=== PATIENT | male | born 1960 | race Caucasian/White ===

== ENCOUNTER 2016-10-28 16:24 | Emergency (ER) | payer MEDICARE ==
[2016-10-28] MEDS ORDERED: SODIUM CHLORIDE 0.9% 1,000 ML IV ONE (19:05)
== END 2016-10-28 21:37 | disposition home or self-care (01) ==
DX: R53.1 Weakness (principal); R26.9 Unspecified abnormalities of gait and mobility; I10 Essential (primary) hypertension; E10.42 Type 1 diabetes mellitus with diabetic polyneuropathy; Z79.4 Long term (current) use of insulin; E78.00 Pure hypercholesterolemia, unspecified; I25.2 Old myocardial infarction; I25.10 Atherosclerotic heart disease of native coronary artery without angina pectoris; Z98.61 Coronary angioplasty status; Z95.810 Presence of automatic (implantable) cardiac defibrillator; N40.0 Benign prostatic hyperplasia without lower urinary tract symptoms; K21.9 Gastro-esophageal reflux disease without esophagitis; M19.90 Unspecified osteoarthritis, unspecified site; Z79.82 Long term (current) use of aspirin; Z87.891 Personal history of nicotine dependence

== ENCOUNTER 2016-11-20 16:11 | Outpatient (CLI) | payer MEDICARE | END 2016-11-20 16:12 | disposition home or self-care (01) | DX: E10.65 Type 1 diabetes mellitus with hyperglycemia (principal) ==

== ENCOUNTER 2017-01-27 14:31 | Outpatient (CLI) | payer MEDICARE | END 2017-01-27 14:32 | disposition home or self-care (01) | DX: D69.2 Other nonthrombocytopenic purpura (principal) ==

== ENCOUNTER 2017-02-08 17:17 | Outpatient (CLI) | payer MEDICARE | END 2017-02-08 17:18 | disposition critical access hospital (66) | DX: R53.1 Weakness (principal); R26.2 Difficulty in walking, not elsewhere classified | CPT/HCPCS: A0425; A0427 ==

== ENCOUNTER 2017-02-08 17:34 | Emergency (ER) | payer MEDICARE ==
[2017-02-08] MEDS ORDERED: SODIUM CHLORIDE 0.9% 1,000 ML IV ONE (17:40)
[2017-02-08] MEDS ORDERED: ACETAMINOPHEN 650 MG SUPP PR STA (19:02)
[2017-02-08] MEDS ORDERED: oxyCODONE 5 MG TABLET PO STA (19:02)
[2017-02-08] MEDS ORDERED: ACETAMINOPHEN 325 MG TABLET PO STA (19:09)
[2017-02-08] MEDS ORDERED: ACETAMINOPHEN 325 MG TABLET PO ONE (19:11)
[2017-02-08] MEDS ORDERED: oxyCODONE 5 MG TABLET ONE (19:11)
== END 2017-02-08 19:42 | disposition home or self-care (01) ==
DX: E86.0 Dehydration (principal); E10.649 Type 1 diabetes mellitus with hypoglycemia without coma; E10.42 Type 1 diabetes mellitus with diabetic polyneuropathy; Z79.4 Long term (current) use of insulin; R51 Headache; I10 Essential (primary) hypertension; E78.00 Pure hypercholesterolemia, unspecified; I25.10 Atherosclerotic heart disease of native coronary artery without angina pectoris; I25.2 Old myocardial infarction; K21.9 Gastro-esophageal reflux disease without esophagitis; N40.0 Benign prostatic hyperplasia without lower urinary tract symptoms; M19.90 Unspecified osteoarthritis, unspecified site; Z79.82 Long term (current) use of aspirin; Z87.891 Personal history of nicotine dependence
CPT/HCPCS: 36415; 80053; 81003; 83690; 85025; 96360; 99284; A9270

== ENCOUNTER 2017-03-01 12:36 | Observation (INO) | payer MEDICARE ==
--- NOTE | 2017-03-01 14:52 | ED Physician Documentation ---
PD HPI FOCAL NEURO - Stated complaint Stated Complaint: LEFT SIDE NUMBNESS - Chief complaint Chief Complaint: Neuro - History obtained from History obtained from: Patient - History of Present Illness Timing - onset: Other (awoke with symptoms at 0800) Timing - details: Constant, Other (awoke with sx) Severity of deficit: Mild Weakness: No: Face, Arm, Hand, Leg, Foot, Right, Left Numbness: Face, Arm, Hand, Leg, Foot (chronic neuropathy in B feet), Left Associated symptoms: No: Headache, Nausea / vomiting, Seizure, Syncope, Fall, Head injury, Chest pain, Neck pain, Back pain Baseline status: positive: A&OX3, ambulatory, indep Similar symptoms before: Has not had sx before Recently seen: Not recently seen Review of Systems Ten Systems: 10 systems reviewed and negative Constitutional: denies: Fever, Chills Nose: denies: Rhinorrhea / runny nose, Congestion Respiratory: denies: Cough GI: denies: Abdominal Pain, Nausea, Vomiting Skin: denies: Rash Musculoskeletal: denies: Neck pain, Back pain Neurologic: denies: Focal weakness, Confused, Altered mental status PD PAST MEDICAL HISTORY - Past Medical History Cardiovascular: Hypertension, High cholesterol, Coronary artery disease, [place] Respiratory: Shortness of breath Neuro: Peripheral neuropathy Endocrine/Autoimmune: Type 1 diabetes, Other GI: GERD, Chronic diarrhea : Benign prostate hypertrophy, Other HEENT: None Psych: Depression, Anxiety, Panic attacks Musculoskeletal: Osteoarthritis - Past Surgical History Past Surgical History: Yes General: Colonoscopy, EGD Ortho: Carpal Tunnel surgery, Other Cardiovascular: Coronary stent, AICD, Cardiac catheterization HEENT: Other - Present Medications Home Medications: Ambulatory Orders Medication Instructions Recorded Confirmed Carvedilol 12.5 mg PO BID 09/04/14 02/08/17 Lisinopril 20 mg PO DAILY 09/04/14 03/01/17 Pantoprazole [Protonix] 40 mg PO BIDAC 09/04/14 03/01/17 Ranitidine HCl 300 mg PO QPM 09/04/14 03/01/17 Spironolactone 12.5 mg PO DAILY 09/04/14 03/01/17 Zolpidem Tartrate 10 mg PO QPM PRN 09/04/14 03/01/17 Multivitamin [Multi-Vitamin Daily] 1 each PO DAILY 09/12/14 03/01/17 oxyCODONE [Roxicodone] 5 mg PO Q4HR 02/25/15 03/01/17 Aspirin [Aspirin EC] 81 mg PO DAILY 10/07/16 03/01/17 Duloxetine HCl [Cymbalta] 60 mg PO BID 10/07/16 03/01/17 Insulin Lispro [Humalog] 1 - 11 units SQ .SLIDING SCALE 10/07/16 03/01/17 Lidocaine Patch 5% [Lidoderm Patch] 1 - 3 patch TOP DAILY PRN 10/07/16 03/01/17 Pregabalin [Lyrica] 300 mg PO BID 10/07/16 03/01/17 Alprazolam [Alprazolam] 0.25 mg PO BID PRN 03/01/17 03/01/17 Budesonide [Budesonide EC] 9 mg PO DAILY 03/01/17 03/01/17 Bupropion HCl [Bupropion Xl] 450 mg PO DAILY 03/01/17 03/01/17 Diclofenac Sodium [Voltaren] 4 gm TOP QID PRN 03/01/17 03/01/17 Hydrocortisone 10 mg PO QDBREAKFAST 03/01/17 03/01/17 Hydrocortisone [Cortef] 5 mg PO QDDINNER 03/01/17 03/01/17 Hydrocortisone [Cortef] 5 mg PO QDLUNCH 03/01/17 03/01/17 Nortriptyline HCl 20 mg PO 0800,1400 03/01/17 Simvastatin [Simvastatin] 80 mg PO QPM 03/01/17 03/01/17 Tamsulosin [Flomax] 0.4 mg PO DAILY 03/01/17 03/01/17 metFORMIN [Glucophage] 500 mg PO BIDWM 03/01/17 03/01/17 - Allergies Allergies/Adverse Reactions: Allergies Allergy/AdvReac Type Severity Reaction Status Date / Time No Known Drug Allergies Allergy Verified 03/01/17 12:40 - Social History Does the pt smoke?: No Smoking Status: Former smoker Does the pt drink ETOH?: No Does the pt have substance abuse?: No - Immunizations Immunizations are current?: Yes - POLST Patient has POLST: No PD ED PE NORMAL - Vitals Vital signs reviewed: Yes - General General: Alert and oriented X 3, No acute distress - HEENT HEENT: PERRL, Moist mucous membranes - Neck Neck: Supple, no meningeal sign - Cardiac Cardiac: RRR - Respiratory Respiratory: No respiratory distress, Clear bilaterally - Abdomen Abdomen: Soft, Non tender - Back Back: No CVA TTP, No spinal TTP - Derm Derm: Warm and dry, No rash - Extremities Extremities: No tenderness to palpate, No calf tenderness / cord - Neuro Neuro: Alert and oriented X 3, e d tech 2-12 intact, No motor deficit, Normal speech NIHSS - Time Time: 14:40 - Level of Consciousness Level of consciousness: (0) Alert, Keenly responsive LOC Questions: (0) Answers both Q's correct LOC Commands: (0) Performs both correctly - Gaze Best Gaze: (0) Normal - Visual Visual: (0) No loss - Facial Palsy Facial Palsy: (0) Normal, symmetrical movement - Motor Arms (both separate) Motor Arm (right): (0) No drift Motor Arm (left): (0) No drift - Motor Legs (both separate) Motor Leg (right): (0) No drift Motor Leg (left): (0) No drift - Limb Ataxia Limb Ataxia: (0) Absent - Sensory Sensory: (1) Conj-iv-dgquxocr loss - Best Language Best Language: (0) No aphasia - Dysarthria Dysarthria: (0) Normal - Extinction and Inattention (formally neg Extinction and inattention: (0) No abnormality - Total Score/Results Total Score/Result: 1 Results - Vitals Vitals: Vital Signs - 24 hr 03/01/17 03/01/17 03/01/17 12:37 14:40 17:06 Temperature 36.0 C L Heart Rate 90 82 80 Respiratory 18 16 16 Rate Blood Pressure 109/65 107/61 116/59 L O2 Saturation 99 97 100 Oxygen O2 Source [With Activity] Room air O2 Source Room air - EKG (time done) 1457 Rate: Rate (enter#) (78) Rhythm: NSR [place]: Normal Intervals: Normal [place] QRS: Normal Ischemia: Normal ST segments, Q waves (V2-5) Computer interpretation: Agree with computer - Labs Labs: Laboratory Tests 03/01/17 03/01/17 14:55 14:55 WBC 10.2 RBC 4.10 L Hgb 12.8 L Hct 37.7 L MCV 92.1 MCH 31.3 H MCHC 34.0 RDW 13.6 Plt Count 212 MPV 9.6 Neut # 7.5 H Lymph # 1.5 [place] # 1.0 Eos # 0.1 Baso # 0.1 Absolute Nucleated RBC 0.00 Nucleated RBCs 0.0 Sodium 134 L Potassium 5.0 Chloride 96 L Carbon Dioxide 31 Anion Gap 7.0 BUN 20 Creatinine 1.2 Estimated GFR (MDRD) 63 L Glucose 362 H Calcium 9.2 Total Bilirubin 0.4 AST 15 ALT 24 Alkaline Phosphatase 88 Total Protein 6.7 Albumin 3.9 Globulin 2.8 Albumin/Globulin Ratio 1.4 Lipase 22 - Rads (name of study) head CT Radiology: Prelim report reviewed, EMP read contemporaneously, See rad report ( Negative nonenhanced head CT. ) brain angio CT Radiology: Prelim report reviewed, EMP read contemporaneously, See rad report ( Unremarkable CT angiogram of the intracranial cerebral circulation. No aneurysm. No significant stenosis. 2. Note is made of near isolated right cerebral circulation. The right ICA terminates as the MCA, with right A1 segment aplastic. There is near origin of the right BOILER OPERATOR is continuation of the right P-comm. . The left vertebral artery is dominant forming the basilar artery. ) neck angio CT Radiology: Prelim report reviewed, EMP read contemporaneously, See rad report ( Unremarkable CT angiogram of the extracranial cerebral circulation. No significant atherosclerotic change or stenosis. No dissection. The left vertebral artery is dominant. The right vertebral artery is diffusely small in caliber. ) PD MEDICAL DECISION MAKING - ED course Complexity details: reviewed results, re-evaluated patient, considered differential, d/w patient, d/w loss prevention consultant ED course: Patient is a 56-year-old male who presents to the emergency department with left -sided numbness. This is over the face, upper extremity, chest, abdomen, left lower extremity. Concern for acute stroke. Symptoms have been ongoing for over 6 hours prior to arrival. Not a TPA candidate. NIH stroke scale of 1. Discussed the case with the hospitalist will place him observation for further evaluation. This document was made in part using voice recognition software. While efforts are made to proofread this document, sound alike and grammatical errors may occur. Departure - Departure Disposition: ED Place in Observation Clinical Impression: Paresthesia, Hyperglycemia Stroke Qualifiers: CVA mechanism: unspecified Qualified Code(s): I63.9 - Cerebral infarction, unspecified Condition: Stable Discharge Date/Time: 03/01/17 18:11
[2017-03-01 15:25] LABS: BASOPHILS # (AUTO) 0.1 10^3/uL (0.0-0.1); BASOPHILS % (AUTO) 0.6 %; EOSINOPHILS # (AUTO) 0.1 10^3/uL (0.0-0.7); EOSINOPHILS % (AUTO) 0.9 %; HCT - HEMATOCRIT 37.7 % (42.0-52.0); HGB - HEMOGLOBIN 12.8 g/dL (14.0-18.0); LYMPHOCYTES # (AUTO) 1.5 10^3/uL (1.5-3.5); LYMPHOCYTES % (AUTO) 14.6 %; MEAN CORPUSCULAR HEMOGLOBIN 31.3 pg (27.0-31.0); MEAN CORPUSCULAR VOLUME 92.1 fL (80.0-94.0); MEAN PLATELET VOLUME 9.6 fL (7.4-11.4); MONOCYTES % (AUTO) 9.8 %; NEUTROPHILS # (AUTO) 7.5 10^3/uL (1.5-6.6); NEUTROPHILS % (AUTO) 74.1 %; RED CELL DISTRIBUTION WIDTH 13.6 % (12.0-15.0); UNCORRECTED WHITE BLOOD COUNT 10.2 x10^3/uL; WHITE BLOOD COUNT 10.2 x10^3/uL (4.8-10.8)
[2017-03-01 15:36] LABS: ALBUMIN/GLOBULIN RATIO 1.4 (1.0-2.2); BILIRUBIN,TOTAL 0.4 mg/dL (0.2-1.0); CALCIUM 9.2 mg/dL (8.5-10.3); CREATININE 1.2 mg/dL (0.6-1.2); TOTAL PROTEIN 6.7 g/dL (6.7-8.2)
--- NOTE | 2017-03-01 15:42 | CT Preliminary Report ---
Exam: CT Head W/O IMPRESSION: Negative nonenhanced head CT. [facility] SITE ID: [id number]
--- NOTE | 2017-03-01 15:45 | CT Report ---
EXAM: CT HEAD EXAM DATE: 03/01/2017 03:34 PM. CLINICAL HISTORY: L sided numbness. COMPARISON: None. TECHNIQUE: Multiaxial CT images were obtained from the foramen magnum to the vertex. IV contrast: Non e. Reformats: Coronal. In accordance with CT protocol optimization, one or more of the following dose reduction techniques w ere utilized for this exam: automated exposure control, adjustment of mA and/or KV based on patient s ize, or use of iterative reconstructive technique. FINDINGS: Parenchyma: No intraparenchymal hemorrhage. No evidence of mass, midline shift, or CT findings of inf arction. Salgado-white differentiation is distinct. Extraaxial Spaces: Normal for age. No subdural or epidural collections identified. Ventricles: Normal in size and position. Sinuses: Imaged paranasal sinuses, orbits, and mastoids show no significant abnormality. Bones: No evidence of fracture or calvarial defect. Other: None. IMPRESSION: Negative nonenhanced head CT. [facility] Referring Provider Line: [phone] SITE ID: [id number]
[2017-03-01] MEDS ORDERED: ASPIRIN CHEW 81 MG TABLET PO STA (17:18)
[2017-03-01] MEDS ORDERED: ASPIRIN CHEW 81 MG TABLET ONE (17:19)
[2017-03-01] MEDS ORDERED: SODIUM CHLORIDE FLUSH 0.9% 10 ML SYRINGE IVP PRN (17:23)
[2017-03-01] MEDS ORDERED: IOPAMIDOL-300 100 ML VIAL IVP ONE (17:58)
--- NOTE | 2017-03-01 19:08 | CT Report ---
EXAM: CT ANGIOGRAM HEAD AND NECK . CT SCAN OF THE HEAD WITHOUT AND WITH CONTRAST. EXAM DATE: 03/01/2017 05:46 PM. CLINICAL HISTORY: L sided numbness. COMPARISON: CT scan of the head 03/01/2017, 10/28/2016. TECHNIQUE: Routine axial helical CTA imaging was performed from the aortic arch through the [place]. Routine axial helical CT imaging of the head was performed prior to and following intravenou s contrast administration. Iodinated IV contrast: 100 cc Isovue-300. Reconstructions: Routine multipl juan 3D MIP reconstructions. NASCET Criteria are used for stenosis measurements. In accordance with CT protocol optimization, one or more of the following dose reduction techniques w ere utilized for this exam: automated exposure control, adjustment of mA and/or KV based on patient s ize, or use of iterative reconstructive technique. FINDINGS: CT scan of the head without and with contrast: No acute intracranial abnormality. No infarct, mass, hemorrhage, or abnormal enhancement. The ventricles, sulci, and cisterns are unremarkable. The skull is intact. Opacification is seen at the left frontoethmoidal recess. The mastoid air cells are clear. CT angiogram of the extracranial cerebral circulation: Mild tortuosity of the aortic arch is seen. Note is made of conjoined origin of the right brachioceph alic and left common carotid arteries. Great vessels off the arch are patent. Right Carotid: The common carotid, internal carotid, and external carotid arteries are widely patent. No dissection, significant atherosclerotic plaque, or calcification identified. Left Carotid: The common carotid, internal carotid, and external carotid arteries are widely patent. No dissection, significant atherosclerotic plaque, or calcification identified. Vertebrals: The vertebrobasilar system shows no stenosis, dissection, aneurysm, or significant athero sclerotic disease. The left vertebral artery is dominant. The left vertebral artery forms the basilar artery. The right vertebral artery is small in caliber and terminates as the right PICA. CT angiogram Intracranial Circulation: Normal. No stenoses or aneurysms of the visualized vessels. The right A1 segment of the TRAVON is aplastic. Bilateral A2 segments are supplied from the left ICA thr ough a patent A-comm. There is near azygos appearance to the TRAVON arising from the left A2 segment. Sm all right A2 segment is seen. There is near origin of the right PICKLE SOLUTION MAKER is continuation of the right P-comm. P1 segment off the b asilar tip on the right is hypoplastic. The left P-comm is small in caliber but patent. The dural sinuses are patent and enhance normally. Other: The visualized lung apices are clear. The muscle and fascial planes of the neck are unremarkable. No lytic or blastic bony lesions are seen. No significant cervical spondylosis. Note is made of anter ior subluxation at the TMJ bilaterally. IMPRESSION: CT scan of the head without and with contrast: 1. Negative CT scan of the head without and with contrast. No acute abnormality. CT angiogram of the neck: 1. Unremarkable CT angiogram of the extracranial cerebral circulation. No significant atherosclerotic change or stenosis. No dissection. 2. The left vertebral artery is dominant. The right vertebral artery is diffusely small in caliber. CT angiogram of the head: 1. Unremarkable CT angiogram of the intracranial cerebral circulation. No aneurysm. No significant st enosis. 2. Note is made of near isolated right cerebral circulation. The right ICA terminates as the MCA, wit h right A1 segment aplastic. There is near origin of the right PICKLE SOLUTION MAKER is continuation of the right P-comm. 3. The left vertebral artery is dominant forming the basilar artery. [facility] Referring Provider Line: [phone] SITE ID: [id number]
[2017-03-01] MEDS ORDERED: SODIUM CHLORIDE 0.9% 1,000 ML IV SCH (19:30)
[2017-03-01] MEDS ORDERED: LIDOCAINE PATCH 5% TOP PRN (20:30)
[2017-03-01] MEDS ORDERED: ZOLPIDEM TARTRATE 10 MG PO PRN (20:30)
[2017-03-01] MEDS ORDERED: INSULIN LISPRO 1 UNIT SQ SCH (20:30)
[2017-03-01] MEDS ORDERED: ALPRAZOLAM 0.25 MG PO PRN (20:30)
[2017-03-01] MEDS ORDERED: ZOLPIDEM 5 MG TABLET PO PRN (20:52)
[2017-03-01] MEDS ORDERED: ALPRAZolam 0.25 MG TABLET PO PRN (20:52)
[2017-03-01] MEDS ORDERED: PREGABALIN 300 MG PO SCH (21:00)
[2017-03-01] MEDS ORDERED: NON FORMULARY MED (Duloxetine Hcl [Cymbalta] 60 MG) PO SCH (21:00)
[2017-03-01] MEDS ORDERED: HYDROCORTISONE 10 MG TABLET PO SCH (21:00)
[2017-03-01] MEDS ORDERED: NON FORMULARY MED (Simvastatin [Simvastatin] 80 MG) PO SCH (21:00)
[2017-03-01] MEDS: PANTOPRAZOLE 40 MG TABLET PO SCH (21:11)
[2017-03-01] MEDS: GABAPENTIN 300 MG CAPSULE PO SCH (21:11)
[2017-03-01] MEDS: oxyCODONE 5 MG TABLET PO SCH (21:11)
[2017-03-01] MEDS: CARVEDILOL 12.5 MG TABLET PO SCH (21:12)
[2017-03-01] MEDS: DULoxetine 30 MG CAPSULE PO SCH (21:24)
[2017-03-01] MEDS: PREGABALIN 100 MG CAPSULE PO SCH (21:25)
[2017-03-01] MEDS: SODIUM CHLORIDE FLUSH 0.9% 10 ML SYRINGE IVP SCH (21:27)
[2017-03-01] MEDS ORDERED: ATORVASTATIN 40 MG TABLET PO SCH (21:30)
[2017-03-01] MEDS ORDERED: FAMOTIDINE 20 MG TABLET PO SCH (22:30)
[2017-03-02] MEDS: oxyCODONE 5 MG TABLET PO SCH ×4 (00:37→14:07)
--- NOTE | 2017-03-02 04:00 | HISTORY & PHYSICAL EXAMINATION ---
DATE OF OBSERVATION: 03/01/2017. PRIMARY CARE PROVIDER: Dr. Jackson. CLOTH LAMINATING SUPERVISOR: Dr. Henry in [place], he last saw him about 6 weeks ago. CHIEF COMPLAINT: Woke up with numbness in his knee and wrist. HISTORY OF PRESENT ILLNESS: The patient is a 56-year-old male with a very lengthy medical history as noted below under past medical history with a corresponding lengthy list of medications also noted below. Most notable for type 1 diabetes since he was age 13 with a poorly controlled A1c of 9.8 currently, which he says is much better than usual and coronary artery disease status post AZ and ichemic cardiomyopathy status post AICD and an EF, of about 35% which he reports has been stable. Today upon awakening, he noted that he had a numbness sensation around his left knee and he also noted this in his left wrist and he felt it over a period of 4 hours. This sort of worked its way up his leg to his hip and up his arm. There was no associated discoordination, although he says he felt "unstable." There were no falls. There was no associated dysarthria, no trouble chewing or swallowing, and no prior history of the same. Of note, he is on daily aspirin at home, which he does not miss. He is also on a statin. In the emergency room, a CT showed no bleed. Of note, it is not clear what his sugars were at home today, but in the emergency room it was 362 and he denies having history of such paresthesias with his elevated glucoses. Of note, he is on medication for peripheral neuropathy. The ER spoke with [facility] who indicated no indication a thrombolytic. They recommended an MRI; however, the patient does have an AICD, so therefore, he was sent for a CTA of the neck and head. In the time frame that we have been doing the HPI on the patient, the CT angiogram results have actually come back. CT angiogram of the neck unremarkable. CT angiogram, no significant atherosclerotic change or stenosis, no dissection. Left vertebral artery is dominant and right vertebral artery diffusely small in caliber. CT angiogram of the head unremarkable. CT angiogram of the intracranial cerebral circulation, no aneurysm, no significant stenosis. Note is made of near isolated right cerebral circulation. The right ICA terminates at the MCA with a right A1 segment aplastic. There is near origin of the right CLIENT SERVICE MANAGER continuation of the right P communicating artery. The left vertebral artery is dominant forming the basilar artery. He is admitted for observation to evaluate for resolution of these paresthesias. PAST MEDICAL HISTORY 1. Diabetes mellitus type 1 since age 13 with an insulin pump. He has been seeing a Dr. Henry at [facility]. A1c as today is 9.8. 2. Coronary artery disease status post stent. His high school social studies teacher is a Dr. Reza at [facility]. 3. Ischemic cardiomyopathy with an EF of 35% and an AICD. 4. Hypertension. 5. Hyperlipidemia. 6. Obesity with a BMI of 34. 7. Osteoarthritis with chronic pain in the neck, shoulder, and hand. 8. History of depression and anxiety. 9. Panic attacks, which he denies recently. They were mostly associated with his AZ. 10. GERD. 11. BPH. 12. History of hypospadias. 13. Peripheral neuropathy. 14. A diagnosis of "new daily persistent headaches." He has established with a neurologist at [facility] in [place]. 15. Diabetic retinopathy. 16. History of microscopic colitis. The patient calls is collagenous colitis. 17. Irritable bowel syndrome. 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 SURGICAL HISTORY Includes 1. AICD implantation. 2. Trigger finger release x5. 3. Hypospadias repair. 4. Carpal tunnel release. 5. Colonoscopy and EGD. 6. Right foot tumor removal. 7. Sinus surgery x2. 8. Vasectomy. 9. Cardiac catheterization and stent placement. 10. Insulin pump. ALLERGIES: NO KNOWN DRUG ALLERGIES. MEDICATION LIST This was confirmed with the patient and by the pharmacist. 1. Flomax 0.4 mg once daily. 2. Simvastatin 80 mg once daily. 3. Metformin 500 mg p.o. b.i.d. 4. Hydrocortisone 5 mg daily at lunch and hydrocortisone 5 mg daily at dinner. 5. Diclofenac 4 grams topical 4 times daily as needed for pain. 6. The patient reports that the budesonide was stopped since he was now on hydrocortisone. That does not entirely make sense to me, but that is what the patient says. 7. Alprazolam 0.25 mg twice daily if needed for anxiety. 8. Hydrocortisone 10 mg p.o. at breakfast. 9. Multivitamin 1 each day. 10. Duloxetine 60 mg twice daily. 11. Ranitidine 300 mg once q.p.m. for GERD. 12. Lisinopril 20 mg once daily. 13. Lidocaine patch 1-3 patches topical as needed for neuropathy. 14. Zolpidem 10 mg daily at bedtime. 15. Spironolactone 12.5 mg once daily. 16. Pantoprazole 40 mg twice daily. 17. Pregabalin 300 mg twice daily. 18. Aspirin 81 mg once daily. 19. Bupropion 450 mg once daily. 20. Oxycodone 5 mg every 4 hours if needed for pain. 21. Coreg 12.5 mg twice daily. 22. The patient is no longer taking nortriptyline because he is now taking Lyrica for neuropathy. 23. He is taking Gabapentin 300 mg twice daily as well. 24. Salicylate 262 mg 3 times daily for his microscopic colitis. 25. Finally, insulin pump, which the patient manages himself. He does carb count and manages both the basal and the meal based bolus and correction. REVIEW OF SYSTEMS GENERAL: He denies any unintentional weight loss or weight gain. No fevers, night sweats, or lymphadenopathy. HEAD, EARS, EYES, NOSE AND THROAT: He does have retinopathy, wears glasses. No recent changes. No sore throat. No trouble chewing or swallowing, no dental problems. CARDIOVASCULAR: He denies any recent chest pain or pressure. No palpitations. No edema despite his EF of 35%. No orthopnea, no PND. He does sleep with the head of the bed elevated, primarily for his GERD. RESPIRATORY: No shortness of breath, cough or wheezing. GASTROINTESTINAL: He does have loose bowels daily, which are relatively well controlled with Evista for microscopic colitis. He previously was on budesonide , but he says that that was stopped in favor of hydrocortisone for Corby disease. He denies any hematochezia or black tarry stool. He does have dark stools because of the bismuth, but they are not sticky. GENITOURINARY: He has BPH and is on Flomax. He does note that he does have considerable hesitancy and that is not new. MUSCULOSKELETAL: Chronic pain with arthritis in his shoulders, neck, back, and ankles, for which he takes p.r.n. oxycodone. He denies any falls. He does not have any assistive device. SKIN: No skin changes. His insulin pump site has been without issues. He does note that he gets some "petechial-like" lesions on his forearms that his PCP worked up by checking platelet count, which is fine and he continues to get bruising. NEUROLOGIC: Peripheral neuropathy in his lower extremities. Otherwise, as per the HPI. He says that he has a very recent diagnosis of "new persistent daily headaches," which evidently is an ICD code; however, this was also already noted back in September, 6 months ago. PSYCHIATRIC: He reports his mood is controlled on his home medications. SOCIAL HISTORY: He was born and raised in the [facility], then he lived in [place], and 4 years ago moved to [place] near where his daughter lives. 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 He has 1 daughter nearby and another son lives in [place]. He is on disability since his heart attack in 2011. HABITS: He used to smoke, stopped in 2000, half pack a day for about 15 years. He has a very rare drink. No illicits. FAMILY HISTORY: Father had coronary artery disease, COPD, and prostate cancer. Evidently, also hypospadias. Father at age 86 due to COPD. His mother at age 52 due to metastatic lung cancer. He has 1 sister with diabetes and asthma and 1 sister with history of bladder cancer. PHYSICAL EXAMINATION VITAL SIGNS: In the emergency room, he was afebrile at 36.0, heart rate initially 90, when I rechecked it was 80, blood pressure 107/61-115/59, respiratory rate 16, and oxygenation 97-100% on room air. GENERAL: The patient was seen after admission to the floor following his CTA of the head and neck. He is a very pleasant, alert, oriented gentleman who has a slightly generous habitus. He is in no acute distress. Given his presenting symptoms of paresthesias in the left hand, it is noted during the exam that he uses his left upper extremity freely, especially in using his iPhone to look up information regarding his medications. HEAD, EYES, EARS, NOSE AND THROAT: He has very short, cropped hair. Head is normocephalic, atraumatic. He is wearing glasses. His extraocular movements are intact with no nystagmus. Pupils are equal. His extraocular movements are intact. Oral mucosa is moist. He has somewhat yellowed dentition. NECK: Has no appreciable lymphadenopathy. Carotids are +2. I do not appreciate any bruits. HEART: Somewhat distant S1, S2 with no appreciable extra sounds. No murmur. He does have an AICD under his skin. His periphery is warm. There is no mottling. He has no appreciable edema on his pretibial area. He does have what appears to be an old healed scar versus hemosiderin staining on his right garner. His radial pulses are +2. RESPIRATORY: Unlabored respirations lying flat. When he sits up, his breath sounds are clear to auscultation. GASTROINTESTINAL: His abdomen is generous. There is an insulin pump at the right lower abdomen. His abdomen is soft, nondistended, nontender with no appreciable organomegaly. No suprapubic tenderness. EXTREMITIES: No appreciable joint redness, pain, or pallor. Specifically, the left knee and the left wrist, with which he complained of paresthesias, were unremarkable in his hand. NEUROLOGIC: He is alert, oriented, appropriate. Cranial nerves 2-12 are intact with extraocular movements intact. Pupils are reactive. His face is symmetric. His smile is without droop. Tongue is midline. Shoulder shrug and head turning are normal. He can do rapid alternating movements with no trouble. He is articulate in speech and has a negative drift as noted initially. He is using his left hand freely with no discoordination. DIAGNOSTIC STUDIES AND IMAGING: As above, CT of the brain showed no acute findings. Findings of the CT angio of the head and neck are as detailed in the H and P. LABORATORY STUDIES: White count 10.2, hemoglobin 12.8, hematocrit 37.2, platelets 212,000. Sodium 134, potassium 5.0, chloride 96, bicarbonate 31, BUN 20, creatinine 1.2, glucose 362. An A1c measured here was 9.8. EKG showed normal sinus rhythm with normal axis with a rate of approximately 78 with evidence of an old anterior infarct. ASSESSMENT AND PLAN 1. Possible transient ischemic attack. The presentation of the paresthesia is somewhat unusual for TIA ,and with negative imaging persists. He has no functional limitation on that side. There were no other corresponding deficits. As noted, the CT imaging is unremarkable. We will consider speaking with the neurologist tomorrow. If there is any reason whatsoever that the second finding on the CT angiogram of the head with "near isolated right cerebral circulation findings" would for any reason warrant dual antiplatelet therapy since he was already on aspirin coming in,we will consider discussing this with Neurology in the morning. Again, his neurologic exam is still unremarkable. I suspect they would not have any further intervention. He will continue on his aspirin and statin and he also needs better glucose control. He will have neuro checks overnight. Possibly this could be a neuropathy from his uncontrolled blood sugars. 2. Diabetes mellitus type 1 with poor control. This appears to be chronic. With his A1c of 9.8, he says it is actually far better that it had been. He is already followed by an garment mender. He will be managing his insulin pump on his own tonight. He manages his own prandial insulin, as well as correctional insulin and does do carb counting. The patient to have close followup with his garment mender for better control. 3. Coronary artery disease. He continues on his aspirin, statin, beta-haylee, and ROBYN inhibitor. 4. Compensated systolic heart failure. He says his EF of 35% has been quite stable. He also has no symptoms of decompensation, he does not weigh himself daily, does not know what his dry weight is. He continues on his beta-haylee, spironolactone, and ROBYN inhibitor, and ideally should follow a low salt diet at home. He also will continue on his daily Lasix. 5. Microscopic colitis. He continues on his hydrocortisone, which he says has replaced Enterocort. He also uses bismuth. (I think he may have been missstating that the hydrocortisonei is for his microscopic colitis, but he clearly stated this replaced the enterocort. 6. 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 His blood pressure is fine. His sodium is fine. He will continue on his t.i.d. dosing of hydrocortisone. 7. Depression and anxiety. He will continue on his rather high dose bupropion, p.r.n. Xanax, off his rather high dose of Cymbalta. 8. Peripheral neuropathy. He is on gabapentin, which was reduced since the addition of Lyrica to 300 mg twice daily and continue Lyrica 300 mg twice daily. 9. Benign prostatic hypertrophy. He continues on his home Flomax. It sounds like he is having considerable hesitancy, so he can follow up with his urologist and have that reevaluated, possibly need an increased dose. 10. COR STATUS: HE IS A FULL COR. 11. Venous thromboembolism prophylaxis. I anticipate he will be discharged early tomorrow, so there is no indication for venous thromboembolism prophylaxis. 20:9:00 JOB #: [id number] EXT JOB #:[id number] MTDEber
[2017-03-02] MEDS: SODIUM CHLORIDE FLUSH 0.9% 10 ML SYRINGE IVP SCH (05:12)
[2017-03-02 05:40] LABS: CALCIUM 9.2 mg/dL (8.5-10.3); CREATININE 0.8 mg/dL (0.6-1.2); POTASSIUM 4.4 mmol/L (3.5-5.0)
[2017-03-02] MEDS: PANTOPRAZOLE 40 MG TABLET PO SCH (06:15)
[2017-03-02] MEDS ORDERED: MULTIVITAMIN TABLET PO SCH (08:00)
[2017-03-02] MEDS ORDERED: metFORMIN 500 MG TABLET PO SCH (08:00)
[2017-03-02] MEDS ORDERED: HYDROCORTISONE 10 MG TABLET PO SCH ×2 (08:00→12:00)
[2017-03-02] MEDS: DULoxetine 30 MG CAPSULE PO SCH (08:31)
[2017-03-02] MEDS: GABAPENTIN 300 MG CAPSULE PO SCH (08:31)
[2017-03-02] MEDS: CARVEDILOL 12.5 MG TABLET PO SCH (08:32)
[2017-03-02] MEDS: PREGABALIN 100 MG CAPSULE PO SCH (08:32)
[2017-03-02] MEDS ORDERED: TAMSULOSIN 0.4 MG CAPSULE PO SCH (09:00)
[2017-03-02] MEDS ORDERED: LISINOPRIL 20 MG TABLET PO SCH (09:00)
[2017-03-02] MEDS ORDERED: NON FORMULARY MED (Multivitamin [Multi-Vitamin Daily] 1 EACH) PO SCH (09:00)
[2017-03-02] MEDS ORDERED: ASPIRIN EC 81 MG TABLET PO SCH (09:00)
[2017-03-02] MEDS ORDERED: ENOXAPARIN 40 MG/0.4 ML SYRINGE SUBQ SCH (09:00)
[2017-03-02] MEDS ORDERED: POLYETHYLENE GLYCOL 3350 17 GM PACKET PO SCH (09:00)
[2017-03-02] MEDS ORDERED: buPROPion XL 150 MG TABLET PO SCH (09:00)
[2017-03-02] MEDS ORDERED: SPIRONOLACTONE 25 MG TABLET PO SCH (09:00)
--- NOTE | 2017-03-02 12:17 | PROVIDER PROGRESS NOTE ---
Assessment/Plan - Problem List (1) Paresthesia Assessment/Plan: Unclear etiology Atypical presentation for TIA/CVA as the area of effect is limited to the left anterior thigh and knee and the left forarm and elbow Differential include inflammatory response in leading to nerve conduction deficits. Unable to perform MRI due to AICD Plan ECHO with bubble study. 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 I do not suspect this as the source for his presenting Sx. (2) Type 1 diabetes mellitus Qualifiers: Diabetes mellitus complication status: without complication Qualified Code( s): E10.9 - Type 1 diabetes mellitus without complications Assessment/Plan: Poorly controlled PT with neuropathy secondary to DM Plan Improved control through life style changes Wt loss (3) CAD (coronary artery disease) Qualifiers: Coronary Disease-Associated Artery/Lesion type: squaxin artery [place] vs. transplanted heart: squaxin heart Associated angina: without angina Qualified Code(s): I25.10 - Atherosclerotic heart disease of squaxin coronary artery without angina pectoris Assessment/Plan: PT will maintain ASA, BB, ACEi and Statin. Encourage lifestyle modification and risk factor reduction. Wt loss with a goal of BMI <25. Better control of DM (5) Cardiomyopathy Qualifiers: Cardiomyopathy type: ischemic Qualified Code(s): I25.5 - Ischemic cardiomyopathy Assessment/Plan: Initial LVEF 35% LVEF on last echo 09/2016 of 45-50% Pt is on ACEi and BB at baseline AICD was placed in 2011 No evidence of CHF exacerbation Plan Continue home medications Rechecking ECHO today due to his parasthesia on presentation for admission (6) Corby disease Assessment/Plan: Controlled on TID hydrocortisone - Current Meds Current Meds: Current Medications Generic Name Dose Route Start Last Admin Trade Name Freq PRN Reason Stop Dose Admin Aspirin 81 mg 03/02/17 09:00 03/02/17 08:31 Ecotrin PO 81 mg DAILY ASHANTI Administration Atorvastatin Calcium 40 mg 03/01/17 21:30 03/01/17 21:25 Lipitor PO 40 mg QPM ASHANTI Administration Bupropion HCl 450 mg 03/02/17 09:00 03/02/17 08:32 Wellbutrin Xl PO 450 mg DAILY ASHANTI Administration Carvedilol 12.5 mg 03/01/17 21:00 03/02/17 08:32 Coreg PO 12.5 mg BID ASHANTI Administration Duloxetine HCl 60 mg 03/01/17 21:00 03/02/17 08:31 Cymbalta PO 60 mg BID ASHANTI Administration Enoxaparin Sodium 40 mg 03/02/17 09:00 03/02/17 08:32 Lovenox SUBQ Not Given DAILY ASHANTI Famotidine 40 mg 03/01/17 22:30 03/01/17 22:58 Pepcid PO 40 mg QPM ASHANTI Administration Gabapentin 300 mg 03/01/17 21:00 03/02/17 08:31 Neurontin PO 300 mg BID ASHANTI Administration Hydrocortisone 5 mg 03/01/17 21:00 03/01/17 21:11 Cortef PO 5 mg QDDINNER ASHANTI Administration Hydrocortisone 10 mg 03/02/17 08:00 03/02/17 07:53 Cortef PO 10 mg QDBREAKFAST ASHANTI Administration Lisinopril 20 mg 03/02/17 09:00 03/02/17 08:32 Zestril PO 20 mg DAILY ASHANTI Administration Metformin HCl 500 mg 03/02/17 08:00 03/02/17 07:54 Glucophage PO Not Given BIDWM [facility] Multivitamins 1 tab 03/02/17 08:00 03/02/17 07:53 Theragran PO 1 tab DAILYWM ASHANTI Administration Oxycodone HCl 5 mg 03/01/17 21:00 03/02/17 08:32 Roxicodone PO 5 mg Q4HR ASHANTI Administration Pantoprazole Sodium 40 mg 03/01/17 21:00 03/02/17 06:15 Protonix PO 40 mg BIDAC ASHANTI Administration Polyethylene Glycol 17 gm 03/02/17 09:00 03/02/17 08:32 Miralax PO Not Given DAILY ASHANTI Pregabalin 300 mg 03/01/17 21:00 03/02/17 08:32 Lyrica PO 300 mg BID ASHANTI Administration Sodium Chloride 10 ml 03/01/17 22:00 03/02/17 05:12 Normal Saline Flush 0.9% IVP Not Given Q8HR ASHANTI Spironolactone 12.5 mg 03/02/17 09:00 03/02/17 08:31 Aldactone PO 12.5 mg DAILY ASHANTI Administration - Lab Result Fish Bone Diagrams: 03/01/17 14:55 03/02/17 05:04 - EKG Results EKG Comparison: Unchanged from prior EKG - Diagnostic Imaging Results Diagnostic Imaging Results: positive: Prelim report reviewed (No acute intracranial findings on CT or CTA) - Additional Planning My Orders: My Active Orders 03/02/17 Echo Complete w/Bubble Study [ECHO] Routine Plan Discussed with:: Patient Time Spent: 15-30 minutes Subjective - Subjective Patient Reports: Other (PT noted the numbness and tingling return in his hand and leg today. He can not recall an exacerbating or relieving source. He has no change in functionality. HE has no other complaints) Objective Vital Signs: Vital Signs - 24 hr 03/01/17 03/01/17 03/02/17 20:55 23:31 05:12 Temperature 36.7 C 36.6 C 36.6 C Heart Rate [ 78 75 68 Brachial] Respiratory 16 17 17 Rate Blood Pressure 127/66 126/76 112/71 [Left Brachial artery] O2 Saturation 95 95 94 03/02/17 07:24 Temperature 36.6 C Heart Rate [ 84 Brachial] Respiratory Rate Blood Pressure 136/75 H [Left Brachial artery] O2 Saturation 95 Oxygen O2 Source Room air I&O (Last 24 Hrs): Intake and Output Totals x24h 02/28/17 03/01/17 03/02/17 23:59 23:59 23:59 Intake Total 620 1530 Balance 620 1530 General: Alert, Oriented x3, No acute distress HEENT: PERRLA, EOMI Neck: No JVD Neuro: Alert, Non Focal, CN 2-12 Grossly Intact, Oriented Times 3 Cardiovascular: Regular rate, No murmurs Respiratory: No respiratory distress, Breath sounds nml - Results Results: Laboratory Results WBC 10.2 x10^3/uL (4.8-10.8) 03/01/17 14:55 RBC 4.10 10^6/uL (4.70-6.10) L 03/01/17 14:55 Hgb 12.8 g/dL (14.0-18.0) L 03/01/17 14:55 Hct 37.7 % (42.0-52.0) L 03/01/17 14:55 MCV 92.1 fL (80.0-94.0) 03/01/17 14:55 MCH 31.3 pg (27.0-31.0) H 03/01/17 14:55 MCHC 34.0 g/dL (32.0-36.0) 03/01/17 14:55 RDW 13.6 % (12.0-15.0) 03/01/17 14:55 Plt Count 212 10^3/uL (130-450) 03/01/17 14:55 MPV 9.6 fL (7.4-11.4) 03/01/17 14:55 Neut # 7.5 10^3/uL (1.5-6.6) H 03/01/17 14:55 Lymph # 1.5 10^3/uL (1.5-3.5) 03/01/17 14:55 Perry # 1.0 10^3/uL (0.0-1.0) 03/01/17 14:55 Eos # 0.1 10^3/uL (0.0-0.7) 03/01/17 14:55 Baso # 0.1 10^3/uL (0.0-0.1) 03/01/17 14:55 Absolute Nucleated RBC 0.00 x10^3/uL 03/01/17 14:55 Nucleated RBCs 0.0 /100WBC 03/01/17 14:55 Sodium 136 mmol/L (135-145) 03/02/17 05:04 Potassium 4.4 mmol/L (3.5-5.0) 03/02/17 05:04 Chloride 99 mmol/L (101-111) L 03/02/17 05:04 Carbon Dioxide 31 mmol/L (21-32) 03/02/17 05:04 Anion Gap 6.0 (6-13) 03/02/17 05:04 BUN 17 mg/dL (6-20) 03/02/17 05:04 Creatinine 0.8 mg/dL (0.6-1.2) 03/02/17 05:04 Estimated GFR (MDRD) 100 (>89) 03/02/17 05:04 Glucose 268 mg/dL (70-100) H 03/02/17 05:04 Calcium 9.2 mg/dL (8.5-10.3) 03/02/17 05:04 Total Bilirubin 0.4 mg/dL (0.2-1.0) 03/01/17 14:55 AST 15 IU/L (10-42) 03/01/17 14:55 ALT 24 IU/L (10-60) 03/01/17 14:55 Alkaline Phosphatase 88 IU/L (42-121) 03/01/17 14:55 Total Protein 6.7 g/dL (6.7-8.2) 03/01/17 14:55 Albumin 3.9 g/dL (3.2-5.5) 03/01/17 14:55 Globulin 2.8 g/dL (2.1-4.2) 03/01/17 14:55 Albumin/Globulin Ratio 1.4 (1.0-2.2) 03/01/17 14:55 Lipase 22 U/L (22-51) 03/01/17 14:55 - Procedures Procedures: Procedures EXPLOR TEND SHEATH-HAND (09/13/14)
--- NOTE | 2017-03-02 15:30 | Discharge Plan ---
Discharge Plan Disposition: 01 Home, Self Care Condition: Stable Prescriptions: Atorvastatin [Lipitor] 80 mg PO QPM #90 tablet Diet: Low Sodium Activity Restrictions: No Restrictions Shower Restrictions: No Driving Restrictions: No Weight Bearing: Full Weight Additional Instructions or Follow Up instructions: Please talk to your PCP about a consult to neurology. No Smoking: If you smoke, Please STOP! Call for help. Follow-up with: Amadou Jackson MD [Primary Care Provider] -
[2017-03-02 16:36] VITALS: BP 101/60
--- NOTE | 2017-03-02 18:00 | DISCHARGE SUMMARY ---
DATE OF ADMISSION: 03/01/2017 DATE OF DISCHARGE: 03/02/2017 DISCHARGING PHYSICIAN: Austen Lora PA-C. PRIMARY CARE PROVIDER: Dr. Jackson. ADMITTING DIAGNOSES: 1. Possible transient ischemic attack. 2. Diabetes mellitus type 1 with poor control. 3. Coronary artery disease. 4. Compensated systolic heart failure. DISCHARGE DIAGNOSES: 1. Paraesthesia, a unclear etiology, be atypical presentation for transient ischemic attack or cerebr ovascular accident. See no acute findings on head CT or CTA of head and neck. The echo with bubble st udy unchanged compared to previous with a left ventricular ejection fraction 45% to 50%. 2. Diabetes mellitus type 1 - poorly controlled with associated diabetic neuropathy. 3. Coronary artery disease - stable. 4. Cardiomyopathy with left ventricular ejection fraction of 45-50%. 5. Automatic implantable cardiac defibrillator in situ. 6. Corby disease. DISCHARGE MEDICATIONS: 1. Gabapentin 300 mg p.o. b.i.d. 2. Hydrocortisone 10 mg at breakfast, 5 mg at lunch and dinner. 3. Lisinopril 20 mg daily. 4. Metformin 500 mg b.i.d.. 5. Oxycodone 5 mg every 4 hours as needed for pain. 6. Lyrica 300 mg b.i.d.. 7. Spironolactone 12.5 mg daily. 8. Carvedilol 12.5 mg p.o. b.i.d.. 9. Wellbutrin 450 mg p.o. daily. 10. Atorvastatin 80 mg daily. 11. Aspirin 81 mg daily. 12. Cymbalta 60 mg daily. BRIEF HISTORY OF PRESENT ILLNESS: For specifics please see H and P on admission. This is a gentleman who presented for evaluation of numbness in his knee and wrist. He woke up with numbness and felt shalini t it had slowly increased. He was unaware of any exacerbating or relieving factors. In the emergency room a CT showed no evidence of bleeding. ER physician spoke with Neurology at [facility] who did not indicate a need for thrombolytic therapy. MRI was recommended, but the patient had an AI CD, therefore, this was not performed. He did have a CT of his head and neck. COURSE IN CENTER: The patient was admitted to the hospital for continued observation. Official interp retation from CT angiogram was obtained which again showed no indication for thrombolytic therapy. Th e patient was placed on his home medications with the exception of the statin which was changed to Li pitor. He did well throughout the stay. He did have another episode of numbness in his anterior proxi mal to mid left thigh and dorsal left forearm. He had no other acute neural focal findings during his hospitalization. Had no significant findings on exam, even with the numbness present. The patient francis d known history of cardiomyopathy with prior echocardiogram showed a left ventricular ejection fracti on of 35%. A repeat study was performed including a bubble study. The results showed an ejection frac tion of 45-50% with no PFO present. We were unable to perform an MRI due to AICD in situ. Newer [facility] es are able to undergo MRI; however, we are uncertain of the patient's ability as his was 5 years old . The patient was discharged home in a stable condition. At time of discharge, he was not experiencing any numbness in his leg or his arm. IMAGIN. CT angiogram of the head unremarkable. CT angiogram of the intracranial cerebral circulation, no a neurysm, no significant stenosis. 2. Note is made of near isolated right cerebral circulation, the right ICA terminates at the MCA, wit h right A1 segment aplastic. There is near origin of the right SEGMENT ASSEMBLER and continuation of the righ t posterior common artery. 3. CT angiogram of the neck unremarkable CTA of the extracranial cerebral circulation. No significant atherosclerotic changes or stenosis, no dissection. CT scan of head without and with contrast negati ve CT scan of the head, no acute abnormalities. 4. Echocardiogram, left ventricular ejection fraction 45% to 50%. Wall motion abnormalities consisten t with prior infarction were present. Bubble study was negative. LABORATORY DATA: Lab from a.m. showed sodium 136, potassium 4.4, chloride 99, carbon dioxide 31, anio n gap 6.0, BUN 17, creatinine 0.8. Glucose elevated at 268. CBC on admission, white blood cell 10.2, hemoglobin 12.8, hematocrit 37.7, platelet 212. PHYSICAL EXAMINATION ON DISCHARGE: GENERAL: A well-developed, well-nourished, no acute distress. HEENT: Normocephalic, atraumatic. Pupils equal, round, reactive to light. EOMs intact. NECK: Supple. No JVD. CHEST: Clear to auscultation. CARDIOVASCULAR: Regular rate and rhythm. ABDOMEN: Benign. EXTREMITIES: Full range of motion. No gross abnormalities. Strength equal bilaterally. Radial pulses 2+ bilaterally. Pedal pulses 2+ bilaterally. NEUROLOGIC: Cranial nerves 2-12 grossly intact. No acute neural focal deficits appreciated on exam. DIETARY RECOMMENDATIONS: Consistent carbohydrate diet with fat and cholesterol modification. ACTIVITY: Encourage activity daily. TIME SPENT ON DISCHARGE: Greater than 30 minutes. Thank you for the opportunity to participate in the care of the patient. JOB #: [id number] EXT JOB #:[id number]
[2017-03-03] MEDS ORDERED: TAMSULOSIN 0.4 MG CAPSULE PO SCH (14:00)
== END 2017-03-02 16:20 | disposition home or self-care (01) ==
LOC: ED 12:36 → MS 17:23
PROVIDERS: ADMIT Nurse Practitioner; ATTEND Physician Assistant
DX: R20.2 Paresthesia of skin (principal); E10.65 Type 1 diabetes mellitus with hyperglycemia; E10.42 Type 1 diabetes mellitus with diabetic polyneuropathy; I25.10 Atherosclerotic heart disease of native coronary artery without angina pectoris; I25.5 Ischemic cardiomyopathy; Z95.810 Presence of automatic (implantable) cardiac defibrillator; E27.1 Primary adrenocortical insufficiency; I11.0 Hypertensive heart disease with heart failure; I50.20 Unspecified systolic (congestive) heart failure; E78.5 Hyperlipidemia, unspecified; E66.9 Obesity, unspecified; Z68.34 Body mass index [BMI] 34.0-34.9, adult; G89.29 Other chronic pain; M19.90 Unspecified osteoarthritis, unspecified site; F32.9 Major depressive disorder, single episode, unspecified; F41.9 Anxiety disorder, unspecified; K21.9 Gastro-esophageal reflux disease without esophagitis; N40.1 Benign prostatic hyperplasia with lower urinary tract symptoms; R39.11 Hesitancy of micturition; K58.9 Irritable bowel syndrome, unspecified; Z95.5 Presence of coronary angioplasty implant and graft; Z79.4 Long term (current) use of insulin; Z79.84 Long term (current) use of oral hypoglycemic drugs; Z79.51 Long term (current) use of inhaled steroids; Z79.82 Long term (current) use of aspirin; Z79.891 Long term (current) use of opiate analgesic; Z79.899 Other long term (current) drug therapy; Z96.41 Presence of insulin pump (external) (internal)
CPT/HCPCS: 36415; 70450; 70496; 70498; 80048; 80053; 83690; 85025; 93005; 93010; 93306; 96360; 96361; 99217; 99218; 99284; 99285; A9270; Q9967

== ENCOUNTER 2017-03-07 14:14 | Outpatient (CLI) | payer MEDICARE | END 2017-03-07 14:15 | disposition critical access hospital (66) | LOC: EMS 14:14 | PROVIDERS: ATTEND Surgery | DX: R06.02 Shortness of breath (principal) | CPT/HCPCS: A0425; A0429 ==

== ENCOUNTER 2017-03-07 14:27 | Emergency (ER) | payer MEDICARE ==
[2017-03-07] MEDS ORDERED: IPRATROPIUM/ALBUTEROL 3 ML NEB INH STA (14:37)
[2017-03-07] MEDS ORDERED: BUDESONIDE 0.5 MG/2 ML NEB INH STA (14:37)
--- NOTE | 2017-03-07 14:41 | ED Physician Documentation ---
PD HPI DYSPNEA - Stated complaint Stated Complaint: DYSPNEA - Chief complaint Chief Complaint: Resp - History obtained from History obtained from: Patient - History of Present Illness Timing - onset: Other (This is a 56-year-old gentleman with history of diabetes since age 13, and coronary disease with ischemic cardiomyopathy and AICD in place, he also has a relatively recent diagnosis of Corby's disease and COPD. He develops some chest congestion about 5 days ago which over the last 2-3 days he developed more of a cough productive of clear sputum and some shortness of breath without any chest pain or pedal edema. He saw his physician yesterday and was noted to have a pulse oximetry of 94% which improved a little bit after nebulizer and office and was prescribed Pro-air and doxycycline. Today he feels a little worse with some or shortness of breath and some dizziness when he is exerting himself. He doesn't feel too bad overall though and says he only came by ambulance because his physician advised not to drive and he did not have alternate transportation.) Review of Systems Ten Systems: 10 systems reviewed and negative Constitutional: denies: Fever, Chills Nose: denies: Rhinorrhea / runny nose, Congestion Cardiac: denies: Chest pain / pressure, Palpitations, Pedal edema, Calf pain Respiratory: reports: Dyspnea, Cough, Wheezing. denies: Hemoptysis GI: denies: Abdominal Pain PD PAST MEDICAL HISTORY - Past Medical History Cardiovascular: Hypertension, High cholesterol, Coronary artery disease, [place] Respiratory: Shortness of breath Neuro: Peripheral neuropathy Endocrine/Autoimmune: Type 1 diabetes, Other GI: GERD, Chronic diarrhea : Benign prostate hypertrophy, Other HEENT: None Psych: Depression, Anxiety, Panic attacks Musculoskeletal: Osteoarthritis Derm: None - Past Surgical History Past Surgical History: Yes General: Colonoscopy, EGD Ortho: Carpal Tunnel surgery, Other Cardiovascular: Coronary stent, AICD, Cardiac catheterization HEENT: Other - Present Medications Home Medications: Ambulatory Orders Medication Instructions Recorded Confirmed Carvedilol 12.5 mg PO BID 09/04/14 03/02/17 Lisinopril 20 mg PO DAILY 09/04/14 03/01/17 Pantoprazole [Protonix] 40 mg PO BIDAC 09/04/14 03/01/17 Ranitidine HCl 300 mg PO QPM 09/04/14 03/01/17 Spironolactone 12.5 mg PO DAILY 09/04/14 03/01/17 Zolpidem Tartrate 10 mg PO QPM PRN 09/04/14 03/01/17 Multivitamin [Multi-Vitamin Daily] 1 each PO DAILY 09/12/14 03/01/17 oxyCODONE [Roxicodone] 5 mg PO Q4HR PRN 02/25/15 03/01/17 Aspirin [Aspirin EC] 81 mg PO DAILY 10/07/16 03/01/17 Duloxetine HCl [Cymbalta] 60 mg PO BID 10/07/16 03/01/17 Insulin Lispro [Humalog] 1 - 11 units SQ .SLIDING SCALE 10/07/16 03/01/17 Lidocaine Patch 5% [Lidoderm Patch] 1 - 3 patch TOP DAILY PRN 10/07/16 03/01/17 Pregabalin [Lyrica] 300 mg PO BID 10/07/16 03/01/17 Alprazolam 0.25 mg PO BID PRN 03/01/17 03/01/17 Bupropion HCl [Bupropion Xl] 450 mg PO DAILY 03/01/17 03/01/17 Diclofenac Sodium [Voltaren] 4 gm TOP QID PRN 03/01/17 03/01/17 Hydrocortisone 5 mg PO QDBREAKFAST 03/01/17 03/02/17 Hydrocortisone [Cortef] 5 mg PO QDDINNER 03/01/17 03/01/17 Nortriptyline HCl 20 mg PO 0800,1700 03/01/17 03/02/17 Tamsulosin [Flomax] 0.4 mg PO DAILY@1500 03/01/17 03/02/17 metFORMIN [Glucophage] 500 mg PO BIDWM 03/01/17 03/01/17 Atorvastatin [Lipitor] 80 mg PO QPM #90 tablet 03/02/17 Gabapentin [Neurontin] 300 mg PO BID capsule 03/02/17 Hydrocortisone [Cortef] 5 mg PO QDLUNCH tablet 03/02/17 Beclomethasone 80 Mcg [Qvar 80] 2 puffs INH BID #1 inhaler 03/07/17 - Allergies Allergies/Adverse Reactions: Allergies Allergy/AdvReac Type Severity Reaction Status Date / Time No Known Drug Allergies Allergy Verified 03/01/17 12:40 - Social History Does the pt smoke?: No Smoking Status: Former smoker Does the pt drink ETOH?: No Does the pt have substance abuse?: No - Immunizations Immunizations are current?: Yes - POLST Patient has POLST: No PD ED PE NORMAL - Vitals Vital signs reviewed: Yes - General General: Alert and oriented X 3, No acute distress - HEENT HEENT: PERRL, EOMI - Neck Neck: Supple, no meningeal sign, No bony TTP - Cardiac Cardiac: RRR, No murmur - Respiratory Respiratory: No respiratory distress, Other (Tight and wheezy throughout) - Abdomen Abdomen: Soft, Non tender - Extremities Extremities: No edema, No calf tenderness / cord - Neuro Neuro: Alert and oriented X 3, Normal speech - Psych Psych: Normal mood, Normal affect Results - Vitals Vitals: Vital Signs - 24 hr 03/07/17 03/07/17 03/07/17 14:32 15:05 15:36 Temperature 36.4 C L 36.6 C Heart Rate 88 89 88 Respiratory 16 17 12 Rate Blood Pressure 109/56 L 107/65 O2 Saturation 93 93 Oxygen O2 Source [] Room air O2 Source Room air - EKG (time done) 1458 Rate: Rate (enter#) (86) Rhythm: NSR [place]: Normal Intervals: Normal [place] QRS: Normal Ischemia: Q waves (anterior) Compare to prior EKG: Unchanged from prior EKG (no change from 03/07/17) Computer interpretation: Agree with computer - Labs Labs: Laboratory Tests 03/07/17 03/07/17 03/07/17 14:35 14:35 14:35 WBC 8.8 RBC 4.14 L Hgb 13.2 L Hct 37.6 L MCV 90.8 MCH 31.8 H MCHC 35.0 RDW 13.5 Plt Count 222 MPV 9.4 Neut # 6.1 Lymph # 1.6 [place] # 0.8 Eos # 0.2 Baso # 0.1 Absolute Nucleated RBC 0.00 Nucleated RBCs 0.0 Sodium 139 Potassium 4.3 Chloride 100 L Carbon Dioxide 29 Anion Gap 10.0 BUN 22 H Creatinine 1.1 Estimated GFR (MDRD) 69 L Glucose 165 H Calcium 9.9 Total Bilirubin 0.4 AST 19 ALT 24 Alkaline Phosphatase 73 Troponin I < 0.04 B-Natriuretic Peptide Total Protein 7.1 Albumin 4.1 Globulin 3.0 Albumin/Globulin Ratio 1.4 Lipase 11 L 03/07/17 14:35 WBC RBC Hgb Hct MCV MCH MCHC RDW Plt Count MPV Neut # Lymph # [place] # Eos # Baso # Absolute Nucleated RBC Nucleated RBCs Sodium Potassium Chloride Carbon Dioxide Anion Gap BUN Creatinine Estimated GFR (MDRD) Glucose Calcium Total Bilirubin AST ALT Alkaline Phosphatase Troponin I B-Natriuretic Peptide 16 Total Protein Albumin Globulin Albumin/Globulin Ratio Lipase - Rads (name of study) 2v chest Radiology: EMP read contemporaneously (LLL atalectasis) PD MEDICAL DECISION MAKING - ED course ED course: He presents with apparent COPD exacerbation/bronchitis and is already on inhaled beta-agonist and oral antibiotics with appropriate coverage. He still wheezing though. We discussed potentially systemic steroid, but he has pretty brittle diabetes. He is administered duo neb here as well as inhaled Pulmicort. His labs are reassuring and CXR without infiltrate or fluid overload. Feeling better after nebs here. Departure - Departure Disposition: Home, Self Care Clinical Impression: Bronchitis Type 1 diabetes mellitus Qualifiers: Diabetes mellitus complication status: without complication Qualified Code(s): E10.9 - Type 1 diabetes mellitus without complications Dyspnea Qualifiers: Dyspnea type: unspecified Qualified Code(s): R06.00 - Dyspnea, unspecified Condition: Good Record reviewed to determine appropriate education?: Yes Instructions: ED Bronchitis Asthmatic Prescriptions: Beclomethasone 80 Mcg [Qvar 80] 2 puffs INH BID #1 inhaler Comments: Continue the pro-air and doxycycline that Dr Peng gave you. Add the inhaled steroid twice a day (NOT NEEDED- USE THE PRO AIR NEEDED). It may still increase your blood sugars a bit, keep an eye on them. Return if worse. Report to you doctor in 1-2 days. Discharge Date/Time: 03/07/17 15:38
[2017-03-07 14:50] LABS: BASOPHILS # (AUTO) 0.1 10^3/uL (0.0-0.1); BASOPHILS % (AUTO) 0.9 %; EOSINOPHILS # (AUTO) 0.2 10^3/uL (0.0-0.7); EOSINOPHILS % (AUTO) 2.8 %; HCT - HEMATOCRIT 37.6 % (42.0-52.0); HGB - HEMOGLOBIN 13.2 g/dL (14.0-18.0); LYMPHOCYTES # (AUTO) 1.6 10^3/uL (1.5-3.5); LYMPHOCYTES % (AUTO) 18.7 %; MEAN CORPUSCULAR HEMOGLOBIN 31.8 pg (27.0-31.0); MEAN CORPUSCULAR VOLUME 90.8 fL (80.0-94.0); MEAN PLATELET VOLUME 9.4 fL (7.4-11.4); MONOCYTES # (AUTO) 0.8 10^3/uL (0.0-1.0); MONOCYTES % (AUTO) 8.7 %; NEUTROPHILS # (AUTO) 6.1 10^3/uL (1.5-6.6); NEUTROPHILS % (AUTO) 68.9 %; RED BLOOD COUNT 4.14 10^6/uL (4.70-6.10); RED CELL DISTRIBUTION WIDTH 13.5 % (12.0-15.0); UNCORRECTED WHITE BLOOD COUNT 8.8 x10^3/uL; WHITE BLOOD COUNT 8.8 x10^3/uL (4.8-10.8)
[2017-03-07 15:01] LABS: ALBUMIN/GLOBULIN RATIO 1.4 (1.0-2.2); BILIRUBIN,TOTAL 0.4 mg/dL (0.2-1.0); CALCIUM 9.9 mg/dL (8.5-10.3); CREATININE 1.1 mg/dL (0.6-1.2); POTASSIUM 4.3 mmol/L (3.5-5.0); TOTAL PROTEIN 7.1 g/dL (6.7-8.2)
--- NOTE | 2017-03-07 15:07 | XRAY Preliminary Report ---
Exam: XR Chest 2 View PA/LAT IMPRESSION: Left lower lobe atelectasis. [facility] S[facility] [id number]
--- NOTE | 2017-03-07 15:10 | XRAY Report ---
EXAM: CHEST RADIOGRAPHY EXAM DATE: 03/07/2017 02:58 PM. CLINICAL HISTORY: Dyspnea and cough. COMPARISON: 10/07/2016. TECHNIQUE: 2 views. FINDINGS: Lungs/Pleura: There are linear opacities in the left lower lobe which appear similar. Developing cons olidative process. Negative for pleural effusion and pneumothorax. Mediastinum: Heart size is normal. Pacemaker defibrillator lead overlies right ventricle. Other: None. IMPRESSION: Left lower lobe atelectasis. [facility] Referring Provider Line: [phone] SITE ID: [id number]
[2017-03-07 15:38] VITALS: BP 107/65
== END 2017-03-07 15:38 | disposition home or self-care (01) ==
LOC: EDUNIT# → ED 14:27
DX: J44.0 Chronic obstructive pulmonary disease with (acute) lower respiratory infection (principal); J20.9 Acute bronchitis, unspecified; J44.1 Chronic obstructive pulmonary disease with (acute) exacerbation; E10.42 Type 1 diabetes mellitus with diabetic polyneuropathy; Z79.4 Long term (current) use of insulin; E27.1 Primary adrenocortical insufficiency; I10 Essential (primary) hypertension; I25.5 Ischemic cardiomyopathy; I25.10 Atherosclerotic heart disease of native coronary artery without angina pectoris; Z95.5 Presence of coronary angioplasty implant and graft; I25.2 Old myocardial infarction; Z95.810 Presence of automatic (implantable) cardiac defibrillator; Z87.891 Personal history of nicotine dependence
CPT/HCPCS: 36415; 71020; 80053; 83690; 83880; 84484; 85025; 93005; 93010; 94640; 99283; 99284; J7620; J7626

== ENCOUNTER 2017-03-10 22:55 | Emergency (ER) | payer MEDICARE ==
[2017-03-10 23:36] LABS: BASOPHILS # (AUTO) 0.1 10^3/uL (0.0-0.1); BASOPHILS % (AUTO) 0.6 %; EOSINOPHILS # (AUTO) 0.2 10^3/uL (0.0-0.7); EOSINOPHILS % (AUTO) 1.8 %; HGB - HEMOGLOBIN 12.5 g/dL (14.0-18.0); LYMPHOCYTES # (AUTO) 1.8 10^3/uL (1.5-3.5); LYMPHOCYTES % (AUTO) 15.5 %; MEAN CORPUSCULAR HEMOGLOBIN 30.5 pg (27.0-31.0); MEAN CORPUSCULAR HGB CONC 32.9 g/dL (32.0-36.0); MEAN CORPUSCULAR VOLUME 92.8 fL (80.0-94.0); MEAN PLATELET VOLUME 9.6 fL (7.4-11.4); MONOCYTES # (AUTO) 1.2 10^3/uL (0.0-1.0); MONOCYTES % (AUTO) 10.1 %; NEUTROPHILS # (AUTO) 8.5 10^3/uL (1.5-6.6); RED BLOOD COUNT 4.09 10^6/uL (4.70-6.10); RED CELL DISTRIBUTION WIDTH 13.7 % (12.0-15.0); UNCORRECTED WHITE BLOOD COUNT 11.8 x10^3/uL; WHITE BLOOD COUNT 11.8 x10^3/uL (4.8-10.8)
[2017-03-10 23:46] LABS: ALBUMIN/GLOBULIN RATIO 1.3 (1.0-2.2); BILIRUBIN,TOTAL 0.6 mg/dL (0.2-1.0); CALCIUM 8.9 mg/dL (8.5-10.3); CREATININE 2.1 mg/dL (0.6-1.2); POTASSIUM 4.5 mmol/L (3.5-5.0); TOTAL PROTEIN 6.8 g/dL (6.7-8.2)
--- NOTE | 2017-03-11 00:15 | ED Physician Documentation ---
History of Present Illness - Stated complaint Stated Complaint: LOW BLOOD SUGAR - Chief complaint Chief Complaint: General - History obtained from History obtained from: Patient, Family - History of Present Illness Timing: Today Pain level max: 0 Pain level now: 0 Improved by: no ameliorating factors Worsened by: no exacerbating factors - Additonal information Additional information: patients son came home this evening to find that the patient was groggy, and had difficulty focusing his thoughts. Both patient and his son recognized these symptoms as consistent with previous episodes of hypo glycemia. patient is a diabetic, and uses a pump for sugar control. Review of Systems Constitutional: reports: Sweats. denies: Fever, Chills Eyes: denies: Loss of vision, Decreased vision Cardiac: reports: Reviewed and negative Respiratory: reports: Reviewed and negative GI: reports: Diarrhea. denies: Abdominal Pain, Nausea, Vomiting : denies: Dysuria, Frequency PD PAST MEDICAL HISTORY - Past Medical History Cardiovascular: Hypertension, High cholesterol, Coronary artery disease, [place] Respiratory: Shortness of breath Neuro: Peripheral neuropathy Endocrine/Autoimmune: Type 1 diabetes, Other GI: GERD, Chronic diarrhea : Benign prostate hypertrophy, Other HEENT: None Psych: Depression, Anxiety, Panic attacks Musculoskeletal: Osteoarthritis Derm: None - Past Surgical History Past Surgical History: Yes General: Colonoscopy, EGD Ortho: Carpal Tunnel surgery, Other Cardiovascular: Coronary stent, AICD, Cardiac catheterization HEENT: Other - Present Medications Home Medications: Ambulatory Orders Medication Instructions Recorded Confirmed Carvedilol 12.5 mg PO BID 09/04/14 03/10/17 Lisinopril 20 mg PO DAILY 09/04/14 03/10/17 Pantoprazole [Protonix] 40 mg PO BIDAC 09/04/14 03/10/17 Ranitidine HCl 300 mg PO QPM 09/04/14 03/10/17 Spironolactone 12.5 mg PO DAILY 09/04/14 03/10/17 Zolpidem Tartrate 10 mg PO QPM PRN 09/04/14 03/10/17 Multivitamin [Multi-Vitamin Daily] 1 each PO DAILY 09/12/14 03/10/17 oxyCODONE [Roxicodone] 5 mg PO Q4HR PRN 02/25/15 03/10/17 Aspirin [Aspirin EC] 81 mg PO DAILY 10/07/16 03/10/17 Duloxetine HCl [Cymbalta] 60 mg PO BID 10/07/16 03/10/17 Insulin Lispro [Humalog] 1 - 11 units SQ .SLIDING SCALE 10/07/16 03/10/17 Lidocaine Patch 5% [Lidoderm Patch] 1 - 3 patch TOP DAILY PRN 10/07/16 03/10/17 Pregabalin [Lyrica] 300 mg PO BID 10/07/16 03/10/17 Alprazolam 0.25 mg PO BID PRN 03/01/17 03/10/17 Bupropion HCl [Bupropion Xl] 450 mg PO DAILY 03/01/17 03/10/17 Diclofenac Sodium [Voltaren] 4 gm TOP QID PRN 03/01/17 03/10/17 Hydrocortisone 5 mg PO QDBREAKFAST 03/01/17 03/10/17 Hydrocortisone [Cortef] 5 mg PO QDDINNER 03/01/17 03/10/17 Nortriptyline HCl 20 mg PO 0800,1700 03/01/17 03/10/17 Tamsulosin [Flomax] 0.4 mg PO DAILY@1500 03/01/17 03/10/17 metFORMIN [Glucophage] 500 mg PO BIDWM 03/01/17 03/10/17 Atorvastatin [Lipitor] 80 mg PO QPM #90 tablet 03/02/17 03/10/17 Gabapentin [Neurontin] 300 mg PO BID capsule 03/02/17 03/10/17 Hydrocortisone [Cortef] 5 mg PO QDLUNCH tablet 03/02/17 03/10/17 Beclomethasone 80 Mcg [Qvar 80] 2 puffs INH BID #1 inhaler 03/07/17 03/10/17 - Allergies Allergies/Adverse Reactions: Allergies Allergy/AdvReac Type Severity Reaction Status Date / Time No Known Drug Allergies Allergy Verified 03/01/17 12:40 - Social History Does the pt smoke?: No Smoking Status: Former smoker Does the pt drink ETOH?: No Does the pt have substance abuse?: No - Immunizations Immunizations are current?: Yes - POLST Patient has POLST: No PD ED PE NORMAL - Vitals Vital signs reviewed: Yes - General General: Alert and oriented X 3, No acute distress, Well developed/nourished - HEENT HEENT: PERRL, EOMI, Moist mucous membranes - Neck Neck: Supple, no meningeal sign - Cardiac Cardiac: RRR, No murmur, No gallop, No rub - Respiratory Respiratory: No respiratory distress, Clear bilaterally - Derm Derm: Normal color, Warm and dry - Extremities Extremities: No edema - Neuro Neuro: Alert and oriented X 3, punchboard inserter 2-12 intact, No motor deficit, No sensory deficit, Normal speech - Psych Psych: Normal mood, Normal affect Results - Vitals Vitals: Oxygen O2 Source [With Activity] Room air O2 Source Room air - Labs Labs: Laboratory Tests 03/10/17 03/10/17 23:10 23:10 WBC 11.8 H RBC 4.09 L Hgb 12.5 L Hct 38.0 L MCV 92.8 MCH 30.5 MCHC 32.9 RDW 13.7 Plt Count 226 MPV 9.6 Neut # 8.5 H Lymph # 1.8 [place] # 1.2 H Eos # 0.2 Baso # 0.1 Absolute Nucleated RBC 0.00 Nucleated RBCs 0.0 Sodium 139 Potassium 4.5 Chloride 102 Carbon Dioxide 27 Anion Gap 10.0 BUN 42 H Creatinine 2.1 H Estimated GFR (MDRD) 33 L Glucose 68 L Calcium 8.9 Total Bilirubin 0.6 AST 20 ALT 25 Alkaline Phosphatase 81 Total Protein 6.8 Albumin 3.9 Globulin 2.9 Albumin/Globulin Ratio 1.3 Lipase 15 L PD MEDICAL DECISION MAKING - ED course Complexity details: reviewed old records, reviewed results, re-evaluated patient , considered differential, d/w patient, d/w family ED course: patient presents with low blood sugar, and shortly after arrival, developed hypotension. He had a similar presentation in September of last year, at which time he also had elevated BUN and creatinine, As he does on tonight's presentation. Patient responded very well to IV fluids, became normotensive, and remain so during remainder of his ED stay. His blood sugar also improved from double digits on initial presentation, into the 100 range, and no 200 range at time of discharge. He was given a dose of steroids, a stress dose of hydrocortisone 100 mg, during his stay, as he has Hall's disease and his presentation is consistent with addisonian crisis. I suspect the crisis was precipitated by diarrhea he has had for two days. Of note, on abdominal exam in emergency department, his findings are benign. he says that diarrheal episodes or not uncommon for him due to collagenous colitis. He was asymptomatic at time of discharge. Departure - Departure Disposition: 01 Home, Self Care Clinical Impression: Adrenal insufficiency Condition: Good Instructions: ED Hypotension All Causes, ED Diabetes Hypoglycemia Insulin React Discharge Date/Time: 03/11/17 03:36
[2017-03-11] MEDS ORDERED: SODIUM CHLORIDE 0.9% 1,000 ML IV STA (00:36)
[2017-03-11] MEDS ORDERED: HYDROCORTISONE SUCCINATE 100 MG/2 ML VIAL IVP STA (00:36)
[2017-03-11] MEDS ORDERED: HYDROCORTISONE SUCCINATE 100 MG/2 ML VIAL IVP ONE (00:43)
[2017-03-11] MEDS ORDERED: WATER FOR INJECTION,STERILE 10 ML ONE (00:46)
[2017-03-11 03:38] VITALS: BP 115/63
== END 2017-03-11 03:36 | disposition home or self-care (01) ==
LOC: ED 22:55
DX: E27.40 Unspecified adrenocortical insufficiency (principal); I10 Essential (primary) hypertension; E78.00 Pure hypercholesterolemia, unspecified; I25.10 Atherosclerotic heart disease of native coronary artery without angina pectoris; I25.2 Old myocardial infarction; E10.42 Type 1 diabetes mellitus with diabetic polyneuropathy; Z79.4 Long term (current) use of insulin; Z79.84 Long term (current) use of oral hypoglycemic drugs; K21.9 Gastro-esophageal reflux disease without esophagitis; N40.0 Benign prostatic hyperplasia without lower urinary tract symptoms; M19.90 Unspecified osteoarthritis, unspecified site; Z79.82 Long term (current) use of aspirin; Z95.810 Presence of automatic (implantable) cardiac defibrillator; Z87.891 Personal history of nicotine dependence
CPT/HCPCS: 36415; 80053; 83690; 85025; 96361; 96374; 99284

== ENCOUNTER 2017-03-17 01:34 | Outpatient (CLI) | payer MEDICARE | END 2017-03-17 01:35 | disposition critical access hospital (66) | LOC: EMS 01:34 | PROVIDERS: ATTEND Surgery | DX: M79.651 Pain in right thigh (principal); W18.30XA Fall on same level, unspecified, initial encounter | CPT/HCPCS: A0425; A0427 ==

== ENCOUNTER 2017-03-17 01:45 | Emergency (ER) | payer MEDICARE ==
[2017-03-17] MEDS ORDERED: ACETAMINOPHEN 500 MG TABLET PO STA (01:58)
[2017-03-17] MEDS ORDERED: ACETAMINOPHEN 500 MG TABLET PO ONE (02:04)
--- NOTE | 2017-03-17 02:27 | ED Physician Documentation ---
PD HPI LOWER EXT INJURY - Stated complaint Stated Complaint: FALL/LEG PAIN - Chief complaint Chief Complaint: General - History obtained from History obtained from: Patient - History of Present Illness PD HPI LOW EXT INJURY LOCATION: Right, Upper leg Type of injury: Fall Where injury occurred: Home Timing - onset: How many hours ago (2) Timing - details: Abrupt onset, Still present Pain level max: 6 Improved by: Rest, Immobilization Worsened by: Moving, Palpating Associated symptoms: No: Weakness, Numbness, Tingling, Swelling, Discolored Contributing factors: No: Anticoagulated Similar symptoms before: Has not had sx before Recently seen: Not recently seen - Additional information Additional information: Patient is a 56 year old male with a history of diabetes with an indwelling pump who is presenting to the emergency department for leg pain. According to patient, family and ems, patient sat down for dinner but never ate, his son came over about 2 hours later and found the patient on the floor. His sugar was 66. He turned off his pump and fed him glucose pills and peanut butter sandwich. The called ems. When ems arrived they treated the patient was D50. Recheck on the accucheck was 220. patient stated that he had pain with ambulation so he wanted to come get checked out. Review of Systems Constitutional: reports: Sweats. denies: Fever Eyes: denies: Loss of vision, Photophobia Ears: denies: Ear pain, Drainage/discharge Nose: denies: Congestion, Sinus pressure / pain Throat: denies: Sore throat Cardiac: denies: Chest pain / pressure, Palpitations Respiratory: denies: Cough, Wheezing GI: denies: Nausea, Vomiting Skin: denies: Rash, Lesions, Abrasion (s), Laceration (s) Musculoskeletal: reports: Extremity pain. denies: Joint pain, Extremity swelling Neurologic: denies: Generalized weakness, Focal weakness, Numbness Immunocompromised: denies: Immunocompromised PD PAST MEDICAL HISTORY - Past Medical History Cardiovascular: Hypertension, High cholesterol, Coronary artery disease, [place] Respiratory: Shortness of breath Neuro: Peripheral neuropathy Endocrine/Autoimmune: Type 1 diabetes, Other GI: GERD, Chronic diarrhea : Benign prostate hypertrophy, Other HEENT: None Psych: Depression, Anxiety, Panic attacks Musculoskeletal: Osteoarthritis Derm: None - Past Surgical History Past Surgical History: Yes General: Colonoscopy, EGD Ortho: Carpal Tunnel surgery, Other Cardiovascular: Coronary stent, AICD, Cardiac catheterization HEENT: Other - Present Medications Home Medications: Ambulatory Orders Medication Instructions Recorded Confirmed Carvedilol 12.5 mg PO BID 09/04/14 03/17/17 Lisinopril 20 mg PO DAILY 09/04/14 03/17/17 Pantoprazole [Protonix] 40 mg PO BIDAC 09/04/14 03/17/17 Ranitidine HCl 300 mg PO QPM 09/04/14 03/17/17 Spironolactone 12.5 mg PO DAILY 09/04/14 03/17/17 Zolpidem Tartrate 10 mg PO QPM PRN 09/04/14 03/17/17 Multivitamin [Multi-Vitamin Daily] 1 each PO DAILY 09/12/14 03/17/17 oxyCODONE [Roxicodone] 5 mg PO Q4HR PRN 02/25/15 03/17/17 Aspirin [Aspirin EC] 81 mg PO DAILY 10/07/16 03/17/17 Duloxetine HCl [Cymbalta] 60 mg PO BID 10/07/16 03/17/17 Insulin Lispro [Humalog] 1 - 11 units SQ .SLIDING SCALE 10/07/16 03/17/17 Lidocaine Patch 5% [Lidoderm Patch] 1 - 3 patch TOP DAILY PRN 10/07/16 03/17/17 Pregabalin [Lyrica] 300 mg PO BID 10/07/16 03/17/17 Alprazolam 0.25 mg PO BID PRN 03/01/17 03/17/17 Bupropion HCl [Bupropion Xl] 450 mg PO DAILY 03/01/17 03/17/17 Diclofenac Sodium [Voltaren] 4 gm TOP QID PRN 03/01/17 03/17/17 Hydrocortisone 5 mg PO QDBREAKFAST 03/01/17 03/17/17 Hydrocortisone [Cortef] 5 mg PO QDDINNER 03/01/17 03/17/17 Nortriptyline HCl 20 mg PO 0800,1700 03/01/17 03/17/17 Tamsulosin [Flomax] 0.4 mg PO DAILY@1500 03/01/17 03/17/17 metFORMIN [Glucophage] 500 mg PO BIDWM 03/01/17 03/17/17 Atorvastatin [Lipitor] 80 mg PO QPM #90 tablet 03/02/17 03/17/17 Gabapentin [Neurontin] 300 mg PO BID capsule 03/02/17 03/17/17 Hydrocortisone [Cortef] 5 mg PO QDLUNCH tablet 03/02/17 03/17/17 Beclomethasone 80 Mcg [Qvar 80] 2 puffs INH BID #1 inhaler 03/07/17 03/17/17 - Allergies Allergies/Adverse Reactions: Allergies Allergy/AdvReac Type Severity Reaction Status Date / Time No Known Drug Allergies Allergy Verified 03/01/17 12:40 - Social History Does the pt smoke?: No Smoking Status: Former smoker Does the pt drink ETOH?: No Does the pt have substance abuse?: No - Immunizations Immunizations are current?: Yes - POLST Patient has POLST: No PD ED PE NORMAL - Vitals Vital signs reviewed: Yes - General General: Alert and oriented X 3, No acute distress, Well developed/nourished - HEENT HEENT: Atraumatic, PERRL, Pharynx benign - Neck Neck: No bony TTP - Cardiac Cardiac: RRR, No murmur - Respiratory Respiratory: No respiratory distress, Clear bilaterally - Abdomen Abdomen: Soft, Non tender, Non distended - Derm Derm: Normal color, Warm and dry - Neuro Neuro: Alert and oriented X 3, 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, No motor deficit, No sensory deficit, Normal speech - Psych Psych: Normal mood, Normal affect PD ED PE EXPANDED - Extremities Extremities: Right thigh (tenderness to palpation of right thigh, no ecchymosis , no deformity, no abrasion) Results - Vitals Vitals: Vital Signs - 24 hr 03/17/17 01:47 Temperature 35.9 C L Heart Rate 98 Respiratory 16 Rate Blood Pressure 102/63 O2 Saturation 97 Oxygen O2 Source [] Room air O2 Source Room air - Labs Labs: Laboratory Tests 03/17/17 03/17/17 02:45 02:45 WBC 9.9 RBC 3.85 L Hgb 11.9 L Hct 35.9 L MCV 93.4 MCH 30.9 MCHC 33.1 RDW 13.7 Plt Count 208 MPV 9.6 Neut # 7.3 H Lymph # 1.3 L Winston # 1.1 H Eos # 0.1 Baso # 0.1 Absolute Nucleated RBC 0.01 Nucleated RBCs 0.1 Sodium 135 Potassium 4.9 Chloride 101 Carbon Dioxide 26 Anion Gap 8.0 BUN 27 H Creatinine 1.9 H Estimated GFR (MDRD) 37 L Glucose 279 H Calcium 8.5 Total Bilirubin 0.5 AST 27 ALT 28 Alkaline Phosphatase 65 Total Creatine Kinase 175 Total Protein 6.5 L Albumin 3.8 Globulin 2.7 Albumin/Globulin Ratio 1.4 Lipase 14 L - Rads (name of study) right femur Radiology: EMP read contemporaneously (no acute fracture or dislocation) PD MEDICAL DECISION MAKING - ED course Complexity details: reviewed old records, reviewed results, re-evaluated patient , considered differential, d/w patient, d/w family ED course: Patient was seen and examined at bedside. Patient was well appearing and in no acute distress. IV access was gained and patient was sent for imaging. Due to unknown down time, and no signs of trauma, labs were drawn. imaging was within normal limits. Patient's blood work was within normal limits. Patient's son was at bedside. patient required no further work up and was stable for discharge with outpatient follow up. Departure - Departure Disposition: 01 Home, Self Care Clinical Impression: Hypoglycemia Condition: Good Instructions: ED Diabetes Hypoglycemia Insulin React Follow-Up: Amadou Jackson MD [Primary Care Provider] - Comments: Your diagnostics today were within normal limits. You have had multiple visits now for hypoglycemia. It is important that you follow up with your pmd this week. A discussion needs to be had concerning your glycemic control. You may return to the emergency department at any time for new, worsening or uncontrollable symptoms.
--- NOTE | 2017-03-17 02:59 | XRAY Preliminary Report ---
Exam: XR Femur 2V RT IMPRESSION: No acute osseous abnormality demonstrated. [facility] SITE ID: [id number]
--- NOTE | 2017-03-17 03:01 | XRAY Report ---
EXAM: RIGHT FEMUR RADIOGRAPHY EXAM DATE: 03/17/2017 02:39 AM. CLINICAL HISTORY: Fall, right sided femur pain. COMPARISON: None. TECHNIQUE: 2 views. FINDINGS: Bones: Benign periosteal reaction along the shaft of the right femur. No fracture or bone lesion. Joints: The visualized hip and knee joints are normal. No effusions. Soft Tissues: no soft tissue swelling. IMPRESSION: No acute osseous abnormality demonstrated. [facility] Referring Provider Line: [phone] SITE ID: [id number]
[2017-03-17 03:04] LABS: BASOPHILS # (AUTO) 0.1 10^3/uL (0.0-0.1); BASOPHILS % (AUTO) 0.8 %; EOSINOPHILS # (AUTO) 0.1 10^3/uL (0.0-0.7); EOSINOPHILS % (AUTO) 1.3 %; HCT - HEMATOCRIT 35.9 % (42.0-52.0); HGB - HEMOGLOBIN 11.9 g/dL (14.0-18.0); LYMPHOCYTES # (AUTO) 1.3 10^3/uL (1.5-3.5); MEAN CORPUSCULAR HEMOGLOBIN 30.9 pg (27.0-31.0); MEAN CORPUSCULAR HGB CONC 33.1 g/dL (32.0-36.0); MEAN CORPUSCULAR VOLUME 93.4 fL (80.0-94.0); MEAN PLATELET VOLUME 9.6 fL (7.4-11.4); MONOCYTES # (AUTO) 1.1 10^3/uL (0.0-1.0); MONOCYTES % (AUTO) 11.5 %; NEUTROPHILS # (AUTO) 7.3 10^3/uL (1.5-6.6); NEUTROPHILS % (AUTO) 73.4 %; NUCLEATED RED BLOOD CELLS AUTO 0.1 /100WBC; RED BLOOD COUNT 3.85 10^6/uL (4.70-6.10); RED CELL DISTRIBUTION WIDTH 13.7 % (12.0-15.0); UNCORRECTED WHITE BLOOD COUNT 9.9 x10^3/uL; WHITE BLOOD COUNT 9.9 x10^3/uL (4.8-10.8)
[2017-03-17 03:16] LABS: ALBUMIN/GLOBULIN RATIO 1.4 (1.0-2.2); BILIRUBIN,TOTAL 0.5 mg/dL (0.2-1.0); CALCIUM 8.5 mg/dL (8.5-10.3); CREATININE 1.9 mg/dL (0.6-1.2); POTASSIUM 4.9 mmol/L (3.5-5.0); TOTAL PROTEIN 6.5 g/dL (6.7-8.2)
[2017-03-17 03:50] VITALS: BP 118/74
== END 2017-03-17 03:49 | disposition home or self-care (01) ==
LOC: EDBD → EDUNIT# → SUPCPDRO 01:45 → ED 01:45
DX: E10.649 Type 1 diabetes mellitus with hypoglycemia without coma (principal); E10.42 Type 1 diabetes mellitus with diabetic polyneuropathy; Z79.4 Long term (current) use of insulin; Z79.84 Long term (current) use of oral hypoglycemic drugs; Z96.41 Presence of insulin pump (external) (internal); I10 Essential (primary) hypertension; E78.00 Pure hypercholesterolemia, unspecified; I25.10 Atherosclerotic heart disease of native coronary artery without angina pectoris; I25.2 Old myocardial infarction; K21.9 Gastro-esophageal reflux disease without esophagitis; N40.0 Benign prostatic hyperplasia without lower urinary tract symptoms; M19.90 Unspecified osteoarthritis, unspecified site; Z79.82 Long term (current) use of aspirin; Z87.891 Personal history of nicotine dependence
CPT/HCPCS: 36415; 73552; 80053; 82550; 83690; 85025; 99283; A9270

== ENCOUNTER 2017-04-07 12:53 | Outpatient (CLI) | payer MEDICARE | END 2017-04-07 12:54 | disposition critical access hospital (66) | LOC: EMS 12:53 | PROVIDERS: ATTEND Surgery | DX: E11.641 Type 2 diabetes mellitus with hypoglycemia with coma (principal) | CPT/HCPCS: A0425; A0427 ==

== ENCOUNTER 2017-04-07 13:04 | Inpatient (IN) | payer MEDICARE ==
[2017-04-07] MEDS ORDERED: SODIUM CHLORIDE 0.9% 1,000 ML IV ONE ×2 (13:27→14:23)
--- NOTE | 2017-04-07 13:30 | ED Physician Documentation ---
History of Present Illness - Stated complaint Stated Complaint: HYPOGLYCEMIA - Chief complaint Chief Complaint: General - History obtained from History obtained from: Patient - History of Present Illness Timing: Today (57-year-old gentleman with long-standing diabetes, uses an insulin pump. Lives with his son. History is from the patient, paramedics, and the son. He went to bed in his usual state of health last night. His son found him this morning basically cockeyed in the bed laying on his left arm with his head first on the headboard and unresponsive. His blood sugar was 30. He was administered D50 and his blood sugar went up and his mental status improved but did not quite normalize. Patient is talking well and complains only of pain in the left arm around the shoulder.) Review of Systems Unable to obtain: Confused PD PAST MEDICAL HISTORY - Past Medical History Cardiovascular: Hypertension, High cholesterol, Coronary artery disease, [place] Respiratory: Shortness of breath Neuro: Peripheral neuropathy Endocrine/Autoimmune: Type 1 diabetes, Other GI: GERD, Chronic diarrhea : Benign prostate hypertrophy, Other HEENT: None Psych: Depression, Anxiety, Panic attacks Musculoskeletal: Osteoarthritis Derm: None - Past Surgical History Past Surgical History: Yes General: Colonoscopy, EGD Ortho: Carpal Tunnel surgery, Other Cardiovascular: Coronary stent, AICD, Cardiac catheterization HEENT: Other - Present Medications Home Medications: Ambulatory Orders Medication Instructions Recorded Confirmed Carvedilol 12.5 mg PO BID 09/04/14 03/17/17 Lisinopril 20 mg PO DAILY 09/04/14 03/17/17 Pantoprazole [Protonix] 40 mg PO BIDAC 09/04/14 03/17/17 Ranitidine HCl 300 mg PO QPM 09/04/14 03/17/17 Spironolactone 12.5 mg PO DAILY 09/04/14 03/17/17 Zolpidem Tartrate 10 mg PO QPM PRN 09/04/14 03/17/17 Multivitamin [Multi-Vitamin Daily] 1 each PO DAILY 09/12/14 03/17/17 oxyCODONE [Roxicodone] 5 mg PO Q4HR PRN 02/25/15 03/17/17 Aspirin [Aspirin EC] 81 mg PO DAILY 10/07/16 03/17/17 Duloxetine HCl [Cymbalta] 60 mg PO BID 10/07/16 03/17/17 Insulin Lispro [Humalog] 1 - 11 units SQ .SLIDING SCALE 10/07/16 03/17/17 Lidocaine Patch 5% [Lidoderm Patch] 1 - 3 patch TOP DAILY PRN 10/07/16 03/17/17 Pregabalin [Lyrica] 300 mg PO BID 10/07/16 03/17/17 Alprazolam 0.25 mg PO BID PRN 03/01/17 03/17/17 Bupropion HCl [Bupropion Xl] 450 mg PO DAILY 03/01/17 03/17/17 Diclofenac Sodium [Voltaren] 4 gm TOP QID PRN 03/01/17 03/17/17 Hydrocortisone 5 mg PO QDBREAKFAST 03/01/17 03/17/17 Hydrocortisone [Cortef] 5 mg PO QDDINNER 03/01/17 03/17/17 Nortriptyline HCl 20 mg PO 0800,1700 03/01/17 03/17/17 Tamsulosin [Flomax] 0.4 mg PO DAILY@1500 03/01/17 03/17/17 metFORMIN [Glucophage] 500 mg PO BIDWM 03/01/17 03/17/17 Atorvastatin [Lipitor] 80 mg PO QPM #90 tablet 03/02/17 03/17/17 Gabapentin [Neurontin] 300 mg PO BID capsule 03/02/17 03/17/17 Hydrocortisone [Cortef] 5 mg PO QDLUNCH tablet 03/02/17 03/17/17 Beclomethasone 80 Mcg [Qvar 80] 2 puffs INH BID #1 inhaler 03/07/17 03/17/17 - Allergies Allergies/Adverse Reactions: Allergies Allergy/AdvReac Type Severity Reaction Status Date / Time No Known Drug Allergies Allergy Verified 04/07/17 13:16 - Social History Does the pt smoke?: No Smoking Status: Former smoker Does the pt drink ETOH?: No Does the pt have substance abuse?: No - Family History Family history: reports: Non contributory - Immunizations Immunizations are current?: Yes - POLST Patient has POLST: No PD ED PE NORMAL - Vitals Vital signs reviewed: Yes - General General: Other (Laying in bed with eyes closed, answering simple questions, knows the year but not the month or day.) - HEENT HEENT: PERRL, EOMI, Other (small divet in the skin of the left forehead where his head was on the headboard.) - Neck Neck: Supple, no meningeal sign, No bony TTP - Cardiac Cardiac: RRR, No murmur - Respiratory Respiratory: No respiratory distress, Clear bilaterally - Abdomen Abdomen: Normal bowel sounds, Soft, Non tender - Back Back: No CVA TTP, No spinal TTP - Extremities Extremities: No deformity, Other (The left arm is diffusely tender around the elbow and swollen there are but not tense like a compartment syndrome he doesn' t seem to have any pain with passive range of motion. Pulses are good. 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 No: ST elevation c/w ischemia Computer interpretation: Agree with computer - Labs Labs: Laboratory Tests 04/07/17 04/07/17 04/07/17 13:10 13:10 13:10 WBC 9.2 RBC 3.96 L Hgb 12.3 L Hct 36.4 L MCV 92.0 MCH 31.2 H MCHC 33.9 RDW 13.7 Plt Count 216 MPV 9.7 Neut # 7.3 H Lymph # 0.8 L Beck[place] # 0.9 Eos # 0.1 Baso # 0.0 Absolute Nucleated RBC 0.00 Nucleated RBCs 0.0 Sodium 134 L Potassium 4.5 Chloride 100 L Carbon Dioxide 23 Anion Gap 11.0 BUN 49 H Creatinine 5.1 H Estimated GFR (MDRD) 12 L Glucose 119 H Calcium 8.8 Total Bilirubin 0.7 AST 28 ALT 25 Alkaline Phosphatase 83 Total Creatine Kinase 632 H CK-MB (CK-2) 19.8 H Troponin I < 0.04 Total Protein 7.2 Albumin 3.9 Globulin 3.3 Albumin/Globulin Ratio 1.2 Lipase 11 L - Rads (name of study) CT Head Radiology: EMP read contemporaneously (NAD) XR L humerus/elbow/forearm Radiology: EMP read contemporaneously (all neg) PD MEDICAL DECISION MAKING - ED course ED course: 57-year-old gentleman with type I diabetes presents with hypoglycemia, and for the history and physical was probably in hypoglycemic coma for a good portion of the night, it looks like he laid on his arm and also has a divot in his forehead from were contacted part of his bed frame. The examination is not consistent with compartment syndrome in the arm, but it is tender. X-rays are unremarkable, head CT normal. He does have very mild rhabdomyolysis and acute renal failure with a creatinine of 5, no white abnormalities of significance. Spoke with Dr. Marquez for admission at 225 p.m., requests a chest x-ray and urinalysis as well which were ordered. Departure - Departure Disposition: 66 [facility] DC/Xfer Clinical Impression: Hypoglycemia, Left arm pain Acute renal failure Qualifiers: Acute renal failure type: unspecified Qualified Code(s): N17.9 - Acute kidney failure, unspecified Altered mental status Qualifiers: Altered mental status type: delirium Qualified Code(s): R41.0 - Disorientation , unspecified Condition: Serious
[2017-04-07 13:45] LABS: BASOPHILS % (AUTO) 0.4 %; EOSINOPHILS # (AUTO) 0.1 10^3/uL (0.0-0.7); EOSINOPHILS % (AUTO) 0.8 %; HCT - HEMATOCRIT 36.4 % (42.0-52.0); HGB - HEMOGLOBIN 12.3 g/dL (14.0-18.0); LYMPHOCYTES # (AUTO) 0.8 10^3/uL (1.5-3.5); LYMPHOCYTES % (AUTO) 8.9 %; MEAN CORPUSCULAR HEMOGLOBIN 31.2 pg (27.0-31.0); MEAN CORPUSCULAR HGB CONC 33.9 g/dL (32.0-36.0); MEAN PLATELET VOLUME 9.7 fL (7.4-11.4); MONOCYTES # (AUTO) 0.9 10^3/uL (0.0-1.0); MONOCYTES % (AUTO) 9.8 %; NEUTROPHILS # (AUTO) 7.3 10^3/uL (1.5-6.6); NEUTROPHILS % (AUTO) 80.1 %; RED BLOOD COUNT 3.96 10^6/uL (4.70-6.10); RED CELL DISTRIBUTION WIDTH 13.7 % (12.0-15.0); UNCORRECTED WHITE BLOOD COUNT 9.2 x10^3/uL; WHITE BLOOD COUNT 9.2 x10^3/uL (4.8-10.8)
[2017-04-07 13:57] LABS: ALBUMIN/GLOBULIN RATIO 1.2 (1.0-2.2); BILIRUBIN,TOTAL 0.7 mg/dL (0.2-1.0); CALCIUM 8.8 mg/dL (8.5-10.3); CREATINE KINASE MB 19.8 ng/mL (0.6-6.3); CREATININE 5.1 mg/dL (0.6-1.2); POTASSIUM 4.5 mmol/L (3.5-5.0); TOTAL PROTEIN 7.2 g/dL (6.7-8.2); TROPONIN I < 0.04 ng/mL (<0.49)
--- NOTE | 2017-04-07 14:21 | CT Report ---
EXAM: CT HEAD EXAM DATE: 04/07/2017 01:57 PM. CLINICAL HISTORY: Head inj. COMPARISON: 03/01/2017. TECHNIQUE: Multiaxial CT images were obtained from the foramen magnum to the vertex. IV contrast: Non e. Reformats: Coronal. In accordance with CT protocol optimization, one or more of the following dose reduction techniques w ere utilized for this exam: automated exposure control, adjustment of mA and/or KV based on patient s ize, or use of iterative reconstructive technique. FINDINGS: Parenchyma: No intraparenchymal hemorrhage. No evidence of mass, midline shift, or CT findings of inf arction. Salgado-white differentiation is distinct. Extraaxial Spaces: Normal for age. No subdural or epidural collections. Ventricles: Normal in size and position. Sinuses: Imaged paranasal sinuses, orbits, and mastoids show no significant abnormality. Bones: Unremarkable. Other: None. IMPRESSION: Normal head CT. [facility] Referring Provider Line: [phone] SITE ID: [id number]
[2017-04-07] MEDS ORDERED: HYDROmorphone 1 MG/ML SYRINGE ONE (14:25)
[2017-04-07] MEDS ORDERED: HYDROmorphone 1 MG/ML SYRINGE IVP STA (14:25)
--- NOTE | 2017-04-07 14:43 | XRAY Preliminary Report ---
Exam: XR Humerus LT IMPRESSION: Unremarkable left humerus series. [facility] SITE ID: [id number]
--- NOTE | 2017-04-07 14:45 | XRAY Report ---
EXAM: LEFT HUMERUS RADIOGRAPHY EXAM DATE: 04/07/2017 02:27 PM. CLINICAL HISTORY: Arm injury COMPARISON: None. TECHNIQUE: 2 views, 3 films. FINDINGS: Bones: No fracture. Minimal spurring at the greater tuberosity and lateral epicondyle. Joints: Normal. No effusions or subluxations in the visualized shoulder or elbow joints. Soft Tissues: Normal. No soft tissue swelling. IMPRESSION: Unremarkable left humerus series. [facility] Referring Provider Line: [phone] SITE ID: [id number]
--- NOTE | 2017-04-07 14:54 | XRAY Report ---
EXAM: LEFT FOREARM RADIOGRAPHY EXAM DATE: 04/07/2017 02:27 PM. CLINICAL HISTORY: Arm inj. pain. Fell out of bed. COMPARISON: None. TECHNIQUE: 2 views. FINDINGS: Bones: Normal. No fractures or bone lesions. Joints: Normal. No effusions or subluxations in the visualized wrist or elbow joints. Soft Tissues: Normal. No soft tissue swelling. IMPRESSION: -2 view left forearm radiography. [facility] Referring Provider Line: [phone] SITE ID: [id number]
--- NOTE | 2017-04-07 14:54 | XRAY Preliminary Report ---
Exam: XR Elbow 3 View LT IMPRESSION: Negative 3 view left elbow radiography. [facility] SITE ID: [id number]
[2017-04-07] MEDS ORDERED: SODIUM CHLORIDE FLUSH 0.9% 10 ML SYRINGE IVP PRN (14:57)
[2017-04-07 15:37] LABS: HEMOGLOBIN A1C 0.97 g/dL
--- NOTE | 2017-04-07 15:45 | XRAY Preliminary Report ---
Exam: XR Chest 1 View IMPRESSION: Cardiovascular fullness. [facility] SITE ID: [id number]
--- NOTE | 2017-04-07 15:48 | XRAY Report ---
EXAM: CHEST RADIOGRAPHY EXAM DATE: 04/07/2017 03:21 PM. CLINICAL HISTORY: Altered mental status. COMPARISON: 04/01/2012. TECHNIQUE: 1 view. FINDINGS: Lungs/Pleura: No localized infiltrate, consolidation, effusion, or pneumothorax. Mediastinum: Mild cardiomegaly, new since previous study, with diffuse vascular fullness. Other: Permanent pacemaker on the left with intact lead extending to expected location of right ventr icle. IMPRESSION: Cardiovascular fullness. [facility] Referring Provider Line: [phone] SITE ID: [id number]
[2017-04-07] MEDS: SODIUM CHLORIDE 0.9% 1,000 ML IV SCH (17:00)
--- NOTE | 2017-04-07 17:58 | Ultrasound Report ---
EXAM: RENAL ULTRASOUND EXAM DATE: 04/07/2017 05:09 p.m. CLINICAL HISTORY: Acute kidney injury. Cr 5.1. COMPARISON: None. TECHNIQUE: Real-time scanning was performed with static images obtained. FINDINGS: Right Kidney: 11.0 x 5.7 x 5.0 cm. Normal echotexture with no stones, contour-deforming masses, or hy dronephrosis. Left Kidney: 11.2 x 5.6 x 5.3 cm. Normal echotexture with no stones, contour-deforming masses, or hyd ronephrosis. Small posterior cyst noted 1.4 x 1.0 x 0.9 cm. IMPRESSION: Small posterior left renal cyst, otherwise unremarkable renal ultrasound. [facility] Referring Provider Line: [phone] SITE ID: [id number]
--- NOTE | 2017-04-07 19:16 | HISTORY & PHYSICAL EXAMINATION ---
DATE OF ADMISSION: 04/07/2017 PRIMARY CARE PROVIDER: Dr. Jackson. residential real estate agent is, Dr. Henry, his neurologist is Dr. Turcios. CHIEF COMPLAINT: Son found him on the floor by the bed this morning lying on his left side quite awkwardly with his head against the dresser. HISTORY OF PRESENT ILLNESS: The patient is a 57-year-old male who is a long- term type 1 diabetic who manages his insulin pump independently. He has multiple medical problems which are detailed below under past medical history, the most significant one that seemed to be contributing to his problem today include microscopic colitis with chronic diarrha and CHF for which he is on an ROBYN inhibitor and spironolactone. Last night the patient went to bed and was reportedly at his normal state of mentation. The son this morning found him lying on the floor next to the bed in a very awkward position on his left side and his head was leaning against the dresser. His sugar was found to be 30, pharmaceutical worker came, they gave him amp of D50. His glucose improved to 180. He awakened, although he was still a little lethargic and slow to respond, not entirely at his baseline. His insulin pump was removed by the pharmaceutical worker before they brought him in because they did not know how to turn it off. In the emergency room a repeat sugar approximately an hour before I am examining him at 4 p.m. was 90 and since he is still a bit slow a sugar repeated just now at 4:00 is approximately 118. He denies any recent changes in his basal which at the moment he is not able to recall off the top of his head and his son is going to get his pump. His A1c when he was just here in September was 10.1. An A1c requested today was 8.9. Also striking on his laboratory results today was acute kidney injury with a BUN and creatinine of 49/5.1 This is more than doubled from his BUN and creatinine in 03/17/2017 approximately 3 weeks ago when it was 27 and 1.9. It was 1.1 on 03/07. In October, his creatinine was 1.0 and his BUN was in the 20s. Today's corresponding GFR is approximately 12. Regarding possible reasons for acute kidney injury, there is nothing suggestive of a new infection or significant hypotension related to an infection. He is on antihypertensives for his congestive heart failure including Coreg and lisinopril. He has microscopic colitis and does report that his diarrhea has been worse over the last few days. His son says that for the last 2 days he has been in the bathroom for approximately half an hour on 2 occasions with loose bowel movements. He does report some difficulty initiating his stream and recently had his Flomax increased from 0.4 mg once daily to 0.4 mg twice daily. He denies any new medications or changes in doses of medications which would effect renal function. The only form of NSAID that he is on is a topical diclofenac and he says he uses that less than once weekly. The patient was here actually 3 times in the emergency room since the 2016 discharge, on 03/07/2017 he was in the emergency room for what was diagnosed as a COPD exacerbation/bronchitis, although he does not have a prior diagnosis of COPD. That ER documentation indicates that he was sent out with ProAir and Pulmicort, although he does not mention these currently. On 2016 he was again in the emergency room for grogginess and was found to be hypoglycemic. At that time he was not admitted. He responded to IV fluids and was sent home with glucoses in the 200 range at discharge. He was also given a stress dose of hydrocortisone in that ER presentation. Then on 03/17/[address] he was seen by Dr. Goode in the ER. He came to the emergency room for leg pain at that visit. At that time, the son found him on the floor with a sugar of 66, and he also required D50 at that time. He was not admitted. When asked if he has followed up with his residential real estate agent on either of those occasions or with his PCP, he is not able to specify. PAST MEDICAL HISTORY: 1. Diabetes mellitus type 1 since age 13, on an insulin pump, followed by Dr. Henry at [facility]. A1c done today is 8.9. 2. Coronary artery disease status post stenting. 3. Ischemic cardiomyopathy with an EF of 45-50%, that was done on an echo in early February admission here. Prior to that his EF was 35% per his report. He does have an AICD. 4. Hypertension. 5. Hyperlipidemia. 6. Obesity with a BMI of 34.2. 7. Osteoarthritis with chronic pain in the neck, shoulder, and hands. 8. History of depression and anxiety. 9. Panic attacks, none recently. These were associated with his myocardial infarction. 10. Gastroesophageal reflux disease. 11. Benign prostatic hypertrophy. 12. History of hypospadias. 13. Peripheral neuropathy. 14. New "persistent daily headaches." This was diagnosed with his neurologist at [facility] in [place] where he sees a Dr. Turcios. 15. Diabetic retinopathy. 16. Microscopic colitis. 17. Irritable bowel syndrome. 18. 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 SURGICAL HISTORY: 1. AICD implantation. 2. Trigger finger release x5. 3. Hypospadias repair. 4. Carpal tunnel release. 5. Colonoscopy and EGD. 6. Right foot tumor removal. 7. Sinus surgery x2. 8. Vasectomy. 9. Cardiac catheterization and stent placement. ALLERGIES: NO KNOWN DRUG ALLERGIES. MEDICATION LIST: This was discussed with the patient today. 1. Flomax 0.4 mg twice daily. This is an increase from 0.4 mg once daily, very recently. 2. Simvastatin 80 mg. once daily. 3. Metformin 500 mg twice daily. 4. Hydrocortisone 5 mg daily in the a.m. and in the p.m. He denies that he is any longer taking 10 mg in the morning. 5. Diclofenac 4 grams topical if needed up to 4 times daily. He reports only taking that once a week. 6. Alprazolam 0.25 mg twice daily. 7. Multivitamin once daily. 8. Duloxetine 60 mg twice daily. 9. Ranitidine 300 mg. once each evening for GERD. 10. Lisinopril 20 mg. once daily. 11. Lidocaine patch 1-3 topically if needed for neuropathy, which he uses rarely. 12. Zolpidem 10 mg daily at bedtime with no reported confusion. 13. Spironolactone 12.5 mg. once daily. 14. Pantoprazole 40 mg twice daily. 15. Pregabalin 300 mg twice daily. 16. Aspirin 81 mg. once daily. 17. Bupropion 450 mg. once daily. 18. Oxycodone 5 mg every 4 hours if needed for pain. He does take this quite regularly for the neck, shoulder pain. 19. Coreg 12.5 mg twice daily. 20. Nortriptyline of uncertain dose. 21. Gabapentin 300 mg twice daily. Uncertain if he is taking salicylate 262 mg 2 times daily for microscopic colitis. His son is bring back his I-phone with his medication list on it. 22. Insulin pump management with carb counting. REVIEW OF SYSTEMS: He reports that he has had approximately 20-pound weight gain over 6 months that is unintentional. No fevers or night sweats. HEAD, EYES, EARS, NOSE AND THROAT: He has retinopathy, wears classes. Denies any recent changes, trouble chewing or swallowing. CARDIOVASCULAR: He denies any chest pain or pressure. No new activity intolerance. No edema. No palpitations. No orthopnea, although he likes to sleep with the head of his bed elevated for his GERD. RESPIRATORY: No shortness of breath, cough or wheezing. GASTROINTESTINAL: As noted in the HPI frequent bowel movements due to his microscopic colitis. GENITOURINARY: He does note that he has had some trouble starting his stream and for this reason, his Flomax dose was recently increased. MUSCULOSKELETAL: Chronic pain in the neck, shoulders, which he notices especially if he is working with laundry, doing dishes, for which he takes his oxycodone. He did have a fall recently and is drifting off to sleep as he tries to discuss it. There was an ER presentations for a fall with hypoglycemia. PSYCHIATRIC: He reports his mood is controlled on his home bupropion and duloxetine. ENDOCRINE: The son reports that more recently he has noticed more frequently relatively low sugars in the evening, meaning a sugar close to 100 and he reports that his father does start to get a little bit less alert any time his sugar is below 100. SOCIAL HISTORY: He was born and raised in [facility], has lived in [place] and moved to [place] 4 years ago near where his daughter lives. He is actually living with his son. 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 He has a daughter nearby and he has been on disability since his heart attack in 2012. HABITS: He stopped smoking in 2000 having smoked 1/2 pack a day for about 15 years. He has rare alcohol intake and no history of illicit. FAMILY HISTORY: His father of coronary disease and COPD, prostate cancer. Father at age 86 due to COPD. Mother at age 52 due to metastatic lung cancer. He has 1 sister with diabetes, asthma, and a sister with bladder cancer. PHYSICAL EXAMINATION: GENERAL: The patient was seen in the emergency room on the stretcher. His son is at his bedside. He is a relatively short, obese male with slightly cody complexion. He is not entirely alert, often closing his eyes, he appears to be drifting off, but then he does respond mostly appropriately and is able to recall details of his history. HEAD, EARS, EYES, NOSE AND THROAT: He has an approximately egg sized contusion and early ecchymosis on his left temporal area. Otherwise, there is no head injury. He is balding. Eyes: His pupils are approximately 3 mm and reactive to light. Extraocular movements are intact. There are anicteric sclerae. Oral mucosa is with a slightly dry appearing tongue, but otherwise mucosa is moist. He has adequate dentition with a bridge on the upper teeth. NECK: Very full. His carotids are +2 with no appreciable bruit. RESPIRATORY: His respirations are unlabored. Breath sounds are somewhat distant and otherwise clear to auscultation. There is specifically no wheezing or crackles. CARDIAC: His heart has a somewhat distant S1, S2. There is no appreciable murmur , rub or gallop. He has a left chest AICD. ABDOMEN: Very protuberant and somewhat firm. He does have active bowel sounds. It is nontender. Given his habitus, I am unable to appreciate any organs. GENITALIA: Were not examined. EXTREMITIES: Notable for no edema, no muscle atrophy. NEUROLOGIC: As noted he is oriented to place, time and situation, although he is a little bit slow to respond. Gait was not assessed. He moves easily on the stretcher. Patellar and brachial reflexes are 1+. SKIN: He has a contusion on his forehead as noted and some abrasions on his left upper arm and hand. There is no evident diabetic foot wound. DIAGNOSTIC LABORATORY STUDIES: Sodium 134, potassium 4.5, chloride 100, bicarbonate 23, BUN 49, creatinine 5.1. This is compared with a BUN and creatinine on 03/17/2017 at 27 and 1.9. Estimated GFR is 12, glucose is 119. A1c done today is 8.9, that is compared with a 10.1 A1c in September 2016, the last one in our records. Troponin was less than 0.04. White count 9.2, hemoglobin 12.3, hematocrit 36.4, platelets 216,000. His hematocrit is fairly consistent with what it has been since early February. A urinalysis is unremarkable, no microscopic was done. On 10/2016 a urine microalbumin was 0.3. DIAGNOSTIC IMAGIN. Head CT done today was a normal head CT. X-ray of the forearm showed no fractures or bone lesions and normal forearm view. 2. Humerus x-ray 04/07/2017 unremarkable left humerus series. 3. Chest x-ray 04/07/2017 mild cardiomegaly, new since the prior study with diffuse vascular fullness, no localized infiltrate, consolidation, effusion or pneumothorax. ASSESSMENT AND PLAN: 1. Hypoglycemia. This has been a more persistent problem recently and is most likely related to his possibly decreasing insulin requirements in the setting of a progressively increasing creatinine with less insulin excretion by the kidneys. He had improved with an amp of D50 and most recently was 118. When his son brings back his pump we will revaluate starting at a lower basal rate. For the time we will check fingerstick blood glucoses every 2 hours and consider when to resume his insulin pump at a lesser rate with frequent fingerstick blood glucoses. We will hold his metformin now. He is followed by an residential real estate agent. It is unusual that he is on metformin given that he is a type 1 , but with this creatinine, that is going to be on hold indefinitely until followup. 2. Acute kidney injury. His creatinine has been increasing since October, and is markedly increased today. He has minimal reasons to have an obstruction, but since it is such an acute increase and he does have BPH we will do bilateral renal ultrasound to make sure he does not possibly have retention and hydronephrosis. There is no history of malignancy that would suggest any reason to have ureteral impingement. Most likely an obstructive acute kidney injury would be ruled out. He may have a combination of prerenal and intrarenal injury due to gastrointestinal volume loss from his chronic diarrhea, which is worsening with continued use of ACEI and spironolactone in the setting of low volume. We will hold his ROBYN inhibitor and spironolactone . The diclofenac topical is not likely a contributor, but certainly that will be held while he is here and I will explore whether that can be absorbed systemically. I think it unlikely that his acute kidney injury represents a poor forward flow problem from his congestive heart failure as his most recent ejection fractions are improved, but I will check a BNP. I will send off urine to assess a FENa if that is helpful. There has been no known hypotension, although his systolic here is currently in the low 100s, even 90. He has had systolics this low in the past, but in October he was running more 120s to 130s systolic. Most recent blood pressure was also with a systolic around 90. I will give him more fluid and reevaluate, but will need caution with his fluids given his systolic dysfunction. 5. Microscopic colitis and worsening diarrhea. Conceivably, he has a superimposed infection. We will send off stool for stool pathogens and C difficile, and once C difficile is ruled out, we will add Imodium and once his son brings in his medication list we will add whatever medications he has been prescribed for the microscopic colitis to help slow down bowel movements and as above, he will have continued volume repletion tonight given the acute kidney injury. I will contact his supervisor asbestos textile to get recommendation. Not clear why his oral budenoside was stopped and when 6. Ischemic cardiomyopathy. He is compensated currently. As above, I do not believe his renal function represents impaired forward flow. His Coreg is on hold currently for his blood pressure as is his lisinopril and spironolactone. He will be monitored closely for any volume overload and will have daily weights. 7. Coronary artery disease. He will continue on his aspirin and statin. His Coreg is currently on hold due to his blood pressure. 8. 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 The patient reports that his hydrocortisone dose was decreased from 10 mg in the morning to 5 mg in the morning and evening. I will give him his 5 mg dose for now. 9. Anxiety and depression. He will continue on his home duloxetine. 10. Gastrointestinal reflux disease. He will continue on his home ranitidine and proton pump inhibitor. 11. Peripheral neuropathy. He will continue on his Lyrica and nortriptyline once we find out what his nortriptyline dose is and I will check if he needs renal dosing for that. 12. COR STATUS: HE IS A FULL COR. 13. Venous thromboembolism prophylaxis. He will be on no heparin due to his impaired renal clearance and will have SCDs. 14. New, persistent daily headaches. This is followed by a neurologist. He will continue with his gabapentin and low dose Lyrica which he says the neurologist is also using for that problem. JOB #: [id number] EXT JOB #:[id number]
[2017-04-07] MEDS: oxyCODONE 5 MG TABLET PO SCH ×2 (19:30→23:49)
[2017-04-07 20:39] LABS: BILIRUBIN,URINE NEGATIVE (NEGATIVE); PH,URINE 5.5 PH (5.0-7.5)
[2017-04-07 20:51] LABS: UR CULTURE IF IND NOT INDICATED; WBC,URINE 0-3 /HPF (0-3)
[2017-04-07] MEDS ORDERED: ZOLPIDEM 5 MG TABLET PO SCH (21:00)
[2017-04-07] MEDS ORDERED: INSULIN GLARGINE 300 UNIT/3 ML PEN SUBQ SCH (21:00)
[2017-04-07] MEDS: INSULIN ASPART 300 UNIT/3 ML PEN SUBQ SCH (21:03)
[2017-04-07] MEDS: TAMSULOSIN 0.4 MG CAPSULE PO SCH (21:06)
[2017-04-07] MEDS: PANTOPRAZOLE 40 MG TABLET PO SCH (21:07)
[2017-04-07] MEDS: ATORVASTATIN 40 MG TABLET PO SCH (21:07)
[2017-04-07] MEDS: PREGABALIN 100 MG CAPSULE PO SCH (21:09)
[2017-04-07] MEDS: SODIUM CHLORIDE FLUSH 0.9% 10 ML SYRINGE IVP SCH (21:10)
[2017-04-07] MEDS: ALPRAZolam 0.25 MG TABLET PO PRN (21:17)
[2017-04-08] MEDS: oxyCODONE 5 MG TABLET PO SCH ×6 (03:08→22:22)
[2017-04-08 06:15] LABS: HCT - HEMATOCRIT 35.9 % (42.0-52.0); HGB - HEMOGLOBIN 11.9 g/dL (14.0-18.0); MEAN CORPUSCULAR VOLUME 93.7 fL (80.0-94.0); MEAN PLATELET VOLUME 9.4 fL (7.4-11.4); RED BLOOD COUNT 3.84 10^6/uL (4.70-6.10); RED CELL DISTRIBUTION WIDTH 13.9 % (12.0-15.0); WHITE BLOOD COUNT 7.1 x10^3/uL (4.8-10.8)
[2017-04-08 06:38] LABS: CALCIUM 8.1 mg/dL (8.5-10.3); CREATININE 3.7 mg/dL (0.6-1.2); POTASSIUM 6.1 mmol/L (3.5-5.0)
[2017-04-08] MEDS ORDERED: SODIUM POLYSTYRENE SULFONATE 15 GM/60 ML BOTTLE PO ONE (06:39)
[2017-04-08] MEDS: SODIUM CHLORIDE 0.9% 1,000 ML IV SCH ×4 (06:59→22:53)
[2017-04-08] MEDS: SODIUM CHLORIDE FLUSH 0.9% 10 ML SYRINGE IVP SCH ×3 (07:00→21:50)
[2017-04-08] MEDS: PANTOPRAZOLE 40 MG TABLET PO SCH ×2 (07:00→16:30)
[2017-04-08] MEDS: INSULIN GLARGINE 300 UNIT/3 ML PEN SUBQ ONE ×2 (07:43→09:04)
[2017-04-08] MEDS ORDERED: INSULIN ASPART 300 UNIT/3 ML PEN SUBQ ONE ×2 (07:49→08:00)
--- NOTE | 2017-04-08 07:52 | PROVIDER PROGRESS NOTE ---
Subjective - Prog Note Date Prog Note Date: 04/08/17 Prog Note Time: 07:50 - Subjective Pt reports feeling: Improved (feeling over all better doesnt really remember events of coming no pain, no shortness of breath, he remembered my asking to calling son to bring in his insulin pump and his son has brought it in Month June" Season "fall" but when asked Birthdate and if recently had birthday , he realizes that is incorrect > "early summer, March" Patientstates" neurologist has wanted to do MRI of my brain but my AICD is not compatible w/ MRI) Subjective: no complaints this morning "for a sugar of 404 (this am serum gluc) , I normally would not eat 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 Paulino Mercado [facility], I spoke w/ PA. He will call back later to d/w me Current Medications - Current Medications Current Medications: Active Medications Generic Name Dose Route Start Last Admin Trade Name Freq PRN Reason Stop Dose Admin Alprazolam 0.5 mg 04/07/17 21:00 04/07/17 21:17 Xanax PO 0.5 mg BID PRN Administration ANXIETY Aspirin 81 mg 04/08/17 09:00 Ecotrin PO DAILY ASHANTI Atorvastatin Calcium 40 mg 04/07/17 21:00 04/07/17 21:07 Lipitor PO 40 mg QPM ASHANTI Administration Bupropion HCl 150 mg 04/08/17 09:00 Wellbutrin Xl PO DAILY ASHANTI Cetirizine HCl 10 mg 04/08/17 09:00 Zyrtec PO DAILY ASHANTI Hydrocortisone 10 mg 04/08/17 08:00 Cortef PO QDBREAKFAST ASHANTI Hydrocortisone 5 mg 04/08/17 17:00 Cortef PO DAILY@1700 ASHANTI Sodium Chloride 1,000 mls @ 75 mls/hr 04/07/17 15:00 04/08/17 06:59 Normal Saline 0.9% IV 75 mls/hr .[id number] ASHANTI Administration Insulin Aspart 1 - 9 unit 04/07/17 21:00 04/07/17 21:03 Novolog SUBQ 9 unit 0800,1200,1700,2100 ASHANTI Administration Protocol Insulin Aspart 10 unit 04/08/17 07:49 Novolog SUBQ 04/08/17 07:50 ONCE ONE Insulin Glargine 30 unit 04/07/17 21:00 04/07/17 21:04 Lantus Solostar SUBQ 30 unit QPM ASHANTI Administration Insulin Glargine 35 unit 04/08/17 08:00 04/08/17 07:43 Lantus Solostar SUBQ 04/08/17 08:01 35 unit ONCE ONE Administration Multivitamins 1 tab 04/08/17 08:00 Theragran PO DAILYWM ASHANTI Nortriptyline HCl 20 mg 04/08/17 08:00 Pamelor PO 0800,1700 ASHANTI Oxycodone HCl 5 mg 04/07/17 19:00 04/08/17 07:00 Roxicodone PO 5 mg Q4H ASHANTI Administration Pantoprazole Sodium 40 mg 04/07/17 21:00 04/08/17 07:00 Protonix PO 40 mg BIDAC ASHANTI Administration Polyethylene Glycol 17 gm 04/08/17 09:00 Miralax PO DAILY ASHANTI Pregabalin 300 mg 04/07/17 21:00 04/07/17 21:09 Lyrica PO 300 mg QPM ASHANTI Administration Ranitidine HCl 300 mg 04/07/17 21:00 04/07/17 21:08 Zantac PO 300 mg QPM ASHANTI Administration Sodium Chloride 10 ml 04/07/17 14:57 Normal Saline Flush 0.9% IVP PRN PRN NEEDED PER PROVIDER ORDERS Sodium Chloride 10 ml 04/07/17 22:00 04/08/17 07:00 Normal Saline Flush 0.9% IVP Not Given Q8HR ASHANTI Tamsulosin HCl 0.4 mg 04/07/17 21:00 04/07/17 21:06 Flomax PO 0.4 mg BID ASHANTI Administration Zolpidem Tartrate 10 mg 04/07/17 21:00 04/07/17 22:18 Ambien PO 10 mg QPM ASHANTI Administration Carvedilol 12.5 mg PO BID 09/04/14 Lisinopril 20 mg PO DAILY 09/04/14 Pantoprazole [Protonix] 40 mg PO BIDAC 09/04/14 Ranitidine HCl 300 mg PO QPM 09/04/14 Spironolactone 12.5 mg PO DAILY 09/04/14 Zolpidem Tartrate 10 mg PO QPM PRN 09/04/14 Multivitamin [Multi-Vitamin Daily] 1 each PO DAILY 09/12/14 oxyCODONE [Roxicodone] 5 mg PO Q4H 02/25/15 Aspirin [Aspirin EC] 81 mg PO DAILY 10/07/16 Duloxetine HCl [Cymbalta] 60 mg PO BID 10/07/16 Insulin Lispro [Humalog] 1 - 11 units SQ .SLIDING SCALE 10/07/16 Pregabalin [Lyrica] 300 mg PO BID 10/07/16 Hydrocortisone 10 mg PO QDBREAKFAST 03/01/17 Nortriptyline HCl 20 mg PO 0800,1700 03/01/17 Tamsulosin [Flomax] 0.4 mg PO BID 03/01/17 metFORMIN [Glucophage] 500 mg PO BIDWM 03/01/17 Alprazolam [Alprazolam] 0.5 mg PO BID PRN 04/07/17 Budesonide [Entocort EC] 9 mg PO DAILY 04/07/17 Bupropion HCl [Bupropion Xl] 150 mg PO DAILY 04/07/17 Cetirizine [ZyrTEC] 10 mg PO DAILY 04/07/17 Diclofenac Sodium [Voltaren] 4 gm TP QID PRN 04/07/17 Furosemide [Furosemide] 10 mg PO DAILY 04/07/17 Gabapentin 300 mg PO BID 04/07/17 Hydrocortisone [Cortef] 10 mg PO DAILYWM 04/07/17 Lidocaine Patch 5% [Lidoderm Patch] 1 each TOP DAILY PRN 04/07/17 Simvastatin [Simvastatin] 80 mg PO QPM 04/07/17 Objective - Vital Signs/Intake & Output Reviewed Vital Signs: Yes Vital Signs: Vital Signs x48h Temp Pulse Resp BP Pulse Ox 04/08/17 03:19 36.4 C L 101 H 16 108/65 96 Intake & Output: Intake & Output 04/05/17 04/06/17 04/07/17 04/08/17 23:59 23:59 23:59 23:59 Intake Total 1481 620 Output Total 300 Balance 1181 620 - Objective General Appearance: positive: No acute distress, Other (arouses easily, still seems slow to respond, mostly appropriate, but difficulty with memory of some detail. Mostly articulate) Eyes Bilateral: positive: PERRL, EOMI, Other (wearing glasses) Cardiovascular: positive: Gallop/S4 (diffuse high pitched wheezing this morning. unlabored resps cleared later after neb) Abdomen: positive: Nml bowel sounds, No distention, Other (obese, rounded after a BM large amount of watery brown stool seen in toilet) Skin: positive: Warm, Dry. negative: Diaphoresis Extremities: positive: No pedal edema Neurologic/Psychiatric: positive: Other (still having memory issues nonfocal exam, equal strength, EOMI, rapid alt mvmnts intact lables objects correctly, seems to drift off when trying to remember detail, otherwise appropriate. DM educator noted he is slow in putting together insulin pump) - Lab Results Fish Bones: 04/08/17 05:42 04/08/17 10:56 Other Labs: Lab Results x24hrs 04/08/17 04/08/17 04/07/17 Range/Units 05:42 05:42 20:20 WBC 7.1 (4.8-10.8) x10^3/uL RBC 3.84 L (4.70-6.10) 10^6/uL Hgb 11.9 L (14.0-18.0) g/dL Hct 35.9 L (42.0-52.0) % MCV 93.7 (80.0-94.0) fL MCH 31.0 (27.0-31.0) pg MCHC 33.0 (32.0-36.0) g/dL RDW 13.9 (12.0-15.0) % Plt Count 205 (130-450) 10^3/uL MPV 9.4 (7.4-11.4) fL Sodium 132 L (135-145) mmol/L Potassium 6.1 H* (3.5-5.0) mmol/L Chloride 101 (101-111) mmol/L Carbon Dioxide 19 L (21-32) mmol/L Anion Gap 12.0 (6-13) BUN 57 H (6-20) mg/dL Creatinine 3.7 H (0.6-1.2) mg/dL Estimated GFR (MDRD) 17 L (>89) Glucose 404 H (70-100) mg/dL Calcium 8.1 L (8.5-10.3) mg/dL Urine Color Urine Clarity (CLEAR) Urine pH (5.0-7.5) PH Ur Specific [place] (1.002-1.030) Urine Protein (NEGATIVE) mg/dL Urine Glucose (UA) (NEGATIVE) mg/dL Urine Ketones (NEGATIVE) mg/dL Urine Occult Blood (NEGATIVE) Urine Nitrite (NEGATIVE) Urine Bilirubin (NEGATIVE) Urine Urobilinogen (NORMAL) E.U./dL Ur Leukocyte Esterase (NEGATIVE) Urine RBC (0-5) /HPF Urine WBC (0-3) /HPF Ur Squamous Epith Cells (<= Few) Urine Bacteria (None Seen) /HPF Urine Casts /LPF Urine Culture Comments Urine Creatinine mg/dL Urine Sodium 65.0 mmol/L 04/07/17 04/07/17 Range/Units 20:20 20:20 WBC (4.8-10.8) x10^3/uL RBC (4.70-6.10) 10^6/uL Hgb (14.0-18.0) g/dL Hct (42.0-52.0) % MCV (80.0-94.0) fL MCH (27.0-31.0) pg MCHC (32.0-36.0) g/dL RDW (12.0-15.0) % Plt Count (130-450) 10^3/uL MPV (7.4-11.4) fL Sodium (135-145) mmol/L Potassium (3.5-5.0) mmol/L Chloride (101-111) mmol/L Carbon Dioxide (21-32) mmol/L Anion Gap (6-13) BUN (6-20) mg/dL Creatinine (0.6-1.2) mg/dL Estimated GFR (MDRD) (>89) Glucose (70-100) mg/dL Calcium (8.5-10.3) mg/dL Urine Color YELLOW Urine Clarity CLEAR (CLEAR) Urine pH 5.5 (5.0-7.5) PH Ur Specific [place] 1.025 (1.002-1.030) Urine Protein TRACE (NEGATIVE) mg/dL Urine Glucose (UA) NEGATIVE (NEGATIVE) mg/dL Urine Ketones TRACE (NEGATIVE) mg/dL Urine Occult Blood LARGE H (NEGATIVE) Urine Nitrite NEGATIVE (NEGATIVE) Urine Bilirubin NEGATIVE (NEGATIVE) Urine Urobilinogen 0.2 (NORMAL) (NORMAL) E.U./dL Ur Leukocyte Esterase NEGATIVE (NEGATIVE) Urine RBC 0-5 (0-5) /HPF Urine WBC 0-3 (0-3) /HPF Ur Squamous Epith Cells RARE Squamous (<= Few) Urine Bacteria Few (None Seen) /HPF Urine Casts 3-5 Course Granular /LPF Urine Culture Comments NOT INDICATED Urine Creatinine 149.3 mg/dL Urine Sodium mmol/L Assessment/Plan - Problem List (1) Acute renal failure Impression: Improving with volume depletion (suspect significant GI losses w/ chronic diarrhea (see below) and superimposed impaired renal autoregulation on ACEI, DM1 , diuretic/spironolactone renal u/s normal FeNa > 1 (1.7) suggesting intra renal, but response to IVF suggesting also prerenal component BUN /CR were 27/1.9 late February Cr 5.1 yesterday>> 3.7 this morning, 3.0 by 11am continue IVF holding ACEI today holding sprionolactone holding metformin holding coreg for BP recheck in am Qualifiers: Acute renal failure type: unspecified Qualified Code(s): N17.9 - Acute kidney failure, unspecified (2) Hypoglycemia Impression: likely due to impaired renal clearance of insulin as above w/ much reduced GFR resolved, adding back insulin as above (3) Diabetes mellitus type 1 with complications Impression: A1C better than in Oct, but still poor control Suspect recent hypoglycemia (including several ED presentations in February) due to impaired renal clearance Gluc elevated this am ~ 400 despite lantus 30 last pm, w/ incipient dka possibly;no anion gap, but bicarb reduced today, small serum ketones K 6.1 Improved w/ short acting insuling 10 u. and 35 units insulin lantus and IVF. much appreciate DM educator assist Basal back on at 3.2 u/hr Will not have patient do prandial or correctional insulin yet as he is still a little slow stopped lantus Prandial 10 units (for 4 gram carb diet per DM educator) and correction 1 unit for each 20 over 140 (4) Collagenous colitis Impression: uncontrolled diarrhea for multiple weeks, pt reports budesonide was stopped some time ago (> 1 mos ago) GI volume loss likely large contributor to JODEE started immodium, metamucil, stool cx and cdif neg I spoke w/ GI Dr. Santizo ([facility]) from [facility] who dx'd his collagenous colitis Plan: restart his Budesonide 9 mg daily PO cc Dr. santizo on d/c (5) Ischemic cardiomyopathy Impression: compensated no evident faliure w/ IVF for JODEE holding coreg, acei, spironolactone currently for JODEE, will reeval resuming coreg in am (6) Hyperkalemia Impression: was not hyperkalemic w/ presentation/ Cr 5.1 likely related to early ketosis improved with insulin recheck in am (7) Confusion Impression: primarily memory issues, and slowless w/ using iphone Son reported confusion w/ glucose < 100 glucose now up, suspect ambien d/c ambien if still slow in am (was sharp when I last met him), consider CT(cant get MR w/ AICD), but exam not focal
[2017-04-08] MEDS ORDERED: SODIUM CHLORIDE 0.9% 1,000 ML IV SCH ×2 (08:00→11:00)
--- NOTE | 2017-04-08 08:27 | XRAY Report ---
EXAM: LEFT ELBOW RADIOGRAPHY EXAM DATE: 04/07/2017 02:27 p.m. CLINICAL HISTORY: Arm inj. Pain. COMPARISON: None. TECHNIQUE: 3 views. FINDINGS: Bones: No fractures or bone lesions. Joints: No effusion. No subluxation. Soft Tissues: No soft tissue swelling. IMPRESSION: Negative 3-view left elbow radiography. [facility] Referring Provider Line: [phone] SITE ID: [id number]
[2017-04-08] MEDS: INSULIN ASPART 300 UNIT/3 ML PEN SUBQ SCH ×4 (08:56→21:47)
[2017-04-08] MEDS ORDERED: INSULIN REGULAR HUMAN 100 UNIT/1 ML 10 ML MDV SUBQ SCH (09:00)
[2017-04-08] MEDS ORDERED: INSULIN REGULAR HUMAN 100 UNIT/1 ML 10 ML MDV ONE (09:01)
[2017-04-08] MEDS: BUDESONIDE 0.5 MG/2 ML NEB INH SCH ×2 (09:20→19:05)
[2017-04-08] MEDS: IPRATROPIUM/ALBUTEROL 3 ML NEB INH PRN ×2 (09:20→19:05)
[2017-04-08] MEDS: MULTIVITAMIN TABLET PO SCH (09:40)
[2017-04-08] MEDS: NORTRIPTYLINE 10 MG CAPSULE PO SCH ×2 (09:40→16:30)
[2017-04-08] MEDS: HYDROCORTISONE 10 MG TABLET PO SCH ×2 (09:40→16:30)
[2017-04-08] MEDS: buPROPion XL 150 MG TABLET PO SCH (09:40)
[2017-04-08] MEDS: ASPIRIN EC 81 MG TABLET PO SCH (09:40)
[2017-04-08] MEDS: TAMSULOSIN 0.4 MG CAPSULE PO SCH ×2 (09:41→21:49)
[2017-04-08] MEDS: CETIRIZINE 10 MG TABLET PO SCH (09:41)
[2017-04-08] MEDS: LOPERAMIDE 2 MG CAPSULE PO PRN ×2 (09:44→13:47)
[2017-04-08] MEDS: POLYETHYLENE GLYCOL 3350 17 GM PACKET PO SCH (09:44)
[2017-04-08 11:22] LABS: CALCIUM 8.3 mg/dL (8.5-10.3); POTASSIUM 5.1 mmol/L (3.5-5.0)
[2017-04-08] MEDS: PSYLLIUM PACKET PO SCH ×2 (13:46→21:48)
[2017-04-08] MEDS ORDERED: INSULIN ASPART 300 UNIT/3 ML PEN SUBQ SCH ×3 (14:15→21:00)
[2017-04-08] MEDS: BUDESONIDE 3 MG CAPSULE PO SCH (14:59)
[2017-04-08] MEDS: INSU100I18 SUBQ SCH ×2 (21:47→21:48)
[2017-04-08] MEDS: PREGABALIN 100 MG CAPSULE PO SCH (21:48)
[2017-04-08] MEDS: ATORVASTATIN 40 MG TABLET PO SCH (21:48)
[2017-04-08] MEDS: ALPRAZolam 0.25 MG TABLET PO PRN (21:49)
[2017-04-09] MEDS: oxyCODONE 5 MG TABLET PO SCH ×2 (02:59→06:50)
[2017-04-09 05:57] LABS: CALCIUM 8.5 mg/dL (8.5-10.3); CREATININE 1.6 mg/dL (0.6-1.2); POTASSIUM 4.7 mmol/L (3.5-5.0)
[2017-04-09] MEDS: PANTOPRAZOLE 40 MG TABLET PO SCH ×2 (06:49→17:01)
[2017-04-09] MEDS: SODIUM CHLORIDE FLUSH 0.9% 10 ML SYRINGE IVP SCH ×2 (06:51→12:44)
[2017-04-09] MEDS: SODIUM CHLORIDE 0.9% 1,000 ML IV SCH (06:51)
[2017-04-09] MEDS: IPRATROPIUM/ALBUTEROL 3 ML NEB INH PRN ×2 (07:45→19:30)
[2017-04-09] MEDS: BUDESONIDE 0.5 MG/2 ML NEB INH SCH ×2 (07:45→19:30)
[2017-04-09] MEDS: INSU100I18 SUBQ SCH ×3 (08:14→17:02)
[2017-04-09] MEDS: BUDESONIDE 3 MG CAPSULE PO SCH (08:23)
[2017-04-09] MEDS: PSYLLIUM PACKET PO SCH (08:23)
[2017-04-09] MEDS: HYDROCORTISONE 10 MG TABLET PO SCH ×2 (08:23→17:01)
[2017-04-09] MEDS: INSULIN ASPART 300 UNIT/3 ML PEN SUBQ SCH ×3 (08:24→17:01)
[2017-04-09] MEDS: ASPIRIN EC 81 MG TABLET PO SCH (08:24)
[2017-04-09] MEDS: CETIRIZINE 10 MG TABLET PO SCH (08:24)
[2017-04-09] MEDS: TAMSULOSIN 0.4 MG CAPSULE PO SCH (08:24)
[2017-04-09] MEDS: MULTIVITAMIN TABLET PO SCH (08:24)
[2017-04-09] MEDS: buPROPion XL 150 MG TABLET PO SCH (08:24)
[2017-04-09] MEDS: POLYETHYLENE GLYCOL 3350 17 GM PACKET PO SCH (08:25)
--- NOTE | 2017-04-09 09:40 | PROVIDER PROGRESS NOTE ---
Subjective - Prog Note Date Prog Note Date: 04/09/17 Prog Note Time: 09:37 (seen ~ 7:10am) - Subjective Subjective: Patient denies new complaints here for "dehydration", and "?high sugar" Doesnt recall specifics 2016, cant think of month, but March when triggered w/ birthday, Mannie; but quickly corrects to Lucy metcalf (better than yesterday) Per RN was incont this am of both urine and stool in bed x1 5pm later seen in chair eating dinner (several hours after seen by OT), alert, detail oriented, appropriate "had a formed BM today" for the first time in eons" usually shoots for a predinner gluc < 180 (was 211 at dinner) Current Medications - Current Medications Current Medications: Active Medications Generic Name Dose Route Start Last Admin Trade Name Freq PRN Reason Stop Dose Admin Albuterol/Ipratropium 3 ml 04/08/17 08:10 04/09/17 07:45 Duoneb INH 3 ml Q4H PRN Administration Shortness of Air/Wheezing Alprazolam 0.5 mg 04/07/17 21:00 04/08/17 21:49 Xanax PO 0.5 mg BID PRN Administration ANXIETY Aspirin 81 mg 04/08/17 09:00 04/09/17 08:24 Ecotrin PO 81 mg DAILY ASHANTI Administration Atorvastatin Calcium 40 mg 04/07/17 21:00 04/08/17 21:48 Lipitor PO 40 mg QPM ASHANTI Administration Budesonide 0.5 mg 04/08/17 09:15 04/09/17 07:45 Pulmicort INH 0.5 mg RTBID ASHANTI Administration Budesonide 9 mg 04/08/17 15:00 04/09/17 08:23 Entocort Ec PO 9 mg DAILY ASHANTI Administration Bupropion HCl 150 mg 04/08/17 09:00 04/09/17 08:24 Wellbutrin Xl PO 150 mg DAILY ASHANTI Administration Cetirizine HCl 10 mg 04/08/17 09:00 04/09/17 08:24 Zyrtec PO 10 mg DAILY ASHANTI Administration Hydrocortisone 10 mg 04/08/17 08:00 04/09/17 08:23 Cortef PO 10 mg QDBREAKFAST ASHANTI Administration Hydrocortisone 5 mg 04/08/17 17:00 04/08/17 16:30 Cortef PO 5 mg DAILY@1700 ASHANTI Administration Sodium Chloride 1,000 mls @ 50 mls/hr 04/08/17 20:47 04/09/17 06:51 Normal Saline 0.9% IV 50 mls/hr .Q20H ASHANTI Administration Insulin Aspart 10 unit 04/08/17 18:00 04/09/17 08:24 Novolog SUBQ 10 unit TIDWM ASHANTI Administration Protocol Insulin Aspart 1 - 11 unit 04/08/17 18:00 04/09/17 08:14 Novolog SUBQ Not Given 0800,1200,1700,2100 [facility] Protocol Loperamide HCl 2 mg 04/08/17 08:16 04/08/17 13:47 Imodium PO 2 mg Q2H PRN Administration Diarrhea Multivitamins 1 tab 04/08/17 08:00 04/09/17 08:24 Theragran PO 1 tab DAILYWM ASHANTI Administration Pantoprazole Sodium 40 mg 04/07/17 21:00 04/09/17 06:49 Protonix PO 40 mg BIDAC ASHANTI Administration Polyethylene Glycol 17 gm 04/08/17 09:00 04/09/17 08:25 Miralax PO Not Given DAILY ASHANTI Pregabalin 300 mg 04/07/17 21:00 04/08/17 21:48 Lyrica PO 300 mg QPM ASHANTI Administration Psyllium Hydrophilic Mucilloid 1 packet 04/08/17 14:00 04/09/17 08:23 Metamucil PO 1 packet BID ASHANTI Administration Ranitidine HCl 300 mg 04/07/17 21:00 04/08/17 21:49 Zantac PO 300 mg QPM ASHANTI Administration Sodium Chloride 10 ml 04/07/17 14:57 Normal Saline Flush 0.9% IVP PRN PRN NEEDED PER PROVIDER ORDERS Sodium Chloride 10 ml 04/07/17 22:00 04/09/17 06:51 Normal Saline Flush 0.9% IVP Not Given Q8HR ASHANTI Tamsulosin HCl 0.4 mg 04/07/17 21:00 04/09/17 08:24 Flomax PO 0.4 mg BID ASHANTI Administration Carvedilol 12.5 mg PO BID 09/04/14 Lisinopril 20 mg PO DAILY 09/04/14 Pantoprazole [Protonix] 40 mg PO BIDAC 09/04/14 Ranitidine HCl 300 mg PO QPM 09/04/14 Spironolactone 12.5 mg PO DAILY 09/04/14 Zolpidem Tartrate 10 mg PO QPM PRN 09/04/14 Multivitamin [Multi-Vitamin Daily] 1 each PO DAILY 09/12/14 oxyCODONE [Roxicodone] 5 mg PO Q4H 02/25/15 Aspirin [Aspirin EC] 81 mg PO DAILY 10/07/16 Duloxetine HCl [Cymbalta] 60 mg PO BID 10/07/16 Insulin Lispro [Humalog] 1 - 11 units SQ .SLIDING SCALE 10/07/16 Pregabalin [Lyrica] 300 mg PO BID 10/07/16 Hydrocortisone 10 mg PO QDBREAKFAST 03/01/17 Nortriptyline HCl 20 mg PO 0800,1700 03/01/17 Tamsulosin [Flomax] 0.4 mg PO BID 03/01/17 metFORMIN [Glucophage] 500 mg PO BIDWM 03/01/17 Alprazolam [Alprazolam] 0.5 mg PO BID PRN 04/07/17 Budesonide [Entocort EC] 9 mg PO DAILY 04/07/17 Bupropion HCl [Bupropion Xl] 150 mg PO DAILY 04/07/17 Cetirizine [ZyrTEC] 10 mg PO DAILY 04/07/17 Diclofenac Sodium [Voltaren] 4 gm TP QID PRN 04/07/17 Furosemide [Furosemide] 10 mg PO DAILY 04/07/17 Gabapentin 300 mg PO BID 04/07/17 Hydrocortisone [Cortef] 10 mg PO DAILYWM 04/07/17 Lidocaine Patch 5% [Lidoderm Patch] 1 each TOP DAILY PRN 04/07/17 Simvastatin [Simvastatin] 80 mg PO QPM 04/07/17 Objective - Vital Signs/Intake & Output Reviewed Vital Signs: Yes Vital Signs: Vital Signs x48h Temp Pulse Pulse Resp BP BP Pulse Ox 04/09/17 08:13 36.4 C L 81 18 110/74 97 04/09/17 07:45 78 14 04/09/17 02:55 36.4 C L 82 16 104/61 96 Intake & Output: Intake & Output 04/06/17 04/07/17 04/08/17 04/09/17 23:59 23:59 23:59 23:59 Intake Total 1481 3824 952 Output Total 300 150 Balance 1181 3824 802 - Objective General Appearance: positive: No acute distress, Other (drowsy this am when insulin pump beeped low battery, he was unable to manage it himself (we replaced it with insturction sheet)) Eyes Bilateral: positive: EOMI Respiratory: positive: No respiratory distress, Breath sounds nml Cardiovascular: positive: Regular rate & rhythm, No murmur Abdomen: positive: Nml bowel sounds, Other (obese, rounded abdomen as above has) . negative: Tenderness Skin: positive: Warm, Dry Extremities: positive: No pedal edema Neurologic/Psychiatric: positive: Other (Early this morning he was still a little slow on memory Eval by OT for processing info for ADL's requested (see A /P) When seen later in evening, he seems much sharper) - Lab Results Fish Bones: 04/08/17 05:42 04/09/17 05:04 Other Labs: Lab Results x24hrs 04/09/17 04/09/17 04/09/17 Range/Units 07:46 05:04 02:52 Sodium 141 (135-145) mmol/L Potassium 4.7 (3.5-5.0) mmol/L Chloride 108 (101-111) mmol/L Carbon Dioxide 27 (21-32) mmol/L Anion Gap 6.0 (6-13) BUN 31 H (6-20) mg/dL Creatinine 1.6 H (0.6-1.2) mg/dL Estimated GFR (MDRD) 45 L (>89) Glucose 162 H (70-100) mg/dL POC Whole Bld Glucose 118 H 186 H (70 - 100) mg/dL Calcium 8.5 (8.5-10.3) mg/dL B-Natriuretic Peptide (5-100) pg/mL Serum Ketones (NEGATIVE) 04/08/17 04/08/17 04/08/17 Range/Units 20:21 16:46 13:26 Sodium (135-145) mmol/L Potassium (3.5-5.0) mmol/L Chloride (101-111) mmol/L Carbon Dioxide (21-32) mmol/L Anion Gap (6-13) BUN (6-20) mg/dL Creatinine (0.6-1.2) mg/dL Estimated GFR (MDRD) (>89) Glucose (70-100) mg/dL POC Whole Bld Glucose 176 H 240 H 372 H (70 - 100) mg/dL Calcium (8.5-10.3) mg/dL B-Natriuretic Peptide (5-100) pg/mL Serum Ketones (NEGATIVE) 04/08/17 04/08/17 04/08/17 Range/Units 11:33 10:56 10:56 Sodium (135-145) mmol/L Potassium (3.5-5.0) mmol/L Chloride (101-111) mmol/L Carbon Dioxide (21-32) mmol/L Anion Gap (6-13) BUN (6-20) mg/dL Creatinine (0.6-1.2) mg/dL Estimated GFR (MDRD) (>89) Glucose (70-100) mg/dL POC Whole Bld Glucose 359 H (70 - 100) mg/dL Calcium (8.5-10.3) mg/dL B-Natriuretic Peptide 84 (5-100) pg/mL Serum Ketones SMALL H (NEGATIVE) 04/08/17 Range/Units 10:56 Sodium 133 L (135-145) mmol/L Potassium 5.1 H (3.5-5.0) mmol/L Chloride 102 (101-111) mmol/L Carbon Dioxide 23 (21-32) mmol/L Anion Gap 8.0 (6-13) BUN 51 H (6-20) mg/dL Creatinine 3.0 H (0.6-1.2) mg/dL Estimated GFR (MDRD) 22 L (>89) Glucose 346 H (70-100) mg/dL POC Whole Bld Glucose (70 - 100) mg/dL Calcium 8.3 L (8.5-10.3) mg/dL B-Natriuretic Peptide (5-100) pg/mL Serum Ketones (NEGATIVE) Assessment/Plan - Problem List (1) Acute renal failure Impression: (1) Acute renal failure Impression: 04/09 : continues to improve markedly w/ volume repletion 5.1>> 3.7>> 3.0>> 1.6 EGFR now 45 (12 on admit) BP improved, will resume coreg will likely be able to resume ACEI tomorrow and spironolactone (with close f/u of Cr next week) 04/08 Improving with volume depletion (suspect significant GI losses w/ chronic diarrhea (see below) and superimposed impaired renal autoregulation on ACEI, DM1 , diuretic/spironolactone renal u/s normal FeNa > 1 (1.7) suggesting intra renal, but response to IVF suggesting also prerenal component BUN /CR were 27/1.9 late February Cr 5.1 yesterday>> 3.7 this morning, 3.0 by 11am continue IVF holding ACEI today holding sprionolactone holding metformin holding coreg for BP recheck in am (2) Hypoglycemia Impression: 04/09 no further episodes of hypoglycemia with resumption of basal on his pump at 3.2 u/hr 04/08likely due to impaired renal clearance of insulin as above w/ much reduced GFR resolved, adding back insulin as above (3) Diabetes mellitus type 1 with complications Impression: 04/09 glucoses 176>> 186>> 216 with resumption of basal at 3.2 u/ hr, 10 u. prandial insulin, and 1/u per 20 over 140 hopefully he will be back at is normal cognition tomorrow and able to manage his insulin pump 04/08A1C better than in Oct, but still poor control Suspect recent hypoglycemia (including several ED presentations in February) due to impaired renal clearance Gluc elevated this am ~ 400 despite lantus 30 last pm, w/ incipient dka possibly;no anion gap, but bicarb reduced today, small serum ketones K 6.1 Improved w/ short acting insuling 10 u. and 35 units insulin lantus and IVF. much appreciate DM educator assist Basal back on at 3.2 u/hr Will not have patient do prandial or correctional insulin yet as he is still a little slow stopped lantus Prandial 10 units (for 4 gram carb diet per DM educator) and correction 1 unit for each 20 over 140 (4) Collagenous colitis Impression: uncontrolled diarrhea for multiple weeks, pt reports budesonide was stopped some time ago (> 1 mos ago) GI volume loss likely large contributor to JODEE started immodium, metamucil, stool cx and cdif neg I spoke w/ GI Dr. Santizo ([facility]) from [facility] who dx'd his collagenous colitis Plan: restart his Budesonide 9 mg daily PO cc Dr. santizo on d/c (5) Ischemic cardiomyopathy Impression: compensated, BP improved will resume his coreg (and likely acei and brigitte tomorrow) 04/08compensated no evident faliure w/ IVF for JODEE holding coreg, acei, spironolactone currently for JODEE, will reeval resuming coreg in am (6) Hyperkalemia Impression: resolved, likley related to mild incipient ketosis yesterday early (7) Confusion Impression: OT eval today for confusion and memory issues She discussed findings below w/ me as well His xanax, ambien, tricyclic, and gabapentin and oxycodone have all been held OT eval :"Pt is seated in chair in room, agreeable to therapy. Pt is pleasant and cooperative, and answers questions appropriately. Pt's son did arrive w/ pt 's emotional support dog, and were present during evaluation. Pt demonstrates appropriate BUE AROM and strength for independence w/ grooming and ADL tasks. Pt completed [facility] Status ([facility]) Exam, see completed copy in pt's chart. Pt does demonstrate difficulty w/ short term memory, sequencing, reverse sequencing, and problem solving. During assessment, pt is often able to identify mistakes, however is not able to self correct consistently. Pt's reaction time does appear to be within normal limits, and his son also comments that this has improved. Based on today's evaluation, pt would most likely be able to complete basic ADLs independently and may be left alone for short periods during the day. However, pt does require assistance w/ all money management, medication management, and driving tasks, and would require increased assistance w/ problem solving, especially in unfamiliar situations. Per nursing and hospitalist report, pt is more cognitively clear than previous day, and therefore is expected to continue to improve, however it is difficult to determine when pt will return to baseline, and may require increased family support in home setting for IADLs such as driving, money management, and medication management, including management of his insulin pump. Patient may benefit from 1 more OT session to follow up during hospitalization." 04/08 primarily memory issues, and slowless w/ using iphone Son reported confusion w/ glucose < 100 glucose now up, suspect ambien d/c ambien if still slow in am (was sharp when I last met him), consider CT(cant get MR w/ AICD), but exam not focal Qualifiers: Acute renal failure type: unspecified Qualified Code(s): N17.9 - Acute kidney failure, unspecified
[2017-04-09] MEDS ORDERED: ACETAMINOPHEN 325 MG TABLET PO PRN (20:42)
[2017-04-10] MEDS: ATORVASTATIN 40 MG TABLET PO SCH (00:05)
[2017-04-10] MEDS: PSYLLIUM PACKET PO SCH ×2 (00:05→08:35)
[2017-04-10] MEDS: TAMSULOSIN 0.4 MG CAPSULE PO SCH ×2 (00:06→08:36)
[2017-04-10] MEDS: CARVEDILOL 12.5 MG TABLET PO SCH ×2 (00:06→08:36)
[2017-04-10] MEDS: PREGABALIN 100 MG CAPSULE PO SCH (00:06)
[2017-04-10] MEDS: INSU100I18 SUBQ SCH ×2 (00:06→08:00)
[2017-04-10] MEDS: SODIUM CHLORIDE FLUSH 0.9% 10 ML SYRINGE IVP SCH ×2 (00:08→06:43)
[2017-04-10] MEDS ORDERED: ALPRAZolam 0.25 MG TABLET PO SCH (03:00)
[2017-04-10] MEDS: SODIUM CHLORIDE 0.9% 1,000 ML IV SCH (03:01)
[2017-04-10 06:12] LABS: HCT - HEMATOCRIT 32.6 % (42.0-52.0); HGB - HEMOGLOBIN 11.1 g/dL (14.0-18.0); MEAN CORPUSCULAR HEMOGLOBIN 31.4 pg (27.0-31.0); MEAN CORPUSCULAR HGB CONC 34.1 g/dL (32.0-36.0); MEAN CORPUSCULAR VOLUME 92.2 fL (80.0-94.0); RED BLOOD COUNT 3.54 10^6/uL (4.70-6.10); RED CELL DISTRIBUTION WIDTH 13.8 % (12.0-15.0); WHITE BLOOD COUNT 7.9 x10^3/uL (4.8-10.8)
[2017-04-10 06:22] LABS: CALCIUM 8.6 mg/dL (8.5-10.3); CREATININE 1.1 mg/dL (0.6-1.2)
[2017-04-10] MEDS: PANTOPRAZOLE 40 MG TABLET PO SCH (06:50)
[2017-04-10] MEDS: IPRATROPIUM/ALBUTEROL 3 ML NEB INH PRN (07:35)
[2017-04-10] MEDS: BUDESONIDE 0.5 MG/2 ML NEB INH SCH (07:35)
[2017-04-10] MEDS: INSULIN ASPART 300 UNIT/3 ML PEN SUBQ SCH (08:01)
[2017-04-10 08:25] VITALS: BP 137/80
[2017-04-10] MEDS: POLYETHYLENE GLYCOL 3350 17 GM PACKET PO SCH (08:35)
[2017-04-10] MEDS: CETIRIZINE 10 MG TABLET PO SCH (08:36)
[2017-04-10] MEDS: BUDESONIDE 3 MG CAPSULE PO SCH (08:36)
[2017-04-10] MEDS: ASPIRIN EC 81 MG TABLET PO SCH (08:36)
[2017-04-10] MEDS: MULTIVITAMIN TABLET PO SCH (08:36)
[2017-04-10] MEDS: buPROPion XL 150 MG TABLET PO SCH (08:36)
[2017-04-10] MEDS: HYDROCORTISONE 10 MG TABLET PO SCH (08:36)
--- NOTE | 2017-04-10 09:45 | Discharge Plan ---
Discharge Plan Disposition: 01 Home, Self Care Condition: Stable Prescriptions: Budesonide [Entocort EC] 9 mg PO DAILY #60 capsule Activity Restrictions: No Restrictions Shower Restrictions: No Driving Restrictions: Yes Weight Bearing: Full Weight Additional Instructions or Follow Up instructions: You were brought to the hospital after your son found you unconscious by the bed and your glucose was 33 1) hypoglycemia/low blood sugar; this was likely because of acute kidney injury /acute kidney failure from being dehydrated from diarrhea AND your blood pressure medications (e.g coreg, lisinopril, spironolactone) aggravating the "dry" condition of your kidneys Your kidneys metabolize insulin (and couldnt) As your kidney function improved we were able to get you back on your basal insulin at 3.2 u/hr after discussion w primary special educator her, and meal based and correctional insulin without trouble -your sugar was 58 this morning (slightly lower than opital for you (but you were lucid) recheck if nighttime basal needs to be rduced 2) Acute kidney injury due to - chronic GI (gastrointestinal) volume loss from diarrhea), dehydration from the diarrhea, AND combined effect of the dehydration and your blood pressure pills and diuretic Creatinine was 5.1 on presentation with GFR 12 (VERY reduced flow thru kidneys)> >>improved to 1.1 (GFR 69) This improved MARKEDLY with IVFluid, holding your BP pills, (and slowing down your diarrhea) 3) Diarrhea/collagenous colitis; you have had chronic watery bowels recently but havent had intervention stool cultures were negative DR. Christiano Santizo advised resume your oral budesonide and you had a formed BM (!) (we also gave you immodium, and metamucil as a bulking agent. If you redevelop diarrhea take metamucil to help bulk stool, and immodium ( unless also having fever) and let PcP know if need other intervention given the complications you had above wit volume loss We will send a copy of your discharge summary to him as well If you develop constipation (!) at all on the oxycodone as needed, can add stool softener 4) confusion (primarily a little mental slowness and memory difficulties) likely due to accumulation in your system when your kidneys were slow (of the gabapentin, oxycodone, amitryptylline,cymbalta On 6/16 you were still a little slow, and MUCH improved 04/10 Since several of your medications can have a combined effect on your cognition check with PCP if any of the doses could conceivably be tapered since they might interact. If possible , try to reduce the frequency of the oxycodone to every 6 hrs if needed (but obviously if you have breakthru pain you might need it. Advised that you dont drive given you had several episodes of very low sugar and loss of consciousness recently and you arent having If your blood sugar stays stable (consistently over 100) for some time that could be revisited No Smoking: If you smoke, Please STOP! Call for help. Follow-up with: Amadou Jackson MD [Primary Care Provider] - 1-2 Days (early next week ensure renal function still stable (resolved JODEE) w/ resumption of his home meds and that cognition still at baselilne with resumption of his home meds)
--- NOTE | 2017-04-16 15:43 | DISCHARGE SUMMARY ---
DATE OF ADMISSION: 04/07/2017 DATE OF DISCHARGE: 04/10/2017 PRIMARY CARE PROVIDER: Amadou Jackson MD. DISCHARGE DIAGNOSES: 1. Acute kidney injury, resolved. 2. Hypoglycemia due to impaired insulin clearance with acute kidney injury. 3. Collagenous colitis. 4. Chronic diarrhea. PROCEDURES: None. 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 Christiano Santizo, was made by phone. DIAGNOSTIC IMAGING STUDIES: A head CT on 04/07/2017: Normal head CT. Chest x-ray 04/07/2017: Normal chest. Diagnostic laboratory studies: BUN and creatinine on 04/07/2017, date of admission, BUN 49 and creatinine 5.1. Chemistry otherwise sodium 134, potassium 4.5, chloride 100, bicarbonate 23, and glucose 119. An A1c was 8.9, BUN and creatinine on discharge 3 days later following hydration with a BUN of 17 and creatinine of 1.1 respectively. BRIEF HOSPITAL COURSE BY PROBLEMS: Please see the dictated admission history and physical from 04/07/2017 for details of the presentation. Briefly, the patient is a type 1 diabetic who over the last month has had several ER presentations for hypoglycemia. On the day of admission his son found him unresponsive near the edge of the bed. His glucoses was 33 and on additional evaluation in the emergency room, he was found to be in acute kidney injury with a BUN and creatinine of 49 and 5.1. 1. Hypoglycemia. This was most consistent with hypoglycemia due to impaired insulin clearance in the setting of poor aglomerular filtration rate. The patient's acute kidney injury as per #2 below was due to primarily volume depletion. During hospitalization, the patient's insulin pump was held (EMT's had disconnected it) and he was given Lantus until his renal function improved. He had a dramatic improvement in his renal function as below with discharge BUN and creatinine essentially at his baseline of 17 and 1.0. He was able to resume his home insulin pump and now that we have addressed the cause of his acute kidney injury, hopefully, this will not be a recurrent event. 2. Acute kidney injury, although a FENA, or fractional excretion of sodium was 1.7. Ultimately this was a very volume responsive acute kidney injury and after addressing his chronic diarrhea, please see 3 below, and volume repletion, his renal function fortunately very markedly improved back to his baseline. Unfortunately, he had not told anyone that he was having rather marked diarrhea with his untreated collagenous colitis and the chronic volume loss with some superimposed effect of impaired renal autoregulation on ACEI and spironolactone was likely the precipitant. 3. Chronic diarrhea and collagenous colitis. The patient evidently spends as much as half an hour in the bathroom because of diarrhea at home. He had not been taking his budesonide for some time. It is not clear why. I spoke with his auto suspension and steering mechanic, Dr. Christiano Santizo, from [facility], who indicated that he should resume his budesonide orally. We have also given him Imodium and Metamucil as a bulk former after ruling out infection. This had a remarkably quick effect and the patient remarked that he was having a formed bowel movement for the first time in as long as he can remember, which also had him obviously quite pleased. 4. Confusion. For the first 3 days of hospitalization the patient had a very nonfocal confusion which was primarily memory loss and difficulty with some executive functions such as using his pump. This seemed to primarily be due to reduced clearance of many of the pharmacologics his agency has, including gabapentin, Xanax, oxycodone, amitriptyline and others. By day 4, day of discharge, he was back to his baseline and was alert, oriented, completely cognizant. Most notably on the day prior to this his cognition was still of enough concern that he had an evaluation by occupational therapy for his cognitive function. He could only name 6 animals in a minute. On the subsequent day he was able to do a normal listing of animals and do normal clock drawing which he had been unable to do the prior day (and could program his insulin pump reliabley.) DISCHARGE MEDICATIONS: There are no change of his medications other than the addition of oral budesonide. DISCHARGE MEDICATIONS INCLUDE: 1. Tylenol 650 mg every 4 hours as needed for pain. 2. Entocort EC or budesonide 9 mg orally once daily, which is a new and resumed prescription. 3. Loperamide 2 mg every 2 hours as needed for diarrhea. 4. Metamucil 1 packet twice daily if needed for bulk forming. 5. Beclomethasone 80 mcg. 2 puffs inhaled daily. 6. Humulin insulin via insulin pump. 7. Cetrizine 10 mg. 1 daily. 8. Nortriptyline 20 mg. twice daily. 9. Ranitidine 300 mg. once daily. 10. Lisinopril 20 mg. once daily. 11. Simvastatin 80 mg each evening. 12. Zolpidem 10 mg each evening if needed for sleep. 13. Spironolactone 12.5 mg daily. 14. Tamsulosin 0.4 mg twice daily. 15. Alprazolam 0.5 mg twice daily. 16. Hydrocortisone 10 mg daily at breakfast. 17. Hydrocortisone 10 mg daily in the evening. (The patient was not entirely certain of his hydrocortisone dose at the time of admission. He should resume whatever the prior one was). 18. Oxycodone 5 mg every 6 hours as needed for pain. 19. Bupropion 150 mg once daily. 20. Multivitamin 1 daily. 22. Pregabalin 300 mg twice daily. 23. Aspirin 81 mg twice daily. 24. Carvedilol 12.5 mg twice daily. 25. Duloxetine at 60 mg twice daily. 26. Gabapentin 300 mg twice daily. 27. Pantoprazole 40 mg twice daily. 28. Lidocaine patch if needed for pain. 29. Diclofenac sodium 4 grams topical if needed p.r.n. FOLLOWUP: He was advised to have followup with Dr. Jackson just to ensure that his renal function as well as his mentation remained stable with the resumption of home medications and that the Entocort is adequately controlling his stool, hopefully. PHYSICAL EXAMINATION ON THE DAY OF DISCHARGE: VITAL SIGNS: Afebrile 36.8, heart rate 73, glucose 137/80, respiratory rate 19, room air oxygenation 96%. GENERAL: The patient is a very pleasant man with balding hair, he is wearing glasses. Extraocular movements intact. Oral mucosa is moist. CHEST: Clear to auscultation with unlabored respirations. HEART: Regular S1, S2. He still has a resolving bruising on his left upper shoulder and forearm from when he was lying on the ground. ABDOMEN: Benign, soft, nontender and the patient remarks "I can't even remember the last time I had a formed bowel movement," which he did have one today. EXTREMITIES: Notable for no edema. Additionally, the patient did a clock drawing test prior to discharge, he was able to adequately demonstrate 11:20, and of note, the prior day, he showed lines which made no sense for a clock. He also could name many animals in a 1 minute period, where he could only name 6 the day before. JOB #: [id number] EXT JOB #:[id number] CELINE
== END 2017-04-10 11:31 | disposition home or self-care (01) | DRG 683 ==
LOC: EDUNIT# → ED 13:04 → MS 14:57
PROVIDERS: ADMIT Nurse Practitioner; ATTEND Nurse Practitioner
DX: N17.9 Acute kidney failure, unspecified (principal); I50.20 Unspecified systolic (congestive) heart failure; M62.82 Rhabdomyolysis; M25.522 Pain in left elbow; M25.422 Effusion, left elbow; I10 Essential (primary) hypertension; E10.649 Type 1 diabetes mellitus with hypoglycemia without coma; K58.0 Irritable bowel syndrome with diarrhea; E86.0 Dehydration; E87.5 Hyperkalemia; K52.9 Noninfective gastroenteritis and colitis, unspecified; N40.0 Benign prostatic hyperplasia without lower urinary tract symptoms; T50.0X5A Adverse effect of mineralocorticoids and their antagonists, initial encounter; T46.4X5A Adverse effect of angiotensin-converting-enzyme inhibitors, initial encounter; T44.7X5A Adverse effect of beta-adrenoreceptor antagonists, initial encounter; S00.83XA Contusion of other part of head, initial encounter; S50.12XA Contusion of left forearm, initial encounter; S40.012A Contusion of left shoulder, initial encounter; W06.XXXA Fall from bed, initial encounter; Y92.003 Bedroom of unspecified non-institutional (private) residence as the place of occurrence of the external cause; I11.0 Hypertensive heart disease with heart failure; I25.10 Atherosclerotic heart disease of native coronary artery without angina pectoris; I25.5 Ischemic cardiomyopathy; E78.5 Hyperlipidemia, unspecified; E66.9 Obesity, unspecified; M15.9 Polyosteoarthritis, unspecified; G89.29 Other chronic pain; F32.9 Major depressive disorder, single episode, unspecified; F41.0 Panic disorder [episodic paroxysmal anxiety]; K21.9 Gastro-esophageal reflux disease without esophagitis; E10.42 Type 1 diabetes mellitus with diabetic polyneuropathy; E10.319 Type 1 diabetes mellitus with unspecified diabetic retinopathy without macular edema; E10.65 Type 1 diabetes mellitus with hyperglycemia; R51 Headache; N40.1 Benign prostatic hyperplasia with lower urinary tract symptoms; R39.11 Hesitancy of micturition; Z96.41 Presence of insulin pump (external) (internal); I25.2 Old myocardial infarction; Z79.52 Long term (current) use of systemic steroids; Z79.51 Long term (current) use of inhaled steroids; Z79.891 Long term (current) use of opiate analgesic; Z79.4 Long term (current) use of insulin; Z79.899 Other long term (current) drug therapy; Z79.82 Long term (current) use of aspirin; Z79.1 Long term (current) use of non-steroidal anti-inflammatories (NSAID); Z95.5 Presence of coronary angioplasty implant and graft; Z95.810 Presence of automatic (implantable) cardiac defibrillator; Z68.34 Body mass index [BMI] 34.0-34.9, adult; Z91.81 History of falling; Z87.891 Personal history of nicotine dependence
CPT/HCPCS: 36415; 70450; 71010; 76775; 80048; 80053; 81001; 81002; 81003; 82009; 82550; 82553; 82570; 83036; 83690; 83880; 84132; 84300; 84484; 85025; 87045; 87046; 87086; 87493; 93005; 93010; 94640; 96361; 96374; 99284; 99285

== ENCOUNTER 2017-04-29 09:15 | Outpatient (CLI) | payer MEDICARE ==
[2017-04-29 13:24] LABS: BASOPHILS # (AUTO) 0.1 10^3/uL (0.0-0.1); EOSINOPHILS # (AUTO) 0.2 10^3/uL (0.0-0.7); LYMPHOCYTES # (AUTO) 2.8 10^3/uL (1.5-3.5); NEUTROPHILS # (AUTO) 5.7 10^3/uL (1.5-6.6); UNCORRECTED WHITE BLOOD COUNT 9.7 x10^3/uL; WHITE BLOOD COUNT 9.7 x10^3/uL (4.8-10.8)
[2017-04-29 13:27] LABS: BASOPHILS % (AUTO) 1.1 %; HCT - HEMATOCRIT 39.6 % (42.0-52.0); HGB - HEMOGLOBIN 13.1 g/dL (14.0-18.0); LYMPHOCYTES % (AUTO) 28.2 %; MEAN CORPUSCULAR HEMOGLOBIN 30.5 pg (27.0-31.0); MEAN CORPUSCULAR VOLUME 92.4 fL (80.0-94.0); MEAN PLATELET VOLUME 9.6 fL (7.4-11.4); NEUTROPHILS % (AUTO) 58.7 %; RED BLOOD COUNT 4.29 10^6/uL (4.70-6.10); RED CELL DISTRIBUTION WIDTH 13.5 % (12.0-15.0)
[2017-04-29 13:37] LABS: ALBUMIN/GLOBULIN RATIO 1.3 (1.0-2.2); BILIRUBIN,TOTAL 0.5 mg/dL (0.2-1.0); CALCIUM 9.5 mg/dL (8.5-10.3); CREATININE 1.3 mg/dL (0.6-1.2); POTASSIUM 4.1 mmol/L (3.5-5.0); TOTAL PROTEIN 7.4 g/dL (6.7-8.2)
[2017-04-29 13:58] LABS: HEMOGLOBIN A1C 1.06 g/dL
== END 2017-04-29 09:16 | disposition home or self-care (01) ==
LOC: LAB.WCP 09:15
PROVIDERS: ATTEND Family Medicine
DX: E11.9 Type 2 diabetes mellitus without complications (principal); I25.5 Ischemic cardiomyopathy
CPT/HCPCS: 36415; 80053; 82043; 83036; 85025

== ENCOUNTER 2017-05-19 22:45 | Outpatient (CLI) | payer MEDICARE | END 2017-05-19 22:46 | disposition home or self-care (01) | LOC: EMS 22:45 | PROVIDERS: ATTEND Surgery | DX: E11.649 Type 2 diabetes mellitus with hypoglycemia without coma (principal); M54.2 Cervicalgia; W18.39XA Other fall on same level, initial encounter; Y92.010 Kitchen of single-family (private) house as the place of occurrence of the external cause; Z79.4 Long term (current) use of insulin | CPT/HCPCS: A0425; A0429 ==

== ENCOUNTER 2017-05-19 22:58 | Emergency (ER) | payer MEDICARE ==
[2017-05-19 23:25] LABS: BASOPHILS # (AUTO) 0.1 10^3/uL (0.0-0.1); BASOPHILS % (AUTO) 0.6 %; EOSINOPHILS # (AUTO) 0.1 10^3/uL (0.0-0.7); EOSINOPHILS % (AUTO) 1.1 %; HGB - HEMOGLOBIN 12.4 g/dL (14.0-18.0); LYMPHOCYTES # (AUTO) 1.8 10^3/uL (1.5-3.5); LYMPHOCYTES % (AUTO) 16.2 %; MEAN CORPUSCULAR HEMOGLOBIN 31.8 pg (27.0-31.0); MEAN CORPUSCULAR HGB CONC 34.4 g/dL (32.0-36.0); MEAN CORPUSCULAR VOLUME 92.5 fL (80.0-94.0); MONOCYTES # (AUTO) 1.2 10^3/uL (0.0-1.0); NEUTROPHILS % (AUTO) 71.1 %; RED BLOOD COUNT 3.89 10^6/uL (4.70-6.10); RED CELL DISTRIBUTION WIDTH 13.4 % (12.0-15.0); UNCORRECTED WHITE BLOOD COUNT 11.2 x10^3/uL; WHITE BLOOD COUNT 11.2 x10^3/uL (4.8-10.8)
[2017-05-19 23:38] LABS: ALBUMIN/GLOBULIN RATIO 1.4 (1.0-2.2); BILIRUBIN,TOTAL 0.2 mg/dL (0.2-1.0); CREATININE 2.3 mg/dL (0.6-1.2); POTASSIUM 4.5 mmol/L (3.5-5.0); TOTAL PROTEIN 6.7 g/dL (6.7-8.2)
--- NOTE | 2017-05-20 04:55 | ED Physician Documentation ---
History of Present Illness - Stated complaint Stated Complaint: SYNCOPAL EPISODE - Chief complaint Chief Complaint: General - History obtained from History obtained from: Patient, Family, EMS - History of Present Illness Timing: Today - Additonal information Additional information: Patient is a 57 year old male with a history of type 1 diabetes, heart failure among other comorbities who is presenting to the emergency department for hypoglycemia and near syncope. According to patient and family, the patient was feeling light headed and checked his sugar which was 40. patient took some glucose but felt like he was going to pass out. ems was called and gave more glucose to the patient before bringing him to the hospital. Upon initial evaluation in the emergency department patient's blood glucose normalized but the patient was hypotensive. Review of Systems Constitutional: denies: Fever, Chills Eyes: denies: Loss of vision, Photophobia Ears: denies: Ear pain, Drainage/discharge Nose: denies: Congestion Throat: denies: Dental pain / toothache, Oral lesions / sores, Sore throat, Swollen tonsils Cardiac: denies: Chest pain / pressure, Palpitations, Calf pain Respiratory: denies: Dyspnea, Cough, Wheezing GI: denies: Abdominal Pain, Nausea, Vomiting : denies: Dysuria, Frequency Musculoskeletal: denies: Neck pain, Back pain, Extremity pain Neurologic: reports: Generalized weakness, Near syncope. denies: Confused, Head injury, LOC Immunocompromised: denies: Immunocompromised PD PAST MEDICAL HISTORY - Past Medical History Cardiovascular: Hypertension, High cholesterol, Coronary artery disease, Other Respiratory: Shortness of breath Neuro: Peripheral neuropathy, Other Endocrine/Autoimmune: Type 1 diabetes, Other GI: GERD, Chronic diarrhea, Other : Benign prostate hypertrophy, Other HEENT: None Psych: Depression, Anxiety, Panic attacks Musculoskeletal: Osteoarthritis Derm: None Other Past Medical History: Major's Disease. Stage 4 Kidney disease. 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: Other Cardiovascular: Coronary stent, AICD, Cardiac catheterization HEENT: Other - Present Medications Home Medications: Ambulatory Orders Medication Instructions Recorded Confirmed Carvedilol 12.5 mg PO BID 09/04/14 04/07/17 Lisinopril 20 mg PO DAILY 09/04/14 04/07/17 Pantoprazole [Protonix] 40 mg PO BIDAC 09/04/14 04/07/17 Ranitidine HCl 300 mg PO QPM 09/04/14 04/07/17 Spironolactone 12.5 mg PO DAILY 09/04/14 04/07/17 Zolpidem Tartrate 10 mg PO QPM PRN 09/04/14 04/07/17 Multivitamin [Multi-Vitamin Daily] 1 each PO DAILY 09/12/14 04/07/17 Duloxetine HCl [Cymbalta] 60 mg PO BID 10/07/16 04/07/17 Insulin Lispro [Humalog] 1 - 11 units SQ .SLIDING SCALE 10/07/16 04/07/17 Pregabalin [Lyrica] 300 mg PO BID 10/07/16 04/07/17 Hydrocortisone 10 mg PO QDBREAKFAST 03/01/17 04/07/17 Nortriptyline HCl 20 mg PO 0800,1700 03/01/17 04/07/17 Tamsulosin [Flomax] 0.4 mg PO BID 03/01/17 04/07/17 Beclomethasone 80 Mcg [Qvar 80] 2 puffs INH BID #1 inhaler 03/07/17 04/07/17 Alprazolam 0.5 mg PO BID PRN 04/07/17 04/07/17 Budesonide [Entocort EC] 9 mg PO DAILY 04/07/17 04/07/17 Bupropion HCl [Bupropion Xl] 150 mg PO DAILY 04/07/17 04/07/17 Cetirizine [ZyrTEC] 10 mg PO DAILY 04/07/17 04/07/17 Diclofenac Sodium [Voltaren] 4 gm TP QID PRN 04/07/17 04/07/17 Gabapentin 300 mg PO BID 04/07/17 04/07/17 Hydrocortisone [Cortef] 10 mg PO DAILYWM 04/07/17 04/07/17 Lidocaine Patch 5% [Lidoderm Patch] 1 each TOP DAILY PRN 04/07/17 04/07/17 Simvastatin 80 mg PO QPM 04/07/17 04/07/17 Acetaminophen [Tylenol] 650 mg PO Q4HR PRN #0 tablet 04/10/17 Aspirin [Aspirin EC] 81 mg PO BID #0 04/10/17 04/07/17 Budesonide [Entocort EC] 9 mg PO DAILY #60 capsule 04/10/17 Loperamide [Imodium] 2 mg PO Q2H PRN #0 capsule 04/10/17 Psyllium [Metamucil] 1 packet PO BID packet 04/10/17 oxyCODONE [Roxicodone] 5 mg PO Q6HR #0 04/10/17 04/07/17 - Allergies Allergies/Adverse Reactions: Allergies Allergy/AdvReac Type Severity Reaction Status Date / Time No Known Drug Allergies Allergy Verified 04/07/17 13:16 - Social History Does the pt smoke?: No Smoking Status: Never smoker Does the pt drink ETOH?: No Does the pt have substance abuse?: No - Immunizations Immunizations are current?: Yes - POLST Patient has POLST: No PD ED PE NORMAL - Vitals Vital signs reviewed: Yes - General General: Alert and oriented X 3, No acute distress, Well developed/nourished - HEENT HEENT: Atraumatic, PERRL - Neck Neck: Supple, no meningeal sign, No JVD - Cardiac Cardiac: RRR, No murmur - Respiratory Respiratory: No respiratory distress - Abdomen Abdomen: Soft, Non tender, Non distended - Derm Derm: Normal color, Warm and dry, No rash - Extremities Extremities: No deformity - Neuro Neuro: Alert and oriented X 3, finishing pan operator 2-12 intact, No motor deficit, No sensory deficit, Normal speech - Psych Psych: Normal mood, Normal affect Results - Vitals Vitals: Vital Signs - 24 hr 05/19/17 05/19/17 05/20/17 22:59 23:25 00:42 Temperature 36.5 C Heart Rate 75 75 65 Respiratory 16 17 20 Rate Blood Pressure 66/44 L 81/48 L 86/42 L O2 Saturation 95 97 96 05/20/17 05/20/17 02:43 03:48 Temperature Heart Rate 70 74 Respiratory 10 L 18 Rate Blood Pressure 102/70 108/60 O2 Saturation 100 97 Oxygen O2 Source [With Activity] Room air O2 Source Room air - EKG (time done) 4347 Rate: Rate (enter#) (67) Rhythm: NSR [place]: Normal Intervals: Normal MI QRS: Normal Ischemia: Normal ST segments Compare to prior EKG: Unchanged from prior EKG - Labs Labs: Laboratory Tests 05/19/17 05/19/17 05/19/17 23:18 23:18 23:18 WBC 11.2 H RBC 3.89 L Hgb 12.4 L Hct 36.0 L MCV 92.5 MCH 31.8 H MCHC 34.4 RDW 13.4 Plt Count 225 MPV 9.0 Neut # 8.0 H Lymph # 1.8 [place] # 1.2 H Eos # 0.1 Baso # 0.1 Absolute Nucleated RBC 0.00 Nucleated RBCs 0.0 Sodium 136 Potassium 4.5 Chloride 99 L Carbon Dioxide 28 Anion Gap 9.0 BUN 33 H Creatinine 2.3 H Estimated GFR (MDRD) 29 L Glucose 74 Calcium 9.0 Total Bilirubin 0.2 AST 16 ALT 21 Alkaline Phosphatase 73 Troponin I < 0.04 B-Natriuretic Peptide Total Protein 6.7 Albumin 3.9 Globulin 2.8 Albumin/Globulin Ratio 1.4 Lipase 19 L TSH 05/19/17 05/19/17 23:18 23:18 WBC RBC Hgb Hct MCV MCH MCHC RDW Plt Count MPV Neut # Lymph # [place] # Eos # Baso # Absolute Nucleated RBC Nucleated RBCs Sodium Potassium Chloride Carbon Dioxide Anion Gap BUN Creatinine Estimated GFR (MDRD) Glucose Calcium Total Bilirubin AST ALT Alkaline Phosphatase Troponin I B-Natriuretic Peptide 18 Total Protein Albumin Globulin Albumin/Globulin Ratio Lipase TSH 1.54 PD MEDICAL DECISION MAKING - ED course Complexity details: reviewed old records, reviewed results, re-evaluated patient , considered differential, d/w patient, d/w family ED course: Patient was seen and examined at bedside. iv access was gained and ekg was performed and within normal limits. Patient was started on a fluid bolus. Patient's hypotension improved with the fluids. Patient showed some decreased renal function, but his creatinine seemed to range anywhere from 1-5. After the first liter bolus patient was treated with an additional 500ml. Patient's blood pressure improved to baseline. Patient stated he was feeling much better. Upon discharge patient was awake, alert and in no distress. patient was discharged home under the care of his family. Departure - Departure Disposition: Home, Self Care Clinical Impression: Diabetes mellitus type 1 with complications, Hypoglycemia Condition: Good Instructions: ED Diabetes Hypoglycemia Oral Agent, ED Dehydration Follow-Up: primary,care provider [Other] - Tomorrow Comments: Your symptoms today were likely due to low blood sugar and dehyration. Your blood pressure improved with IV hydration. You need to make sure you stay well hydrated and proper caloric intake. You should follow up with your pmd this week to make a plan about possible medication changes if necessary. You should return to the emergency department at any time for new, worsening or uncontrollable symptoms.
[2017-05-20 05:14] VITALS: BP 128/58
== END 2017-05-20 05:11 | disposition home or self-care (01) ==
LOC: EDUNIT# → ED 22:58
DX: E10.649 Type 1 diabetes mellitus with hypoglycemia without coma (principal); E10.22 Type 1 diabetes mellitus with diabetic chronic kidney disease; I13.0 Hypertensive heart and chronic kidney disease with heart failure and stage 1 through stage 4 chronic kidney disease, or unspecified chronic kidney disease; E10.42 Type 1 diabetes mellitus with diabetic polyneuropathy; N18.4 Chronic kidney disease, stage 4 (severe); Z79.4 Long term (current) use of insulin; I25.10 Atherosclerotic heart disease of native coronary artery without angina pectoris; K21.9 Gastro-esophageal reflux disease without esophagitis; N40.0 Benign prostatic hyperplasia without lower urinary tract symptoms; E27.1 Primary adrenocortical insufficiency; M19.90 Unspecified osteoarthritis, unspecified site
CPT/HCPCS: 36415; 80053; 83690; 83880; 84443; 84484; 85025; 93005; 99284

== ENCOUNTER 2017-05-29 20:19 | Outpatient (CLI) | payer MEDICARE | END 2017-05-29 20:20 | disposition critical access hospital (66) | LOC: EMS 20:19 | PROVIDERS: ATTEND Surgery | DX: R03.1 Nonspecific low blood-pressure reading (principal); R42 Dizziness and giddiness; R53.1 Weakness | CPT/HCPCS: A0425; A0427 ==

== ENCOUNTER 2017-05-29 20:31 | Observation (INO) | payer MEDICARE ==
[2017-05-29] MEDS ORDERED: SODIUM CHLORIDE 0.9% 1,000 ML IV ONE ×3 (20:42→22:25)
--- NOTE | 2017-05-29 20:42 | ED Physician Documentation ---
PD HPI SYNCOPE - Stated complaint Stated Complaint: LOW BP - History obtained from History obtained from: Patient, EMS - History of Present Illness Timing - onset: How many hours ago (1-2) Duration: Hours Preceding symptoms: Light headed, Generalized weakness. No: Headache, Chest pain, Diaphoresis, Nausea / vomiting Associated symptoms: Abdominal pain (he has had some element of left abd pain for few weeks due to his colitis. No recent increase in that.). 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 BP low and persisted low by EMS.) Similar symptoms before: Diagnosis (from medications, some from Addisons - he says his BP is only about 110 systolic usually.) Review of Systems Constitutional: denies: Fever, Chills, Myalgias Nose: denies: Rhinorrhea / runny nose, Congestion Throat: denies: Sore throat Cardiac: denies: Chest pain / pressure, Palpitations Respiratory: denies: Dyspnea, Cough GI: reports: Abdominal Pain (regularly left sided from colitis (collagenous)). denies: Nausea, Vomiting, Diarrhea, Bloody / black stool : denies: Dysuria, Frequency Skin: denies: Rash, Lesions Neurologic: denies: Altered mental status, Headache, Head injury Endocrine: denies: Weight loss Immunocompromised: denies: Immunocompromised PD PAST MEDICAL HISTORY - Past Medical History Cardiovascular: Hypertension, High cholesterol, Coronary artery disease, Other Respiratory: Shortness of breath Neuro: Peripheral neuropathy, Other Endocrine/Autoimmune: Type 1 diabetes, Other GI: GERD, Chronic diarrhea, Other : Benign prostate hypertrophy, Other HEENT: None Psych: Depression, Anxiety, Panic attacks Musculoskeletal: Osteoarthritis Derm: None - Past Surgical History Past Surgical History: Yes General: Colonoscopy, EGD Ortho: Carpal Tunnel surgery, 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 Cardiovascular: Coronary stent, AICD, Cardiac catheterization HEENT: Other - Present Medications Home Medications: Ambulatory Orders Medication Instructions Recorded Confirmed Carvedilol 12.5 mg PO BID 09/04/14 05/29/17 Lisinopril 20 mg PO DAILY 09/04/14 05/29/17 Pantoprazole [Protonix] 40 mg PO BIDAC 09/04/14 05/29/17 Ranitidine HCl 300 mg PO QPM 09/04/14 05/29/17 Spironolactone 12.5 mg PO DAILY 09/04/14 05/29/17 Zolpidem Tartrate 10 mg PO QPM PRN 09/04/14 05/29/17 Multivitamin [Multi-Vitamin Daily] 1 each PO DAILY 09/12/14 05/29/17 Duloxetine HCl [Cymbalta] 60 mg PO BID 10/07/16 05/29/17 Insulin Lispro [Humalog] 1 - 11 units SQ .SLIDING SCALE 10/07/16 05/29/17 Pregabalin [Lyrica] 300 mg PO BID 10/07/16 05/29/17 Nortriptyline HCl 20 mg PO 0800,1700 03/01/17 05/29/17 Tamsulosin [Flomax] 0.4 mg PO BID 03/01/17 05/29/17 Alprazolam 0.5 mg PO BID PRN 04/07/17 05/29/17 Bupropion HCl [Bupropion Xl] 150 mg PO DAILY 04/07/17 05/29/17 Cetirizine [ZyrTEC] 10 mg PO DAILY 04/07/17 05/29/17 Diclofenac Sodium [Voltaren] 4 gm TP QID PRN 04/07/17 05/29/17 Gabapentin 300 mg PO BID 04/07/17 05/29/17 Hydrocortisone [Cortef] 5 mg PO BID 04/07/17 05/29/17 Lidocaine Patch 5% [Lidoderm Patch] 1 each TOP DAILY PRN 04/07/17 05/29/17 Simvastatin 80 mg PO QPM 04/07/17 05/29/17 Budesonide [Entocort EC] 9 mg PO DAILY #60 capsule 04/10/17 05/29/17 Loperamide [Imodium] 2 mg PO Q2H PRN #0 capsule 04/10/17 05/29/17 Psyllium [Metamucil] 1 packet PO BID packet 04/10/17 05/29/17 oxyCODONE [Roxicodone] 5 mg PO Q6HR #0 04/10/17 05/29/17 Aspirin [Aspirin EC] 81 mg PO DAILY 05/29/17 05/29/17 - Allergies Allergies/Adverse Reactions: Allergies Allergy/AdvReac Type Severity Reaction Status Date / Time No Known Drug Allergies Allergy Verified 04/07/17 13:16 - Social History Does the pt smoke?: No Smoking Status: Never smoker Does the pt drink ETOH?: No Does the pt have substance abuse?: No - Immunizations Immunizations are current?: Yes - POLST Patient has POLST: No PD ED PE NORMAL - Vitals Vital signs reviewed: Yes - General General: Alert and oriented X 3, No acute distress, Well developed/nourished, Other (has good color, conversant. ) - HEENT HEENT: Atraumatic, Pharynx benign - Neck Neck: Supple, no meningeal sign, No adenopathy - Cardiac Cardiac: RRR, No murmur - Respiratory Respiratory: No: Clear bilaterally (no wheezing, unlabored breathing. Mild faint crackles at bases only. ) - Abdomen Abdomen: Normal bowel sounds, Soft, Non distended - Male Male : Deferred - Rectal Rectal: Deferred - Back Back: No CVA TTP - Derm Derm: Normal color, Warm and dry - Extremities Extremities: No deformity, No tenderness to palpate, Normal ROM s pain, No calf tenderness / cord, Other (1+ edema in both lower legs.) - Neuro Neuro: Alert and oriented X 3, No motor deficit, No sensory deficit, Normal speech - Psych Psych: Normal mood, Normal affect Results - Vitals Vitals: Vital Signs - 24 hr 05/29/17 05/29/17 05/29/17 20:33 21:00 21:31 Temperature 36.0 C L Heart Rate 88 83 79 Respiratory 18 18 18 Rate Blood Pressure 74/42 L 80/43 L 82/43 L O2 Saturation 96 96 95 05/29/17 05/29/17 05/29/17 22:05 22:38 22:55 Temperature Heart Rate 77 73 75 Respiratory 18 18 20 Rate Blood Pressure 82/46 L 96/51 L 76/49 L O2 Saturation 96 95 93 05/29/17 05/29/17 05/29/17 23:03 23:17 23:22 Temperature Heart Rate 75 73 71 Respiratory 16 Rate Blood Pressure 81/45 L 80/46 L 83/55 L O2 Saturation 92 05/29/17 23:34 Temperature Heart Rate 75 Respiratory Rate Blood Pressure 89/50 L O2 Saturation Oxygen O2 Source [With Activity] Room air O2 Source Room air - Labs Labs: Laboratory Tests 05/29/17 05/29/17 05/29/17 20:58 20:58 20:58 WBC 13.3 H RBC 3.82 L Hgb 12.0 L Hct 35.2 L MCV 92.0 MCH 31.5 H MCHC 34.2 RDW 13.3 Plt Count 240 MPV 8.6 Neut # 9.8 H Lymph # 2.0 Banks # 1.1 H Eos # 0.3 Baso # 0.1 Absolute Nucleated RBC 0.00 Nucleated RBCs 0.0 Sodium 137 Potassium 3.7 Chloride 99 L Carbon Dioxide 28 Anion Gap 10.0 BUN 19 Creatinine 1.8 H Estimated GFR (MDRD) 39 L Glucose 140 H Lactic Acid 1.7 Calcium 8.6 Magnesium 1.8 Total Bilirubin 0.6 AST 21 ALT 21 Alkaline Phosphatase 69 Troponin I Total Protein 6.5 L Albumin 3.6 Globulin 2.9 Albumin/Globulin Ratio 1.2 Lipase 24 05/29/17 20:58 WBC RBC Hgb Hct MCV MCH MCHC RDW Plt Count MPV Neut # Lymph # Banks # Eos # Baso # Absolute Nucleated RBC Nucleated RBCs Sodium Potassium Chloride Carbon Dioxide Anion Gap BUN Creatinine Estimated GFR (MDRD) Glucose Lactic Acid Calcium Magnesium Total Bilirubin AST ALT Alkaline Phosphatase Troponin I < 0.04 Total Protein Albumin Globulin Albumin/Globulin Ratio Lipase - Rads (name of study) chest Radiology: Prelim report reviewed (mild vascular congestion) PD MEDICAL DECISION MAKING - ED course Complexity details: considered differential (Very low BP without him looking bad , talkative and good color. Seems likely Addisonian and will give fluids and extra steroids. He is also on BP meds (Carvedilol) and other meds with BP effect (Tamsulosin), so these could be contributing. No obvious infection/acute process to cause stress response regarding Addisons. He has not had change in meds or other meds to have more hypotensive effect. I was thinking he would rebound with fluids and some steroids, but after 2 hours, is still having low BP (was improved some to almost 100 but then down again). I don't want to fluid overload him, with CXR showing some mild vascular congestion. Will give more steroids. Consider pressors if not improving. Talked with Hospitalist since not improving in reasonable time frame. ), d/w patient Departure - Departure Disposition: ED Place in Observation Clinical Impression: Near syncope, [place] disease Hypotension Qualifiers: Hypotension type: unspecified hypotension type Qualified Code(s): I95.9 - Hypotension, unspecified Condition: Stable Record reviewed to determine appropriate education?: Yes
[2017-05-29] MEDS ORDERED: HYDROCORTISONE SUCCINATE 100 MG/2 ML VIAL IVP STA (20:43)
[2017-05-29] MEDS ORDERED: HYDROCORTISONE SUCCINATE 100 MG/2 ML VIAL IVP ONE (20:49)
[2017-05-29 21:05] LABS: BASOPHILS # (AUTO) 0.1 10^3/uL (0.0-0.1); BASOPHILS % (AUTO) 0.6 %; EOSINOPHILS # (AUTO) 0.3 10^3/uL (0.0-0.7); HCT - HEMATOCRIT 35.2 % (42.0-52.0); LYMPHOCYTES % (AUTO) 15.1 %; MEAN CORPUSCULAR HEMOGLOBIN 31.5 pg (27.0-31.0); MEAN CORPUSCULAR HGB CONC 34.2 g/dL (32.0-36.0); MEAN PLATELET VOLUME 8.6 fL (7.4-11.4); MONOCYTES # (AUTO) 1.1 10^3/uL (0.0-1.0); MONOCYTES % (AUTO) 8.5 %; NEUTROPHILS # (AUTO) 9.8 10^3/uL (1.5-6.6); NEUTROPHILS % (AUTO) 73.8 %; RED BLOOD COUNT 3.82 10^6/uL (4.70-6.10); RED CELL DISTRIBUTION WIDTH 13.3 % (12.0-15.0); UNCORRECTED WHITE BLOOD COUNT 13.3 x10^3/uL; WHITE BLOOD COUNT 13.3 x10^3/uL (4.8-10.8)
[2017-05-29 21:17] LABS: ALBUMIN/GLOBULIN RATIO 1.2 (1.0-2.2); BILIRUBIN,TOTAL 0.6 mg/dL (0.2-1.0); CALCIUM 8.6 mg/dL (8.5-10.3); CREATININE 1.8 mg/dL (0.6-1.2); MAGNESIUM 1.8 mg/dL (1.7-2.8); POTASSIUM 3.7 mmol/L (3.5-5.0); TOTAL PROTEIN 6.5 g/dL (6.7-8.2)
--- NOTE | 2017-05-29 22:00 | XRAY Preliminary Report ---
Exam: XR Chest 1 View IMPRESSION: New pulmonary venous congestion with new mild bilateral diffuse airspace disease concerni ng for mild pulmonary edema. Pacemaker again noted. Borderline cardiomegaly. [facility] SITE ID: [id number]
--- NOTE | 2017-05-29 22:02 | XRAY Report ---
EXAM: CHEST RADIOGRAPHY EXAM DATE: 05/29/2017 09:23 PM. CLINICAL HISTORY: Low blood pressure COMPARISON: Chest 03/07/2017. TECHNIQUE: 1 view. FINDINGS: Lungs/Pleura: New pulmonary venous congestion with new mild bilateral diffuse airspace disease concer georges for mild pulmonary edema. No pleural effusion or pneumothorax. Mediastinum: Pacemaker again noted. Borderline cardiomegaly. IMPRESSION: New pulmonary venous congestion with new mild bilateral diffuse airspace disease concerni ng for mild pulmonary edema. Pacemaker again noted. Borderline cardiomegaly. [facility] Referring Provider Line: [phone] SITE ID: [id number]
[2017-05-29] MEDS ORDERED: SODIUM CHLORIDE 0.9% 1,000 ML IV SCH (23:45)
[2017-05-29] MEDS ORDERED: HYDROcod/ACETAM 5/325 MG TABLET PO PRN (23:54)
[2017-05-29] MEDS ORDERED: ACETAMINOPHEN 325 MG TABLET PO PRN (23:54)
[2017-05-29] MEDS ORDERED: SODIUM CHLORIDE FLUSH 0.9% 10 ML SYRINGE IVP PRN (23:54)
[2017-05-29] MEDS ORDERED: oxyCODONE 5 MG TABLET PO PRN (23:54)
[2017-05-30] MEDS ORDERED: PRAVASTATIN 40 MG TABLET PO STA (00:18)
[2017-05-30] MEDS ORDERED: CETIRIZINE 10 MG TABLET PO STA (00:22)
--- NOTE | 2017-05-30 00:32 | HISTORY & PHYSICAL EXAMINATION ---
Chief Complaint - Chief Complaint Chief Complaint: Lightheaded, weak History of Present Illness - Admitted From Admitted From:: ED - History Obtained From Records Reviewed: yes History obtained from: patient Exam Limitations: none - History of Present Illness HPI Comment/Other: 57yoM with h/o CAD s/p stents and AICD, BPH, GERD, peripheral neuropathy, depression/anxiety and DM. Pt diagnosed with Addisons disease about 9 months ago. He has had frequent episodes of hypotension, weakness and ELIZONDO over the past several months. He currently sees his physician about once per month. He has not modified his medications recently, no diet changes, no recent illnesses. He does report increased stress the past few days, which he hopes will be a temporary and quick issue. He states he had a fairly abrupt onset of LH and weakness last night, BS was 140s, SBP was around 85. He took his normal medications (hydrocortisone 5mg) and went to bed. Today, he has remained with LH and weakness which has not necessarily gotten worse, but is not getting better. He denies fever, chills, no n/v, +chronic diarrhea, no change, no melena /hematochezia, no rash/itch, no cough, no CP, no abd pain. In ER he was found to have SBP in low 80s, given 2L IVF and 100mg hydrocortisone which initially increased his SBP, but it is again trending down. Pt reports continued ELIZONDO (though improved from being in trendelenberg). Cortisol level is pending Review of Systems - Constitutional Constitutional: reports: Fatigue, Weakness. denies: Fever, Chills, Diaphoresis , Night sweats - Eyes Eyes: denies: Blurred vision, Dipolpia - Ears, Nose & Throat Ears, Nose & Throat: reports: Tinnitus (x1yr, no change). denies: Nasal congestion, Sore throat, Mouth lesions, Dental pain - Cardiovascular Cariovascular: reports: Lightheadedness. denies: Palpitations, Chest pain, Edema, Syncope - Respiratory Respiratory: reports: SOB at rest. denies: Cough, Sputum production - Gastrointestinal Gastrointestinal: reports: Diarrhea. denies: Abdominal pain, Constipation, Nausea, Vomiting - Genitourinary Genitourinary: denies: Dysuria, Hematuria - Musculoskeletal Musculoskeletal: denies: Muscle aches, Stiffness, Joint pain - Integumentary Integumentary: denies: Rash, Pruritis - Neurological Neurological: reports: General weakness - Psychiatric Psychiatric: reports: Depression, Anxiety - All Other Systems All Other Systems: reports: Reviewed and negative History - Past Medical History Cardiovascular: reports: Hypertension, High cholesterol, Coronary artery disease , [place], Other Respiratory: reports: Shortness of breath Neuro: reports: Peripheral neuropathy, Other Endocrine/Autoimmune: reports: Type 1 diabetes, Other GI: reports: GERD, Chronic diarrhea, Other : reports: Benign prostate hypertrophy, Renal insuffiency, Other HEENT: reports: Other (tinnitus) Psych: reports: Depression, Anxiety, Panic attacks Musculoskeletal: reports: Osteoarthritis Derm: reports: None MRSA Hx?: No - Past Surgical History General: reports: Colonoscopy, EGD Ortho: reports: Carpal Tunnel surgery, 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 On disability due to CAD - Substance History Use: Uses substance without health or social issues: Tobacco Tobacco Details: Cigarettes (4-6/day, previously quit since [place] in 2011. No alcohol since 2011, no recreational drugs) - POLST Patient has POLST: No Meds/Allgy - Home Medications Home Medications: Ambulatory Orders Medication Instructions Recorded Confirmed Carvedilol 12.5 mg PO BID 09/04/14 05/29/17 Lisinopril 20 mg PO DAILY 09/04/14 05/29/17 Pantoprazole [Protonix] 40 mg PO BIDAC 09/04/14 05/29/17 Ranitidine HCl 300 mg PO QPM 09/04/14 05/29/17 Spironolactone 12.5 mg PO DAILY 09/04/14 05/29/17 Zolpidem Tartrate 10 mg PO QPM PRN 09/04/14 05/29/17 Multivitamin [Multi-Vitamin Daily] 1 each PO DAILY 09/12/14 05/29/17 Duloxetine HCl [Cymbalta] 60 mg PO BID 10/07/16 05/29/17 Insulin Lispro [Humalog] 1 - 11 units SQ .SLIDING SCALE 10/07/16 05/29/17 Pregabalin [Lyrica] 300 mg PO BID 10/07/16 05/29/17 Nortriptyline HCl 20 mg PO 0800,1700 03/01/17 05/29/17 Tamsulosin [Flomax] 0.4 mg PO BID 03/01/17 05/29/17 Alprazolam 0.5 mg PO BID PRN 04/07/17 05/29/17 Bupropion HCl [Bupropion Xl] 150 mg PO DAILY 04/07/17 05/29/17 Cetirizine [ZyrTEC] 10 mg PO DAILY 04/07/17 05/29/17 Diclofenac Sodium [Voltaren] 4 gm TP QID PRN 04/07/17 05/29/17 Gabapentin 300 mg PO BID 04/07/17 05/29/17 Hydrocortisone [Cortef] 5 mg PO BID 04/07/17 05/29/17 Lidocaine Patch 5% [Lidoderm Patch] 1 each TOP DAILY PRN 04/07/17 05/29/17 Simvastatin 80 mg PO QPM 04/07/17 05/29/17 Budesonide [Entocort EC] 9 mg PO DAILY #60 capsule 04/10/17 05/29/17 Loperamide [Imodium] 2 mg PO Q2H PRN #0 capsule 04/10/17 05/29/17 Psyllium [Metamucil] 1 packet PO BID packet 04/10/17 05/29/17 oxyCODONE [Roxicodone] 5 mg PO Q6HR #0 04/10/17 05/29/17 Aspirin [Aspirin EC] 81 mg PO DAILY 05/29/17 05/29/17 - Allergies Allergies/Adverse Reactions: Allergies Allergy/AdvReac Type Severity Reaction Status Date / Time No Known Drug Allergies Allergy Verified 04/07/17 13:16 Exam - Vital Signs Reviewed Vital Signs: Yes Vital Signs: Vital Signs x48h Temp Pulse Resp BP Pulse Ox 05/30/17 00:21 74 18 82/53 L 05/29/17 23:52 75 92/50 L 05/29/17 23:34 75 89/50 L 05/29/17 23:22 71 83/55 L 05/29/17 23:17 73 16 80/46 L 92 05/29/17 23:03 75 81/45 L 05/29/17 22:55 75 20 76/49 L 93 05/29/17 22:38 73 18 96/51 L 95 05/29/17 22:05 77 18 82/46 L 96 05/29/17 21:31 79 18 82/43 L 95 05/29/17 21:00 83 18 80/43 L 96 05/29/17 20:33 36.0 C L 88 18 74/42 L 96 - Physical Exam General Appearance: positive: No acute distress Eyes Bilateral: positive: PERRL, EOMI, Conjunctivae nml, No scleral icterus ENT: positive: ENT inspection nml, Dry mucous membranes. negative: Oral lesions Neck: positive: Thyroid nml, No JVD. negative: Lymphadenopathy (R), Lymphadenopathy (L), Stiff neck Respiratory: positive: Chest non-tender, No respiratory distress, Breath sounds nml. negative: Wheezes, Rales, Rhonchi Cardiovascular: positive: Regular rate & rhythm, No murmur, No gallop Peripheral Pulses: positive: 2+ Abdomen: positive: Non-tender, Nml bowel sounds, Other (mildly distended wtih min tympany) Skin: positive: Color nml, Warm, Dry, Laceration (cm) (mult lesions on arms from dog per patient) Extremities: positive: Non-tender, No pedal edema. negative: Joint swelling Neurologic/Psychiatric: positive: Oriented x3 Conclusion/Plan - Lab Results Lab results reviewed: Yes Fish Bones: 05/29/17 20:58 05/29/17 20:58 - Diagnostic Imaging Results Diagnostic Imaging Results: positive: Final report reviewed Diagnostic Imaging Results Comments: CXR wtih new pulm venous congestion. +Pacer, borderline cardiomegaly Issues/Core Measures - Anticipated LOS Anticipated Stay Length: Less than 2 midnights - Issues Hospital Issues and Management Plan: 1. Addisons flare, precipitating events unclear, possibly due to stress. no recent illness, no change in medications or diet. Minimal and short lived response to fluids and high dose hydrocortisone in ER. - check random cortisol level (add to prior blood draw) - check 8am cortisol - will put on scheduled high dose hydrocortisone 50 q6hr for now - once BP normalized, will change to 10am / 5pm 2. JODEE - baseline Cr=1.0 - giving IVF for BP - recheck in am 3. DMI with elevated BS - check A1C - accu check and SSI 4. Depression / anxiety / panic attacks - continue home medications 5. CAD s/p stents, AICD - continue ASA, statin, B-block, ROBYN inhibitor 6. Peripheral neuropathy - contineu gabapentin 7. BPH - continue tamulosin bid 8. GERD - continue protonix, ranitidine 9. DVT prophy - heparin 10. Dispo - home once BP and Cr normalized - anticipate hospital LOS <96hrs - DVT/VTE - Prophylaxis VTE/DVT Device ordered at admit?: Yes
[2017-05-30] MEDS ORDERED: HYDROCORTISONE SUCCINATE 100 MG/2 ML VIAL IVP SCH ×2 (01:00→09:00)
[2017-05-30] MEDS ORDERED: ACETAMINOPHEN 325 MG TABLET PO ONE (01:18)
[2017-05-30] MEDS: SODIUM CHLORIDE FLUSH 0.9% 10 ML SYRINGE IVP SCH ×2 (05:51→14:42)
[2017-05-30 06:57] LABS: CALCIUM 8.6 mg/dL (8.5-10.3); CREATININE 1.3 mg/dL (0.6-1.2); POTASSIUM 4.3 mmol/L (3.5-5.0)
[2017-05-30 07:17] LABS: HEMOGLOBIN A1C 1.02 g/dL
[2017-05-30] MEDS ORDERED: HYDROCORTISONE 10 MG TABLET PO SCH ×2 (08:00→16:00)
[2017-05-30] MEDS ORDERED: NORTRIPTYLINE 10 MG CAPSULE PO SCH (09:00)
[2017-05-30] MEDS ORDERED: BUDESONIDE 3 MG CAPSULE PO SCH (09:00)
[2017-05-30] MEDS ORDERED: LISINOPRIL 20 MG TABLET PO SCH (09:00)
[2017-05-30] MEDS ORDERED: POLYETHYLENE GLYCOL 3350 17 GM PACKET PO SCH (09:00)
[2017-05-30] MEDS ORDERED: PSYLLIUM PACKET PO SCH (09:00)
[2017-05-30] MEDS ORDERED: GABAPENTIN 300 MG CAPSULE PO SCH (09:00)
[2017-05-30] MEDS ORDERED: PREGABALIN 100 MG CAPSULE PO SCH (09:00)
[2017-05-30] MEDS ORDERED: buPROPion XL 150 MG TABLET PO SCH (09:00)
[2017-05-30] MEDS ORDERED: TAMSULOSIN 0.4 MG CAPSULE PO SCH (09:00)
[2017-05-30] MEDS ORDERED: HEPARIN 5,000 UNIT/ML VIAL SUBQ SCH (09:00)
[2017-05-30] MEDS ORDERED: PANTOPRAZOLE 40 MG TABLET PO SCH (09:00)
[2017-05-30] MEDS ORDERED: SPIRONOLACTONE 25 MG TABLET PO SCH (09:00)
[2017-05-30] MEDS ORDERED: CARVEDILOL 12.5 MG TABLET PO SCH (09:00)
[2017-05-30] MEDS ORDERED: DULoxetine 30 MG CAPSULE PO SCH (09:00)
[2017-05-30] MEDS ORDERED: ASPIRIN CHEW 81 MG TABLET PO SCH (09:00)
[2017-05-30] MEDS ORDERED: INSULIN REGULAR HUMAN 100 UNIT/1 ML 10 ML MDV ONE (09:04)
[2017-05-30] MEDS: INSULIN ASPART 300 UNIT/3 ML PEN SUBQ SCH ×2 (09:27→12:00)
[2017-05-30 10:59] LABS: BILIRUBIN,URINE NEGATIVE (NEGATIVE); PH,URINE 5.5 PH (5.0-7.5)
[2017-05-30 12:08] LABS: UA CHARGE (STRIP ONLY) YES; UR CULTURE IF IND NOT INDICATED
--- NOTE | 2017-05-30 12:28 | Discharge Plan ---
Discharge Plan Disposition: 01 Home, Self Care Condition: Fair Diet: Cardiac Activity Restrictions: Activity as Tolerated Shower Restrictions: No Driving Restrictions: No Weight Bearing: Full Weight No Smoking: If you smoke, Please STOP! Call for help.
[2017-05-30 12:40] VITALS: BP 109/54
--- NOTE | 2017-06-29 04:33 | DISCHARGE SUMMARY ---
DATE OF ADMISSION: 05/29/2017 DATE OF DISCHARGE: 05/30/2017 HISTORY OF PRESENT ILLNESS: This is a 57-year-old white male with a history of diabetes, depression, coronary disease with stents, cardiomyopathy with a defibrillator, BPH, GERD, peripheral neuropathy, [place] disease. The patient presented with new onset of lightheadedness and weakness and low blood p ressure found in the emergency room and he was admitted for an addisonian flareup. HOSPITAL COURSE AND DISCHARGE DIAGNOSES 1. Addisonian crisis/flare up. The precipitating events are unclear, possibly due to stress, but ther e was no recent illness or change in medications or diet. This was short-lived and responded to fluid s for resuscitation and brief elevated doses of hydrocortisone. He was put on higher hydrocortisone o f 50 mg q.6h and then changed to 50 mg q.12h at discharge. 2. Elevated creatinine of 1.3. His creatinine baseline is 1.0, and this was felt to be due to volume depletion. He was given IV fluids for replacement. 3. Diabetes. His blood sugars run 200-380 and he was treated with sliding scale insulin and his pread mission medications and diabetic diet. 4. Depression with anxiety. This was stable during this admission and his home medications were ravi nued. 5. Coronary artery disease with stents. His home medications were continued, and there were no compla ints regarding this diagnosis. 6. Peripheral neuropathy. There were no complaints and the patient's gabapentin was continued. 7. Benign prostatic hypertrophy. There were no complaints and the patient's tamsulosin was continued. The patient was discharged in fair condition with plan for followup with his primary care doctor. JOB #: [id number] EXT JOB #:[id number]
== END 2017-05-30 15:26 | disposition home or self-care (01) ==
LOC: EDUNIT# → EDBD → ED 20:31 → OBS 23:54 → OBSVTOIN 23:54 → INTOOBSV 23:54 → MS3 05-30 14:36 → OBS 05-30 14:36
PROVIDERS: ADMIT Internal Medicine; ATTEND Internal Medicine
DX: E27.2 Addisonian crisis (principal); E27.1 Primary adrenocortical insufficiency; N17.9 Acute kidney failure, unspecified; E10.65 Type 1 diabetes mellitus with hyperglycemia; E10.42 Type 1 diabetes mellitus with diabetic polyneuropathy; F32.9 Major depressive disorder, single episode, unspecified; F41.0 Panic disorder [episodic paroxysmal anxiety]; I25.10 Atherosclerotic heart disease of native coronary artery without angina pectoris; N40.0 Benign prostatic hyperplasia without lower urinary tract symptoms; K21.9 Gastro-esophageal reflux disease without esophagitis; K52.9 Noninfective gastroenteritis and colitis, unspecified; Z95.5 Presence of coronary angioplasty implant and graft; Z95.810 Presence of automatic (implantable) cardiac defibrillator; Z87.891 Personal history of nicotine dependence; Z79.4 Long term (current) use of insulin; Z79.891 Long term (current) use of opiate analgesic; Z79.82 Long term (current) use of aspirin; Z79.899 Other long term (current) drug therapy
CPT/HCPCS: 36415; 71010; 80048; 80053; 81003; 82533; 82947; 83036; 83605; 83690; 83735; 84484; 85025; 93005; 96361; 96372; 96374; 96376; 99217; 99218; 99285; A9270; J1815; 81001; 87086

== ENCOUNTER 2017-07-15 12:23 | Emergency (ER) | payer MEDICARE ==
--- NOTE | 2017-07-15 12:57 | ED Physician Documentation ---
History of Present Illness - Stated complaint Stated Complaint: ELECTRICUTION - Chief complaint Chief Complaint: General - History obtained from History obtained from: Patient - History of Present Illness Timing: Yesterday Pain level max: 9 Pain level now: 8 Improved by: nothing Worsened by: moving - Additonal information Additional information: Patient is a 57-year-old male who presents to the emergency department after sustaining a shock from a 220 V outlet yesterday. He states he has generalized muscle aches today. No syncope. No chest pain. Also feels that his neuropathy in his hands and feet is "acting up". No palpitations. Review of Systems Constitutional: denies: Fever, Chills GI: denies: Nausea, Vomiting, Diarrhea Skin: denies: Rash Musculoskeletal: denies: Neck pain, Back pain Neurologic: denies: Headache PD PAST MEDICAL HISTORY - Past Medical History Cardiovascular: Congestive heart failure, Hypertension, High cholesterol, Coronary artery disease, [place], Other Respiratory: Shortness of breath Neuro: Headache/migraine, Peripheral neuropathy, Other Endocrine/Autoimmune: Type 1 diabetes, Other GI: GERD, Chronic diarrhea, Other : Benign prostate hypertrophy, Renal insuffiency, Other HEENT: Other Psych: Depression, Anxiety, Panic attacks, Post traumatic stress disorder Musculoskeletal: Osteoarthritis Derm: None Other Past Medical History: glasses, alonso's disease - Past Surgical History Past Surgical History: Yes General: Colonoscopy, EGD Ortho: Carpal Tunnel surgery, 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 Cardiovascular: Coronary stent, AICD, Cardiac catheterization HEENT: Other - Present Medications Home Medications: Ambulatory Orders Medication Instructions Recorded Confirmed Carvedilol 12.5 mg PO BID 09/04/14 07/15/17 Lisinopril 20 mg PO DAILY 09/04/14 07/15/17 Pantoprazole [Protonix] 40 mg PO BIDAC 09/04/14 07/15/17 Ranitidine HCl 300 mg PO QPM 09/04/14 07/15/17 Spironolactone 12.5 mg PO DAILY 09/04/14 07/15/17 Zolpidem Tartrate 10 mg PO QPM PRN 09/04/14 07/15/17 Insulin Lispro [Humalog] 1 - 11 units SQ .SLIDING SCALE 10/07/16 07/15/17 Pregabalin [Lyrica] 300 mg PO BID 10/07/16 07/15/17 Nortriptyline HCl 20 mg PO 0800,1700 03/01/17 07/15/17 Tamsulosin [Flomax] 0.4 mg PO BID 03/01/17 07/15/17 Alprazolam 0.5 mg PO BID PRN 04/07/17 07/15/17 Cetirizine [ZyrTEC] 10 mg PO DAILY 04/07/17 07/15/17 Diclofenac Sodium [Voltaren] 4 gm TP QID PRN 04/07/17 07/15/17 Lidocaine Patch 5% [Lidoderm Patch] 1 each TOP DAILY PRN 04/07/17 07/15/17 Simvastatin 80 mg PO QPM 04/07/17 07/15/17 Budesonide [Entocort EC] 9 mg PO DAILY #60 capsule 04/10/17 07/15/17 Loperamide [Imodium] 2 mg PO Q2H PRN #0 capsule 04/10/17 07/15/17 Psyllium [Metamucil] 1 packet PO BID packet 04/10/17 07/15/17 oxyCODONE [Roxicodone] 5 mg PO Q6HR #0 04/10/17 07/15/17 Acetaminophen [Tylenol] 650 mg PO Q4HR PRN #0 tablet 05/30/17 07/15/17 Aspirin Chewable [[place] 81 mg PO DAILY tablet 05/30/17 07/15/17 Aspirin] DULoxetine [Cymbalta] 60 mg PO BID capsule 05/30/17 07/15/17 Gabapentin [Neurontin] 300 mg PO BID capsule 05/30/17 07/15/17 Insulin Aspart [NovoLOG] 1 - 9 unit SUBQ 05/30/17 07/15/17 0800,1200,1700,2100 pen buPROPion [Wellbutrin Xl] 150 mg PO DAILY tablet 05/30/17 07/15/17 - Allergies Allergies/Adverse Reactions: Allergies Allergy/AdvReac Type Severity Reaction Status Date / Time No Known Drug Allergies Allergy Verified 04/07/17 13:16 - Social History Does the pt smoke?: No Smoking Status: Former smoker Does the pt drink ETOH?: No Does the pt have substance abuse?: No - Immunizations Immunizations are current?: Yes - POLST Patient has POLST: No PD ED PE NORMAL - Vitals Vital signs reviewed: Yes - General General: Alert and oriented X 3, No acute distress, Well developed/nourished - HEENT HEENT: Moist mucous membranes - Neck Neck: Supple, no meningeal sign - Cardiac Cardiac: RRR, No murmur, Strong equal pulses - Respiratory Respiratory: No respiratory distress, Clear bilaterally - Abdomen Abdomen: Soft, Non tender, Non distended - Derm Derm: Warm and dry, No rash - Extremities Extremities: Normal ROM s pain, No calf tenderness / cord - Neuro Neuro: Alert and oriented X 3, production sorter 2-12 intact, No motor deficit, Normal speech , Other (decreased sensation over B feet, normal for pt.) - Psych Psych: Normal mood, Normal affect Results - Vitals Vitals: Oxygen O2 Source [] Room air O2 Source Room air - EKG (time done) 1247 Rate: Rate (enter#) (79) Rhythm: NSR [place]: Normal Intervals: Normal [place] QRS: Normal Ischemia: Normal ST segments Computer interpretation: Agree with computer - Labs Labs: Laboratory Tests 07/15/17 07/15/17 13:13 13:13 WBC 14.4 H RBC 4.32 L Hgb 13.2 L Hct 39.6 L MCV 91.7 MCH 30.5 MCHC 33.2 RDW 13.9 Plt Count 216 MPV 8.9 Neut # 11.8 H Lymph # 1.5 [place] # 0.9 Eos # 0.2 Baso # 0.1 Absolute Nucleated RBC 0.03 Nucleated RBCs 0.2 Sodium 134 L Potassium 5.1 H Chloride 94 L Carbon Dioxide 31 Anion Gap 9.0 BUN 31 H Creatinine 1.5 H Estimated GFR (MDRD) 48 L Glucose 296 H Calcium 9.2 Total Creatine Kinase 258 PD MEDICAL DECISION MAKING - ED course Complexity details: reviewed results, re-evaluated patient, considered differential, d/w patient ED course: Patient is a 57-year-old male who presents to the emergency department after being shocked by a 220v outlet 2 yesterday. No acute findings on laboratory testing despite his muscle aches. Normal CK. Normal EKG. He bolused his own insulin in the emergency department from his insulin pump recommend that he follow-up closely with his doctor for adjustment of his insulin. Patient counseled regarding signs and symptoms for which I believe and urgent re- evaluation would be necessary. Patient with good understanding of and agreement to plan and is comfortable going home at this time This document was made in part using voice recognition software. While efforts are made to proofread this document, sound alike and grammatical errors may occur. Departure - Departure Disposition: 01 Home, Self Care Clinical Impression: Hyperglycemia, Hyperkalemia Electrical shock of hand Qualifiers: Encounter type: initial encounter Qualified Code(s): T75.4XXA - Electrocution, initial encounter Leukocytosis Qualifiers: Leukocytosis type: unspecified Qualified Code(s): D72.829 - Elevated white blood cell count, unspecified Condition: Good Instructions: ED Burn Electrical Follow-Up: Amadou Jackson MD [Primary Care Provider] - Within 3 Days Comments: You should have your labs rechecked in 3 days with your doctor. Return sooner if you worsen. Take an extra dose of your hydrocortisone today. Discharge Date/Time: 07/15/17 14:35
[2017-07-15 13:22] LABS: BASOPHILS # (AUTO) 0.1 10^3/uL (0.0-0.1); BASOPHILS % (AUTO) 0.7 %; EOSINOPHILS # (AUTO) 0.2 10^3/uL (0.0-0.7); EOSINOPHILS % (AUTO) 1.2 %; HCT - HEMATOCRIT 39.6 % (42.0-52.0); HGB - HEMOGLOBIN 13.2 g/dL (14.0-18.0); LYMPHOCYTES # (AUTO) 1.5 10^3/uL (1.5-3.5); LYMPHOCYTES % (AUTO) 10.2 %; MEAN CORPUSCULAR HEMOGLOBIN 30.5 pg (27.0-31.0); MEAN CORPUSCULAR HGB CONC 33.2 g/dL (32.0-36.0); MEAN CORPUSCULAR VOLUME 91.7 fL (80.0-94.0); MEAN PLATELET VOLUME 8.9 fL (7.4-11.4); MONOCYTES # (AUTO) 0.9 10^3/uL (0.0-1.0); MONOCYTES % (AUTO) 6.3 %; NEUTROPHILS # (AUTO) 11.8 10^3/uL (1.5-6.6); NEUTROPHILS % (AUTO) 81.6 %; NUCLEATED RED BLOOD CELLS AUTO 0.2 /100WBC; RED BLOOD COUNT 4.32 10^6/uL (4.70-6.10); RED CELL DISTRIBUTION WIDTH 13.9 % (12.0-15.0); UNCORRECTED WHITE BLOOD COUNT 14.4 x10^3/uL; WHITE BLOOD COUNT 14.4 x10^3/uL (4.8-10.8)
[2017-07-15 13:32] LABS: CALCIUM 9.2 mg/dL (8.5-10.3); CREATININE 1.5 mg/dL (0.6-1.2); POTASSIUM 5.1 mmol/L (3.5-5.0)
[2017-07-15] MEDS ORDERED: INSULIN REGULAR HUMAN 100 UNIT/1 ML 10 ML MDV SUBQ STA (13:45)
[2017-07-15 14:35] VITALS: BP 108/61
== END 2017-07-15 14:35 | disposition home or self-care (01) ==
LOC: ED 12:23
DX: T75.4XXA Electrocution, initial encounter (principal); W86.0XXA Exposure to domestic wiring and appliances, initial encounter; E10.65 Type 1 diabetes mellitus with hyperglycemia; E10.42 Type 1 diabetes mellitus with diabetic polyneuropathy; Z79.4 Long term (current) use of insulin; D72.829 Elevated white blood cell count, unspecified; I11.0 Hypertensive heart disease with heart failure; I50.9 Heart failure, unspecified; E78.00 Pure hypercholesterolemia, unspecified; I25.10 Atherosclerotic heart disease of native coronary artery without angina pectoris; I25.2 Old myocardial infarction; Z95.810 Presence of automatic (implantable) cardiac defibrillator; N40.0 Benign prostatic hyperplasia without lower urinary tract symptoms; K21.9 Gastro-esophageal reflux disease without esophagitis; N28.9 Disorder of kidney and ureter, unspecified; Z87.891 Personal history of nicotine dependence
CPT/HCPCS: 36415; 80048; 82550; 85025; 93005; 99283; 99284

== ENCOUNTER 2017-07-20 15:29 | Emergency (ER) | payer MEDICARE ==
--- NOTE | 2017-07-20 17:11 | ED Physician Documentation ---
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/LT RIB PX - Chief complaint Chief Complaint: General - History obtained from History obtained from: Patient - History of Present Illness PD HPI LOW EXT INJURY LOCATION: Left, Other (chest, lateral and posterior.) Type of injury: Fall Timing - onset: Today Timing - details: Abrupt onset, Still present Worsened by: Moving, Palpating, Other (deep breathing) Associated symptoms: No: Weakness, Numbness Contributing factors: No: Anticoagulated Similar symptoms before: Has not had sx before Recently seen: Not recently seen Review of Systems Throat: denies: Swollen tonsils Cardiac: reports: Chest pain / pressure. denies: Palpitations Respiratory: denies: Dyspnea PD PAST MEDICAL HISTORY - Past Medical History Cardiovascular: Congestive heart failure, Hypertension, High cholesterol, Coronary artery disease, [place], Other Respiratory: Shortness of breath Neuro: Headache/migraine, Peripheral neuropathy, Other Endocrine/Autoimmune: Type 1 diabetes, Other GI: GERD, Chronic diarrhea, Other : Benign prostate hypertrophy, Renal insuffiency, Other HEENT: Other Psych: Depression, Anxiety, Panic attacks, Post traumatic stress disorder Musculoskeletal: Osteoarthritis Derm: None - Past Surgical History Past Surgical History: Yes General: Colonoscopy, EGD Ortho: Carpal Tunnel surgery, 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 Cardiovascular: Coronary stent, AICD, Cardiac catheterization HEENT: Other - Present Medications Home Medications: Ambulatory Orders Medication Instructions Recorded Confirmed Carvedilol 12.5 mg PO BID 09/04/14 07/20/17 Lisinopril 20 mg PO DAILY 09/04/14 07/20/17 Pantoprazole [Protonix] 40 mg PO BIDAC 09/04/14 07/20/17 Ranitidine HCl 300 mg PO QPM 09/04/14 07/20/17 Spironolactone 12.5 mg PO DAILY 09/04/14 07/20/17 Zolpidem Tartrate 10 mg PO QPM PRN 09/04/14 07/20/17 Insulin Lispro [Humalog] 1 - 11 units SQ .SLIDING SCALE 10/07/16 07/20/17 Pregabalin [Lyrica] 300 mg PO BID 10/07/16 07/20/17 Nortriptyline HCl 20 mg PO 0800,1700 03/01/17 07/20/17 Tamsulosin [Flomax] 0.4 mg PO BID 03/01/17 07/20/17 Alprazolam 0.5 mg PO BID PRN 04/07/17 07/20/17 Cetirizine [ZyrTEC] 10 mg PO DAILY 04/07/17 07/20/17 Diclofenac Sodium [Voltaren] 4 gm TP QID PRN 04/07/17 07/20/17 Lidocaine Patch 5% [Lidoderm Patch] 1 each TOP DAILY PRN 04/07/17 07/20/17 Simvastatin 80 mg PO QPM 04/07/17 07/20/17 Budesonide [Entocort EC] 9 mg PO DAILY #60 capsule 04/10/17 07/20/17 Loperamide [Imodium] 2 mg PO Q2H PRN #0 capsule 04/10/17 07/20/17 Psyllium [Metamucil] 1 packet PO BID packet 04/10/17 07/20/17 oxyCODONE [Roxicodone] 5 mg PO Q6HR #0 04/10/17 07/20/17 Acetaminophen [Tylenol] 650 mg PO Q4HR PRN #0 tablet 05/30/17 07/20/17 Aspirin Chewable [[place] 81 mg PO DAILY tablet 05/30/17 07/20/17 Aspirin] DULoxetine [Cymbalta] 60 mg PO BID capsule 05/30/17 07/20/17 Gabapentin [Neurontin] 300 mg PO BID capsule 05/30/17 07/20/17 Insulin Aspart [NovoLOG] 1 - 9 unit SUBQ 05/30/17 07/20/17 0800,1200,1700,2100 pen buPROPion [Wellbutrin Xl] 150 mg PO DAILY tablet 05/30/17 07/20/17 Morphine Sulfate 15 mg PO TID PRN #15 tablet 07/20/17 - Allergies Allergies/Adverse Reactions: Allergies Allergy/AdvReac Type Severity Reaction Status Date / Time No Known Drug Allergies Allergy Verified 04/07/17 13:16 - Social History Does the pt smoke?: No Smoking Status: Former smoker Does the pt drink ETOH?: No Does the pt have substance abuse?: No - Immunizations Immunizations are current?: Yes - POLST Patient has POLST: No PD ED PE NORMAL - Vitals Vital signs reviewed: Yes - General General: Alert and oriented X 3, No acute distress, Well developed/nourished - HEENT HEENT: Pharynx benign - Neck Neck: Supple, no meningeal sign, No bony TTP, No adenopathy - Cardiac Cardiac: RRR, No murmur - Respiratory Respiratory: No respiratory distress, Clear bilaterally, Other (some chestwall tenderness left lateral ribs/chest about level T1) - Abdomen Abdomen: Soft, Non tender - Back Back: No CVA TTP - Derm Derm: Normal color, Warm and dry - Extremities Extremities: No tenderness to palpate, Normal ROM s pain, No edema, No calf tenderness / cord, Other (right anterior garner with superficial laceration, more of peeled skin without extension to fatty tissue. No bleeding nor FB. ) Results - Vitals Vitals: Oxygen O2 Source [With Activity] Room air O2 Source Room air - Rads (name of study) chest with ribs Radiology: Prelim report reviewed (no fractures, normal lungs. ) PD MEDICAL DECISION MAKING - ED course Complexity details: reviewed results, considered differential (he takes pain meds regularly so will have some tolerance. can add different pain meds to help with acute process. ), d/w patient Departure - Departure Disposition: Home, Self Care Clinical Impression: Lower leg abrasion Qualifiers: Encounter type: initial encounter Laterality: right Qualified Code(s): S80.811A - Abrasion, right lower leg, initial encounter Chest wall contusion Qualifiers: Encounter type: initial encounter Laterality: left Qualified Code(s): S20.212A - Contusion of left front wall of thorax, initial encounter Condition: Stable Record reviewed to determine appropriate education?: Yes Instructions: ED Abrasion, ED Contusion Chest Wall Follow-Up: Amadou Jackson MD [Primary Care Provider] - Prescriptions: Morphine Sulfate 15 mg PO TID PRN #15 tablet PRN Reason: Pain Comments: Continue usual medications. There is not any obvious broken ribs on chest x- ray. There is a few percent chance of an occult hairline fracture. I would take a little bit longer to heal. Otherwise the chest wall contusion should improve over several days to week. In addition to usual pain medications, add warfarin tablet 3 times a day if needed. For the abrasion on the leg, clean it with soap and water couple times a day and apply ointment. Recheck if signs of infection. Follow-up with your primary care if not improved over the next 5 or 6 days. Discharge Date/Time: 07/20/17 18:50
[2017-07-20] MEDS ORDERED: oxyCODONE 5 MG TABLET PO STA (17:24)
[2017-07-20] MEDS ORDERED: MUPIROCIN 2% OINT 1 GM TOP STA (17:24)
[2017-07-20] MEDS ORDERED: NAPROXEN 250 MG TABLET PO STA (17:25)
[2017-07-20] MEDS ORDERED: MUPIROCIN 2% OINT 1 GM ONE (17:51)
[2017-07-20] MEDS ORDERED: NAPROXEN 250 MG TABLET PO ONE (17:51)
[2017-07-20] MEDS ORDERED: oxyCODONE 5 MG TABLET ONE (17:51)
--- NOTE | 2017-07-20 17:59 | XRAY Preliminary Report ---
Exam: XR Ribs w/PA Chest LT IMPRESSION: Left basilar atelectasis. Negative ribs. [facility] SITE ID: [id number]
--- NOTE | 2017-07-20 18:02 | XRAY Report ---
EXAM: LEFT RIB RADIOGRAPHY EXAM DATE: 07/20/2017 05:42 PM. CLINICAL HISTORY: GLF rib pain. COMPARISON: Chest dated 05/29/2017. TECHNIQUE: 1 view of the chest and 2 views of the ribs. FINDINGS: Bones: Degenerative changes. No definite fracture or other bone lesion. Lungs: Prominent atelectasis in the left base. No consolidation, effusion, or pneumothorax. Mediastinum: Normal heart size. Upper lobe vessels not distended. Other: Permanent pacemaker on the left with intact lead. IMPRESSION: Left basilar atelectasis. Negative ribs. [facility] Referring Provider Line: [phone] SITE ID: [id number]
[2017-07-20 18:48] VITALS: BP 111/75
== END 2017-07-20 18:50 | disposition home or self-care (01) ==
LOC: ED 15:29
DX: S80.811A Abrasion, right lower leg, initial encounter (principal); S20.212A Contusion of left front wall of thorax, initial encounter; W19.XXXA Unspecified fall, initial encounter; I11.9 Hypertensive heart disease without heart failure; E10.9 Type 1 diabetes mellitus without complications; E78.00 Pure hypercholesterolemia, unspecified; I25.10 Atherosclerotic heart disease of native coronary artery without angina pectoris; I25.2 Old myocardial infarction; Z87.891 Personal history of nicotine dependence; Z79.82 Long term (current) use of aspirin
CPT/HCPCS: 71101; 99283; A9270

== ENCOUNTER 2017-07-28 14:27 | Outpatient (CLI) | payer MEDICARE ==
[2017-07-28 13:26] LABS: HEMOGLOBIN A1C 1.11 g/dL
[2017-07-28 13:31] LABS: ALBUMIN/GLOBULIN RATIO 1.3 (1.0-2.2); BILIRUBIN,TOTAL 0.6 mg/dL (0.2-1.0); BUN - BLOOD UREA NITROGEN 21 mg/dL (6-20); CALCIUM 8.7 mg/dL (8.5-10.3); CARBON DIOXIDE - CO2 30 mmol/L (21-32); CHLORIDE 97 mmol/L (101-111); CHOL/HDL RATIO 3.2 (<5.0); CHOLESTEROL 144 mg/dL; CREATININE 1.1 mg/dL (0.6-1.2); GFR - MDRD 69 (>89); GLUCOSE 108 mg/dL (70-100); HDL CHOLESTEROL 45 mg/dL; LDL/HDL RATIO 1.6 (<3.6); POTASSIUM 3.7 mmol/L (3.5-5.0); SODIUM 135 mmol/L (135-145); TOTAL PROTEIN 6.8 g/dL (6.7-8.2); TRIGLYCERIDES 123 mg/dL; VLDL CHOLESTEROL 25 mg/dL
== END 2017-07-28 14:28 | disposition home or self-care (01) ==
LOC: LAB.WCP 14:27
PROVIDERS: ATTEND Family Medicine
DX: E11.9 Type 2 diabetes mellitus without complications (principal); I25.10 Atherosclerotic heart disease of native coronary artery without angina pectoris
CPT/HCPCS: 36415; 80053; 80061; 83036; 84443

== ENCOUNTER 2017-08-06 15:11 | Emergency (ER) | payer MEDICARE ==
[2017-08-06] MEDS ORDERED: BACITRACIN OINT TOP ONE (16:21)
--- NOTE | 2017-08-06 16:45 | ED Physician Documentation ---
History of Present Illness - Stated complaint Stated Complaint: WOUND CHECK - Chief complaint Chief Complaint: Ext Problem - Additonal information Additional information: pt was trimming skin and caused a tissue abrasion avulsion to 4th toe Review of Systems Skin: reports: Abrasion (s) PD PAST MEDICAL HISTORY - Past Medical History Past Medical History: Yes Cardiovascular: Congestive heart failure, Hypertension, High cholesterol, Coronary artery disease, [place], Other Respiratory: Shortness of breath Neuro: Headache/migraine, Peripheral neuropathy, Other Endocrine/Autoimmune: Type 1 diabetes, Other GI: GERD, Chronic diarrhea, Other : Benign prostate hypertrophy, Renal insuffiency, Other HEENT: Other Psych: Depression, Anxiety, Panic attacks, Post traumatic stress disorder Musculoskeletal: Osteoarthritis Derm: None - Past Surgical History Past Surgical History: Yes General: Colonoscopy, EGD Ortho: Carpal Tunnel surgery, 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 Cardiovascular: Coronary stent, AICD, Cardiac catheterization HEENT: Other - Present Medications Home Medications: Ambulatory Orders Medication Instructions Recorded Confirmed Carvedilol 12.5 mg PO BID 09/04/14 07/20/17 Lisinopril 20 mg PO DAILY 09/04/14 07/20/17 Pantoprazole [Protonix] 40 mg PO BIDAC 09/04/14 07/20/17 Ranitidine HCl 300 mg PO QPM 09/04/14 07/20/17 Spironolactone 12.5 mg PO DAILY 09/04/14 07/20/17 Zolpidem Tartrate 10 mg PO QPM PRN 09/04/14 07/20/17 Insulin Lispro [Humalog] 1 - 11 units SQ .SLIDING SCALE 10/07/16 07/20/17 Pregabalin [Lyrica] 300 mg PO BID 10/07/16 07/20/17 Nortriptyline HCl 20 mg PO 0800,1700 03/01/17 07/20/17 Tamsulosin [Flomax] 0.4 mg PO BID 03/01/17 07/20/17 Alprazolam 0.5 mg PO BID PRN 04/07/17 07/20/17 Cetirizine [ZyrTEC] 10 mg PO DAILY 04/07/17 07/20/17 Diclofenac Sodium [Voltaren] 4 gm TP QID PRN 04/07/17 07/20/17 Lidocaine Patch 5% [Lidoderm Patch] 1 each TOP DAILY PRN 04/07/17 07/20/17 Simvastatin 80 mg PO QPM 04/07/17 07/20/17 Budesonide [Entocort EC] 9 mg PO DAILY #60 capsule 04/10/17 07/20/17 Loperamide [Imodium] 2 mg PO Q2H PRN #0 capsule 04/10/17 07/20/17 Psyllium [Metamucil] 1 packet PO BID packet 04/10/17 07/20/17 oxyCODONE [Roxicodone] 5 mg PO Q6HR #0 04/10/17 07/20/17 Acetaminophen [Tylenol] 650 mg PO Q4HR PRN #0 tablet 05/30/17 07/20/17 Aspirin Chewable [[place] 81 mg PO DAILY tablet 05/30/17 07/20/17 Aspirin] DULoxetine [Cymbalta] 60 mg PO BID capsule 05/30/17 07/20/17 Gabapentin [Neurontin] 300 mg PO BID capsule 05/30/17 07/20/17 Insulin Aspart [NovoLOG] 1 - 9 unit SUBQ 05/30/17 07/20/17 0800,1200,1700,2100 pen buPROPion [Wellbutrin Xl] 150 mg PO DAILY tablet 05/30/17 07/20/17 Morphine Sulfate 15 mg PO TID PRN #15 tablet 07/20/17 - Allergies Allergies/Adverse Reactions: Allergies Allergy/AdvReac Type Severity Reaction Status Date / Time No Known Drug Allergies Allergy Verified 08/06/17 15:48 - Social History Does the pt smoke?: No Smoking Status: Never smoker Does the pt drink ETOH?: No Does the pt have substance abuse?: No - Immunizations Immunizations are current?: Yes - POLST Patient has POLST: No PD ED PE NORMAL - Vitals Vital signs reviewed: Yes - Extremities Extremities: Other (L foot, small "divot" where tissue was avulsed off 4th toe in between 4th and 3rd toes, no active bleeding now, MSV intact) Results - Vitals Vitals: Vital Signs - 24 hr 08/06/17 15:46 Temperature 35.6 C L Heart Rate 96 Respiratory 18 Rate Blood Pressure 128/62 O2 Saturation 97 Oxygen O2 Source [With Activity] Room air O2 Source Room air Departure - Departure Disposition: 01 Home, Self Care Clinical Impression: Abrasion Condition: Good Instructions: ED Abrasion Comments: Leave the dressing on for 24-48 hr to prevent further bleeding. After that may remove the dressing - recommend soaking it to remove - and then apply antibiotic ointment twice daily till healed
[2017-08-06 17:26] VITALS: BP 130/84
== END 2017-08-06 17:24 | disposition home or self-care (01) ==
LOC: ED 15:11
DX: S90.415A Abrasion, left lesser toe(s), initial encounter (principal); W45.8XXA Other foreign body or object entering through skin, initial encounter; I11.0 Hypertensive heart disease with heart failure; I50.9 Heart failure, unspecified; I25.10 Atherosclerotic heart disease of native coronary artery without angina pectoris; E78.00 Pure hypercholesterolemia, unspecified; E10.42 Type 1 diabetes mellitus with diabetic polyneuropathy; Z79.4 Long term (current) use of insulin; N40.0 Benign prostatic hyperplasia without lower urinary tract symptoms; K21.9 Gastro-esophageal reflux disease without esophagitis; M19.90 Unspecified osteoarthritis, unspecified site; N28.9 Disorder of kidney and ureter, unspecified; Z95.810 Presence of automatic (implantable) cardiac defibrillator; Z79.82 Long term (current) use of aspirin
CPT/HCPCS: 99281; 99283; A9270

== ENCOUNTER 2017-08-11 13:04 | Outpatient (CLI) | payer MEDICARE ==
[2017-08-11 13:14] LABS: BUN - BLOOD UREA NITROGEN 29 mg/dL (6-20); CALCIUM 8.8 mg/dL (8.5-10.3); CARBON DIOXIDE - CO2 27 mmol/L (21-32); CHLORIDE 96 mmol/L (101-111); CHOL/HDL RATIO 3.3 (<5.0); CHOLESTEROL 153 mg/dL; CREATININE 1.7 mg/dL (0.6-1.2); GFR - MDRD 42 (>89); GLUCOSE 190 mg/dL (70-100); HDL CHOLESTEROL 46 mg/dL; LDL/HDL RATIO 1.5 (<3.6); POTASSIUM 4.1 mmol/L (3.5-5.0); SODIUM 131 mmol/L (135-145); TRIGLYCERIDES 196 mg/dL; VLDL CHOLESTEROL 39 mg/dL
== END 2017-08-11 13:05 | disposition home or self-care (01) ==
LOC: LAB.WCP 13:04
PROVIDERS: ATTEND Family Medicine
DX: I25.2 Old myocardial infarction (principal); Z12.5 Encounter for screening for malignant neoplasm of prostate; I25.5 Ischemic cardiomyopathy; Z95.810 Presence of automatic (implantable) cardiac defibrillator; Z95.5 Presence of coronary angioplasty implant and graft; E78.5 Hyperlipidemia, unspecified; Z87.898 Personal history of other specified conditions; E66.01 Morbid (severe) obesity due to excess calories; E10.9 Type 1 diabetes mellitus without complications
CPT/HCPCS: 36415; 80048; 80061; G0103; 84153

== ENCOUNTER 2017-08-15 12:38 | Outpatient (CLI) | payer MEDICARE ==
--- NOTE | 2017-08-16 00:38 | Ultrasound Report ---
EXAM: SCROTAL ULTRASOUND EXAM DATE: 08/15/2017 01:19 PM. CLINICAL HISTORY: TESTICULAR PAIN, LEFT. History of multiple portions with corrective surgery and hyp ospadias COMPARISON: None. TECHNIQUE: Real-time scanning was performed with static images obtained. Both color-flow and Doppler spectral analysis were utilized. FINDINGS: Right: Testis: 5.5 x 2.5 x 3.3 cm. Normal size and echotexture. No mass, calcification, or abnormal blood fl ow. Epididymis head: 0.9 x 0.4 x 1 cm. Normal size and echotexture. No mass or abnormal blood flow. Hydrocele: Minimal Varicocele: None. Left: Testis: 6.3 x 3.2 x 1.9 cm. Echotexture is within normal limits. Left testicle is located inferiorly in the scrotum and appears elongated. No mass, calcification, or abnormal blood flow. Epididymis head: 1.4 x 0.9 x 0.9 cm. Normal size and echotexture. No mass or abnormal blood flow. Hydrocele: None. Varicocele: None. IMPRESSION: 1. No evidence for testicular torsion or mass. 2. No acute findings are seen. 3. Minimal right hydrocele. 4. Elongated appearing left testicle located inferiorly in the scrotum. [facility] Referring Provider Line: [phone] SITE ID: [id number]
== END 2017-08-15 12:39 | disposition home or self-care (01) ==
LOC: DI 12:38
PROVIDERS: ATTEND Family Medicine
DX: N43.3 Hydrocele, unspecified (principal); N50.812 Left testicular pain
CPT/HCPCS: 76870; 93975

== ENCOUNTER 2017-09-03 22:07 | Outpatient (CLI) | payer MEDICARE | END 2017-09-03 22:08 | disposition short-term general hospital (02) | LOC: EMS 22:07 | PROVIDERS: ATTEND Surgery | DX: I95.9 Hypotension, unspecified (principal) | CPT/HCPCS: A0425; A0427 ==

== ENCOUNTER 2017-09-18 19:18 | Emergency (ER) | payer MEDICARE ==
--- NOTE | 2017-09-18 20:27 | ED Physician Documentation ---
PD HPI BACK PAIN - Stated complaint Stated Complaint: BACK PX - Chief complaint Chief Complaint: Back Pain - History obtained from History obtained from: Patient - History of Present Illness Timing - onset: Last night Timing - duration: Days (1) Timing - details: Abrupt onset, Still present Quality: Spasm, Sharp, Tearing Associated symptoms: No: Fever, Weakness, Numbness Worsened by: Movement, Twisting, Other (deep breathing, but does not feel short of breath per se.) Contributing factors: Lifting, Twisting Similar symptoms before: Has not had sx before (chronic lower back pain but has not had thoracic area pain before.) Recently seen: Not recently seen Review of Systems Constitutional: denies: Fever Nose: denies: Rhinorrhea / runny nose, Congestion Throat: denies: Sore throat Cardiac: denies: Palpitations Respiratory: denies: Dyspnea, Cough, Wheezing GI: denies: Abdominal Pain, Nausea, Vomiting PD PAST MEDICAL HISTORY - Past Medical History Past Medical History: Yes Cardiovascular: Congestive heart failure, Hypertension, High cholesterol, Coronary artery disease, [place], Other Respiratory: Shortness of breath Neuro: Headache/migraine, Peripheral neuropathy, Other Endocrine/Autoimmune: Type 1 diabetes, Other GI: GERD, Chronic diarrhea, Other : Benign prostate hypertrophy, Renal insuffiency, Other HEENT: Other Psych: Depression, Anxiety, Panic attacks, Post traumatic stress disorder Musculoskeletal: Osteoarthritis Derm: None - Past Surgical History Past Surgical History: Yes General: Colonoscopy, EGD Ortho: Carpal Tunnel surgery, 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 Cardiovascular: Coronary stent, AICD, Cardiac catheterization HEENT: Other - Present Medications Home Medications: Ambulatory Orders Medication Instructions Recorded Confirmed Carvedilol 12.5 mg PO BID 09/04/14 09/18/17 Lisinopril 20 mg PO DAILY 09/04/14 09/18/17 Pantoprazole [Protonix] 40 mg PO BIDAC 09/04/14 09/18/17 Spironolactone 12.5 mg PO DAILY 09/04/14 09/18/17 Zolpidem Tartrate 10 mg PO QPM PRN 09/04/14 09/18/17 raNITIdine HCl [Ranitidine HCl] 300 mg PO QPM 09/04/14 09/18/17 Insulin Lispro [Humalog] 1 - 11 units SQ .SLIDING SCALE 10/07/16 09/18/17 Pregabalin [Lyrica] 300 mg PO BID 10/07/16 09/18/17 Nortriptyline HCl 20 mg PO 0800,1700 03/01/17 09/18/17 Tamsulosin [Flomax] 0.4 mg PO BID 03/01/17 09/18/17 Alprazolam 0.5 mg PO BID PRN 04/07/17 09/18/17 Cetirizine [ZyrTEC] 10 mg PO DAILY 04/07/17 09/18/17 Diclofenac Sodium [Voltaren] 4 gm TP QID PRN 04/07/17 09/18/17 Lidocaine Patch 5% [Lidoderm Patch] 1 each TOP DAILY PRN 04/07/17 09/18/17 Simvastatin 80 mg PO QPM 04/07/17 09/18/17 Budesonide [Entocort EC] 9 mg PO DAILY #60 capsule 04/10/17 09/18/17 Loperamide [Imodium] 2 mg PO Q2H PRN #0 capsule 04/10/17 09/18/17 Psyllium [Metamucil] 1 packet PO BID packet 04/10/17 09/18/17 oxyCODONE [Roxicodone] 5 mg PO Q6HR #0 04/10/17 09/18/17 Acetaminophen [Tylenol] 650 mg PO Q4HR PRN #0 tablet 05/30/17 09/18/17 Aspirin Chewable [[place] 81 mg PO DAILY tablet 05/30/17 09/18/17 Aspirin] DULoxetine [Cymbalta] 60 mg PO BID capsule 05/30/17 09/18/17 Gabapentin [Neurontin] 300 mg PO BID capsule 05/30/17 09/18/17 Insulin Aspart [NovoLOG] 1 - 9 unit SUBQ 05/30/17 09/18/17 0800,1200,1700,2100 pen buPROPion [Wellbutrin Xl] 150 mg PO DAILY tablet 05/30/17 09/18/17 Morphine Sulfate 15 mg PO TID PRN #15 tablet 07/20/17 09/18/17 HYDROmorphone [Dilaudid] 2 mg PO Q6H PRN #10 tablet 09/18/17 Methocarbamol [Robaxin] 500 mg PO TID PRN #20 tablet 09/18/17 - Allergies Allergies/Adverse Reactions: Allergies Allergy/AdvReac Type Severity Reaction Status Date / Time No Known Drug Allergies Allergy Verified 09/18/17 19:23 - Social History Does the pt smoke?: No Smoking Status: Never smoker Does the pt drink ETOH?: No Does the pt have substance abuse?: No - Immunizations Immunizations are current?: Yes - POLST Patient has POLST: No PD ED PE NORMAL - Vitals Vital signs reviewed: Yes - General General: Alert and oriented X 3, Well developed/nourished - HEENT HEENT: Atraumatic - Neck Neck: Supple, no meningeal sign, No adenopathy - Cardiac Cardiac: RRR, No murmur - Respiratory Respiratory: Clear bilaterally, Other (no coarse sounds) - Abdomen Abdomen: Soft, Non tender - Back Back: No CVA TTP, No spinal TTP (has muscular tenderness medial scapular area on left. No rash nor sores. Tender to palpation. ) - Derm Derm: Normal color, Warm and dry - Extremities Extremities: No deformity, No tenderness to palpate, Normal ROM s pain, No edema , No calf tenderness / cord - Neuro Neuro: Alert and oriented X 3, No motor deficit, Normal speech Results - Vitals Vitals: Vital Signs - 24 hr 09/18/17 09/18/17 19:21 21:34 Temperature 36.6 C 36.9 C Heart Rate 100 89 Respiratory 20 18 Rate Blood Pressure 136/77 H 120/68 O2 Saturation 100 96 Oxygen O2 Source [With Activity] Room air O2 Source Room air - Rads (name of study) chest Radiology: Prelim report reviewed (some basilar atelectasis. No effusion nor infiltrate. ) PD MEDICAL DECISION MAKING - ED course Complexity details: reviewed old records (he has some prior visits for pain issues but also has real disease with CAD/vascular and diabetes. 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 ), reviewed results (CXR okay), considered differential, d/w patient Departure - Departure Disposition: 01 Home, Self Care Clinical Impression: Thoracic back pain Qualifiers: Chronicity: acute Back pain laterality: left Qualified Code(s): M54.6 - Pain in thoracic spine Condition: Stable Record reviewed to determine appropriate education?: Yes Instructions: ED Neck Back Pain General Follow-Up: Amadou Jackson MD [Primary Care Provider] - Prescriptions: HYDROmorphone [Dilaudid] 2 mg PO Q6H PRN #10 tablet PRN Reason: Pain Methocarbamol [Robaxin] 500 mg PO TID PRN #20 tablet PRN Reason: Spasms Comments: Continue usual medications. Add Robaxin muscle relaxant three times daily. Add Dilaudid to your usual pain medications for the next 2-3 days. Follow up with PMD Wednesday if not improved. Watch for development of other symptoms Such as fever, cough, rash, other symptoms. Your x-ray does not show significant changes to account for the pain in the scapular area. Discharge Date/Time: 09/18/17 21:49
[2017-09-18] MEDS ORDERED: HYDROmorphone 1 MG/ML SYRINGE IM STA (20:46)
[2017-09-18] MEDS ORDERED: KETOROLAC 60 MG/2 ML VIAL IM STA (20:46)
[2017-09-18] MEDS ORDERED: HYDROmorphone 1 MG/ML SYRINGE ONE (20:56)
[2017-09-18] MEDS ORDERED: KETOROLAC 30 MG/ML VIAL ONE (20:56)
--- NOTE | 2017-09-18 21:31 | XRAY Preliminary Report ---
Exam: XR CHEST 2 VIEW PA/LAT IMPRESSION: New bibasilar linear densities. Possibly worsening atelectasis or airways inflammatory di sease. [facility] SITE ID: [id number]
[2017-09-18 21:34] VITALS: BP 120/68
--- NOTE | 2017-09-18 21:34 | XRAY Report ---
EXAM: CHEST RADIOGRAPHY EXAM DATE: 09/18/2017 09:08 PM. CLINICAL HISTORY: Left scapular back pain. COMPARISON: 07/20/2017. TECHNIQUE: 2 views. FINDINGS: Lungs/Pleura: There are new bibasilar linear and streaky densities. Negative for pleural effusion and pneumothorax. Mediastinum: Pacemaker defibrillator lead overlies the right ventricle. Heart size appears within nor mal limits. Other: None. IMPRESSION: New bibasilar linear densities. Possibly worsening atelectasis or airways inflammatory di sease. [facility] Referring Provider Line: [phone] SITE ID: [id number]
== END 2017-09-18 21:49 | disposition home or self-care (01) ==
LOC: ED 19:18
DX: M54.6 Pain in thoracic spine (principal); E10.22 Type 1 diabetes mellitus with diabetic chronic kidney disease; E10.42 Type 1 diabetes mellitus with diabetic polyneuropathy; I13.0 Hypertensive heart and chronic kidney disease with heart failure and stage 1 through stage 4 chronic kidney disease, or unspecified chronic kidney disease; N18.9 Chronic kidney disease, unspecified; I50.9 Heart failure, unspecified; Z79.4 Long term (current) use of insulin; E78.00 Pure hypercholesterolemia, unspecified; I25.10 Atherosclerotic heart disease of native coronary artery without angina pectoris; I25.2 Old myocardial infarction; K21.9 Gastro-esophageal reflux disease without esophagitis; N40.0 Benign prostatic hyperplasia without lower urinary tract symptoms; M19.90 Unspecified osteoarthritis, unspecified site; Z79.82 Long term (current) use of aspirin
CPT/HCPCS: 71020; 96372; 99283; J1170

== ENCOUNTER 2017-09-30 16:13 | Emergency (ER) | payer MEDICARE ==
[2017-09-30] MEDS ORDERED: IPRATROPIUM/ALBUTEROL 3 ML NEB INH STA (16:45)
--- NOTE | 2017-09-30 16:52 | ED Physician Documentation ---
PD HPI DYSPNEA - Stated complaint Stated Complaint: SOA - Chief complaint Chief Complaint: Resp - History obtained from History obtained from: Patient - History of Present Illness Timing - onset: How many hours ago (2) Timing - onset during: Other (Coughing spasm.) Timing - details: Still present Associated symptoms: Cough (Nonproductive), Wheezing. No: Fever Similar symptoms before: Diagnosis (Reports history of similar episode about 6 months ago, with exacerbation of asthma.) - Additional information Additional information: The patient is a 57-year-old male with history of coronary artery disease, status post NC in 2011, history of congestive heart failure and diabetes, who presents with shortness of breath that started about 2 hours prior to arrival following a coughing episode. His cough is nonproductive of sputum. He denies fever. He does report mild left substernal chest discomfort. He denies nausea , vomiting, or diaphoresis. He reports history of similar symptoms about 6 months ago and had good results with respiratory treatments. He stopped smoking cigarettes in 2011 except for a 6 week period this past summer. Review of Systems Constitutional: denies: Fever Ears: denies: Tinnitus/ringing Nose: denies: Congestion Throat: denies: Sore throat Cardiac: reports: Chest pain / pressure (very mild). denies: Palpitations Respiratory: reports: Dyspnea, Cough (nonproductive), Wheezing GI: denies: Abdominal Pain, Nausea, Vomiting : denies: Dysuria Skin: denies: Rash Musculoskeletal: denies: Extremity swelling Neurologic: denies: Focal weakness, Numbness, Headache PD PAST MEDICAL HISTORY - Past Medical History Cardiovascular: Congestive heart failure, Hypertension, High cholesterol, Coronary artery disease, NC, Other Respiratory: Shortness of breath Neuro: Headache/migraine, Peripheral neuropathy, Other Endocrine/Autoimmune: Type 1 diabetes, Other GI: GERD, Chronic diarrhea, Other : Benign prostate hypertrophy, Renal insuffiency, Other HEENT: Other Psych: Depression, Anxiety, Panic attacks, Post traumatic stress disorder Musculoskeletal: Osteoarthritis Derm: None - Past Surgical History Past Surgical History: Yes General: Colonoscopy, EGD Ortho: Carpal Tunnel surgery, 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 Cardiovascular: Coronary stent, AICD, Cardiac catheterization HEENT: Other - Present Medications Home Medications: Ambulatory Orders Medication Instructions Recorded Confirmed Carvedilol 12.5 mg PO BID 09/04/14 09/18/17 Lisinopril 20 mg PO DAILY 09/04/14 09/18/17 Pantoprazole [Protonix] 40 mg PO BIDAC 09/04/14 09/18/17 Spironolactone 12.5 mg PO DAILY 09/04/14 09/18/17 Zolpidem Tartrate 10 mg PO QPM PRN 09/04/14 09/18/17 raNITIdine HCl [Ranitidine HCl] 300 mg PO QPM 09/04/14 09/18/17 Insulin Lispro [Humalog] 1 - 11 units SQ .SLIDING SCALE 10/07/16 09/18/17 Pregabalin [Lyrica] 300 mg PO BID 10/07/16 09/18/17 Nortriptyline HCl 20 mg PO 0800,1700 03/01/17 09/18/17 Tamsulosin [Flomax] 0.4 mg PO BID 03/01/17 09/18/17 Alprazolam 0.5 mg PO BID PRN 04/07/17 09/18/17 Cetirizine [ZyrTEC] 10 mg PO DAILY 04/07/17 09/18/17 Diclofenac Sodium [Voltaren] 4 gm TP QID PRN 04/07/17 09/18/17 Lidocaine Patch 5% [Lidoderm Patch] 1 each TOP DAILY PRN 04/07/17 09/18/17 Simvastatin 80 mg PO QPM 04/07/17 09/18/17 Budesonide [Entocort EC] 9 mg PO DAILY #60 capsule 04/10/17 09/18/17 Loperamide [Imodium] 2 mg PO Q2H PRN #0 capsule 04/10/17 09/18/17 Psyllium [Metamucil] 1 packet PO BID packet 04/10/17 09/18/17 oxyCODONE [Roxicodone] 5 mg PO Q6HR #0 04/10/17 09/18/17 Acetaminophen [Tylenol] 650 mg PO Q4HR PRN #0 tablet 05/30/17 09/18/17 Aspirin Chewable [[place] 81 mg PO DAILY tablet 05/30/17 09/18/17 Aspirin] DULoxetine [Cymbalta] 60 mg PO BID capsule 05/30/17 09/18/17 Gabapentin [Neurontin] 300 mg PO BID capsule 05/30/17 09/18/17 Insulin Aspart [NovoLOG] 1 - 9 unit SUBQ 05/30/17 09/18/17 0800,1200,1700,2100 pen buPROPion [Wellbutrin Xl] 150 mg PO DAILY tablet 05/30/17 09/18/17 Morphine Sulfate 15 mg PO TID PRN #15 tablet 07/20/17 09/18/17 HYDROmorphone [Dilaudid] 2 mg PO Q6H PRN #10 tablet 09/18/17 Methocarbamol [Robaxin] 500 mg PO TID PRN #20 tablet 09/18/17 Levalbuterol Tartrate [Xopenex Hfa] 15 gm IH BID PRN #1 hfa.aer.ad 09/30/17 - Allergies Allergies/Adverse Reactions: Allergies Allergy/AdvReac Type Severity Reaction Status Date / Time No Known Drug Allergies Allergy Verified 09/18/17 19:23 - Social History Does the pt smoke?: No Smoking Status: Former smoker (Quit in 2011.) Does the pt drink ETOH?: No Does the pt have substance abuse?: No - Immunizations Immunizations are current?: Yes - POLST Patient has POLST: No PD ED PE NORMAL - Vitals Vital signs reviewed: Yes (normal) - General General: Alert and oriented X 3, Well developed/nourished, Other (overweight) - HEENT HEENT: Atraumatic, Moist mucous membranes, Pharynx benign - Neck Neck: No adenopathy, No JVD - Cardiac Cardiac: RRR, No murmur - Respiratory Respiratory: Other (Tight wheezed diffusely, with prolonged expiratory phase. No rales or rhonchi.) - Abdomen Abdomen: Soft, Non tender - Back Back: No CVA TTP - Derm Derm: No rash - Extremities Extremities: No edema, No calf tenderness / cord - Neuro Neuro: Alert and oriented X 3, No motor deficit, No sensory deficit Results - Vitals Vitals: Oxygen O2 Source [] Room air O2 Source Room air - EKG (time done) 16:39 Rate: Rate (enter#) (73) Rhythm: NSR Butler: Normal Intervals: Normal GA QRS: Normal Ischemia: Q waves (in precordial leads V1-V5, consistent with anteroseptal infarct, age indeterminate.) Compare to prior EKG: Unchanged from prior EKG Computer interpretation: Agree with computer - Labs Labs: Laboratory Tests 09/30/17 09/30/17 09/30/17 17:00 17:00 17:00 WBC 12.1 H RBC 3.95 L Hgb 11.6 L Hct 36.2 L MCV 91.6 MCH 29.3 MCHC 32.0 RDW 14.2 Plt Count 262 MPV 9.1 Neut # 9.2 H Lymph # 1.6 Sargent # 1.0 Eos # 0.2 Baso # 0.1 Absolute Nucleated RBC 0.00 Nucleated RBC % 0.0 Sodium 135 Potassium 3.6 Chloride 100 L Carbon Dioxide 28 Anion Gap 7.0 BUN 18 Creatinine 1.1 Estimated GFR (MDRD) 69 L Glucose 201 H Calcium 8.2 L Total Bilirubin 0.4 AST 18 ALT 21 Alkaline Phosphatase 81 Troponin I < 0.04 B-Natriuretic Peptide Total Protein 6.8 Albumin 3.7 Globulin 3.1 Albumin/Globulin Ratio 1.2 Lipase < 10 L 09/30/17 17:00 WBC RBC Hgb Hct MCV MCH MCHC RDW Plt Count MPV Neut # Lymph # Sargent # Eos # Baso # Absolute Nucleated RBC Nucleated RBC % Sodium Potassium Chloride Carbon Dioxide Anion Gap BUN Creatinine Estimated GFR (MDRD) Glucose Calcium Total Bilirubin AST ALT Alkaline Phosphatase Troponin I B-Natriuretic Peptide 29 Total Protein Albumin Globulin Albumin/Globulin Ratio Lipase - Rads (name of study) 1-view CXR Radiology: Prelim report reviewed, EMP read contemporaneously, See rad report ( Mild diffuse bilateral airspace disease concerning for pulmonary edema with pulmonary venous congestion, increased compared to prior. No pleural effusion or pneumothorax. Stable cardiomegaly and pacemaker.) PD MEDICAL DECISION MAKING - ED course Complexity details: reviewed old records, reviewed results, re-evaluated patient , considered differential, d/w patient ED course: The patient's presentation is most consistent with acute exacerbation of asthma/ COPD, although a component of congestive heart failure is also apparent on x- ray examination of the chest. His BNP is normal at 29. There is no clinical or x-ray evidence to suggest pneumonia or pulmonary embolus. Treatment in the emergency department included administration of Dexamethasone 10 mg po, DuoNeb nebulizer which provided slight improvement in his symptoms. Lasix 20 mg IV was administered, followed by Xopenex nebulizer treatment. His symptoms markedly improved after the Xopenex treatment. He is being discharged with prescription for Xopenex inhaler. I discussed with him outpatient treatment and follow-up, as well as potentially worrisome signs or symptoms that should prompt reevaluation in the emergency. Departure - Departure Disposition: 01 Home, Self Care Clinical Impression: History of CHF (congestive heart failure) Asthma Qualifiers: Asthma severity: moderate Asthma persistence: unspecified Asthma complication type: with acute exacerbation Qualified Code(s): J45.901 - Unspecified asthma with (acute) exacerbation Condition: Stable Instructions: ED Reactive Airway Disease Follow-Up: Amadou Jackson MD [Primary Care Provider] - Prescriptions: Levalbuterol Tartrate [Xopenex Hfa] 15 gm IH BID PRN #1 hfa.aer.ad PRN Reason: Wheezing Comments: Use Xopenex inhaler as prescribed if needed for wheezing. Continue your other medications as previously prescribed. Follow up with your primary physician within 1-2 weeks. Call to schedule an appointment. Return to the emergency department if you develop increasing difficulty breathing, or otherwise worsening symptoms. Discharge Date/Time: 09/30/17 19:09
[2017-09-30] MEDS ORDERED: IPRATROPIUM/ALBUTEROL 3 ML NEB INH ONE (17:03)
[2017-09-30 17:09] LABS: BASOPHILS # (AUTO) 0.1 10^3/uL (0.0-0.1); EOSINOPHILS # (AUTO) 0.2 10^3/uL (0.0-0.7); EOSINOPHILS % (AUTO) 1.5 %; HCT - HEMATOCRIT 36.2 % (42.0-52.0); HGB - HEMOGLOBIN 11.6 g/dL (14.0-18.0); LYMPHOCYTES # (AUTO) 1.6 10^3/uL (1.5-3.5); LYMPHOCYTES % (AUTO) 13.6 %; MEAN CORPUSCULAR HEMOGLOBIN 29.3 pg (27.0-31.0); MEAN CORPUSCULAR VOLUME 91.6 fL (80.0-94.0); MEAN PLATELET VOLUME 9.1 fL (7.4-11.4); MONOCYTES % (AUTO) 8.3 %; NEUTROPHILS # (AUTO) 9.2 10^3/uL (1.5-6.6); NEUTROPHILS % (AUTO) 75.6 %; RED BLOOD COUNT 3.95 10^6/uL (4.70-6.10); RED CELL DISTRIBUTION WIDTH 14.2 % (12.0-15.0); UNCORRECTED WHITE BLOOD COUNT 12.1 x10^3/uL; WHITE BLOOD COUNT 12.1 x10^3/uL (4.8-10.8)
[2017-09-30] MEDS ORDERED: DEXAMETHASONE 10 MG/ML VIAL PO STA (17:10)
[2017-09-30 17:19] LABS: ALBUMIN/GLOBULIN RATIO 1.2 (1.0-2.2); BILIRUBIN,TOTAL 0.4 mg/dL (0.2-1.0); BUN - BLOOD UREA NITROGEN 18 mg/dL (6-20); CALCIUM 8.2 mg/dL (8.5-10.3); CARBON DIOXIDE - CO2 28 mmol/L (21-32); CHLORIDE 100 mmol/L (101-111); CREATININE 1.1 mg/dL (0.6-1.2); GFR - MDRD 69 (>89); GLUCOSE 201 mg/dL (70-100); POTASSIUM 3.6 mmol/L (3.5-5.0); SODIUM 135 mmol/L (135-145); TOTAL PROTEIN 6.8 g/dL (6.7-8.2)
[2017-09-30 17:20] LABS: LIPASE < 10 U/L (22-51)
[2017-09-30] MEDS ORDERED: CHERRY SYRUP 10 ML UDC PO ONE (17:23)
[2017-09-30] MEDS ORDERED: DEXAMETHASONE 10 MG/ML VIAL ONE (17:23)
--- NOTE | 2017-09-30 17:23 | XRAY Preliminary Report ---
Exam: XR CHEST 1 VIEW IMPRESSION: Mild diffuse bilateral airspace disease concerning for pulmonary edema with pulmonary suyapa ous congestion, increased compared to prior. No pleural effusion or pneumothorax. Stable cardiomegaly and pacemaker. [facility] SITE ID: [id number]
--- NOTE | 2017-09-30 17:25 | XRAY Report ---
EXAM: CHEST RADIOGRAPHY EXAM DATE: 09/30/2017 05:10 PM. CLINICAL HISTORY: Dyspnea. COMPARISON: Chest 09/18/2017. TECHNIQUE: 1 view. FINDINGS: Lungs/Pleura: Mild diffuse bilateral airspace disease concerning for pulmonary edema with pulmonary v enous congestion, increased compared to prior. No pleural effusion or pneumothorax. Mediastinum: Stable cardiomegaly and pacemaker. IMPRESSION: Mild diffuse bilateral airspace disease concerning for pulmonary edema with pulmonary suyapa ous congestion, increased compared to prior. No pleural effusion or pneumothorax. Stable cardiomegaly and pacemaker. [facility] Referring Provider Line: [phone] SITE ID: [id number]
[2017-09-30] MEDS ORDERED: LEVALBUTEROL 1.25 MG/0.5 ML NEB INH STA (17:54)
[2017-09-30] MEDS ORDERED: SODIUM CHLORIDE INHALATION 3 ML NEB ONE (18:11)
[2017-09-30] MEDS ORDERED: LEVALBUTEROL 1.25 MG/0.5 ML NEB INH ONE (18:11)
[2017-09-30] MEDS ORDERED: FUROSEMIDE 20 MG/2 ML VIAL IVP STA (18:22)
[2017-09-30] MEDS ORDERED: FUROSEMIDE 20 MG/2 ML VIAL IVP ONE (18:29)
[2017-09-30 19:08] VITALS: BP 115/79
== END 2017-09-30 19:09 | disposition home or self-care (01) ==
LOC: ED 16:13
DX: I11.0 Hypertensive heart disease with heart failure (principal); I50.9 Heart failure, unspecified; J45.901 Unspecified asthma with (acute) exacerbation; I25.10 Atherosclerotic heart disease of native coronary artery without angina pectoris; I25.2 Old myocardial infarction; Z95.810 Presence of automatic (implantable) cardiac defibrillator; E10.42 Type 1 diabetes mellitus with diabetic polyneuropathy; Z79.4 Long term (current) use of insulin; E78.00 Pure hypercholesterolemia, unspecified; K21.9 Gastro-esophageal reflux disease without esophagitis; N40.0 Benign prostatic hyperplasia without lower urinary tract symptoms; N28.9 Disorder of kidney and ureter, unspecified; M19.90 Unspecified osteoarthritis, unspecified site; Z87.891 Personal history of nicotine dependence
CPT/HCPCS: 36415; 71010; 80053; 83690; 83880; 84484; 85025; 93005; 94640; 96374; 99283; 99284; A9270; J7620

== ENCOUNTER 2017-11-02 13:47 | Outpatient (CLI) | payer MEDICARE ==
[2017-11-02 19:17] LABS: ALBUMIN/GLOBULIN RATIO 1.3 (1.0-2.2); BILIRUBIN,TOTAL 0.3 mg/dL (0.2-1.0); CALCIUM 8.8 mg/dL (8.5-10.3); CREATININE 1.1 mg/dL (0.6-1.2)
[2017-11-02 19:40] LABS: HB2 TOTAL 13.4 g/dL; HEMOGLOBIN A1C 1.02 g/dL; HEMOGLOBIN A1C % 9.1 % (4.6-6.2)
== END 2017-11-02 13:48 | disposition home or self-care (01) ==
LOC: LAB.WCP 13:47
PROVIDERS: ATTEND Family Medicine
DX: E11.22 Type 2 diabetes mellitus with diabetic chronic kidney disease (principal); N18.3 Chronic kidney disease, stage 3 (moderate); N50.812 Left testicular pain; M54.5 Low back pain
CPT/HCPCS: 36415; 80053; 83036

== ENCOUNTER 2018-01-19 16:27 | Outpatient (CLI) | payer MEDICARE ==
[2018-01-19 16:48] LABS: BASOPHILS # (AUTO) 0.2 10^3/uL (0.0-0.1); BASOPHILS % (AUTO) 1.4 %; EOSINOPHILS # (AUTO) 0.1 10^3/uL (0.0-0.7); EOSINOPHILS % (AUTO) 0.9 %; HGB - HEMOGLOBIN 13.6 g/dL (14.0-18.0); LYMPHOCYTES # (AUTO) 1.6 10^3/uL (1.5-3.5); MEAN CORPUSCULAR HEMOGLOBIN 27.2 pg (27.0-31.0); MEAN PLATELET VOLUME 8.7 fL (7.4-11.4); MONOCYTES # (AUTO) 0.9 10^3/uL (0.0-1.0); MONOCYTES % (AUTO) 6.8 %; NEUTROPHILS # (AUTO) 10.3 10^3/uL (1.5-6.6); NEUTROPHILS % (AUTO) 78.9 %; PLT - PLATELET COUNT 229 10^3/uL (130-450); RED BLOOD COUNT 4.99 10^6/uL (4.70-6.10); RED CELL DISTRIBUTION WIDTH 16.5 % (12.0-15.0); WHITE BLOOD COUNT 13.1 x10^3/uL (4.8-10.8)
[2018-01-19 16:56] LABS: ALBUMIN 4.1 g/dL (3.2-5.5); ALBUMIN/GLOBULIN RATIO 1.3 (1.0-2.2); BILIRUBIN,TOTAL 0.6 mg/dL (0.2-1.0); CALCIUM 9.1 mg/dL (8.5-10.3); CREATININE 1.1 mg/dL (0.6-1.2); TOTAL PROTEIN 7.2 g/dL (6.7-8.2)
== END 2018-01-19 16:28 | disposition home or self-care (01) ==
LOC: LAB 16:27
PROVIDERS: ATTEND Physician Assistant
DX: R07.81 Pleurodynia (principal)
CPT/HCPCS: 36415; 80053; 85025; 85379

== ENCOUNTER 2018-01-19 18:05 | Emergency (ER) | payer MEDICARE ==
[2018-01-19] MEDS ORDERED: IOPAMIDOL-300 100 ML VIAL IVP ONE ×2 (18:06→21:48)
[2018-01-19 18:43] LABS: BASOPHILS # (AUTO) 0.1 10^3/uL (0.0-0.1); BASOPHILS % (AUTO) 0.9 %; EOSINOPHILS # (AUTO) 0.1 10^3/uL (0.0-0.7); EOSINOPHILS % (AUTO) 0.9 %; HGB - HEMOGLOBIN 13.4 g/dL (14.0-18.0); LYMPHOCYTES # (AUTO) 1.8 10^3/uL (1.5-3.5); LYMPHOCYTES % (AUTO) 13.5 %; MEAN CORPUSCULAR HEMOGLOBIN 27.2 pg (27.0-31.0); MEAN CORPUSCULAR HGB CONC 32.2 g/dL (32.0-36.0); MEAN CORPUSCULAR VOLUME 84.2 fL (80.0-94.0); MEAN PLATELET VOLUME 8.8 fL (7.4-11.4); MONOCYTES # (AUTO) 1.2 10^3/uL (0.0-1.0); NEUTROPHILS # (AUTO) 9.9 10^3/uL (1.5-6.6); NEUTROPHILS % (AUTO) 75.7 %; PLT - PLATELET COUNT 227 10^3/uL (130-450); RED BLOOD COUNT 4.91 10^6/uL (4.70-6.10); RED CELL DISTRIBUTION WIDTH 16.2 % (12.0-15.0); WHITE BLOOD COUNT 13.1 x10^3/uL (4.8-10.8)
[2018-01-19 18:56] LABS: ALBUMIN 4.1 g/dL (3.2-5.5); ALBUMIN/GLOBULIN RATIO 1.3 (1.0-2.2); ALKALINE PHOSPHATASE 92 IU/L (42-121); ALT ALANINE AMINOTRANSFERASE 21 IU/L (10-60); AST ASPARTATE AMINOTRANSFERASE 16 IU/L (10-42); BILIRUBIN,TOTAL 0.6 mg/dL (0.2-1.0); BUN - BLOOD UREA NITROGEN 14 mg/dL (6-20); CALCIUM 9.1 mg/dL (8.5-10.3); CARBON DIOXIDE - CO2 30 mmol/L (21-32); CHLORIDE 97 mmol/L (101-111); CREATININE 1.1 mg/dL (0.6-1.2); GFR - MDRD 69 (>89); GLUCOSE 111 mg/dL (70-100); LIPASE < 10 U/L (22-51); SODIUM 135 mmol/L (135-145); TOTAL PROTEIN 7.3 g/dL (6.7-8.2)
[2018-01-19] MEDS ORDERED: IOPAMIDOL-300 100 ML VIAL ONE (21:26)
--- NOTE | 2018-01-19 22:15 | CT Report ---
EXAM: CT ANGIOGRAM CHEST EXAM DATE: 01/19/2018 09:52 PM. CLINICAL HISTORY: Chest pain, elevated d dimer. COMPARISON: 02/26/2015. TECHNIQUE: Routine helical imaging was performed through the chest in the pulmonary arterial phase. I V Contrast: Nonionic. Reconstructions: Coronal 3-D MIP reconstructions.Sagittal and coronal. In accordance with CT protocol optimization, one or more of the following dose reduction techniques w ere utilized for this exam: automated exposure control, adjustment of mA and/or KV based on patient s ize, or use of iterative reconstructive technique. FINDINGS: Pulmonary Arteries: Diagnostic quality: Adequate through the segmental arteries. No evidence for acute or chronic pulmona ry emboli. No evidence of right heart strain. Lungs/Pleura: Mild bibasilar atelectasis or scarring. Unchanged 3 mm nodule in the lingula, consisten t with benign etiology. No pleural effusion. No pneumothorax. Mediastinum: Heart size is upper normal. Coronary artery calcifications. Normal-sized mediastinal lym ph nodes. Implanted defibrillator remains in place. Thoracic Aorta: Not well enhanced. No acute abnormality seen. Upper Abdomen: Unremarkable. Other: None. IMPRESSION: 1. No pulmonary emboli seen. 2. Mild bibasilar atelectasis or scarring. 3. Borderline heart size with coronary artery calcifications. [facility] Referring Provider Line: [phone] SITE ID: [id number]
--- NOTE | 2018-01-19 22:25 | ED Physician Documentation ---
PD HPI CHEST PAIN - Stated complaint Stated Complaint: CHEST PX - Chief complaint Chief Complaint: Cardiac - History obtained from History obtained from: Patient - History of Present Illness Timing - onset: Chronic Timing - onset during: Rest Timing - details: Gradual onset, Intermittant Quality: Pressure, Aching Associated symptoms: No: Shortness of air, Diaphoresis Similar symptoms before: Work up / diagnostics, Treatment Recently seen: Clinic - Additional information Additional information: Patient is a 57 year old male with a history of prior MO who was sent in for CT angio. Patient had gone to the clinic today and part of the work up was a d- dimer which was elevated so patient was sent in for imaging. Upon initial evaluation in the emergency department patient was chest pain free and stated that he had negative stress test and echo within the last year. Review of Systems Constitutional: denies: Fever, Chills Eyes: reports: Reviewed and negative Ears: reports: Reviewed and negative Nose: reports: Reviewed and negative Throat: reports: Reviewed and negative Cardiac: reports: Chest pain / pressure, Pedal edema Respiratory: denies: Dyspnea, Cough, Wheezing GI: denies: Nausea, Vomiting : reports: Reviewed and negative Skin: reports: Reviewed and negative Musculoskeletal: reports: Extremity swelling. denies: Back pain, Extremity pain Neurologic: denies: Generalized weakness, Focal weakness, Headache Psychiatric: reports: Reviewed and negative PD PAST MEDICAL HISTORY - Past Medical History Cardiovascular: Congestive heart failure, Hypertension, High cholesterol, Coronary artery disease, [place], Other Respiratory: Shortness of breath Neuro: Headache/migraine, Peripheral neuropathy, Other Endocrine/Autoimmune: Type 1 diabetes, Other GI: GERD, Chronic diarrhea, Other : Benign prostate hypertrophy, Renal insuffiency, Other HEENT: Other Psych: Depression, Anxiety, Panic attacks, Post traumatic stress disorder Musculoskeletal: Osteoarthritis Derm: None - Past Surgical History Past Surgical History: Yes General: Colonoscopy, EGD Ortho: Carpal Tunnel surgery, 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 Cardiovascular: Coronary stent, AICD, Cardiac catheterization HEENT: Other - Present Medications Home Medications: Ambulatory Orders Medication Instructions Recorded Confirmed Pantoprazole [Protonix] 40 mg PO BIDAC 09/04/14 01/19/18 Spironolactone 12.5 mg PO DAILY 09/04/14 01/19/18 Zolpidem Tartrate 10 mg PO QPM PRN 09/04/14 01/19/18 raNITIdine HCl [Ranitidine HCl] 300 mg PO QPM 09/04/14 01/19/18 Insulin Lispro [Humalog] 1 - 11 units SQ .SLIDING SCALE 10/07/16 01/19/18 Pregabalin [Lyrica] 300 mg PO BID 10/07/16 01/19/18 Nortriptyline HCl 20 mg PO 0800,1700 03/01/17 01/19/18 Alprazolam 0.5 mg PO BID PRN 04/07/17 01/19/18 Cetirizine [ZyrTEC] 10 mg PO DAILY 04/07/17 01/19/18 Diclofenac Sodium [Voltaren] 4 gm TP QID PRN 04/07/17 01/19/18 Lidocaine Patch 5% [Lidoderm Patch] 1 each TOP DAILY PRN 04/07/17 01/19/18 Simvastatin 80 mg PO QPM 04/07/17 01/19/18 Budesonide [Entocort EC] 9 mg PO DAILY #60 capsule 04/10/17 01/19/18 Psyllium [Metamucil] 1 packet PO BID packet 04/10/17 01/19/18 oxyCODONE [Roxicodone] 5 mg PO Q6HR #0 04/10/17 01/19/18 Aspirin Chewable [[place] 81 mg PO DAILY tablet 05/30/17 01/19/18 Aspirin] DULoxetine [Cymbalta] 60 mg PO BID capsule 05/30/17 01/19/18 Gabapentin [Neurontin] 300 mg PO BID capsule 05/30/17 01/19/18 buPROPion [Wellbutrin Xl] 150 mg PO DAILY tablet 05/30/17 09/18/17 Cholestyramine [Questran] 1 pkt PO TID 01/19/18 01/19/18 Furosemide 20 mg PO BID 01/19/18 01/19/18 Metoprolol Succinate/Hctz 1 each PO DAILY 01/19/18 01/19/18 [Metoprolol ER-Hctz 25-12.5 mg] Nitroglycerin [Nitrostat] 1 tab SL PRN PRN 01/19/18 01/19/18 Pramlintide Acetate [Symlinpen 60] 15 mcg SQ AC 01/19/18 01/19/18 - Allergies Allergies/Adverse Reactions: Allergies Allergy/AdvReac Type Severity Reaction Status Date / Time No Known Drug Allergies Allergy Verified 01/19/18 18:47 - Social History Does the pt smoke?: No Smoking Status: Never smoker Does the pt drink ETOH?: No Does the pt have substance abuse?: No - Immunizations Immunizations are current?: Yes - POLST Patient has POLST: No PD ED PE NORMAL - Vitals Vital signs reviewed: Yes - General General: Alert and oriented X 3, No acute distress - HEENT HEENT: Atraumatic, Moist mucous membranes - Neck Neck: Supple, no meningeal sign - Cardiac Cardiac: RRR, No murmur - Respiratory Respiratory: No respiratory distress - Abdomen Abdomen: Soft, Non distended - Derm Derm: Normal color - Extremities Extremities: No deformity - Neuro Neuro: Alert and oriented X 3, No motor deficit, Normal speech Eye Opening: Spontaneous Results - Vitals Vitals: Vital Signs - 24 hr 01/19/18 01/19/18 01/19/18 18:17 20:25 21:48 Temperature 36.6 C 36.5 C Heart Rate 87 79 78 Respiratory 18 12 12 Rate Blood Pressure 135/90 H 141/94 H 129/78 O2 Saturation 96 95 94 01/19/18 22:47 Temperature Heart Rate 76 Respiratory 18 Rate Blood Pressure 124/72 O2 Saturation 94 Oxygen O2 Source [With Activity] Room air O2 Source Room air - Labs Labs: Laboratory Tests 01/19/18 01/19/18 01/19/18 18:30 18:30 18:30 WBC 13.1 H RBC 4.91 Hgb 13.4 L Hct 41.4 L MCV 84.2 MCH 27.2 MCHC 32.2 RDW 16.2 H Plt Count 227 MPV 8.8 Neut # 9.9 H Lymph # 1.8 [place] # 1.2 H Eos # 0.1 Baso # 0.1 Absolute Nucleated RBC 0.00 Nucleated RBC % 0.0 Sodium 135 Potassium 3.6 Chloride 97 L Carbon Dioxide 30 Anion Gap 8.0 BUN 14 Creatinine 1.1 Estimated GFR (MDRD) 69 L Glucose 111 H Calcium 9.1 Total Bilirubin 0.6 AST 16 ALT 21 Alkaline Phosphatase 92 Troponin I < 0.04 Total Protein 7.3 Albumin 4.1 Globulin 3.2 Albumin/Globulin Ratio 1.3 Lipase < 10 L - Rads (name of study) ct angio Radiology: Final report received (no pe, but there is evidence or calcification of the coronary arteries) PD MEDICAL DECISION MAKING - ED course Complexity details: reviewed old records, reviewed results, re-evaluated patient , considered differential, d/w patient ED course: Patient was seen and examined at bedside. Patient denied any active complaints but due to the history CT angio and basic blood work were ordered. when patient returned from imaging the results were reviewed. there was no acute PE. Patient was made aware of the findings and was stable for discharge with outpatient follow up. Departure - Departure Disposition: 01 Home, Self Care Clinical Impression: Chest pain Condition: Good Instructions: ED Chest Pain Atypical Unkn Cause Follow-Up: Amadou Jackson MD [Primary Care Provider] - Tomorrow Comments: Your CT today was within normal limits. There was no PE appreciated. You are still high risk so you will need to follow up with your primary doctor and account auditor. You may return to the emergency department at any time for new, worsening or uncontrollable symptoms. Discharge Date/Time: 01/19/18 22:48
[2018-01-19 22:48] VITALS: BP 124/72
== END 2018-01-19 22:48 | disposition home or self-care (01) ==
LOC: ED 18:05
DX: R07.9 Chest pain, unspecified (principal); I25.2 Old myocardial infarction; I11.0 Hypertensive heart disease with heart failure; I50.9 Heart failure, unspecified; I25.10 Atherosclerotic heart disease of native coronary artery without angina pectoris; E10.42 Type 1 diabetes mellitus with diabetic polyneuropathy; Z79.4 Long term (current) use of insulin; N40.0 Benign prostatic hyperplasia without lower urinary tract symptoms; M19.90 Unspecified osteoarthritis, unspecified site; K21.9 Gastro-esophageal reflux disease without esophagitis; Z95.810 Presence of automatic (implantable) cardiac defibrillator
CPT/HCPCS: 36415; 71275; 80053; 83690; 84484; 85025; 93005; 99284; Q9967; 85379

== ENCOUNTER 2018-03-17 18:29 | Emergency (ER) | payer MEDICARE ==
[2018-03-17 19:44] LABS: BASOPHILS # (AUTO) 0.1 10^3/uL (0.0-0.1); EOSINOPHILS # (AUTO) 0.1 10^3/uL (0.0-0.7); EOSINOPHILS % (AUTO) 0.7 %; HGB - HEMOGLOBIN 13.4 g/dL (14.0-18.0); LYMPHOCYTES # (AUTO) 1.1 10^3/uL (1.5-3.5); LYMPHOCYTES % (AUTO) 8.5 %; MEAN CORPUSCULAR HEMOGLOBIN 29.2 pg (27.0-31.0); MEAN CORPUSCULAR HGB CONC 33.5 g/dL (32.0-36.0); MEAN CORPUSCULAR VOLUME 87.1 fL (80.0-94.0); MEAN PLATELET VOLUME 8.9 fL (7.4-11.4); MONOCYTES % (AUTO) 7.5 %; NEUTROPHILS # (AUTO) 10.6 10^3/uL (1.5-6.6); NEUTROPHILS % (AUTO) 82.3 %; PLT - PLATELET COUNT 213 10^3/uL (130-450); RED BLOOD COUNT 4.58 10^6/uL (4.70-6.10); WHITE BLOOD COUNT 12.9 x10^3/uL (4.8-10.8)
[2018-03-17 19:59] LABS: ALBUMIN 4.2 g/dL (3.2-5.5); ALBUMIN/GLOBULIN RATIO 1.4 (1.0-2.2); BILIRUBIN,TOTAL 0.7 mg/dL (0.2-1.0); CALCIUM 8.8 mg/dL (8.5-10.3); CREATININE 1.1 mg/dL (0.6-1.2); TOTAL PROTEIN 7.3 g/dL (6.7-8.2)
--- NOTE | 2018-03-17 20:40 | XRAY Report ---
EXAM: CHEST RADIOGRAPHY EXAM DATE: 03/17/2018 08:14 PM. CLINICAL HISTORY: Chest pain. COMPARISON: 09/30/2017 chest x-ray. TECHNIQUE: 2 views. FINDINGS: Lungs/Pleura: There is pulmonary vascular distention without edema or focal consolidation. Near atele ctatic opacities seen at both lung bases. No pleural effusion or pneumothorax. Mediastinum: Heart and mediastinal contours are unremarkable. Other: Single-lead asymmetric or noted. IMPRESSION: Pulmonary venous congestion without edema or focal airspace consolidation. [facility] Referring Provider Line: [phone] SITE ID: [id number]
--- NOTE | 2018-03-17 20:41 | ED Physician Documentation ---
PD HPI CHEST PAIN - Stated complaint Stated Complaint: SOA/CHEST PX/TIGHTNESS - Chief complaint Chief Complaint: Cardiac - History obtained from History obtained from: Patient - History of Present Illness Timing - onset: How many hours ago (8), Today Timing - onset during: Light activity Timing - duration: Hours (about an hour of pain, subsequently improved after some NTG x 2 (or coincidental)) Timing - details: Abrupt onset, Now resolved Quality: Aching, Pain Location: Substernal, Left neck Improved by: Nitro Worsened by: No: Inspiration, Movement, Palpation Associated symptoms: No: Shortness of air, Nausea, Feeling faint / dizzy, General Weakness, Palpitations Similar symptoms before: No diagnosis (has intermittent chest pain episodes. Had not had one for about 4 months though. Does have history of CAD.) Review of Systems Constitutional: denies: Fever Nose: denies: Rhinorrhea / runny nose, Congestion Throat: denies: Sore throat Cardiac: reports: Chest pain / pressure, Pedal edema (mild only). denies: Palpitations, Calf pain Respiratory: denies: Dyspnea, Cough, Wheezing GI: denies: Abdominal Pain, Nausea, Vomiting, Diarrhea PD PAST MEDICAL HISTORY - Past Medical History Cardiovascular: Congestive heart failure, Hypertension, High cholesterol, Coronary artery disease, [place], Other Respiratory: Shortness of breath Endocrine/Autoimmune: Type 1 diabetes, Other GI: GERD, Chronic diarrhea, Other : Benign prostate hypertrophy, Renal insuffiency, Other HEENT: Other Psych: Depression, Anxiety, Panic attacks, Post traumatic stress disorder Musculoskeletal: Osteoarthritis Derm: None - Past Surgical History Past Surgical History: Yes General: Colonoscopy, EGD Ortho: Carpal Tunnel surgery, 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 Cardiovascular: Coronary stent, AICD, Cardiac catheterization HEENT: Other - Present Medications Home Medications: Ambulatory Orders Medication Instructions Recorded Confirmed Pantoprazole [Protonix] 40 mg PO BIDAC 09/04/14 01/19/18 Spironolactone 12.5 mg PO DAILY 09/04/14 01/19/18 Zolpidem Tartrate 10 mg PO QPM PRN 09/04/14 01/19/18 raNITIdine HCl [Ranitidine HCl] 300 mg PO QPM 09/04/14 01/19/18 Insulin Lispro [Humalog] 1 - 11 units SQ .SLIDING SCALE 10/07/16 01/19/18 Pregabalin [Lyrica] 300 mg PO BID 10/07/16 01/19/18 Nortriptyline HCl 20 mg PO 0800,1700 03/01/17 01/19/18 Alprazolam 0.5 mg PO BID PRN 04/07/17 01/19/18 Cetirizine [ZyrTEC] 10 mg PO DAILY 04/07/17 01/19/18 Diclofenac Sodium [Voltaren] 4 gm TP QID PRN 04/07/17 01/19/18 Lidocaine Patch 5% [Lidoderm Patch] 1 each TOP DAILY PRN 04/07/17 01/19/18 Simvastatin 80 mg PO QPM 04/07/17 01/19/18 Budesonide [Entocort EC] 9 mg PO DAILY #60 capsule 04/10/17 01/19/18 Psyllium [Metamucil] 1 packet PO BID packet 04/10/17 01/19/18 oxyCODONE [Roxicodone] 5 mg PO Q6HR #0 04/10/17 01/19/18 Aspirin Chewable [[place] 81 mg PO DAILY tablet 05/30/17 01/19/18 Aspirin] DULoxetine [Cymbalta] 60 mg PO BID capsule 05/30/17 01/19/18 Gabapentin [Neurontin] 300 mg PO BID capsule 05/30/17 01/19/18 buPROPion [Wellbutrin Xl] 150 mg PO DAILY tablet 05/30/17 09/18/17 Cholestyramine [Questran] 1 pkt PO TID 01/19/18 01/19/18 Furosemide 20 mg PO BID 01/19/18 01/19/18 Metoprolol Succinate/Hctz 1 each PO DAILY 01/19/18 01/19/18 [Metoprolol ER-Hctz 25-12.5 mg] Nitroglycerin [Nitrostat] 1 tab SL PRN PRN 01/19/18 01/19/18 Pramlintide Acetate [Symlinpen 60] 15 mcg SQ AC 01/19/18 01/19/18 - Allergies Allergies/Adverse Reactions: Allergies Allergy/AdvReac Type Severity Reaction Status Date / Time No Known Drug Allergies Allergy Verified 01/19/18 18:47 - Social History Does the pt smoke?: No Smoking Status: Never smoker Does the pt drink ETOH?: No Does the pt have substance abuse?: No - Immunizations Immunizations are current?: Yes - POLST Patient has POLST: No PD ED PE NORMAL - Vitals Vital signs reviewed: Yes - General General: Alert and oriented X 3, No acute distress (but slightly anxious), Well developed/nourished - HEENT HEENT: Pharynx benign - Neck Neck: Supple, no meningeal sign, No adenopathy - Cardiac Cardiac: RRR - Respiratory Respiratory: Clear bilaterally, Other (no chestwall tenderness) - Abdomen Abdomen: Normal bowel sounds, Soft, Non tender, Non distended, No organomegaly - Back Back: No CVA TTP - Derm Derm: Normal color, Warm and dry - Extremities Extremities: No deformity, No tenderness to palpate, Normal ROM s pain, No edema , No calf tenderness / cord - Neuro Neuro: Alert and oriented X 3, No motor deficit, Normal speech Results - Vitals Vitals: Vital Signs - 24 hr 03/17/18 03/17/18 03/17/18 18:47 20:26 21:09 Temperature 36.4 C L Heart Rate 81 74 77 Respiratory 18 16 12 Rate Blood Pressure 128/70 119/66 114/65 O2 Saturation 95 98 97 Oxygen O2 Source [With Activity] Room air O2 Source Room air - EKG (time done) 18:44 Rate: Rate (enter#) (81) Rhythm: NSR [place]: Normal Intervals: Normal DC Ischemia: Normal ST segments. No: ST elevation c/w ischemia, ST depression Compare to prior EKG: Unchanged from prior EKG - Labs Labs: Laboratory Tests 03/17/18 03/17/18 03/17/18 19:30 19:30 19:30 WBC 12.9 H RBC 4.58 L Hgb 13.4 L Hct 39.9 L MCV 87.1 MCH 29.2 MCHC 33.5 RDW 16.0 H Plt Count 213 MPV 8.9 Neut # 10.6 H Lymph # 1.1 L [place] # 1.0 Eos # 0.1 Baso # 0.1 Absolute Nucleated RBC 0.00 Nucleated RBC % 0.0 Sodium 134 L Potassium 3.7 Chloride 93 L Carbon Dioxide 33 H Anion Gap 8.0 BUN 15 Creatinine 1.1 Estimated GFR (MDRD) 69 L Glucose 204 H Calcium 8.8 Total Bilirubin 0.7 AST 22 ALT 27 Alkaline Phosphatase 96 Troponin I < 0.04 Total Protein 7.3 Albumin 4.2 Globulin 3.1 Albumin/Globulin Ratio 1.4 Lipase 13 L - Rads (name of study) chest xray Radiology: Prelim report reviewed (no acute process. Pacer noted. ) PD MEDICAL DECISION MAKING - ED course Complexity details: considered differential (chest pain onset 8 hours ago, improved now after some NTG earlier in the day. Concerned about CA. Trop is negative. Sounds less likely angina as not exertional. ), d/w patient Departure - Departure Disposition: Home, Self Care Clinical Impression: Chest pain Qualifiers: Chest pain type: precordial pain Qualified Code(s): R07.2 - Precordial pain Clinical Impression: (Ruled Out): Myocardial infarction Condition: Stable Record reviewed to determine appropriate education?: Yes Instructions: ED Chest Pain Atypical Unkn Cause Follow-Up: Amadou Jackson MD [Primary Care Provider] - Comments: Continue usual medications. Follow-up with frequent need for use of the nitroglycerin. Right now there is no signs of heart attack or heart failure. There may be noncardiac related. See what the pattern is over the next few days. Discharge Date/Time: 03/17/18 21:40
[2018-03-17] MEDS ORDERED: ISOSORBIDE MONONITRATE ER 30 MG TABLET PO STA (20:57)
[2018-03-17 21:09] VITALS: BP 114/65
== END 2018-03-17 21:40 | disposition home or self-care (01) ==
LOC: ED 18:29
DX: R07.2 Precordial pain (principal); R94.31 Abnormal electrocardiogram [ECG] [EKG]; I11.0 Hypertensive heart disease with heart failure; I50.9 Heart failure, unspecified; I25.2 Old myocardial infarction; I25.10 Atherosclerotic heart disease of native coronary artery without angina pectoris; E78.00 Pure hypercholesterolemia, unspecified; E10.9 Type 1 diabetes mellitus without complications; Z95.5 Presence of coronary angioplasty implant and graft; Z95.810 Presence of automatic (implantable) cardiac defibrillator; Z79.82 Long term (current) use of aspirin
CPT/HCPCS: 36415; 71046; 80053; 83690; 84484; 85025; 93005; 99283; A9270

== ENCOUNTER 2018-03-27 21:09 | Emergency (ER) | payer MEDICARE ==
[2018-03-27] MEDS ORDERED: KETOROLAC 30 MG/ML VIAL IVP STA (22:14)
[2018-03-27] MEDS ORDERED: SODIUM CHLORIDE 0.9% 1,000 ML IV ONE ×2 (22:14→23:11)
--- NOTE | 2018-03-27 22:19 | ED Physician Documentation ---
History of Present Illness - Stated complaint Stated Complaint: LFT BODY PX - Chief complaint Chief Complaint: Neuro - History obtained from History obtained from: Patient - Additonal information Additional information: The patient is a 57-year-old insulin-dependent diabetic male who presents with left lower extremity discomfort, which he describes as an exacerbation of his diabetic neuropathy. His normal doses of OxyContin and Lyrica have not relieved the pain today. When he talked to the on-call physician he described weakness of his left lower extremity, in addition to the pain, and was advised to come to the emergency department for evaluation for possible stroke. He denies numbness, visual disturbance, or difficulty speaking. He denies cough, fever, abdominal pain, or dysuria. He reports slight nausea earlier today, without vomiting. Past medical history in addition to diabetes, is significant for myocardial infarction in 2011, and pacemaker placement. Review of Systems Constitutional: denies: Fever Eyes: denies: Decreased vision Ears: denies: Tinnitus/ringing Nose: denies: Congestion Throat: denies: Sore throat Cardiac: denies: Chest pain / pressure Respiratory: denies: Dyspnea, Cough GI: reports: Nausea (Slight nausea earlier today, but not currently.). denies: Abdominal Pain, Vomiting : denies: Dysuria Skin: denies: Rash Musculoskeletal: reports: Extremity pain (Left lower extremity primarily.) Neurologic: denies: Focal weakness, Numbness, Headache PD PAST MEDICAL HISTORY - Past Medical History Past Medical History: Yes Cardiovascular: Congestive heart failure, Hypertension, High cholesterol, Coronary artery disease, [place], Other Respiratory: Shortness of breath Endocrine/Autoimmune: Type 1 diabetes, Other GI: GERD, Chronic diarrhea, Other : Benign prostate hypertrophy, Renal insuffiency, Other HEENT: Other Psych: Depression, Anxiety, Panic attacks, Post traumatic stress disorder Musculoskeletal: Osteoarthritis Derm: None Other Past Medical History: Peripheral Neuropathy - Past Surgical History Past Surgical History: Yes General: Colonoscopy, EGD Ortho: Carpal Tunnel surgery, 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 Cardiovascular: Coronary stent, AICD, Cardiac catheterization HEENT: Other - Present Medications Home Medications: Ambulatory Orders Medication Instructions Recorded Confirmed Pantoprazole [Protonix] 40 mg PO BIDAC 09/04/14 01/19/18 Spironolactone 12.5 mg PO DAILY 09/04/14 01/19/18 Zolpidem Tartrate 10 mg PO QPM PRN 09/04/14 01/19/18 raNITIdine HCl [Ranitidine HCl] 300 mg PO QPM 09/04/14 01/19/18 Insulin Lispro [Humalog] 1 - 11 units SQ .SLIDING SCALE 10/07/16 01/19/18 Pregabalin [Lyrica] 300 mg PO BID 10/07/16 01/19/18 Nortriptyline HCl 20 mg PO 0800,1700 03/01/17 01/19/18 Alprazolam 0.5 mg PO BID PRN 04/07/17 01/19/18 Cetirizine [ZyrTEC] 10 mg PO DAILY 04/07/17 01/19/18 Diclofenac Sodium [Voltaren] 4 gm TP QID PRN 04/07/17 01/19/18 Lidocaine Patch 5% [Lidoderm Patch] 1 each TOP DAILY PRN 04/07/17 01/19/18 Simvastatin 80 mg PO QPM 04/07/17 01/19/18 Budesonide [Entocort EC] 9 mg PO DAILY #60 capsule 04/10/17 01/19/18 Psyllium [Metamucil] 1 packet PO BID packet 04/10/17 01/19/18 oxyCODONE [Roxicodone] 5 mg PO Q6HR #0 04/10/17 01/19/18 Aspirin Chewable [[place] 81 mg PO DAILY tablet 05/30/17 01/19/18 Aspirin] DULoxetine [Cymbalta] 60 mg PO BID capsule 05/30/17 01/19/18 Gabapentin [Neurontin] 300 mg PO BID capsule 05/30/17 01/19/18 buPROPion [Wellbutrin Xl] 150 mg PO DAILY tablet 05/30/17 09/18/17 Cholestyramine [Questran] 1 pkt PO TID 01/19/18 01/19/18 Furosemide 20 mg PO BID 01/19/18 01/19/18 Metoprolol Succinate/Hctz 1 each PO DAILY 01/19/18 01/19/18 [Metoprolol ER-Hctz 25-12.5 mg] Nitroglycerin [Nitrostat] 1 tab SL PRN PRN 01/19/18 01/19/18 Pramlintide Acetate [Symlinpen 60] 15 mcg SQ AC 01/19/18 01/19/18 - Allergies Allergies/Adverse Reactions: Allergies Allergy/AdvReac Type Severity Reaction Status Date / Time No Known Drug Allergies Allergy Verified 01/19/18 18:47 - Social History Does the pt smoke?: No Smoking Status: Never smoker Does the pt drink ETOH?: No Does the pt have substance abuse?: No - Immunizations Immunizations are current?: Yes - POLST Patient has POLST: No PD ED PE NORMAL - Vitals Vital signs reviewed: Yes (Borderline hypertension initially.) - General General: Alert and oriented X 3, Well developed/nourished - HEENT HEENT: Atraumatic, Pharynx benign, Other (Dry buccal mucosa.) - Neck Neck: Supple, no meningeal sign, No adenopathy - Cardiac Cardiac: RRR - Respiratory Respiratory: No respiratory distress, Clear bilaterally - Abdomen Abdomen: Soft, Non tender, Other (Rotund abdomen.) - Back Back: No CVA TTP - Derm Derm: No rash - Extremities Extremities: No edema, No calf tenderness / cord - Neuro Neuro: Alert and oriented X 3, No motor deficit, No sensory deficit, Normal speech Results - Vitals Vitals: Vital Signs - 24 hr 03/27/18 03/27/18 03/27/18 21:15 22:00 22:30 Temperature 36.9 C Heart Rate 97 92 87 Respiratory 18 16 16 Rate Blood Pressure 142/88 H 111/77 108/62 O2 Saturation 93 94 93 03/28/18 03/28/18 00:14 00:30 Temperature Heart Rate 88 Respiratory 16 Rate Blood Pressure 122/78 128/85 H O2 Saturation 95 Oxygen O2 Source [] Room air O2 Source Room air - EKG (time done) 21:22 Rate: Rate (enter#) (87) Rhythm: NSR [place]: Normal Intervals: Normal DC Ischemia: Q waves (in leads V2 and V3, consistent with previous anteroseptal [place]. ) Compare to prior EKG: Unchanged from prior EKG Computer interpretation: Agree with computer - Labs Labs: Laboratory Tests 03/27/18 03/27/18 03/28/18 21:20 21:20 00:29 WBC 12.2 H RBC 4.66 L Hgb 13.4 L Hct 41.5 L MCV 89.2 MCH 28.8 MCHC 32.3 RDW 16.1 H Plt Count 227 MPV 9.6 Neut # (Auto) 9.6 H Lymph # (Auto) 1.5 [place] # (Auto) 0.9 Eos # (Auto) 0.1 Baso # (Auto) 0.1 Absolute Nucleated RBC 0.01 Nucleated RBC % 0.1 Sodium 134 L Potassium 3.9 Chloride 95 L Carbon Dioxide 32 Anion Gap 7.0 BUN 19 Creatinine 1.2 Estimated GFR (MDRD) 62 L Glucose 404 H Calcium 9.2 Total Bilirubin 0.2 AST 19 ALT 21 Alkaline Phosphatase 117 Total Protein 7.2 Albumin 3.9 Globulin 3.3 Albumin/Globulin Ratio 1.2 Lipase 16 L Urine Color YELLOW Urine Clarity CLEAR Urine pH 6.0 Ur Specific [place] 1.015 Urine Protein NEGATIVE Urine Glucose (UA) >=1000 H Urine Ketones NEGATIVE Urine Occult Blood NEGATIVE Urine Nitrite NEGATIVE Urine Bilirubin NEGATIVE Urine Urobilinogen 0.2 (NORMAL) Ur Leukocyte Esterase NEGATIVE Ur Microscopic Review NOT INDICATED Urine Culture Comments NOT INDICATED PD MEDICAL DECISION MAKING - ED course Complexity details: reviewed old records, reviewed results, re-evaluated patient , considered differential, d/w patient ED course: The patient's presentation is significant for hyperglycemia, exacerbation of his diabetic neuropathy, and mild dehydration. There is no clinical evidence to suggest acute stroke. Laboratory evaluation reveals elevated blood glucose of 404. Urinalysis is negative except for glucosuria. Treatment in the emergency department included administration of normal saline IV. Fentanyl 50 mcg was administered IV, with subsequent improvement in the patient's discomfort. Because of his elevated blood sugar he administered an additional 15 units of insulin through his insulin pump. Repeat fingerstick blood sugar had improved to 320 by the time of discharge. Departure - Departure Disposition: 01 Home, Self Care Clinical Impression: Dehydration Hyperglycemia due to type 2 diabetes mellitus Qualifiers: Diabetes mellitus terminal make up operator insulin use: with senior living use Qualified Code(s): E11.65 - Type 2 diabetes mellitus with hyperglycemia Condition: Stable Instructions: ED Hyperglycemia Diabetic, ED Dehydration Follow-Up: Amadou Jackson MD [Provider Admit Priv/Credential] - Comments: Drink plenty of fluids. Keep track of your blood sugars, and take additional insulin as needed. Follow up with your primary physician within 1-2 weeks. Call to schedule appointment. Return to the emergency department if you develop increasing pain or weakness, persistent vomiting, recurrent dehydration, or otherwise worsening symptoms. Discharge Date/Time: 03/28/18 00:55
[2018-03-27 22:26] LABS: BASOPHILS # (AUTO) 0.1 10^3/uL (0.0-0.1); BASOPHILS % (AUTO) 0.5 %; EOSINOPHILS # (AUTO) 0.1 10^3/uL (0.0-0.7); EOSINOPHILS % (AUTO) 0.9 %; HGB - HEMOGLOBIN 13.4 g/dL (14.0-18.0); LYMPHOCYTES # (AUTO) 1.5 10^3/uL (1.5-3.5); LYMPHOCYTES % (AUTO) 12.4 %; MEAN CORPUSCULAR HEMOGLOBIN 28.8 pg (27.0-31.0); MEAN CORPUSCULAR HGB CONC 32.3 g/dL (32.0-36.0); MEAN CORPUSCULAR VOLUME 89.2 fL (80.0-94.0); MEAN PLATELET VOLUME 9.6 fL (7.4-11.4); MONOCYTES # (AUTO) 0.9 10^3/uL (0.0-1.0); MONOCYTES % (AUTO) 7.7 %; NEUTROPHILS # (AUTO) 9.6 10^3/uL (1.5-6.6); NEUTROPHILS % (AUTO) 78.5 %; PLT - PLATELET COUNT 227 10^3/uL (130-450); RED BLOOD COUNT 4.66 10^6/uL (4.70-6.10); RED CELL DISTRIBUTION WIDTH 16.1 % (12.0-15.0); WHITE BLOOD COUNT 12.2 x10^3/uL (4.8-10.8)
[2018-03-27 22:37] LABS: ALBUMIN 3.9 g/dL (3.2-5.5); ALBUMIN/GLOBULIN RATIO 1.2 (1.0-2.2); BILIRUBIN,TOTAL 0.2 mg/dL (0.2-1.0); CALCIUM 9.2 mg/dL (8.5-10.3); CREATININE 1.2 mg/dL (0.6-1.2); TOTAL PROTEIN 7.2 g/dL (6.7-8.2)
[2018-03-27] MEDS ORDERED: fentaNYL 100 MCG/2 ML VIAL IVP STA (23:02)
[2018-03-28 00:32] LABS: BILIRUBIN,URINE NEGATIVE (NEGATIVE); GLUCOSE, URINE (UA) >=1000 mg/dL (NEGATIVE); KETONES,URINE (UA) NEGATIVE (NEGATIVE); LEUKOCYTE ESTERASE, URINE NEGATIVE (NEGATIVE); NITRITE,URINE NEGATIVE (NEGATIVE); OCCULT BLOOD,URINE NEGATIVE (NEGATIVE); PROTEIN,URINE NEGATIVE (NEGATIVE); UROBILINOGEN,URINE 0.2 (NORMAL) E.U./dL (NORMAL)
[2018-03-28 00:34] LABS: CLARITY,URINE CLEAR (CLEAR)
[2018-03-28 00:49] VITALS: BP 128/85
== END 2018-03-28 00:55 | disposition home or self-care (01) ==
LOC: ED 21:09
DX: E86.0 Dehydration (principal); E10.65 Type 1 diabetes mellitus with hyperglycemia; I13.0 Hypertensive heart and chronic kidney disease with heart failure and stage 1 through stage 4 chronic kidney disease, or unspecified chronic kidney disease; E10.22 Type 1 diabetes mellitus with diabetic chronic kidney disease; N18.9 Chronic kidney disease, unspecified; E10.42 Type 1 diabetes mellitus with diabetic polyneuropathy; Z79.4 Long term (current) use of insulin; Z79.899 Other long term (current) drug therapy; K21.9 Gastro-esophageal reflux disease without esophagitis; E78.00 Pure hypercholesterolemia, unspecified; I25.10 Atherosclerotic heart disease of native coronary artery without angina pectoris; I25.2 Old myocardial infarction; N40.0 Benign prostatic hyperplasia without lower urinary tract symptoms; Z95.810 Presence of automatic (implantable) cardiac defibrillator; Z79.82 Long term (current) use of aspirin
CPT/HCPCS: 36415; 80053; 81001; 81003; 83690; 85025; 87086; 93005; 96361; 96374; 99284

== ENCOUNTER 2018-03-30 05:11 | Emergency (ER) | payer MEDICARE ==
--- NOTE | 2018-03-30 05:18 | ED Physician Documentation ---
PD HPI HEAD INJURY - Stated complaint Stated Complaint: HEAD INJURY - Chief complaint Chief Complaint: Trauma Hd/Nk - History obtained from History obtained from: Patient - History of Present Illness Mechanism of head injury: Fell Where head injury occurred: Home Timing - onset: Today Location of injury: Top Associated symptoms: No: LOC Contributing factors: Anticoagulated Similar symptoms before: No diagnosis Recently seen: Not recently seen - Additional information Additional information: Patient is a 58 year old male with a history of diabetes and multiple ED visits who is presenting to the emergency department for head trauma. patient states that when he got up this morning he fell forward and his head went through the drywall. Review of Systems Ten Systems: 10 systems reviewed and negative Neurologic: reports: Head injury. denies: Headache, LOC PD PAST MEDICAL HISTORY - Past Medical History Cardiovascular: Congestive heart failure, Hypertension, High cholesterol, Coronary artery disease, [place], Other Respiratory: Shortness of breath Endocrine/Autoimmune: Type 1 diabetes, Other GI: GERD, Chronic diarrhea, Other : Benign prostate hypertrophy, Renal insuffiency, Other HEENT: Other Psych: Depression, Anxiety, Panic attacks, Post traumatic stress disorder Musculoskeletal: Osteoarthritis Derm: None - Past Surgical History Past Surgical History: Yes General: Colonoscopy, EGD Ortho: Carpal Tunnel surgery, Other /DATA MANAGEMENT: Other Cardiovascular: Coronary stent, AICD, Cardiac catheterization HEENT: Other - Present Medications Home Medications: Ambulatory Orders Medication Instructions Recorded Confirmed Pantoprazole [Protonix] 40 mg PO BIDAC 09/04/14 01/19/18 Spironolactone 12.5 mg PO DAILY 09/04/14 01/19/18 Zolpidem Tartrate 10 mg PO QPM PRN 09/04/14 01/19/18 raNITIdine HCl [Ranitidine HCl] 300 mg PO QPM 09/04/14 01/19/18 Insulin Lispro [Humalog] 1 - 11 units SQ .SLIDING SCALE 10/07/16 01/19/18 Pregabalin [Lyrica] 300 mg PO BID 10/07/16 01/19/18 Nortriptyline HCl 20 mg PO 0800,1700 03/01/17 01/19/18 Alprazolam 0.5 mg PO BID PRN 04/07/17 01/19/18 Cetirizine [ZyrTEC] 10 mg PO DAILY 04/07/17 01/19/18 Diclofenac Sodium [Voltaren] 4 gm TP QID PRN 04/07/17 01/19/18 Lidocaine Patch 5% [Lidoderm Patch] 1 each TOP DAILY PRN 04/07/17 01/19/18 Simvastatin 80 mg PO QPM 04/07/17 01/19/18 Budesonide [Entocort EC] 9 mg PO DAILY #60 capsule 04/10/17 01/19/18 Psyllium [Metamucil] 1 packet PO BID packet 04/10/17 01/19/18 oxyCODONE [Roxicodone] 5 mg PO Q6HR #0 04/10/17 01/19/18 Aspirin Chewable [[place] 81 mg PO DAILY tablet 05/30/17 01/19/18 Aspirin] DULoxetine [Cymbalta] 60 mg PO BID capsule 05/30/17 01/19/18 Gabapentin [Neurontin] 300 mg PO BID capsule 05/30/17 01/19/18 buPROPion [Wellbutrin Xl] 150 mg PO DAILY tablet 05/30/17 09/18/17 Cholestyramine [Questran] 1 pkt PO TID 01/19/18 01/19/18 Furosemide 20 mg PO BID 01/19/18 01/19/18 Metoprolol Succinate/Hctz 1 each PO DAILY 01/19/18 01/19/18 [Metoprolol ER-Hctz 25-12.5 mg] Nitroglycerin [Nitrostat] 1 tab SL PRN PRN 01/19/18 01/19/18 Pramlintide Acetate [Symlinpen 60] 15 mcg SQ AC 01/19/18 01/19/18 - Allergies Allergies/Adverse Reactions: Allergies Allergy/AdvReac Type Severity Reaction Status Date / Time No Known Drug Allergies Allergy Verified 01/19/18 18:47 - Social History Does the pt smoke?: No Smoking Status: Never smoker Does the pt drink ETOH?: No Does the pt have substance abuse?: No - Immunizations Immunizations are current?: Yes - POLST Patient has POLST: No PD ED PE NORMAL - Vitals Vital signs reviewed: Yes - General General: Alert and oriented X 3, No acute distress - HEENT HEENT: Atraumatic, PERRL - Cardiac Cardiac: RRR - Respiratory Respiratory: No respiratory distress - Abdomen Abdomen: Non distended - Derm Derm: Normal color, No rash - Extremities Extremities: No deformity - Neuro Neuro: Alert and oriented X 3, short piece handler 2-12 intact, No motor deficit, Normal speech Eye Opening: Spontaneous Motor: Obeys Commands Verbal: Oriented GCS Score: 15 Results - Vitals Vitals: Vital Signs - 24 hr 03/30/18 03/30/18 05:15 06:25 Temperature 36.8 C Heart Rate 94 87 Respiratory 18 18 Rate Blood Pressure 126/75 114/79 O2 Saturation 95 100 Oxygen O2 Source [With Activity] Room air O2 Source Room air - Rads (name of study) ct head Radiology: Final report received (no acute intracranial pathology) PD MEDICAL DECISION MAKING - ED course Complexity details: reviewed old records, reviewed results, re-evaluated patient , considered differential, d/w patient ED course: Patient was seen and examined at bedside. Due to the unclear etiology and the fact that the patient was on blood thinners imaging was ordered. When patient returned from imaging the results were reviewed. there were no signs of intracranial hemorrhage. Patient required no further work up at this time and was stable for discharge with outpatient follow up. Departure - Departure Disposition: 01 Home, Self Care Clinical Impression: Closed head injury Condition: Good Instructions: ED Head Injury Closed Follow-Up: Amadou Jackson MD [Primary Care Provider] - As Needed Comments: Your diagnostics today were within normal limits. there is no acute intracranial pathology. You can take tylenol as needed for pain. You should follow up with your doctor if symptoms persist. You may return to the emergency department at any time for new, worsening or uncontrollable symptoms.
[2018-03-30 06:26] VITALS: BP 114/79
--- NOTE | 2018-03-30 06:34 | CT Report ---
CT BRAIN WITHOUT CONTRAST: 03/30/2018 CLINICAL INDICATION: Trauma, on blood thinners. COMPARISON: 04/07/2017. TECHNIQUE: Axial CT images of the brain were obtained without intravenous contrast. FINDINGS: The ventricles and sulci are normal in size, shape and configuration. The basilar cisterns are patent. There is no evidence of intracranial hemorrhage, mass effect, or midline shift. The visualized orbital contents are unremarkable. IMPRESSION: NORMAL CT OF THE HEAD WITHOUT CONTRAST. NO SIGNIFICANT INTERVAL CHANGE. CT DOSE REDUCTION STATEMENT In accordance with CT protocol optimization, one or more of the following dose reduction techniques were utilized for this exam: automated exposure control, adjustment of mA and/or KV based on patient size, or use of iterative reconstructive technique. TD: 03/30/2018 06:06
== END 2018-03-30 06:25 | disposition home or self-care (01) ==
LOC: ED 05:11
DX: S09.90XA Unspecified injury of head, initial encounter (principal); W06.XXXA Fall from bed, initial encounter; Y92.003 Bedroom of unspecified non-institutional (private) residence as the place of occurrence of the external cause; Z79.01 Long term (current) use of anticoagulants; Z79.82 Long term (current) use of aspirin; E10.9 Type 1 diabetes mellitus without complications; Z79.4 Long term (current) use of insulin; I11.0 Hypertensive heart disease with heart failure; I50.9 Heart failure, unspecified
CPT/HCPCS: 70450; 99283

== ENCOUNTER 2018-04-10 10:50 | Emergency (ER) | payer MEDICARE ==
--- NOTE | 2018-04-10 11:28 | ED Physician Documentation ---
History of Present Illness - Stated complaint Stated Complaint: GLF/HEAD LAC - Chief complaint Chief Complaint: Neuro - Additonal information Additional information: hx from pt 58 male walking dog felt weak fell over backward and hit head thinks he is on a blood thinner does not kow the name (but will log on to his [facility] portal and get us a med list) no LOC has a ELIZONDO no neck pain no NV no recent fever cough NVD had no CP palp soa diaphoresis before fall hx falls several X a year - has a walker and a cane Review of Systems Constitutional: denies: Fever, Chills Cardiac: denies: Chest pain / pressure, Palpitations Respiratory: denies: Dyspnea, Cough GI: denies: Abdominal Pain, Nausea, Vomiting Musculoskeletal: denies: Neck pain Neurologic: reports: Generalized weakness, Headache, Head injury. denies: Focal weakness, Numbness, Syncope, Seizure Immunocompromised: denies: Immunocompromised PD PAST MEDICAL HISTORY - Past Medical History Cardiovascular: Congestive heart failure, Hypertension, High cholesterol, Coronary artery disease, [place], Other Respiratory: Shortness of breath Endocrine/Autoimmune: Type 1 diabetes, Other GI: GERD, Chronic diarrhea, Other : Benign prostate hypertrophy, Renal insuffiency, Other HEENT: Other Psych: Depression, Anxiety, Panic attacks, Post traumatic stress disorder Musculoskeletal: Osteoarthritis Derm: None - Past Surgical History Past Surgical History: Yes General: Colonoscopy, EGD Ortho: Carpal Tunnel surgery, 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 Cardiovascular: Coronary stent, AICD, Cardiac catheterization HEENT: Other - Present Medications Home Medications: Ambulatory Orders Medication Instructions Recorded Confirmed Pantoprazole [Protonix] 40 mg PO BIDAC 09/04/14 01/19/18 Spironolactone 12.5 mg PO DAILY 09/04/14 01/19/18 Zolpidem Tartrate 10 mg PO QPM PRN 09/04/14 01/19/18 raNITIdine HCl [Ranitidine HCl] 300 mg PO QPM 09/04/14 01/19/18 Insulin Lispro [Humalog] 1 - 11 units SQ .SLIDING SCALE 10/07/16 01/19/18 Pregabalin [Lyrica] 300 mg PO BID 10/07/16 01/19/18 Nortriptyline HCl 20 mg PO 0800,1700 03/01/17 01/19/18 Alprazolam 0.5 mg PO BID PRN 06/14/17 03/28/18 Cetirizine [ZyrTEC] 10 mg PO DAILY 04/07/17 01/19/18 Diclofenac Sodium [Voltaren] 4 gm TP QID PRN 04/07/17 01/19/18 Lidocaine Patch 5% [Lidoderm Patch] 1 each TOP DAILY PRN 04/07/17 01/19/18 Simvastatin 80 mg PO QPM 04/07/17 01/19/18 Budesonide [Entocort EC] 9 mg PO DAILY #60 capsule 04/10/17 01/19/18 Psyllium [Metamucil] 1 packet PO BID packet 04/10/17 01/19/18 oxyCODONE [Roxicodone] 5 mg PO Q6HR #0 04/10/17 01/19/18 Aspirin Chewable [[place] 81 mg PO DAILY tablet 05/30/17 01/19/18 Aspirin] DULoxetine [Cymbalta] 60 mg PO BID capsule 05/30/17 01/19/18 Gabapentin [Neurontin] 300 mg PO BID capsule 05/30/17 01/19/18 buPROPion [Wellbutrin Xl] 150 mg PO DAILY tablet 05/30/17 09/18/17 Cholestyramine [Questran] 1 pkt PO TID 01/19/18 01/19/18 Furosemide 20 mg PO BID 01/19/18 01/19/18 Metoprolol Succinate/Hctz 1 each PO DAILY 01/19/18 01/19/18 [Metoprolol ER-Hctz 25-12.5 mg] Nitroglycerin [Nitrostat] 1 tab SL PRN PRN 01/19/18 01/19/18 Pramlintide Acetate [Symlinpen 60] 15 mcg SQ AC 01/19/18 01/19/18 Doxazosin [Cardura] 8 mg PO DAILY 04/10/18 04/10/18 Hydrocortisone [Cortef] 04/10/18 Prasugrel HCl 10 mg PO 04/10/18 - Allergies Allergies/Adverse Reactions: Allergies Allergy/AdvReac Type Severity Reaction Status Date / Time No Known Drug Allergies Allergy Verified 01/19/18 18:47 - Social History Does the pt smoke?: No Smoking Status: Never smoker Does the pt drink ETOH?: No Does the pt have substance abuse?: No - Immunizations Immunizations are current?: Yes - POLST Patient has POLST: No PD ED PE NORMAL - Vitals Vital signs reviewed: Yes - General General: Alert and oriented X 3 - HEENT HEENT: No: Atraumatic (abrasion and swelling posterior scalp) - Neck Neck: No bony TTP (but will image 2/2 mechanism) - Cardiac Cardiac: RRR - Respiratory Respiratory: No respiratory distress, Clear bilaterally - Abdomen Abdomen: Non tender - Extremities Extremities: No deformity, No tenderness to palpate, Normal ROM s pain, No edema , No calf tenderness / cord - Neuro Neuro: Alert and oriented X 3, front office administrator 2-12 intact, No motor deficit, No sensory deficit, Normal speech Eye Opening: Spontaneous Motor: Obeys Commands Verbal: Oriented GCS Score: 15 Results - Vitals Vitals: Vital Signs - 24 hr 04/10/18 04/10/18 10:52 13:10 Temperature 36.7 C Heart Rate 99 86 Respiratory 18 16 Rate Blood Pressure 143/77 H 113/81 H O2 Saturation 95 97 Oxygen O2 Source [With Activity] Room air O2 Source Room air - EKG (time done) 1126 Rate: Rate (enter#) (92) Rhythm: NSR Ischemia: Q waves (anterior) Other comments: Other comments (no change from 03/27 which was no change from 03/17 ) - Labs Labs: Laboratory Tests 04/10/18 04/10/18 04/10/18 10:58 11:30 11:30 PT INR Sodium 136 Potassium 3.6 Chloride 97 L Carbon Dioxide 32 Anion Gap 7.0 BUN 16 Creatinine 1.0 Estimated GFR (MDRD) 77 L Glucose 229 H POC Whole Bld Glucose 249 H Calcium 9.0 Troponin I < 0.04 Urine Color Urine Clarity Urine pH Ur Specific [place] Urine Protein Urine Glucose (UA) Urine Ketones Urine Occult Blood Urine Nitrite Urine Bilirubin Urine Urobilinogen Ur Leukocyte Esterase Ur Microscopic Review Urine Culture Comments 04/10/18 04/10/18 11:30 12:10 PT 11.3 INR 1.0 Sodium Potassium Chloride Carbon Dioxide Anion Gap BUN Creatinine Estimated GFR (MDRD) Glucose POC Whole Bld Glucose Calcium Troponin I Urine Color YELLOW Urine Clarity CLEAR Urine pH 5.5 Ur Specific [place] 1.025 Urine Protein NEGATIVE Urine Glucose (UA) 500 H Urine Ketones NEGATIVE Urine Occult Blood NEGATIVE Urine Nitrite NEGATIVE Urine Bilirubin NEGATIVE Urine Urobilinogen 0.2 (NORMAL) Ur Leukocyte Esterase NEGATIVE Ur Microscopic Review NOT INDICATED Urine Culture Comments NOT INDICATED - Rads (name of study) CTH Radiology: See rad report (no acute) CT CS Radiology: See rad report (no acute) PD MEDICAL DECISION MAKING - ED course ED course: no cause for fall found on EKG and labs - pt with hx same is on anticoag so got CTH - no bleed will dc with precautions and next day fup for a recheck (chance of delayed bleed low but a recheck would be prudent) - Sepsis Event Vital Signs: Vital Signs - 24 hr 04/10/18 04/10/18 10:52 13:10 Temperature 36.7 C Heart Rate 99 86 Respiratory 18 16 Rate Blood Pressure 143/77 H 113/81 H O2 Saturation 95 97 Oxygen O2 Source [With Activity] Room air O2 Source Room air Departure - Departure Disposition: 01 Home, Self Care Clinical Impression: Fall Qualifiers: Encounter type: initial encounter Qualified Code(s): W19.XXXA - Unspecified fall, initial encounter Head injury Qualifiers: Encounter type: initial encounter Qualified Code(s): S09.90XA - Unspecified injury of head, initial encounter Condition: Good Instructions: ED Head Injury Closed Follow-Up: Amadou Jackson MD [Primary Care Provider] - Comments: The CT scan did not show any skull fracture or brain bleeding You can go home - but because you are on the presugrel you need to stay with a responsible adult who can watch over you and bring you back to the ER if you get worse and you need to follow up with your PMD tomorrow for a recheck (if your PMD is far away you can come back to the ER) Your labs and EKG were OK - no cause for the fall was found. Please continue to use your cane and / or walker as needed Tylenol as needed for pain Ice for 20 minutes at a time to decrease the swelling Wash and then apply antibiotic ointment to the abrasion on your scalp twice a day for a week
[2018-04-10 11:44] LABS: PT - PROTHROMBIN TIME 11.3 secs (9.9-12.6)
[2018-04-10] MEDS ORDERED: HYDROcod/ACETAM 5/325 MG TABLET PO STA (12:08)
[2018-04-10 12:18] LABS: BILIRUBIN,URINE NEGATIVE (NEGATIVE); GLUCOSE, URINE (UA) 500 mg/dL (NEGATIVE); KETONES,URINE (UA) NEGATIVE (NEGATIVE); LEUKOCYTE ESTERASE, URINE NEGATIVE (NEGATIVE); NITRITE,URINE NEGATIVE (NEGATIVE); OCCULT BLOOD,URINE NEGATIVE (NEGATIVE); PH,URINE 5.5 PH (5.0-7.5); PROTEIN,URINE NEGATIVE (NEGATIVE); UROBILINOGEN,URINE 0.2 (NORMAL) E.U./dL (NORMAL)
[2018-04-10 12:19] LABS: CLARITY,URINE CLEAR (CLEAR)
--- NOTE | 2018-04-10 12:23 | CT Report ---
Procedure Date: 04/10/2018 Accession Number: [id number] / [id number] Procedure: CT - Cervical Spine W/O CPT Code: FULL RESULT: EXAM: CT CERVICAL SPINE WITHOUT CONTRAST DATE: 04/10/2018 11:44 AM. HISTORY: Acute pain due to trauma. COMPARISONS: None. TECHNIQUE: Thin-section axial images were acquired of the cervical spine without contrast. Post-processing: Coronal and sagittal reformats. Other: None. In accordance with CT protocol optimization, one or more of the following dose reduction techniques were utilized for this exam: automated exposure control, adjustment of mA and/or KV based on patient size, or use of iterative reconstructive technique. FINDINGS: Alignment: No scoliosis or spondylolisthesis. Bones: Motion artifact obscures detailed evaluation of the bone and the lower cervical spine. No fracture or bone lesion is identified. Interspace Levels/Facets: There is minimal diffuse degenerative disk and facet disease seen throughout the lower aspects of the cervical spine. The bony central canal and neuroforamina appear relatively patent. Musculature: Normal. No fatty atrophy. Other: The paravertebral and prevertebral soft tissues are unremarkable. The lung apices are clear. IMPRESSION: No acute findings. Minor degenerative changes seen in the lower cervical spine. RADIA
--- NOTE | 2018-04-10 12:26 | CT Report ---
Procedure Date: 04/10/2018 Accession Number: [id number] / [id number] Procedure: CT - Head W/O CPT Code: FULL RESULT: EXAM: CT HEAD EXAM DATE: 04/10/2018 11:44 AM. CLINICAL HISTORY: Acute pain due to trauma. COMPARISON: 04/07/2017. TECHNIQUE: Multiaxial CT images were obtained from the foramen magnum to the vertex. Reformats: Coronal. IV contrast: None. In accordance with CT protocol optimization, one or more of the following dose reduction techniques were utilized for this exam: automated exposure control, adjustment of mA and/or KV based on patient size, or use of iterative reconstructive technique. FINDINGS: Parenchyma: No intraparenchymal hemorrhage. No evidence of mass, midline shift, or CT findings of infarction. Salgado-white differentiation is distinct. Extraaxial Spaces: Normal for age. No subdural or epidural collections identified. Ventricles: Normal in size and position. Sinuses and Orbits: Mild periosteal thickening and mild opacification of the maxillary and ethmoid sinuses is seen. There are no air-fluid levels identified. Is similar to prior study. Minor fluid opacification of the left mastoid air cells is present. The appearance is similar to prior study. Intraorbital structures are unremarkable. Bones: No evidence of fracture or calvarial defect. Other: None. IMPRESSION: 1. No acute intracranial abnormality demonstrated. 2. Mild chronic bilateral maxillary and ethmoid sinus disease. 3. Minor nonspecific fluid opacification of the left mastoid air cells, also chronic. RADIA
[2018-04-10 13:10] VITALS: BP 113/81
== END 2018-04-10 13:59 | disposition home or self-care (01) ==
LOC: ED 10:50
DX: S09.90XA Unspecified injury of head, initial encounter (principal); W18.39XA Other fall on same level, initial encounter; Y93.K1 Activity, walking an animal; I11.0 Hypertensive heart disease with heart failure; I50.9 Heart failure, unspecified; I25.10 Atherosclerotic heart disease of native coronary artery without angina pectoris; E10.9 Type 1 diabetes mellitus without complications; E78.00 Pure hypercholesterolemia, unspecified; Z79.4 Long term (current) use of insulin; K21.9 Gastro-esophageal reflux disease without esophagitis; Z79.82 Long term (current) use of aspirin; Z95.0 Presence of cardiac pacemaker
CPT/HCPCS: 36415; 70450; 72125; 80048; 81003; 84484; 85610; 93005; 99283; 99284; A9270; 81001; 87086

== ENCOUNTER 2018-04-16 14:34 | Outpatient (CLI) | payer MEDICARE ==
--- NOTE | 2018-04-16 18:26 | XRAY Report ---
Procedure Date: 04/16/2018 Accession Number: [id number] / [id number] Procedure: XR - Foot 3 View LT CPT Code: FULL RESULT: EXAM: LEFT FOOT RADIOGRAPHY EXAM DATE: 04/16/2018 02:43 PM. CLINICAL HISTORY: Left foot pain along plantar surface of fifth metatarsal COMPARISON: None. TECHNIQUE: 3 views. FINDINGS: Bones: Irregular contour and sclerosis of the second proximal phalangeal base. Accessory os peroneum. Small posterior calcaneal spur. Joints: Normal alignment. Mild joint space loss and subchondral degenerative changes at the interphalangeal joints, compatible with osteoarthritis. Soft Tissues: No evident focal soft tissue swelling. IMPRESSION: 1. Irregular contour and sclerosis of the second proximal phalangeal base, compatible remote versus subacute fracture. 2. Mild osteoarthritis of the interphalangeal joints. RADIA
== END 2018-04-16 14:35 | disposition home or self-care (01) ==
LOC: DI 14:34
PROVIDERS: ATTEND Podiatrist
DX: M19.072 Primary osteoarthritis, left ankle and foot (principal)

== ENCOUNTER 2018-04-18 11:59 | Outpatient (CLI) | payer MEDICARE | END 2018-04-18 12:00 | disposition critical access hospital (66) | LOC: EMS 11:59 | PROVIDERS: ATTEND Surgery | DX: R06.02 Shortness of breath (principal); R42 Dizziness and giddiness; R03.1 Nonspecific low blood-pressure reading | CPT/HCPCS: A0425; A0427 ==

== ENCOUNTER 2018-04-18 12:15 | Emergency (ER) | payer MEDICARE ==
--- NOTE | 2018-04-18 13:52 | ED Physician Documentation ---
PD HPI DYSPNEA - Stated complaint Stated Complaint: SOA - Chief complaint Chief Complaint: Resp - History obtained from History obtained from: Patient - History of Present Illness Timing - onset: How many days ago (3) Timing - onset during: Light activity Timing - duration: Days (3) Timing - details: Gradual onset, Still present Improved by: Rest Worsened by: Exertion, Coughing Associated symptoms: Cough, Wheezing, Chest pain / discomfort, Bilateral edema. No: Fever Similar symptoms before: Diagnosis (COPD and CHF) Recently seen: Emergency Dept - Additional information Additional information: 58 y/o male well known to the ED has developed increasing exertional dyspnea. He denies orthopnea but acknowledges exertional dyspena and chest pressure. He relates the time frame as the past 3 days . He has a cough as well. Review of Systems Constitutional: denies: Fever Eyes: denies: Decreased vision Ears: denies: Ear pain Nose: reports: Congestion Throat: denies: Sore throat Cardiac: reports: Chest pain / pressure. denies: Palpitations, Pedal edema, Calf pain Respiratory: reports: Dyspnea, Cough, Wheezing GI: denies: Abdominal Pain, Nausea, Vomiting : denies: Dysuria, Frequency PD PAST MEDICAL HISTORY - Past Medical History Cardiovascular: Congestive heart failure, Hypertension, High cholesterol, Coronary artery disease, [place], Other Respiratory: COPD, Shortness of breath Endocrine/Autoimmune: Type 1 diabetes, Other GI: GERD, Chronic diarrhea, Other : Benign prostate hypertrophy, Renal insuffiency, Other HEENT: Other Psych: Depression, Anxiety, Panic attacks, Post traumatic stress disorder Musculoskeletal: Osteoarthritis Derm: None - Past Surgical History Past Surgical History: Yes General: Colonoscopy, EGD Ortho: Carpal Tunnel surgery, 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 Cardiovascular: Coronary stent, AICD, Cardiac catheterization HEENT: Other - Present Medications Home Medications: Ambulatory Orders Medication Instructions Recorded Confirmed Pantoprazole [Protonix] 40 mg PO BIDAC 09/04/14 01/19/18 Spironolactone 12.5 mg PO DAILY 09/04/14 01/19/18 Zolpidem Tartrate 10 mg PO QPM PRN 09/04/14 01/19/18 raNITIdine HCl [Ranitidine HCl] 300 mg PO QPM 09/04/14 01/19/18 Insulin Lispro [Humalog] 1 - 11 units SQ .SLIDING SCALE 10/07/16 01/19/18 Pregabalin [Lyrica] 300 mg PO BID 10/07/16 01/19/18 Nortriptyline HCl 20 mg PO 0800,1700 03/01/17 01/19/18 Alprazolam 0.5 mg PO BID PRN 04/07/17 01/19/18 Cetirizine [ZyrTEC] 10 mg PO DAILY 04/07/17 01/19/18 Diclofenac Sodium [Voltaren] 4 gm TP QID PRN 04/07/17 01/19/18 Lidocaine Patch 5% [Lidoderm Patch] 1 each TOP DAILY PRN 04/07/17 01/19/18 Simvastatin 80 mg PO QPM 04/07/17 01/19/18 Budesonide [Entocort EC] 9 mg PO DAILY #60 capsule 04/10/17 01/19/18 Psyllium [Metamucil] 1 packet PO BID packet 04/10/17 01/19/18 oxyCODONE [Roxicodone] 5 mg PO Q6HR #0 04/10/17 01/19/18 Aspirin Chewable [[place] 81 mg PO DAILY tablet 05/30/17 01/19/18 Aspirin] DULoxetine [Cymbalta] 60 mg PO BID capsule 05/30/17 01/19/18 Gabapentin [Neurontin] 300 mg PO BID capsule 05/30/17 01/19/18 buPROPion [Wellbutrin Xl] 150 mg PO DAILY tablet 05/30/17 09/18/17 Cholestyramine [Questran] 1 pkt PO TID 01/19/18 01/19/18 Furosemide 20 mg PO BID 01/19/18 01/19/18 Metoprolol Succinate/Hctz 1 each PO DAILY 01/19/18 01/19/18 [Metoprolol ER-Hctz 25-12.5 mg] Nitroglycerin [Nitrostat] 1 tab SL PRN PRN 01/19/18 01/19/18 Pramlintide Acetate [Symlinpen 60] 15 mcg SQ AC 01/19/18 01/19/18 Doxazosin [Cardura] 8 mg PO DAILY 04/10/18 04/10/18 Hydrocortisone [Cortef] 04/10/18 Prasugrel HCl 10 mg PO 04/10/18 Azithromycin [Zithromax] 250 mg PO DAILY #6 tablet 04/18/18 - Allergies Allergies/Adverse Reactions: Allergies Allergy/AdvReac Type Severity Reaction Status Date / Time No Known Drug Allergies Allergy Verified 01/19/18 18:47 - Social History Does the pt smoke?: No Smoking Status: Never smoker Does the pt drink ETOH?: No Does the pt have substance abuse?: No - Immunizations Immunizations are current?: Yes - POLST Patient has POLST: No PD ED PE NORMAL - Vitals Vital signs reviewed: Yes (normal ) - General General: Alert and oriented X 3, No acute distress, Well developed/nourished - HEENT HEENT: Atraumatic, PERRL, EOMI - Neck Neck: Supple, no meningeal sign - Cardiac Cardiac: RRR, No murmur - Respiratory Respiratory: No respiratory distress, Other (rhonchi is light in the left base ) - Abdomen Abdomen: Soft, Non tender - Back Back: No CVA TTP, No spinal TTP - Derm Derm: Normal color, Warm and dry, No rash - Extremities Extremities: No deformity, Other (trace edema bilaterally ) - Neuro Neuro: Alert and oriented X 3, No motor deficit, No sensory deficit, Normal speech Eye Opening: Spontaneous Motor: Obeys Commands Verbal: Oriented GCS Score: 15 - Psych Psych: Normal mood, Normal affect Results - Vitals Vitals: Vital Signs - 24 hr 04/18/18 04/18/18 04/18/18 12:19 13:59 15:19 Temperature 36.4 C L 36.4 C L Heart Rate 87 75 71 Respiratory 20 19 18 Rate Blood Pressure 98/60 104/55 L 103/59 L O2 Saturation 95 96 96 04/18/18 16:03 Temperature Heart Rate 74 Respiratory 14 Rate Blood Pressure O2 Saturation Oxygen O2 Source [] Room air O2 Source Nasal cannula Oxygen Flow Rate 2 - EKG (time done) 1227 Rate: Rate (enter#) (82) Ischemia: Q waves Compare to prior EKG: Unchanged from prior EKG (04-10-18) Computer interpretation: Agree with computer - Labs Labs: Laboratory Tests 04/18/18 04/18/18 04/18/18 14:31 14:31 14:31 WBC 10.8 RBC 4.05 L Hgb 12.2 L Hct 36.8 L MCV 90.7 MCH 30.1 MCHC 33.2 RDW 15.1 H Plt Count 198 MPV 9.1 Neut # (Auto) 8.7 H Lymph # (Auto) 1.1 L [place] # (Auto) 0.9 Eos # (Auto) 0.1 Baso # (Auto) 0.0 Absolute Nucleated RBC 0.00 Nucleated RBC % 0.0 Sodium 136 Potassium 4.1 Chloride 99 L Carbon Dioxide 31 Anion Gap 6.0 BUN 23 H Creatinine 1.2 Estimated GFR (MDRD) 62 L Glucose 154 H Calcium 8.3 L Total Bilirubin 0.4 AST 15 ALT 19 Alkaline Phosphatase 83 Troponin I < 0.04 B-Natriuretic Peptide Total Protein 6.2 L Albumin 3.3 Globulin 2.9 Albumin/Globulin Ratio 1.1 Lipase 18 L 04/18/18 14:31 WBC RBC Hgb Hct MCV MCH MCHC RDW Plt Count MPV Neut # (Auto) Lymph # (Auto) [place] # (Auto) Eos # (Auto) Baso # (Auto) Absolute Nucleated RBC Nucleated RBC % Sodium Potassium Chloride Carbon Dioxide Anion Gap BUN Creatinine Estimated GFR (MDRD) Glucose Calcium Total Bilirubin AST ALT Alkaline Phosphatase Troponin I B-Natriuretic Peptide 27 Total Protein Albumin Globulin Albumin/Globulin Ratio Lipase - Rads (name of study) 2 veiw chest Radiology: Prelim report reviewed (Impression: Streaky left lung base opacities are likely atelectasis or scar. Pneumonia is not entirely excluded.), EMP read indepedently, See rad report Procedures - IVC sono (time) 1345 Bedside IVC sono: IVC measures (cm) (2.25), IVC collapsed c insp (cm) (1.10), Euvolemia PD MEDICAL DECISION MAKING - ED course Complexity details: reviewed results, re-evaluated patient, considered differential, d/w patient ED course: 58-year-old male with a history of congestive heart failure has increasing exertional dyspnea and he has no signs of congestive heart failure today on examination both physically and through the laboratory and chest x-ray. He does have what sounds like rhonchi in the left base and this correlates with findings on his chest x-ray of infiltrate and he is treated for pneumonia. He is administered Rocephin intravenously and a DuoNeb. He has marked improvement with the use of the duoneb and he is encouraged to use his rescue inhaler more frequently for these symptoms and to use it before his regular inhalers in the morning. - Sepsis Event Vital Signs: Vital Signs - 24 hr 04/18/18 04/18/18 04/18/18 12:19 13:59 15:19 Temperature 36.4 C L 36.4 C L Heart Rate 87 75 71 Respiratory 20 19 18 Rate Blood Pressure 98/60 104/55 L 103/59 L O2 Saturation 95 96 96 04/18/18 16:03 Temperature Heart Rate 74 Respiratory 14 Rate Blood Pressure O2 Saturation Oxygen O2 Source [] Room air O2 Source Nasal cannula Oxygen Flow Rate 2 Departure - Departure Disposition: 01 Home, Self Care Clinical Impression: Pneumonia Qualifiers: Pneumonia type: due to unspecified organism Laterality: left Lung location: lower lobe of lung Qualified Code(s): J18.1 - Lobar pneumonia, unspecified organism Condition: Stable Instructions: ED Pneumonia Adult Follow-Up: Amadou Jackson MD [Primary Care Provider] - Prescriptions: Azithromycin [Zithromax] 250 mg PO DAILY #6 tablet
[2018-04-18 14:41] LABS: BASOPHILS % (AUTO) 0.3 %; EOSINOPHILS # (AUTO) 0.1 10^3/uL (0.0-0.7); HGB - HEMOGLOBIN 12.2 g/dL (14.0-18.0); LYMPHOCYTES # (AUTO) 1.1 10^3/uL (1.5-3.5); LYMPHOCYTES % (AUTO) 10.3 %; MEAN CORPUSCULAR HEMOGLOBIN 30.1 pg (27.0-31.0); MEAN CORPUSCULAR HGB CONC 33.2 g/dL (32.0-36.0); MEAN CORPUSCULAR VOLUME 90.7 fL (80.0-94.0); MEAN PLATELET VOLUME 9.1 fL (7.4-11.4); MONOCYTES # (AUTO) 0.9 10^3/uL (0.0-1.0); MONOCYTES % (AUTO) 8.2 %; NEUTROPHILS # (AUTO) 8.7 10^3/uL (1.5-6.6); NEUTROPHILS % (AUTO) 80.2 %; PLT - PLATELET COUNT 198 10^3/uL (130-450); RED BLOOD COUNT 4.05 10^6/uL (4.70-6.10); RED CELL DISTRIBUTION WIDTH 15.1 % (12.0-15.0); WHITE BLOOD COUNT 10.8 x10^3/uL (4.8-10.8)
[2018-04-18 14:52] LABS: ALBUMIN 3.3 g/dL (3.2-5.5); ALBUMIN/GLOBULIN RATIO 1.1 (1.0-2.2); BILIRUBIN,TOTAL 0.4 mg/dL (0.2-1.0); CALCIUM 8.3 mg/dL (8.5-10.3); CREATININE 1.2 mg/dL (0.6-1.2); TOTAL PROTEIN 6.2 g/dL (6.7-8.2)
--- NOTE | 2018-04-18 14:52 | XRAY Report ---
Procedure Date: 04/18/2018 Accession Number: [id number] / [id number] Procedure: XR - Chest 2 View X-Ray CPT Code: 76035 FULL RESULT: EXAM: CHEST RADIOGRAPHY EXAM DATE: 04/18/2018 02:23 PM. CLINICAL HISTORY: Left lower rhonchi. COMPARISON: 03/17/2018. TECHNIQUE: 2 views. FINDINGS: Lungs/Pleura: No focal consolidation. There are streaky opacities in the left lung base, similar to before. No pleural effusion. No pneumothorax. Normal volumes. Mediastinum: Heart and mediastinal contours are within normal limits. Right ventricular AICD. Other: None. IMPRESSION: Streaky left lung base opacities are most likely atelectasis or scar. Pneumonia is not entirely excluded. RADIA
[2018-04-18] MEDS ORDERED: IPRATROPIUM/ALBUTEROL 3 ML NEB INH STA (15:42)
[2018-04-18] MEDS ORDERED: cefTRIAXone 1 GM in SODIUM CHLORIDE 0.9% MINIBAG 100 ML IV STA (15:42)
[2018-04-18 16:56] VITALS: BP 109/53
== END 2018-04-18 16:56 | disposition home or self-care (01) ==
LOC: EDUNIT# → ED 12:15
DX: J18.1 Lobar pneumonia, unspecified organism (principal); I11.0 Hypertensive heart disease with heart failure; I50.9 Heart failure, unspecified; I25.10 Atherosclerotic heart disease of native coronary artery without angina pectoris; E78.00 Pure hypercholesterolemia, unspecified; J44.9 Chronic obstructive pulmonary disease, unspecified; E10.9 Type 1 diabetes mellitus without complications; Z79.4 Long term (current) use of insulin; Z95.0 Presence of cardiac pacemaker; K21.9 Gastro-esophageal reflux disease without esophagitis
CPT/HCPCS: 36415; 71046; 80053; 83690; 83880; 84484; 85025; 93005; 94664; 96365; 99284

== ENCOUNTER 2018-04-25 18:46 | Outpatient (CLI) | payer MEDICARE | END 2018-04-25 18:47 | disposition critical access hospital (66) | LOC: EMS 18:46 | PROVIDERS: ATTEND Surgery | DX: R03.1 Nonspecific low blood-pressure reading (principal); R07.9 Chest pain, unspecified | CPT/HCPCS: A0425; A0427 ==

== ENCOUNTER 2018-04-25 18:59 | Emergency (ER) | payer MEDICARE ==
[2018-04-25] MEDS ORDERED: SODIUM CHLORIDE 0.9% 1,000 ML IV ONE ×2 (19:15→22:13)
[2018-04-25] MEDS ORDERED: HYDROCORTISONE SUCCINATE 100 MG/2 ML VIAL IVP STA (19:15)
--- NOTE | 2018-04-25 19:17 | ED Physician Documentation ---
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 Last for a few seconds at a time. He also noticed that his blood pressure was low which is not uncommon for him with his Weston's disease. Given aspirin by EMS. Currently pain-free. States that his blood pressure normally drops when he has problems with his Weston's disease. Patient denies missing any doses of his medication. Has a cardiac stress test scheduled for 28 April. Nothing makes the symptoms better or worse as they only last for a few seconds at a time. Review of Systems Ten Systems: 10 systems reviewed and negative Constitutional: denies: Fever, Chills Ears: denies: Ear pain Nose: denies: Rhinorrhea / runny nose, Congestion Throat: denies: Sore throat Respiratory: denies: Dyspnea, Cough, Wheezing GI: denies: Abdominal Pain, Vomiting, Diarrhea Skin: denies: Rash Musculoskeletal: denies: Neck pain, Back pain Neurologic: denies: Headache PD PAST MEDICAL HISTORY - Past Medical History Cardiovascular: Congestive heart failure, Hypertension, High cholesterol, Coronary artery disease, [place], Other Respiratory: COPD, Shortness of breath Endocrine/Autoimmune: Type 1 diabetes, Other GI: GERD, Chronic diarrhea, Other : Benign prostate hypertrophy, Renal insuffiency, Other HEENT: Other Psych: Depression, Anxiety, Panic attacks, Post traumatic stress disorder Musculoskeletal: Osteoarthritis Derm: None - Past Surgical History Past Surgical History: Yes General: Colonoscopy, EGD Ortho: Carpal Tunnel surgery, 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 Cardiovascular: Coronary stent, AICD, Cardiac catheterization HEENT: Other - Present Medications Home Medications: Ambulatory Orders Medication Instructions Recorded Confirmed Pantoprazole [Protonix] 40 mg PO BIDAC 09/04/14 01/19/18 Spironolactone 12.5 mg PO DAILY 09/04/14 01/19/18 Zolpidem Tartrate 10 mg PO QPM PRN 09/04/14 01/19/18 raNITIdine HCl [Ranitidine HCl] 300 mg PO QPM 09/04/14 01/19/18 Insulin Lispro [Humalog] 1 - 11 units SQ .SLIDING SCALE 10/07/16 01/19/18 Pregabalin [Lyrica] 300 mg PO BID 10/07/16 01/19/18 Nortriptyline HCl 20 mg PO 0800,1700 03/01/17 01/19/18 Alprazolam 0.5 mg PO BID PRN 04/07/17 01/19/18 Cetirizine [ZyrTEC] 10 mg PO DAILY 04/07/17 01/19/18 Diclofenac Sodium [Voltaren] 4 gm TP QID PRN 04/07/17 01/19/18 Lidocaine Patch 5% [Lidoderm Patch] 1 each TOP DAILY PRN 04/07/17 01/19/18 Simvastatin 80 mg PO QPM 04/07/17 01/19/18 Budesonide [Entocort EC] 9 mg PO DAILY #60 capsule 04/10/17 01/19/18 Psyllium [Metamucil] 1 packet PO BID packet 04/10/17 01/19/18 oxyCODONE [Roxicodone] 5 mg PO Q6HR #0 04/10/17 01/19/18 Aspirin Chewable [[place] 81 mg PO DAILY tablet 05/30/17 01/19/18 Aspirin] DULoxetine [Cymbalta] 60 mg PO BID capsule 05/30/17 01/19/18 Gabapentin [Neurontin] 300 mg PO BID capsule 05/30/17 01/19/18 buPROPion [Wellbutrin Xl] 150 mg PO DAILY tablet 05/30/17 09/18/17 Cholestyramine [Questran] 1 pkt PO TID 01/19/18 01/19/18 Furosemide 20 mg PO BID 01/19/18 01/19/18 Metoprolol Succinate/Hctz 1 each PO DAILY 01/19/18 01/19/18 [Metoprolol ER-Hctz 25-12.5 mg] Nitroglycerin [Nitrostat] 1 tab SL PRN PRN 01/19/18 01/19/18 Pramlintide Acetate [Symlinpen 60] 15 mcg SQ AC 01/19/18 01/19/18 Doxazosin [Cardura] 8 mg PO DAILY 04/10/18 04/10/18 Hydrocortisone [Cortef] 04/10/18 Prasugrel HCl 10 mg PO 04/10/18 Azithromycin [Zithromax] 250 mg PO DAILY #6 tablet 04/18/18 - Allergies Allergies/Adverse Reactions: Allergies Allergy/AdvReac Type Severity Reaction Status Date / Time No Known Drug Allergies Allergy Verified 01/19/18 18:47 - Social History Does the pt smoke?: No Smoking Status: Never smoker Does the pt drink ETOH?: No Does the pt have substance abuse?: No - Immunizations Immunizations are current?: Yes - POLST Patient has POLST: No PD ED PE NORMAL - Vitals Vital signs reviewed: Yes - General General: Alert and oriented X 3, No acute distress, Well developed/nourished - HEENT HEENT: PERRL, Moist mucous membranes - Neck Neck: Supple, no meningeal sign - Cardiac Cardiac: RRR, Strong equal pulses - Respiratory Respiratory: No respiratory distress, Clear bilaterally - Abdomen Abdomen: Soft, Non tender, Non distended - Back Back: No spinal TTP - Derm Derm: Warm and dry, No rash - Extremities Extremities: No edema - Neuro Neuro: Alert and oriented X 3 - Psych Psych: Normal mood, Normal affect Results - Vitals Vitals: Vital Signs - 24 hr 04/25/18 04/25/18 04/25/18 19:03 19:32 20:12 Temperature 36.3 C L Heart Rate 77 74 70 Respiratory 13 16 16 Rate Blood Pressure 98/62 95/67 101/72 O2 Saturation 98 94 95 04/25/18 04/25/18 22:32 23:26 Temperature Heart Rate 70 70 Respiratory 16 16 Rate Blood Pressure 103/68 101/72 O2 Saturation 96 97 Oxygen O2 Source [With Activity] Room air O2 Source Room air - EKG (time done) 1911 Rate: Rate (enter#) (73) Rhythm: NSR [place]: Normal Intervals: Normal [place] QRS: Normal Ischemia: Q waves (V1-4) Compare to prior EKG: Unchanged from prior EKG 2205 Rate: Rate (enter#) (70) Rhythm: NSR [place]: Normal Intervals: Normal [place] QRS: Normal Ischemia: Normal ST segments, Q waves (v1-4) Compare to prior EKG: Unchanged from prior EKG - Labs Labs: Laboratory Tests 04/25/18 04/25/1804/25/18 19:23 19:23 19:23 WBC 10.2 RBC 4.33 L Hgb 12.9 L Hct 39.3 L MCV 90.9 MCH 29.8 MCHC 32.8 RDW 15.1 H Plt Count 223 MPV 8.4 Neut # (Auto) 7.7 H Lymph # (Auto) 1.3 L [place] # (Auto) 0.9 Eos # (Auto) 0.1 Baso # (Auto) 0.1 Absolute Nucleated RBC 0.00 Nucleated RBC % 0.0 Sodium 137 Potassium 4.5 Chloride 98 L Carbon Dioxide 32 Anion Gap 7.0 BUN 26 H Creatinine 1.2 Estimated GFR (MDRD) 62 L Glucose 119 H Calcium 8.9 Total Bilirubin 0.7 AST 12 ALT 21 Alkaline Phosphatase 79 Troponin I < 0.04 Total Protein 6.8 Albumin 3.8 Globulin 3.0 Albumin/Globulin Ratio 1.3 Lipase 16 L 04/25/18 22:01 WBC RBC Hgb Hct MCV MCH MCHC RDW Plt Count MPV Neut # (Auto) Lymph # (Auto) [place] # (Auto) Eos # (Auto) Baso # (Auto) Absolute Nucleated RBC Nucleated RBC % Sodium Potassium Chloride Carbon Dioxide Anion Gap BUN Creatinine Estimated GFR (MDRD) Glucose Calcium Total Bilirubin AST ALT Alkaline Phosphatase Troponin I < 0.04 Total Protein Albumin Globulin Albumin/Globulin Ratio Lipase - Rads (name of study) cxr Radiology: Prelim report reviewed, EMP read contemporaneously, See rad report ( Stable chest. Vascular congestion. Subsegmental atelectasis at the left lung base.) PD MEDICAL DECISION MAKING - ED course Complexity details: reviewed results, re-evaluated patient, considered differential (No ST elevation [place], no aortic dissection, no PE, no tension pneumothorax, no aortic aneurysm), d/w patient ED course: Patient is a 58-year-old gentleman who presents to the emergency department with atypical chest pain today as well as hypertension. Given hydrocortisone IV and IV fluids. No recurrent chest pain in the emergency department. Negative troponin 2. Normal EKG 2. He feels much better after fluids and hydrocortisone. We will have him follow-up with his doctor for further care including his stress test later this week. He will return if he worsens. Patient counseled regarding signs and symptoms for which I believe and urgent re -evaluation would be necessary. Patient with good understanding of and agreement to plan and is comfortable going home at this time This document was made in part using voice recognition software. While efforts are made to proofread this document, sound alike and grammatical errors may occur. - Sepsis Event Vital Signs: Vital Signs - 24 hr 04/25/18 04/25/18 04/25/18 19:03 19:32 20:12 Temperature 36.3 C L Heart Rate 77 74 70 Respiratory 13 16 16 Rate Blood Pressure 98/62 95/67 101/72 O2 Saturation 98 94 95 04/25/18 04/25/18 22:32 23:26 Temperature Heart Rate 70 70 Respiratory 16 16 Rate Blood Pressure 103/68 101/72 O2 Saturation 96 97 Oxygen O2 Source [With Activity] Room air O2 Source Room air Departure - Departure Disposition: 01 Home, Self Care Clinical Impression: Chest pain Qualifiers: Chest pain type: unspecified Qualified Code(s): R07.9 - Chest pain, unspecified Hypotension Qualifiers: Hypotension type: unspecified hypotension type Qualified Code(s): I95.9 - Hypotension, unspecified Condition: Good Instructions: ED Chest Pain Atypical Unkn Cause Follow-Up: your,doctor in 3 days. [Other] Comments: Return if you worsen. Drink plenty of fluids and rest. 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
[2018-04-25 19:28] LABS: BASOPHILS # (AUTO) 0.1 10^3/uL (0.0-0.1); BASOPHILS % (AUTO) 0.7 %; EOSINOPHILS # (AUTO) 0.1 10^3/uL (0.0-0.7); HGB - HEMOGLOBIN 12.9 g/dL (14.0-18.0); LYMPHOCYTES # (AUTO) 1.3 10^3/uL (1.5-3.5); LYMPHOCYTES % (AUTO) 13.1 %; MEAN CORPUSCULAR HEMOGLOBIN 29.8 pg (27.0-31.0); MEAN CORPUSCULAR HGB CONC 32.8 g/dL (32.0-36.0); MEAN CORPUSCULAR VOLUME 90.9 fL (80.0-94.0); MEAN PLATELET VOLUME 8.4 fL (7.4-11.4); MONOCYTES # (AUTO) 0.9 10^3/uL (0.0-1.0); MONOCYTES % (AUTO) 9.3 %; NEUTROPHILS # (AUTO) 7.7 10^3/uL (1.5-6.6); NEUTROPHILS % (AUTO) 75.9 %; PLT - PLATELET COUNT 223 10^3/uL (130-450); RED BLOOD COUNT 4.33 10^6/uL (4.70-6.10); RED CELL DISTRIBUTION WIDTH 15.1 % (12.0-15.0); WHITE BLOOD COUNT 10.2 x10^3/uL (4.8-10.8)
[2018-04-25 19:39] LABS: ALBUMIN 3.8 g/dL (3.2-5.5); ALBUMIN/GLOBULIN RATIO 1.3 (1.0-2.2); BILIRUBIN,TOTAL 0.7 mg/dL (0.2-1.0); CALCIUM 8.9 mg/dL (8.5-10.3); CREATININE 1.2 mg/dL (0.6-1.2); TOTAL PROTEIN 6.8 g/dL (6.7-8.2)
--- NOTE | 2018-04-25 20:41 | XRAY Report ---
Procedure Date: 04/25/2018 Accession Number: [id number] / [id number] Procedure: XR - Chest 1 View X-Ray CPT Code: 14055 FULL RESULT: EXAM: CHEST RADIOGRAPHY EXAM DATE: 04/25/2018 08:26 PM. CLINICAL HISTORY: Chest pain. COMPARISON: Chest radiograph 04/18/2018. TECHNIQUE: 1 view. FINDINGS: Lungs/Pleura: Vascular congestion. Small left lung base opacity. Mediastinum: Stable Other: Left sided defibrillator with a right ventricular lead. IMPRESSION: 1. Stable chest 2. Vascular congestion 3. Subsegmental atelectasis at the left lung base RADIA
[2018-04-25] MEDS ORDERED: oxyCODONE 5 MG TABLET PO STA (22:28)
[2018-04-25 23:27] VITALS: BP 101/72
== END 2018-04-25 23:26 | disposition home or self-care (01) ==
LOC: EDUNIT# → ED 18:59
DX: R07.9 Chest pain, unspecified (principal); I95.9 Hypotension, unspecified; I11.0 Hypertensive heart disease with heart failure; I50.9 Heart failure, unspecified; E78.00 Pure hypercholesterolemia, unspecified; I25.10 Atherosclerotic heart disease of native coronary artery without angina pectoris; I25.2 Old myocardial infarction; E10.9 Type 1 diabetes mellitus without complications; E27.1 Primary adrenocortical insufficiency; Z95.5 Presence of coronary angioplasty implant and graft; Z95.810 Presence of automatic (implantable) cardiac defibrillator
CPT/HCPCS: 36415; 71045; 80053; 83690; 84484; 85025; 93005; 96361; 96374; 99283; 99285; A9270

== ENCOUNTER 2018-05-07 03:24 | Emergency (ER) | payer MEDICARE ==
[2018-05-07] MEDS ORDERED: HYDROCORTISONE SUCCINATE 100 MG/2 ML VIAL IVP STA (04:03)
[2018-05-07] MEDS ORDERED: SODIUM CHLORIDE 0.9% 1,000 ML IV STA ×2 (04:03→05:23)
--- NOTE | 2018-05-07 04:03 | ED Physician Documentation ---
History of Present Illness - Stated complaint Stated Complaint: GLF/ LF HIP/ELBOW PX - Chief complaint Chief Complaint: Trauma Ext - History obtained from History obtained from: Patient - History of Present Illness Timing: Today, How many hours ago (1) Pain level now: 2 Improved by: rest Worsened by: movement (left elbow), standing (lightheadedness) - Additonal information Additional information: was at home preparing food in kitchen when he fell to ground; he says he thinks he tripped. low BP noted during triage process. similar episodes in the past including earlier this month, possibly related to Addisons disease. takes daily PO hydrocortisone Review of Systems Constitutional: reports: Reviewed and negative Eyes: reports: Reviewed and negative Cardiac: reports: Reviewed and negative Respiratory: reports: Reviewed and negative GI: reports: Reviewed and negative : denies: Dysuria, Frequency Musculoskeletal: reports: Joint pain (left elbow) Neurologic: reports: Reviewed and negative PD PAST MEDICAL HISTORY - Past Medical History Cardiovascular: Congestive heart failure, Hypertension, High cholesterol, Coronary artery disease, [place], Other Respiratory: COPD, Shortness of breath Endocrine/Autoimmune: Type 1 diabetes, Other GI: GERD, Chronic diarrhea, Other : Benign prostate hypertrophy, Renal insuffiency, Other HEENT: Other Psych: Depression, Anxiety, Panic attacks, Post traumatic stress disorder Musculoskeletal: Osteoarthritis Derm: None - Past Surgical History Past Surgical History: Yes General: Colonoscopy, EGD Ortho: Carpal Tunnel surgery, Other /FEDERAL MEDIATOR: Other Cardiovascular: Coronary stent, AICD, Cardiac catheterization HEENT: Other - Present Medications Home Medications: Ambulatory Orders Medication Instructions Recorded Confirmed Pantoprazole [Protonix] 40 mg PO BIDAC 09/04/14 01/19/18 Spironolactone 12.5 mg PO DAILY 09/04/14 01/19/18 Zolpidem Tartrate 10 mg PO QPM PRN 09/04/14 01/19/18 raNITIdine HCl [Ranitidine HCl] 300 mg PO QPM 09/04/14 01/19/18 Insulin Lispro [Humalog] 1 - 11 units SQ .SLIDING SCALE 10/07/16 01/19/18 Pregabalin [Lyrica] 300 mg PO BID 10/07/16 01/19/18 Nortriptyline HCl 20 mg PO 0800,1700 03/01/17 01/19/18 Alprazolam 0.5 mg PO BID PRN 04/07/17 01/19/18 Cetirizine [ZyrTEC] 10 mg PO DAILY 04/07/17 01/19/18 Diclofenac Sodium [Voltaren] 4 gm TP QID PRN 04/07/17 01/19/18 Lidocaine Patch 5% [Lidoderm Patch] 1 each TOP DAILY PRN 04/07/17 01/19/18 Simvastatin 80 mg PO QPM 04/07/17 01/19/18 Budesonide [Entocort EC] 9 mg PO DAILY #60 capsule 04/10/17 01/19/18 Psyllium [Metamucil] 1 packet PO BID packet 04/10/17 01/19/18 oxyCODONE [Roxicodone] 5 mg PO Q6HR #0 04/10/17 01/19/18 Aspirin Chewable [[place] 81 mg PO DAILY tablet 05/30/17 01/19/18 Aspirin] DULoxetine [Cymbalta] 60 mg PO BID capsule 05/30/17 01/19/18 Gabapentin [Neurontin] 300 mg PO BID capsule 05/30/17 01/19/18 buPROPion [Wellbutrin Xl] 150 mg PO DAILY tablet 05/30/17 09/18/17 Cholestyramine [Questran] 1 pkt PO TID 01/19/18 01/19/18 Furosemide 20 mg PO BID 01/19/18 01/19/18 Metoprolol Succinate/Hctz 1 each PO DAILY 01/19/18 01/19/18 [Metoprolol ER-Hctz 25-12.5 mg] Nitroglycerin [Nitrostat] 1 tab SL PRN PRN 01/19/18 01/19/18 Pramlintide Acetate [Symlinpen 60] 15 mcg SQ AC 01/19/18 01/19/18 Doxazosin [Cardura] 8 mg PO DAILY 04/10/18 04/10/18 Hydrocortisone [Cortef] 04/10/18 Prasugrel HCl 10 mg PO 04/10/18 Azithromycin [Zithromax] 250 mg PO DAILY #6 tablet 04/18/18 - Allergies Allergies/Adverse Reactions: Allergies Allergy/AdvReac Type Severity Reaction Status Date / Time No Known Drug Allergies Allergy Verified 05/07/18 03:43 - Social History Does the pt smoke?: No Smoking Status: Never smoker Does the pt drink ETOH?: No Does the pt have substance abuse?: No - Immunizations Immunizations are current?: Yes - POLST Patient has POLST: No PD ED PE NORMAL - Vitals Vital signs reviewed: Yes - General General: Alert and oriented X 3, No acute distress, Well developed/nourished - HEENT HEENT: Moist mucous membranes - Neck Neck: Supple, no meningeal sign, No bony TTP - Cardiac Cardiac: RRR, No murmur - Respiratory Respiratory: No respiratory distress - Abdomen Abdomen: Soft, Non tender - Derm Derm: Normal color, Warm and dry, No rash - Extremities Extremities: No edema, Other (skin tear, left elbow. full ROM and no bony tenderness) - Neuro Neuro: Alert and oriented X 3, chucker 2-12 intact, No motor deficit, No sensory deficit, Normal speech Eye Opening: Spontaneous Motor: Obeys Commands Verbal: Oriented GCS Score: 15 Results - Vitals Vitals: Oxygen O2 Source [With Activity] Room air O2 Source Room air - EKG (time done) No standard instances Rate: Rate (enter#) (70) Rhythm: NSR [place]: Normal Intervals: Normal NM QRS: Normal Ischemia: Normal ST segments, Q waves (V1-V4) Compare to prior EKG: Unchanged from prior EKG - Labs Labs: Laboratory Tests 05/07/18 05/07/18 05/07/18 03:45 03:45 03:45 WBC 10.6 RBC 4.14 L Hgb 12.5 L Hct 37.7 L MCV 91.1 MCH 30.2 MCHC 33.1 RDW 14.8 Plt Count 224 MPV 9.1 Neut # (Auto) 7.5 H Lymph # (Auto) 1.8 George # (Auto) 1.1 H Eos # (Auto) 0.1 Baso # (Auto) 0.1 Absolute Nucleated RBC 0.00 Nucleated RBC % 0.0 Sodium 133 L Potassium 3.8 Chloride 96 L Carbon Dioxide 27 Anion Gap 10.0 BUN 34 H Creatinine 3.1 H Estimated GFR (MDRD) 21 L Glucose 126 H Calcium 8.8 Troponin I < 0.04 05/07/18 07:25 WBC RBC Hgb Hct MCV MCH MCHC RDW Plt Count MPV Neut # (Auto) Lymph # (Auto) George # (Auto) Eos # (Auto) Baso # (Auto) Absolute Nucleated RBC Nucleated RBC % Sodium 134 L Potassium 4.3 Chloride 101 Carbon Dioxide 25 Anion Gap 8.0 BUN 36 H Creatinine 2.3 H Estimated GFR (MDRD) 29 L Glucose 141 H Calcium 8.3 L Troponin I PD MEDICAL DECISION MAKING - ED course Complexity details: reviewed old records, reviewed results, re-evaluated patient , considered differential, d/w patient ED course: hypotensive on presentation (70s-80s SBP), improved eith IV fluids and IV hydrocortisone. asymptomatic at discharge including when standing (orthostatics also checked and WNL) - Sepsis Event Vital Signs: Oxygen O2 Source [With Activity] Room air O2 Source Room air Departure - Departure Disposition: 01 Home, Self Care Clinical Impression: Abnormal serum creatinine level Fall Qualifiers: Encounter type: initial encounter Qualified Code(s): W19.XXXA - Unspecified fall, initial encounter Hypotension Qualifiers: Hypotension type: unspecified hypotension type Qualified Code(s): I95.9 - Hypotension, unspecified Condition: Good Instructions: ED Hypotension All Causes Follow-Up: Amadou Jackson MD [Primary Care Provider] - Within 3 Days Comments: As discussed, your kidney tests (as measured by blood tests; specifically, BUN and creatinine) are abnormal. While these tests did improve significantly with intravenous fluids, they remain abnormal at the time of discharge from the emergency department. You need to follow up with your primary care physician within the next few days, as they might want to repeat these tests. It is important that you stay hydrated, as dehydration will likely cause the kidney tests to worsen. Discharge Date/Time: 05/07/18 09:14
[2018-05-07 04:11] LABS: BASOPHILS # (AUTO) 0.1 10^3/uL (0.0-0.1); BASOPHILS % (AUTO) 0.6 %; EOSINOPHILS # (AUTO) 0.1 10^3/uL (0.0-0.7); EOSINOPHILS % (AUTO) 1.4 %; HGB - HEMOGLOBIN 12.5 g/dL (14.0-18.0); LYMPHOCYTES # (AUTO) 1.8 10^3/uL (1.5-3.5); LYMPHOCYTES % (AUTO) 16.5 %; MEAN CORPUSCULAR HEMOGLOBIN 30.2 pg (27.0-31.0); MEAN CORPUSCULAR HGB CONC 33.1 g/dL (32.0-36.0); MEAN CORPUSCULAR VOLUME 91.1 fL (80.0-94.0); MEAN PLATELET VOLUME 9.1 fL (7.4-11.4); MONOCYTES # (AUTO) 1.1 10^3/uL (0.0-1.0); MONOCYTES % (AUTO) 10.5 %; NEUTROPHILS # (AUTO) 7.5 10^3/uL (1.5-6.6); PLT - PLATELET COUNT 224 10^3/uL (130-450); RED BLOOD COUNT 4.14 10^6/uL (4.70-6.10); RED CELL DISTRIBUTION WIDTH 14.8 % (12.0-15.0); WHITE BLOOD COUNT 10.6 x10^3/uL (4.8-10.8)
[2018-05-07 04:17] LABS: CALCIUM 8.8 mg/dL (8.5-10.3); CREATININE 3.1 mg/dL (0.6-1.2)
[2018-05-07 07:43] LABS: CALCIUM 8.3 mg/dL (8.5-10.3); CREATININE 2.3 mg/dL (0.6-1.2)
[2018-05-07 08:37] VITALS: BP 128/106
== END 2018-05-07 09:14 | disposition home or self-care (01) ==
LOC: ED 03:24
DX: S51.012A Laceration without foreign body of left elbow, initial encounter (principal); W18.30XA Fall on same level, unspecified, initial encounter; Y93.G1 Activity, food preparation and clean up; Y92.000 Kitchen of unspecified non-institutional (private) residence as the place of occurrence of the external cause; I95.9 Hypotension, unspecified; R79.89 Other specified abnormal findings of blood chemistry; I11.0 Hypertensive heart disease with heart failure; I50.9 Heart failure, unspecified; E10.9 Type 1 diabetes mellitus without complications; Z79.4 Long term (current) use of insulin; Z79.82 Long term (current) use of aspirin
CPT/HCPCS: 36415; 80048; 84484; 85025; 93005; 96361; 96374; 99284

== ENCOUNTER 2018-05-25 08:25 | Emergency (ER) | payer MEDICARE ==
[2018-05-25] MEDS ORDERED: LIDOCAINE 1%-EPI 1:100000 30 ML MDV TD STA (08:42)
--- NOTE | 2018-05-25 08:45 | ED Physician Documentation ---
History of Present Illness - Stated complaint Stated Complaint: EAR/HEAD LAC - Chief complaint Chief Complaint: General - Additonal information Additional information: hx from pt 58 male cardiac hx but not on blood thinners but has been bruising easily recently fell out of bed struck head lac ant to R ear no LOC has ELIZONDO and neck pain denies numbness and weakness no recent fever cough NVD CP AP etc tdap UTD Review of Systems Constitutional: denies: Fever, Chills Ears: denies: Ear pain, Drainage/discharge Nose: denies: Epistaxis Cardiac: denies: Chest pain / pressure, Palpitations Respiratory: denies: Dyspnea, Cough GI: denies: Abdominal Pain, Nausea, Vomiting Skin: reports: Laceration (s) Musculoskeletal: reports: Neck pain Neurologic: reports: Headache, Head injury. denies: Focal weakness, Numbness, Syncope, Seizure Endocrine: reports: Easy bruising / bleeding Immunocompromised: denies: Immunocompromised PD PAST MEDICAL HISTORY - Past Medical History Past Medical History: Yes Cardiovascular: Congestive heart failure, Hypertension, High cholesterol, Coronary artery disease, [place], Other Respiratory: COPD, Shortness of breath Neuro: None Endocrine/Autoimmune: Type 1 diabetes, Other GI: GERD, Chronic diarrhea, Other : Benign prostate hypertrophy, Renal insuffiency, Other HEENT: Other Psych: Depression, Anxiety, Panic attacks, Post traumatic stress disorder Musculoskeletal: Osteoarthritis Derm: None - Past Surgical History Past Surgical History: Yes General: Colonoscopy, EGD Ortho: Carpal Tunnel surgery, Other /PAIN COORDINATOR: Other Cardiovascular: Coronary stent, AICD, Cardiac catheterization HEENT: Other - Present Medications Home Medications: Ambulatory Orders Medication Instructions Recorded Confirmed Pantoprazole [Protonix] 40 mg PO BIDAC 09/04/14 01/19/18 Spironolactone 12.5 mg PO DAILY 09/04/14 01/19/18 Zolpidem Tartrate 10 mg PO QPM PRN 09/04/14 01/19/18 raNITIdine HCl [Ranitidine HCl] 300 mg PO QPM 09/04/14 01/19/18 Insulin Lispro [Humalog] 1 - 11 units SQ .SLIDING SCALE 10/07/16 01/19/18 Pregabalin [Lyrica] 300 mg PO BID 10/07/16 01/19/18 Nortriptyline HCl 20 mg PO 0800,1700 03/01/17 01/19/18 Alprazolam 0.5 mg PO BID PRN 04/07/17 01/19/18 Cetirizine [ZyrTEC] 10 mg PO DAILY 04/07/17 01/19/18 Diclofenac Sodium [Voltaren] 4 gm TP QID PRN 04/07/17 01/19/18 Lidocaine Patch 5% [Lidoderm Patch] 1 each TOP DAILY PRN 04/07/17 01/19/18 Simvastatin 80 mg PO QPM 04/07/17 01/19/18 Budesonide [Entocort EC] 9 mg PO DAILY #60 capsule 04/10/17 01/19/18 Psyllium [Metamucil] 1 packet PO BID packet 04/10/17 01/19/18 oxyCODONE [Roxicodone] 5 mg PO Q6HR #0 04/10/17 01/19/18 Aspirin Chewable [[place] Marvin 81 mg PO DAILY tablet 05/30/17 01/19/18 Aspirin] DULoxetine [Cymbalta] 60 mg PO BID capsule 05/30/17 01/19/18 Gabapentin [Neurontin] 300 mg PO BID capsule 05/30/17 01/19/18 buPROPion [Wellbutrin Xl] 150 mg PO DAILY tablet 05/30/17 09/18/17 Cholestyramine [Questran] 1 pkt PO TID 01/19/18 01/19/18 Furosemide 20 mg PO BID 01/19/18 01/19/18 Metoprolol Succinate/Hctz 1 each PO DAILY 01/19/18 01/19/18 [Metoprolol ER-Hctz 25-12.5 mg] Nitroglycerin [Nitrostat] 1 tab SL PRN PRN 01/19/18 01/19/18 Pramlintide Acetate [Symlinpen 60] 15 mcg SQ AC 01/19/18 01/19/18 Doxazosin [Cardura] 8 mg PO DAILY 04/10/18 04/10/18 Hydrocortisone [Cortef] 04/10/18 Prasugrel HCl 10 mg PO 04/10/18 Azithromycin [Zithromax] 250 mg PO DAILY #6 tablet 04/18/18 Isosorbide Mononitrate [Isosorbide 30 mg PO 05/25/18 05/25/18 Mononitrate ER] - Allergies Allergies/Adverse Reactions: Allergies Allergy/AdvReac Type Severity Reaction Status Date / Time No Known Drug Allergies Allergy Verified 05/25/18 08:36 - Social History Does the pt smoke?: No Smoking Status: Never smoker Does the pt drink ETOH?: No Does the pt have substance abuse?: No - Immunizations Immunizations are current?: Yes - POLST Patient has POLST: No PD ED PE NORMAL - Vitals Vital signs reviewed: Yes - General General: Alert and oriented X 3 - HEENT HEENT: PERRL, EOMI. No: Atraumatic (approx 6/5 cm stellate lac ant to R ear) - Neck Neck: No: No bony TTP (+ TTP will collar and image) - Cardiac Cardiac: RRR - Respiratory Respiratory: No respiratory distress, Clear bilaterally - Abdomen Abdomen: Non tender - Derm Derm: Normal color - Neuro Neuro: Alert and oriented X 3, No motor deficit, No sensory deficit Eye Opening: Spontaneous Motor: Obeys Commands Verbal: Oriented GCS Score: 15 Results - Vitals Vitals: Vital Signs - 24 hr 05/25/18 05/25/18 08:33 10:15 Temperature 36.5 C Heart Rate 84 72 Respiratory 16 16 Rate Blood Pressure 113/84 H 123/71 O2 Saturation 96 98 Oxygen O2 Source [] Room air O2 Source Room air - Labs Labs: Laboratory Tests 05/25/18 05/25/18 08:50 08:50 WBC 8.9 RBC 4.27 L Hgb 13.0 L Hct 38.3 L MCV 89.7 MCH 30.5 MCHC 34.0 RDW 14.1 Plt Count 230 MPV 8.4 Neut # (Auto) 5.7 Lymph # (Auto) 1.8 [place] # (Auto) 0.8 Eos # (Auto) 0.5 Baso # (Auto) 0.0 Absolute Nucleated RBC 0.01 Nucleated RBC % 0.1 PT 11.5 INR 1.0 - Rads (name of study) CTH Radiology: See rad report (no acute) CTCS Radiology: See rad report (no acute) Procedures - Laceration (location) preauricular Length in cm: 7 Wound type: Stellate Neurovascular status: Sensory intact, Motor intact Anesthesia: Lidocaine 1% with epi (10 cc) Wound Preparation: Irrigated copiously NS, Wound explored, To the base, Multiple flaps aligned, Other (small amount of avascular tissue trimmed) Skin layer closure: Nylon, Size #-0 - enter number (5), Sutures - enter # (13) Other: Patient tolerated well, No complications, Neurovascular intact, Dressing applied, Tetanus UTD Complexity: Intermediate PD MEDICAL DECISION MAKING - Sepsis Event Vital Signs: Vital Signs - 24 hr 05/25/18 05/25/18 08:33 10:15 Temperature 36.5 C Heart Rate 84 72 Respiratory 16 16 Rate Blood Pressure 113/84 H 123/71 O2 Saturation 96 98 Oxygen O2 Source [] Room air O2 Source Room air Departure - Departure Disposition: Home, Self Care Clinical Impression: Face lacerations Qualifiers: Encounter type: initial encounter Qualified Code(s): S01.81XA - Laceration without foreign body of other part of head, initial encounter Head injury Qualifiers: Encounter type: initial encounter Qualified Code(s): S09.90XA - Unspecified injury of head, initial encounter Condition: Good Instructions: ED Head Injury Closed Follow-Up: Amadou Jackson MD [Primary Care Provider] - (for suture removal in 7 days and further evaluation of your easy bruising and bleeding) Comments: The CT scans did not show any skull or spine fracture and no bleeding in the brain Your labs were fine - normal platelets and INR - I am not sure why your bruise and bleed so easily and suggest you follow up with Dr Jackson Keep the wound clean Keep the dressing on for 24 hr Apply bacitracin twice a day after that Sutures out 7 days Even with good wound care, some wounds get infected - if you notice redness swelling severe pain fever or drainage, please come back to the ER
[2018-05-25 08:59] LABS: BASOPHILS % (AUTO) 0.5 %; EOSINOPHILS # (AUTO) 0.5 10^3/uL (0.0-0.7); EOSINOPHILS % (AUTO) 5.3 %; LYMPHOCYTES # (AUTO) 1.8 10^3/uL (1.5-3.5); LYMPHOCYTES % (AUTO) 19.9 %; MEAN CORPUSCULAR HEMOGLOBIN 30.5 pg (27.0-31.0); MEAN CORPUSCULAR VOLUME 89.7 fL (80.0-94.0); MEAN PLATELET VOLUME 8.4 fL (7.4-11.4); MONOCYTES # (AUTO) 0.8 10^3/uL (0.0-1.0); MONOCYTES % (AUTO) 9.5 %; NEUTROPHILS # (AUTO) 5.7 10^3/uL (1.5-6.6); NEUTROPHILS % (AUTO) 64.8 %; PLT - PLATELET COUNT 230 10^3/uL (130-450); RED BLOOD COUNT 4.27 10^6/uL (4.70-6.10); RED CELL DISTRIBUTION WIDTH 14.1 % (12.0-15.0); WHITE BLOOD COUNT 8.9 x10^3/uL (4.8-10.8)
[2018-05-25 09:04] LABS: PT - PROTHROMBIN TIME 11.5 secs (9.9-12.6)
[2018-05-25] MEDS ORDERED: oxyCOD/ACETAMIN 5 MG/325 MG TABLET PO STA ×2 (09:07→12:09)
--- NOTE | 2018-05-25 10:41 | CT Report ---
Procedure Date: 05/25/2018 Accession Number: [id number] / [id number] Procedure: CT - Head W/O CPT Code: FULL RESULT: EXAM: CT HEAD EXAM DATE: 05/25/2018 10:02 AM. CLINICAL HISTORY: Fall [place]. COMPARISON: CT head 04/10/2018. TECHNIQUE: Multiaxial CT images were obtained from the foramen magnum to the vertex. Reformats: Sagittal and coronal. IV contrast: None. In accordance with CT protocol optimization, one or more of the following dose reduction techniques were utilized for this exam: automated exposure control, adjustment of mA and/or KV based on patient size, or use of iterative reconstructive technique. FINDINGS: Parenchyma: No intraparenchymal hemorrhage. No evidence of mass, midline shift, or CT findings of infarction. Salgado-white differentiation is distinct. Extraaxial Spaces: Normal for age. No subdural or epidural collections identified. Ventricles: Normal in size and position. Sinuses and Orbits: Stable partial opacification of the left mastoid air cells. Chronic maxillary sinusitis with osseous thickening. Partial opacification of the ethmoid air cells. Bones: No evidence of fracture or calvarial defect. Other: None. IMPRESSION: No acute intracranial process RADIA
--- NOTE | 2018-05-25 10:45 | CT Report ---
Procedure Date: 05/25/2018 Accession Number: [id number] / [id number] Procedure: CT - Cervical Spine W/O CPT Code: FULL RESULT: EXAM: CT CERVICAL SPINE WITHOUT CONTRAST DATE: 05/25/2018 10:02 AM. HISTORY: Fall HI neck pain. COMPARISONS: None. TECHNIQUE: Thin-section axial images were acquired of the cervical spine without contrast. Post-processing: Coronal and sagittal reformats. Other: None. In accordance with CT protocol optimization, one or more of the following dose reduction techniques were utilized for this exam: automated exposure control, adjustment of mA and/or KV based on patient size, or use of iterative reconstructive technique. FINDINGS: Alignment: No scoliosis or spondylolisthesis. Cervical spine straightening. Bones: No fracture or bone lesion. Mild spondylosis with marginal osteophytosis at C6/C7 and C7/T1. Interspace Levels/Facets: Preserved disk heights. Musculature: Normal. No fatty atrophy. Other: The paravertebral and prevertebral soft tissues are unremarkable. Left-sided pacemaker IMPRESSION: No fracture or spondylolisthesis. RADIA
[2018-05-25 12:21] VITALS: BP 119/81
== END 2018-05-25 12:20 | disposition home or self-care (01) ==
LOC: ED 08:25
DX: S01.311A Laceration without foreign body of right ear, initial encounter (principal); S09.90XA Unspecified injury of head, initial encounter; W06.XXXA Fall from bed, initial encounter; I11.0 Hypertensive heart disease with heart failure; I50.9 Heart failure, unspecified; E78.00 Pure hypercholesterolemia, unspecified; I25.10 Atherosclerotic heart disease of native coronary artery without angina pectoris; I25.2 Old myocardial infarction; E10.9 Type 1 diabetes mellitus without complications; Z95.5 Presence of coronary angioplasty implant and graft; Z95.810 Presence of automatic (implantable) cardiac defibrillator; Z79.82 Long term (current) use of aspirin
CPT/HCPCS: 12053; 36415; 70450; 72125; 85025; 85610; 99283; A9270

== ENCOUNTER 2018-07-04 12:48 | Outpatient (CLI) | payer MEDICARE ==
--- NOTE | 2018-07-05 11:27 | CT Report ---
Reason: FOOT PAIN, RIGHT Procedure Date: 07/04/2018 Accession Number: [id number] / [id number] Procedure: CT - Lower Extremity Right W/O CPT Code: FULL RESULT: EXAM: RIGHT ANKLE/HINDFOOT CT WITHOUT CONTRAST EXAM DATE: 07/04/2018 01:32 PM. CLINICAL HISTORY: Foot pain, right. COMPARISON: Radiograph 07/01/2018. TECHNIQUE: Thin-section axial images were acquired of the ankle/hindfoot without contrast. Post-processing: Coronal and sagittal reformats. Other: None. In accordance with CT protocol optimization, one or more of the following dose reduction techniques were utilized for this exam: automated exposure control, adjustment of mA and/or KV based on patient size, or use of iterative reconstructive technique. FINDINGS: Bones: No fracture or bone lesion. A benign ossicle is adjacent to the cuboid. Joints: The joint spaces are preserved. No calcified loose bodies. No large effusion. Musculature: Moderate fatty atrophy is an intrinsic musculature of the foot. Other: Arterial calcifications indicate atherosclerosis. There is calcific enthesopathy at the Achilles insertion. IMPRESSION: No acute findings. RADIA
== END 2018-07-04 12:49 | disposition home or self-care (01) ==
LOC: DI 12:48
PROVIDERS: ATTEND Family Medicine
DX: M79.671 Pain in right foot (principal)

== ENCOUNTER 2018-08-19 08:56 | Outpatient (CLI) | payer MEDICARE ==
[2018-08-19 12:55] LABS: BASOPHILS # (AUTO) 0.1 10^3/uL (0.0-0.1); BASOPHILS % (AUTO) 0.7 %; EOSINOPHILS # (AUTO) 0.2 10^3/uL (0.0-0.7); EOSINOPHILS % (AUTO) 2.1 %; HGB - HEMOGLOBIN 12.7 g/dL (14.0-18.0); LYMPHOCYTES # (AUTO) 2.1 10^3/uL (1.5-3.5); LYMPHOCYTES % (AUTO) 23.5 %; MEAN CORPUSCULAR HEMOGLOBIN 31.1 pg (27.0-31.0); MEAN CORPUSCULAR HGB CONC 34.1 g/dL (32.0-36.0); MEAN CORPUSCULAR VOLUME 91.2 fL (80.0-94.0); MEAN PLATELET VOLUME 9.2 fL (7.4-11.4); MONOCYTES # (AUTO) 0.9 10^3/uL (0.0-1.0); MONOCYTES % (AUTO) 10.2 %; NEUTROPHILS # (AUTO) 5.5 10^3/uL (1.5-6.6); NEUTROPHILS % (AUTO) 63.5 %; PLT - PLATELET COUNT 206 10^3/uL (130-450); RED BLOOD COUNT 4.09 10^6/uL (4.70-6.10); RED CELL DISTRIBUTION WIDTH 14.3 % (12.0-15.0); WHITE BLOOD COUNT 8.7 x10^3/uL (4.8-10.8)
[2018-08-19 13:17] LABS: ALBUMIN 3.9 g/dL (3.2-5.5); ALBUMIN/GLOBULIN RATIO 1.5 (1.0-2.2); ALKALINE PHOSPHATASE 85 IU/L (42-121); ALT ALANINE AMINOTRANSFERASE 21 IU/L (10-60); AST ASPARTATE AMINOTRANSFERASE 16 IU/L (10-42); BILIRUBIN,TOTAL 0.7 mg/dL (0.2-1.0); BUN - BLOOD UREA NITROGEN 15 mg/dL (6-20); CALCIUM 8.5 mg/dL (8.5-10.3); CARBON DIOXIDE - CO2 30 mmol/L (21-32); CHLORIDE 98 mmol/L (101-111); GFR - MDRD 77 (>89); GLUCOSE 172 mg/dL (70-100); SODIUM 138 mmol/L (135-145); TOTAL PROTEIN 6.5 g/dL (6.7-8.2)
[2018-08-19 14:03] LABS: HB2 TOTAL 13.3 g/dL; HEMOGLOBIN A1C 1.06 g/dL; HEMOGLOBIN A1C % 9.4 % (4.6-6.2)
== END 2018-08-19 08:57 | disposition home or self-care (01) ==
LOC: LAB.WCP 08:56
PROVIDERS: ATTEND Family Medicine
DX: E11.9 Type 2 diabetes mellitus without complications (principal); I25.10 Atherosclerotic heart disease of native coronary artery without angina pectoris; I25.5 Ischemic cardiomyopathy
CPT/HCPCS: 36415; 80053; 82043; 83036; 84443; 85025

== ENCOUNTER 2018-10-06 07:07 | Day surgery (SDC) | payer MEDICARE ==
[~2018-10-06 07:07] MED LIST: BRIMONIDINE 0.2% OPHTH DROPS 5 ML ONE; BSS/LIDOCAINE/EPINEPHRINE 1 ML SYRINGE ONE; CYCLOPENTOLATE 1% OPHTH DROPS 2 ML LEFTEYE ONE; CYCLOPENTOLATE 1% OPHTH DROPS 2 ML ONE; EPINEPHrine 1 MG/ML AMP ONE; KETOROLAC 0.45% OPHTH DROPS LEFTEYE ONE; KETOROLAC 0.45% OPHTH DROPS ONE; PHENYLEPHRINE 2.5% OPHTH 2 ML DROPS LEFTEYE ONE; PHENYLEPHRINE 2.5% OPHTH 2 ML DROPS ONE; PROPARACAINE 0.5% OPHTH DROPS 15 ML LEFTEYE ONE; PROPARACAINE 0.5% OPHTH DROPS 15 ML ONE; TIMOLOL 0.5% OPHTH DROPS ONE; TRIAMCIN/MOXIFLOX OPHTHALMIC 0.6 ML VIAL IO ONE; VANCOMYCIN OPHTHALMI 8MG/0.8ML 8 MG/0.8 ML SYRINGE IO ONE
[2018-10-06] MEDS ORDERED: LACTATED RINGERS 500 ML IV ONE (07:33)
--- NOTE | 2018-10-06 07:56 | ANESTHESIA ---
Pre-Anesthesia VS, & Labs - Diagnosis left eye senile combined cataract - Procedure Left eye cataract extraction with IOL implant Vital Signs: Temp Pulse Resp BP Pulse Ox 37 C 91 18 140/74 H 96 10/06/18 07:19 10/06/18 07:19 10/06/18 07:19 10/06/18 07:19 10/06/18 07:19 Height 5 ft 11 in Weight (kg) 119 kg Body Mass Index 36.2 - NPO >8 hours Home Medications and Allergies Pantoprazole [Protonix] 40 mg PO BIDAC 09/04/14 Spironolactone 12.5 mg PO DAILY 09/04/14 Zolpidem Tartrate 10 mg PO QPM PRN 09/04/14 raNITIdine HCl [Ranitidine HCl] 300 mg PO QPM 09/04/14 Insulin Lispro [Humalog] 1 - 11 units SQ .SLIDING SCALE 10/07/16 Pregabalin [Lyrica] 300 mg PO BID 10/07/16 Nortriptyline HCl 20 mg PO 0800,1700 03/01/17 Alprazolam 0.5 mg PO BID PRN 04/07/17 Cetirizine [ZyrTEC] 10 mg PO DAILY 04/07/17 Diclofenac Sodium [Voltaren] 4 gm TP QID PRN 04/07/17 Lidocaine Patch 5% [Lidoderm Patch] 1 each TOP DAILY PRN 04/07/17 Simvastatin 80 mg PO QPM 04/07/17 Cholestyramine [Questran] 1 pkt PO TID 01/19/18 Furosemide 20 mg PO BID 01/19/18 Metoprolol Succinate/Hctz [Metoprolol ER-Hctz 25-12.5 mg] 1 each PO DAILY 01/19/18 Nitroglycerin [Nitrostat] 1 tab SL PRN PRN 01/19/18 Pramlintide Acetate [Symlinpen 60] 15 mcg SQ AC 01/19/18 Doxazosin [Cardura] 8 mg PO DAILY 04/10/18 Hydrocortisone [Cortef] 04/10/18 Prasugrel HCl 10 mg PO 04/10/18 Isosorbide Mononitrate [Isosorbide Mononitrate ER] 30 mg PO 05/25/18 Allergies/Adverse Reactions: Allergies Allergy/AdvReac Type Severity Reaction Status Date / Time No Known Drug Allergies Allergy Verified 05/25/18 08:36 Anes History & Medical History - Anesthetic History Anesthesia Complications: reports: No previous complications - Medical History Cardiovascular: reports: Congestive heart failure, Hypertension, High cholesterol, Coronary artery disease, [place], Other (pacemeker/AICD. EF 33% on last exam. Last nuclear medicine stress test show no new areas of ischemia.) Pulmonary: reports: COPD, Shortness of breath, Other (Sleeps sitting up.) Gastrointestinal: reports: GERD, Chronic diarrhea, Other Urinary: reports: Benign prostate hypertrophy, Renal insuffiency Neuro: reports: None, Peripheral neuropathy (worse on left leg.) Musculoskeletal: reports: Osteoarthritis Endocrine/Autoimmune: reports: Type 1 diabetes, Other (Uses insulin pump and continuous glucose monitoring.) Blood Disorders: reports: None Skin: reports: None Smoking Status: Never smoker Psychosocial: reports: Depression, Anxiety, Opioid (Chronic opioid use), Other (PTSD) - Surgical History General: Colonoscopy, EGD Cardiothoracic: Coronary stent, AICD, Cardiac catheterization Urologic: Prostatic surgery, Testicular surgery Orthopedic: Carpal Tunnel surgery Exam General: Alert, Oriented x3, Cooperative, No acute distress Dental: WNL Mouth Openin Fingerbreadth Neck Mobility: Normal Mallampati classification: II Thyromental Distance: 4-6 cm Respiratory: Lungs clear, Normal breath sounds, No respiratory distress, No accessory muscle use Cardiovascular: Regular rate, Normal S1, Normal S2, No murmurs Mental/Cognitive Status: Alert/Oriented X3, Normal for patient Plan Anesthesia Type: MAC Consent for Procedure(s) Verified and Reviewed: Yes Code Status: Attempt Resuscitation ASA classification: 4-Incapacitating disease Is this case an emergency?: No
[2018-10-06] MEDS ORDERED: EPINEPHrine 1 MG/ML AMP IR ONE (08:39)
[2018-10-06] MEDS ORDERED: BRIMONIDINE 0.2% OPHTH DROPS 5 ML OPTH ONE (08:39)
[2018-10-06] MEDS ORDERED: CHONDR SULF/HYALURONATE SYRINGE IO ONE (08:40)
[2018-10-06] MEDS ORDERED: PROPARACAINE 0.5% OPHTH DROPS 15 ML LEFTEYE ONE (08:40)
[2018-10-06] MEDS ORDERED: MIDAZOLAM 2 MG/2 ML VIAL IVP ONE (08:40)
[2018-10-06] MEDS ORDERED: LIDOCAINE-MPF 2% 5 ML VIAL IM ONE (08:40)
[2018-10-06] MEDS ORDERED: PROPOFOL 200 MG/20 ML VIAL IVP ONE (08:40)
[2018-10-06] MEDS ORDERED: TIMOLOL 0.5% OPHTH DROPS OPTH ONE (08:40)
[2018-10-06] MEDS ORDERED: fentaNYL 100 MCG/2 ML VIAL IVP ONE (08:40)
[2018-10-06] MEDS ORDERED: BSS/LIDOCAINE/EPINEPHRINE 1 ML SYRINGE IO ONE ×2 (08:40)
[2018-10-06] MEDS ORDERED: TRIAMCIN/MOXIFLOX OPHTHALMIC 0.6 ML VIAL IO ONE (08:41)
[2018-10-06] MEDS ORDERED: VANCOMYCIN OPHTHALMI 8MG/0.8ML 8 MG/0.8 ML SYRINGE IO ONE ×2 (08:41)
[2018-10-06 09:07] VITALS: BP 133/97
--- NOTE | 2018-10-06 12:05 | OPERATIVE REPORT ---
DATE OF SERVICE: 10/06/2018 Physician: Bryant Thompson MD PREOPERATIVE DIAGNOSIS: Visually significant cataract, left eye. This is his first cataract surgery . POSTOPERATIVE DIAGNOSIS: Visually significant cataract, left eye. This is his first cataract surger y. NAME OF PROCEDURE: Phacoemulsification with posterior chamber intraocular lens implant, left eye. SURGEON: Bryant Thompson MD ANESTHESIA: Monitored anesthesia care. COMPLICATIONS: None. OPERATIVE INDICATIONS: This is a 59-year-old man with progressive vision loss in the left eye due to a 2+ nuclear sclerotic and 1-2+ posterior subcapsular cataract. Best corrected visual acuity was 20 /25 with glare to 20/60 in the left eye. Indications for surgery were overall decrease in vision, di fficulty seeing words on the computer screen, difficulty reading; difficulty seeing words, closed cap tion or game scores on TV; difficulty seeing street signs, difficulty driving in low light or at nigh t, difficulty driving at night because of headlights from other vehicles and/or street lights, diffic ulty with glare or bright lights in any situation, and difficulty tracking a golf ball and decreased acuity with firearms. He was consented at length concerning the risks and benefits of cataract surge ry, after which he expressed a desire to proceed with surgery. OPERATIVE PROCEDURE: The patient was taken to OR #3 and placed under monitored anesthesia care. Mildred gical timeout was conducted confirming correct patient, correct procedure, and correct surgical site. He was given topical anesthesia and then prepped and draped in the usual sterile fashion. The eye was entered at the 6 and 3 o'clock positions. Intracameral Shugarcaine was injected into the anterio r chamber, followed by Viscoat. A continuous-tear curvilinear capsulorrhexis was performed. The nuc leus was hydrodissected and phacoemulsified. The cortex was evacuated using automated infusion and a spiration. Provisc was injected in the capsular bag, and a 21.5 diopter intraocular lens inserted in the bag. Approximately 0.9 mL of a mixture of triamcinolone, moxifloxacin, and vancomycin was injec roverto subconjunctivally in the superior quadrant for infection and inflammation prophylaxis. I and A w as used to evacuate the viscoelastic material. The eye was inflated to physiologic pressure using ba lanced salt solution and found to be watertight. The patient was taken from the operating room in go od condition and given postoperative instructions. TD: 10/06/2018 09:05
== END 2018-10-06 07:08 | disposition home or self-care (01) ==
LOC: SDS 07:07
PROVIDERS: ATTEND Ophthalmology
PROC: 08RK3JZ Replacement of Left Lens with Synthetic Substitute, Percutaneous Approach (ICD-10-PCS; principal; 2018-10-06 08:30)
DX: H25.812 Combined forms of age-related cataract, left eye (principal); E10.3593 Type 1 diabetes mellitus with proliferative diabetic retinopathy without macular edema, bilateral; J44.9 Chronic obstructive pulmonary disease, unspecified; F32.9 Major depressive disorder, single episode, unspecified; I11.0 Hypertensive heart disease with heart failure; I50.9 Heart failure, unspecified; E78.00 Pure hypercholesterolemia, unspecified; I25.10 Atherosclerotic heart disease of native coronary artery without angina pectoris; I25.2 Old myocardial infarction; Z95.810 Presence of automatic (implantable) cardiac defibrillator; E10.42 Type 1 diabetes mellitus with diabetic polyneuropathy; Z79.4 Long term (current) use of insulin; N40.0 Benign prostatic hyperplasia without lower urinary tract symptoms; N28.9 Disorder of kidney and ureter, unspecified
CPT/HCPCS: 66984; A9270; J3490; V2632

== ENCOUNTER 2018-10-08 10:36 | Emergency (ER) | payer MEDICARE ==
[2018-10-08 11:01] LABS: BASOPHILS % (AUTO) 0.8 %; EOSINOPHILS % (AUTO) 0.7 %; HGB - HEMOGLOBIN 13.4 g/dL (14.0-18.0); MEAN CORPUSCULAR HEMOGLOBIN 31.1 pg (27.0-31.0); MEAN CORPUSCULAR HGB CONC 34.1 g/dL (32.0-36.0); MEAN CORPUSCULAR VOLUME 91.2 fL (80.0-94.0); MEAN PLATELET VOLUME 7.7 fL (7.4-11.4); MONOCYTES % (AUTO) 8.3 %; NEUTROPHILS % (AUTO) 82.2 %; PLT - PLATELET COUNT 178 10^3/uL (130-450); RED BLOOD COUNT 4.31 10^6/uL (4.70-6.10); RED CELL DISTRIBUTION WIDTH 14.9 % (12.0-15.0); WHITE BLOOD COUNT 13.9 x10^3/uL (4.8-10.8)
[2018-10-08 11:05] LABS: ABNORMAL LYMPHS % (MANUAL) 0 %; BAND NEUTROPHILS % (MANUAL) 0 %
[2018-10-08] MEDS ORDERED: ONDANSETRON 4 MG/2 ML VIAL IVP STA (11:06)
[2018-10-08] MEDS ORDERED: HYDROmorphone 1 MG/ML CARPUJECT IVP STA (11:06)
[2018-10-08 11:09] LABS: ALBUMIN 3.7 g/dL (3.2-5.5); ALBUMIN/GLOBULIN RATIO 1.4 (1.0-2.2); BILIRUBIN,TOTAL 0.4 mg/dL (0.2-1.0); CALCIUM 8.7 mg/dL (8.5-10.3); CREATININE 1.2 mg/dL (0.6-1.2); TOTAL PROTEIN 6.4 g/dL (6.7-8.2)
--- NOTE | 2018-10-08 11:10 | ED Physician Documentation ---
PD HPI ABD PAIN - Stated complaint Stated Complaint: LOWER ABD PX - Chief complaint Chief Complaint: Abd Pain - History obtained from History obtained from: Patient - History of Present Illness Timing - onset: How many days ago (3) Timing - duration: Days (3) Timing - details: Abrupt onset, Still present, Waxing and waning Quality: Cramping, Sharp, Pain Location: Suprapubic Improved by: Laying still Worsened by: Position, Palpation Associated symptoms: No: Fever, Nausea, Vomiting, Diarrhea, Constipation, Dysuria Similar symptoms before: Has not had sx before Recently seen: Surgery - Additional information Additional information: 58-year-old type I diabetic male has recently had cataract surgery which went well and without abnormality. He has now over the last 3 days developed intermittent lower abdominal cramping pain. Yesterday he had episodes lasting 20 minutes and today he does have persistent pain. He feels that there may be some distention of his abdomen as well. He does have a history of collagenous colitis and this is in remission on budesonide. He does have a history of [place]'s as well as the diabetes. He has not had surgery to his abdomen. The patient does state that he had a bowel movement yesterday that was normal he has passed flatus today. He does not have any nausea or vomiting and he has no change in his pain with eating. Review of Systems Constitutional: denies: Fever Eyes: denies: Decreased vision Ears: denies: Ear pain Nose: denies: Congestion Throat: denies: Sore throat Cardiac: denies: Chest pain / pressure, Palpitations Respiratory: denies: Dyspnea, Cough GI: reports: Abdominal Pain, Abdominal Swelling. denies: Nausea, Vomiting, Constipation, Diarrhea : denies: Dysuria, Frequency Skin: denies: Rash Musculoskeletal: denies: Neck pain, Back pain, Extremity pain PD PAST MEDICAL HISTORY - Past Medical History Cardiovascular: Congestive heart failure, Hypertension, High cholesterol, Coronary artery disease, [place], Other Respiratory: COPD, Shortness of breath, Other Neuro: None, Peripheral neuropathy Endocrine/Autoimmune: Type 1 diabetes, Other GI: GERD, Chronic diarrhea, Other : Benign prostate hypertrophy, Renal insuffiency HEENT: Other Psych: Depression, Anxiety, Panic attacks, Post traumatic stress disorder Musculoskeletal: Osteoarthritis Derm: None - Past Surgical History Past Surgical History: Yes General: Colonoscopy, EGD 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 Cardiovascular: Coronary stent, AICD, Cardiac catheterization HEENT: Cataracts, Other - Present Medications Home Medications: Ambulatory Orders Medication Instructions Recorded Confirmed RX: Pantoprazole [Protonix] 40 mg PO BIDAC 09/04/14 10/06/18 RX: Spironolactone 12.5 mg PO DAILY 09/04/14 10/06/18 RX: Zolpidem Tartrate 10 mg PO QPM PRN 09/04/14 10/06/18 RX: raNITIdine HCl [Ranitidine HCl] 300 mg PO QPM 09/04/14 10/06/18 RX: Insulin Lispro [Humalog] 1 - 11 units SQ .SLIDING SCALE 10/07/16 01/19/18 RX: Pregabalin [Lyrica] 300 mg PO BID 10/07/16 10/06/18 RX: Nortriptyline HCl 20 mg PO 0800,1700 03/01/17 10/06/18 RX: Alprazolam 0.5 mg PO BID PRN 04/07/17 10/06/18 RX: Cetirizine [ZyrTEC] 10 mg PO DAILY 04/07/17 10/06/18 RX: Diclofenac Sodium [Voltaren] 4 gm TP QID PRN 04/07/17 10/06/18 RX: Lidocaine Patch 5% [Lidoderm 1 each TOP DAILY PRN 04/07/17 10/06/18 Patch] RX: Simvastatin 80 mg PO QPM 04/07/17 10/06/18 RX: Budesonide [Entocort EC] 9 mg PO DAILY #60 capsule 04/10/17 10/06/18 RX: Psyllium [Metamucil] 1 packet PO BID packet 04/10/17 01/19/18 RX: oxyCODONE [Roxicodone] 5 mg PO Q6HR #0 04/10/17 10/06/18 RX: Aspirin Chewable [[place] 81 mg PO DAILY tablet 05/30/17 10/06/18 Aspirin] RX: DULoxetine [Cymbalta] 60 mg PO BID capsule 05/30/17 10/06/18 RX: Gabapentin [Neurontin] 300 mg PO BID capsule 05/30/17 10/06/18 RX: buPROPion [Wellbutrin Xl] 150 mg PO DAILY tablet 05/30/17 10/06/18 Metoprolol Succinate/Hctz 1 each PO DAILY 01/19/18 10/06/18 [Metoprolol ER-Hctz 25-12.5 mg] Nitroglycerin [Nitrostat] 1 tab SL PRN PRN 01/19/18 10/06/18 Pramlintide Acetate [Symlinpen 60] 15 mcg SQ AC 01/19/18 10/06/18 RX: Furosemide 20 mg PO BID 01/19/18 10/06/18 Doxazosin [Cardura] 8 mg PO DAILY 04/10/18 10/06/18 RX: Hydrocortisone [Cortef] 10 mg PO DAILY 04/10/18 10/06/18 Isosorbide Mononitrate [Isosorbide 30 mg PO DAILY 05/25/18 10/06/18 Mononitrate ER] RX: Gabapentin 300 mg PO BID 10/06/18 10/06/18 - Allergies Allergies/Adverse Reactions: Allergies Allergy/AdvReac Type Severity Reaction Status Date / Time No Known Drug Allergies Allergy Verified 10/08/18 10:46 - Social History Does the pt smoke?: No Smoking Status: Never smoker Does the pt drink ETOH?: No Does the pt have substance abuse?: No - Immunizations Immunizations are current?: Yes - POLST Patient has POLST: No PD ED PE NORMAL - Vitals Vital signs reviewed: Yes (normal ) - General General: Alert and oriented X 3, No acute distress, Well developed/nourished - HEENT HEENT: Atraumatic, PERRL, EOMI - Neck Neck: Supple, no meningeal sign, No bony TTP - Cardiac Cardiac: RRR, No murmur - Respiratory Respiratory: No respiratory distress, Clear bilaterally - Abdomen Abdomen: Soft, Other (distended and mild tenderness to the left lower quadrant. There is no garding or rebound. There are bruises to the abdominal wall consistent with insulin injection site and there are both insulin pump and continuous glucose monitor in place. ) - Back Back: No CVA TTP, No spinal TTP - Derm Derm: Normal color, Warm and dry, No rash - Extremities Extremities: No deformity, No edema - Neuro Neuro: Alert and oriented X 3, No motor deficit, No sensory deficit, Normal speech Eye Opening: Spontaneous Motor: Obeys Commands Verbal: Oriented GCS Score: 15 - Psych Psych: Normal mood, Normal affect Results - Vitals Vitals: Vital Signs - 24 hr 10/08/18 10/08/18 10:43 11:13 Temperature 36.1 C L Heart Rate 93 79 Respiratory 16 15 Rate Blood Pressure 127/78 115/66 O2 Saturation 96 93 Oxygen O2 Source [] Room air O2 Source Room air - Labs Labs: Laboratory Tests 10/08/18 10/08/18 10/08/18 10:49 10:49 10:49 WBC 13.9 H RBC 4.31 L Hgb 13.4 L Hct 39.3 L MCV 91.2 MCH 31.1 H MCHC 34.1 RDW 14.9 Plt Count 178 MPV 7.7 Neut # (Auto) Not Reportable Lymph # (Auto) Not Reportable [place] # (Auto) Not Reportable Eos # (Auto) Not Reportable Baso # (Auto) Not Reportable Absolute Nucleated RBC Not Reportable Total Counted 100 Band Neuts % (Manual) 0 Abnorm Lymph % (Manual) 0 Myelocytes % 1 H Nucleated RBC % Not Reportable Neutrophils # (Manual) 11.1 H Lymphocytes # (Manual) 1.3 L Monocytes # (Manual) 1.4 H Eosinophils # (Manual) 0.0 Basophils # (Manual) 0.0 Differential Comment MANUAL DIFFERENTIAL Sodium 134 L Potassium 4.0 Chloride 92 L Carbon Dioxide 33 H Anion Gap 9.0 BUN 24 H Creatinine 1.2 Estimated GFR (MDRD) 62 L Glucose 87 Calcium 8.7 Total Bilirubin 0.4 AST 27 ALT 53 Alkaline Phosphatase 81 Troponin I < 0.04 Total Protein 6.4 L Albumin 3.7 Globulin 2.7 Albumin/Globulin Ratio 1.4 Lipase 17 L Urine Color Urine Clarity Urine pH Ur Specific [place] Urine Protein Urine Glucose (UA) Urine Ketones Urine Occult Blood Urine Nitrite Urine Bilirubin Urine Urobilinogen Ur Leukocyte Esterase Urine RBC Urine WBC Ur Squamous Epith Cells Urine Bacteria Ur Microscopic Review Urine Culture Comments 10/08/18 13:05 WBC RBC Hgb Hct MCV MCH MCHC RDW Plt Count MPV Neut # (Auto) Lymph # (Auto) [place] # (Auto) Eos # (Auto) Baso # (Auto) Absolute Nucleated RBC Total Counted Band Neuts % (Manual) Abnorm Lymph % (Manual) Myelocytes % Nucleated RBC % Neutrophils # (Manual) Lymphocytes # (Manual) Monocytes # (Manual) Eosinophils # (Manual) Basophils # (Manual) Differential Comment Sodium Potassium Chloride Carbon Dioxide Anion Gap BUN Creatinine Estimated GFR (MDRD) Glucose Calcium Total Bilirubin AST ALT Alkaline Phosphatase Troponin I Total Protein Albumin Globulin Albumin/Globulin Ratio Lipase Urine Color LIGHT YELLOW Urine Clarity CLEAR Urine pH 5.0 Ur Specific [place] 1.015 Urine Protein NEGATIVE Urine Glucose (UA) NEGATIVE Urine Ketones NEGATIVE Urine Occult Blood NEGATIVE Urine Nitrite NEGATIVE Urine Bilirubin NEGATIVE Urine Urobilinogen 0.2 (NORMAL) Ur Leukocyte Esterase SMALL H Urine RBC None Seen Urine WBC 0-3 Ur Squamous Epith Cells RARE Squamous Urine Bacteria Rare Ur Microscopic Review INDICATED Urine Culture Comments INDICATED - Rads (name of study) CT abd/pel without Radiology: Prelim report reviewed (Impression: Moderately distended urine-filled urinary bladder without wall thickening or bladder calculi, possibly the etiology of the patient's symptoms. No urinary tract obstruction.), EMP read indepedently, See rad report Procedures - IVC sono (time) 1108 Bedside IVC sono: IVC measures (cm) (1.64), Euvolemia PD MEDICAL DECISION MAKING - ED course Complexity details: reviewed results, re-evaluated patient, considered differential, d/w patient ED course: THis 58 y/o male with a history of type one diabetes is on an insulin pump and has excellent control of his diabetes. Today he has lower abdominal pain and on CT it is evident he has an over filled bladder with estimate of >1500ml urine. The patient is able to void spontaneously and has a post void residual of 30ml. His pain is improved. Catheterization is not required. Departure - Departure Disposition: 01 Home, Self Care Clinical Impression: Urinary retention Condition: Stable Instructions: ED Retention Urinary Male Follow-Up: Amadou Jackson MD [Primary Care Provider] - Discharge Date/Time: 10/08/18 14:06
[2018-10-08 11:14] VITALS: BP 115/66
[2018-10-08] MEDS ORDERED: IOVERSOL 320 100 ML VIAL IVP ONE ×2 (11:31→11:55)
[2018-10-08 11:32] LABS: LYMPHOCYTES # (MANUAL) 1.3 10^3/uL (1.5-3.5); LYMPHOCYTES % (MANUAL) 9 %; MONOCYTES # (MANUAL) 1.4 10^3/uL (0.0-1.0); MYELOCYTES % (MANUAL) 1 %; NEUTROPHILS # (MANUAL) 11.1 10^3/uL (1.5-6.6); NEUTROPHILS % (MANUAL) 80 %
[2018-10-08 11:33] LABS: DIFFERENTIAL COMMENT MANUAL DIFFERENTIAL
--- NOTE | 2018-10-08 12:21 | CT Report ---
Reason: lower abdominal pain distention Procedure Date: 10/08/2018 Accession Number: [id number] / [id number] Procedure: CT - Abdomen/Pelvis W/ CPT Code: FULL RESULT: EXAM: CT ABDOMEN AND PELVIS WITH CONTRAST EXAM DATE: 10/08/2018 11:49 AM. CLINICAL HISTORY: Lower abdominal pain and distention in a 58-year-old male. COMPARISONS: Abdomen/pelvis w/ 04/22/2016 3:55 PM and previous. TECHNIQUE: Emergent axial helical CT imaging was performed through the abdomen and pelvis. IV contrast: OPTIRAY 320, 100 mL. Enteric contrast: None. Reconstructions: Coronal and sagittal. In accordance with CT protocol optimization, one or more of the following dose reduction techniques were utilized for this exam: automated exposure control, adjustment of mA and/or KV based on patient size, or use of iterative reconstructive technique. FINDINGS: Lung Bases: Unremarkable. Liver: Normal. No masses. Gallbladder/Bile Ducts: No gallstones, wall thickening or dilated bile ducts. Spleen: Normal. Pancreas: Normal. Adrenal Glands: Normal. Kidneys: Normal. No masses, nephrolithiasis, hydroureter or hydronephrosis. Peritoneal Cavity/Bowel: Normal. No free fluid, free air or adenopathy. No masses or acute inflammatory process. The appendix and terminal ileum are well visualized and normal. Pelvic Organs: Moderately distended urine-filled urinary bladder. No wall thickening or bladder calculi. Pelvis otherwise unremarkable without adenopathy or ascites. Vasculature: No aneurysms or other significant abnormality. Bones: No significant abnormality. Other: Small umbilical fat hernia approximately 1.5 cm in diameter, similar to prior exam. No bowel involvement. IMPRESSION: Moderately distended urine-filled urinary bladder without wall thickening or bladder calculi, possibly the etiology of the patient's symptoms. No urinary tract obstruction. Remainder of the abdomen and pelvis stable in appearance. Small umbilical fat hernia noted, stable without bowel involvement. RADIA
[2018-10-08 13:21] LABS: BILIRUBIN,URINE NEGATIVE (NEGATIVE); GLUCOSE, URINE (UA) NEGATIVE (NEGATIVE); KETONES,URINE (UA) NEGATIVE (NEGATIVE); LEUKOCYTE ESTERASE, URINE SMALL (NEGATIVE); NITRITE,URINE NEGATIVE (NEGATIVE); OCCULT BLOOD,URINE NEGATIVE (NEGATIVE); PROTEIN,URINE NEGATIVE (NEGATIVE); UROBILINOGEN,URINE 0.2 (NORMAL) E.U./dL (NORMAL)
[2018-10-08 13:24] LABS: CLARITY,URINE CLEAR (CLEAR)
[2018-10-08 13:29] LABS: BACTERIA,URINE Rare /HPF (None Seen); RBC,URINE None Seen /HPF (0-5); SQUAMOUS EPITHELIAL CELL,UR RARE Squamous (<= Few)
== END 2018-10-08 14:06 | disposition home or self-care (01) ==
LOC: ED 10:36
DX: N40.1 Benign prostatic hyperplasia with lower urinary tract symptoms (principal); N39.0 Urinary tract infection, site not specified; E10.42 Type 1 diabetes mellitus with diabetic polyneuropathy; I11.0 Hypertensive heart disease with heart failure; I50.9 Heart failure, unspecified; I25.10 Atherosclerotic heart disease of native coronary artery without angina pectoris; I25.2 Old myocardial infarction; E78.00 Pure hypercholesterolemia, unspecified; Z95.5 Presence of coronary angioplasty implant and graft; Z95.810 Presence of automatic (implantable) cardiac defibrillator
CPT/HCPCS: 36415; 74177; 80053; 81001; 83690; 84484; 85025; 87086; 96374; 99283; 99284; J1170; Q9967; 81003

== ENCOUNTER 2018-11-02 08:00 | Outpatient (CLI) | payer MEDICARE ==
[2018-11-02 19:05] LABS: MUDS CUTOFF CONCENTRATIONS CUTOFF CONC BELOW:
[2018-11-02 19:50] LABS: AMPHETAMINE SCREEN,URINE NEGATIVE (NEGATIVE); BENZODIAZEPINES SCREEN, URINE POSITIVE (NEGATIVE); COCAINE SCREEN URINE NEGATIVE (NEGATIVE); METHAMPHETAMINES SCREEN, URINE NEGATIVE (NEGATIVE); OPIATE SCREEN, URINE NEGATIVE (NEGATIVE); TRICYCLIC ANTIDEPRESSANT,URINE POSITIVE (NEGATIVE)
[2018-11-02 19:51] LABS: METHADONE SCREEN, URINE NEGATIVE (NEGATIVE); OXYCODONE SCREEN, URINE NEGATIVE (NEGATIVE); PROPOXYPHENE SCREEN, URINE NEGATIVE (NEGATIVE)
== END 2018-11-02 23:59 | disposition home or self-care (01) ==
LOC: LAB.R 08:00
PROVIDERS: ATTEND Family Medicine
DX: Z79.899 Other long term (current) drug therapy (principal)
CPT/HCPCS: 80306

== ENCOUNTER 2018-11-05 17:36 | Outpatient (CLI) | payer MEDICARE | END 2018-11-05 17:37 | disposition EMS.NT | LOC: EMS 17:36 | PROVIDERS: ATTEND Surgery | DX: R41.0 Disorientation, unspecified (principal) ==

== ENCOUNTER 2018-11-06 19:00 | Observation (INO) | payer MEDICARE ==
[2018-11-06] MEDS ORDERED: SODIUM CHLORIDE 0.9% 1,000 ML IV ONE ×2 (19:28→21:20)
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
[2018-11-06 19:42] LABS: BASOPHILS % (AUTO) 0.4 %; EOSINOPHILS % (AUTO) 0.2 %; HGB - HEMOGLOBIN 12.4 g/dL (14.0-18.0); LYMPHOCYTES # (AUTO) 1.1 10^3/uL (1.5-3.5); MEAN CORPUSCULAR HEMOGLOBIN 30.5 pg (27.0-31.0); MEAN CORPUSCULAR HGB CONC 32.7 g/dL (32.0-36.0); MEAN CORPUSCULAR VOLUME 93.1 fL (80.0-94.0); MEAN PLATELET VOLUME 8.9 fL (7.4-11.4); MONOCYTES % (AUTO) 8.4 %; NEUTROPHILS # (AUTO) 9.8 10^3/uL (1.5-6.6); PLT - PLATELET COUNT 235 10^3/uL (130-450); RED BLOOD COUNT 4.06 10^6/uL (4.70-6.10); RED CELL DISTRIBUTION WIDTH 15.3 % (12.0-15.0); WHITE BLOOD COUNT 11.9 x10^3/uL (4.8-10.8)
[2018-11-06 19:49] LABS: ALBUMIN 3.7 g/dL (3.2-5.5); ALBUMIN/GLOBULIN RATIO 1.3 (1.0-2.2); ALKALINE PHOSPHATASE 82 IU/L (42-121); ALT ALANINE AMINOTRANSFERASE 18 IU/L (10-60); AST ASPARTATE AMINOTRANSFERASE 15 IU/L (10-42); BILIRUBIN,TOTAL 0.6 mg/dL (0.2-1.0); BUN - BLOOD UREA NITROGEN 26 mg/dL (6-20); CALCIUM 8.4 mg/dL (8.5-10.3); CARBON DIOXIDE - CO2 29 mmol/L (21-32); CHLORIDE 98 mmol/L (101-111); CK- CREATINE KINASE 113 IU/L (22-269); CREATININE 1.8 mg/dL (0.6-1.2); GFR - MDRD 39 (>89); GLUCOSE 135 mg/dL (70-100); LIPASE 19 U/L (22-51); SODIUM 136 mmol/L (135-145); TOTAL PROTEIN 6.6 g/dL (6.7-8.2)
[2018-11-06 19:54] LABS: TROPONIN I < 0.04 ng/mL (<0.49)
[2018-11-06 19:56] LABS: CREATINE KINASE MB 4.3 ng/mL (0.6-6.3)
[2018-11-06 20:50] LABS: MUDS CUTOFF CONCENTRATIONS CUTOFF CONC BELOW:
[2018-11-06 20:53] LABS: BILIRUBIN,URINE NEGATIVE (NEGATIVE); GLUCOSE, URINE (UA) 100 mg/dL (NEGATIVE); KETONES,URINE (UA) NEGATIVE (NEGATIVE); LEUKOCYTE ESTERASE, URINE NEGATIVE (NEGATIVE); NITRITE,URINE NEGATIVE (NEGATIVE); OCCULT BLOOD,URINE NEGATIVE (NEGATIVE); PROTEIN,URINE NEGATIVE (NEGATIVE); UROBILINOGEN,URINE 0.2 (NORMAL) E.U./dL (NORMAL)
[2018-11-06 20:54] LABS: CLARITY,URINE CLEAR (CLEAR)
--- NOTE | 2018-11-06 20:57 | CT Report ---
Reason: headache, altered Procedure Date: 11/06/2018 Accession Number: [id number] / [id number] Procedure: CT - Head W/O CPT Code: FULL RESULT: EXAM: CT HEAD WITHOUT CONTRAST. EXAM DATE: 11/06/2018 08:25 PM. CLINICAL HISTORY: Headache, altered. COMPARISON: Head without 05/25/2018 9:54 AM. TECHNIQUE: Multiaxial CT images were obtained from the foramen magnum to the vertex. Reformats: Sagittal and coronal. IV contrast: None. In accordance with CT protocol optimization, one or more of the following dose reduction techniques were utilized for this exam: automated exposure control, adjustment of mA and/or KV based on patient size, or use of iterative reconstructive technique. FINDINGS: Parenchyma: No intraparenchymal hemorrhage. No evidence of mass, midline shift, or CT findings of infarction. [place]-white differentiation is distinct. Extraaxial Spaces: Normal for age. No subdural or epidural collections identified. Ventricles: Normal in size and position. Sinuses and Orbits: Imaged paranasal sinuses, orbits, and mastoids show no significant abnormality. Bones: No evidence of fracture or calvarial defect. Other: None. IMPRESSION: No acute intracranial abnormality. RADIA
[2018-11-06 21:08] LABS: AMPHETAMINE SCREEN,URINE NEGATIVE (NEGATIVE); BENZODIAZEPINES SCREEN, URINE POSITIVE (NEGATIVE); COCAINE SCREEN URINE NEGATIVE (NEGATIVE); METHADONE SCREEN, URINE NEGATIVE (NEGATIVE); METHAMPHETAMINES SCREEN, URINE NEGATIVE (NEGATIVE); OPIATE SCREEN, URINE NEGATIVE (NEGATIVE); OXYCODONE SCREEN, URINE POSITIVE (NEGATIVE); PROPOXYPHENE SCREEN, URINE NEGATIVE (NEGATIVE); TRICYCLIC ANTIDEPRESSANT,URINE POSITIVE (NEGATIVE)
[2018-11-06] MEDS ORDERED: SODIUM CHLORIDE FLUSH 0.9% 10 ML SYRINGE IVP PRN (22:02)
[2018-11-06] MEDS ORDERED: IBUPROFEN 600 MG TABLET PO PRN (22:02)
[2018-11-06] MEDS ORDERED: ONDANSETRON 4 MG/2 ML VIAL IVP PRN (22:02)
[2018-11-06] MEDS ORDERED: ACETAMINOPHEN 325 MG TABLET PO PRN (22:02)
[2018-11-06] MEDS ORDERED: LIDOCAINE PATCH 5% TOP PRN (22:44)
[2018-11-06] MEDS ORDERED: DICLOFENAC SODIUM 4 GM TP PRN (22:44)
[2018-11-06] MEDS ORDERED: NITROGLYCERIN SL 0.4 MG TABLET SL PRN (22:44)
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
[2018-11-06] MEDS: SODIUM CHLORIDE 0.9% 1,000 ML IV SCH (23:59)
[2018-11-07] MEDS: SODIUM CHLORIDE FLUSH 0.9% 10 ML SYRINGE IVP SCH ×2 (02:16→09:08)
[2018-11-07] MEDS: SODIUM CHLORIDE 0.9% 1,000 ML IV SCH (06:11)
[2018-11-07] MEDS ORDERED: DOXAZOSIN 4 MG TABLET PO SCH ×2 (07:00→09:00)
[2018-11-07] MEDS ORDERED: PRAMLINTIDE ACETATE SQ SCH (07:00)
[2018-11-07] MEDS ORDERED: PANTOPRAZOLE 40 MG TABLET PO SCH ×2 (07:00)
[2018-11-07 08:11] LABS: HGB - HEMOGLOBIN 12.3 g/dL (14.0-18.0); MEAN CORPUSCULAR VOLUME 91.3 fL (80.0-94.0); MEAN PLATELET VOLUME 8.5 fL (7.4-11.4); RED BLOOD COUNT 3.97 10^6/uL (4.70-6.10); RED CELL DISTRIBUTION WIDTH 15.3 % (12.0-15.0); WHITE BLOOD COUNT 8.2 x10^3/uL (4.8-10.8)
[2018-11-07 08:18] LABS: CALCIUM 8.3 mg/dL (8.5-10.3); CREATININE 1.2 mg/dL (0.6-1.2)
[2018-11-07] MEDS ORDERED: HYDROCORTISONE 10 MG TABLET PO SCH (09:00)
[2018-11-07] MEDS ORDERED: SPIRONOLACTONE 25 MG TABLET PO SCH (09:00)
[2018-11-07] MEDS ORDERED: ASPIRIN CHEW 81 MG TABLET PO SCH (09:00)
[2018-11-07] MEDS ORDERED: POLYETHYLENE GLYCOL 3350 17 GM PACKET PO SCH (09:00)
[2018-11-07] MEDS ORDERED: BUDESONIDE 3 MG CAPSULE PO SCH (09:00)
[2018-11-07] MEDS ORDERED: buPROPion XL 150 MG TABLET PO SCH (09:00)
[2018-11-07] MEDS ORDERED: METOPROLOL SUCCINATE 25 MG TABLET PO SCH (09:00)
[2018-11-07] MEDS ORDERED: hydroCHLOROthiazide 12.5 MG CAPSULE PO SCH (09:00)
[2018-11-07] MEDS ORDERED: PSYLLIUM PACKET PO SCH (09:00)
[2018-11-07] MEDS ORDERED: ISOSORBIDE MONONITRATE ER 30 MG TABLET PO SCH (09:00)
[2018-11-07] MEDS ORDERED: FUROSEMIDE 20 MG TABLET PO SCH (09:00)
--- NOTE | 2018-11-07 13:42 | Discharge Plan ---
Discharge Plan Disposition: 01 Home, Self Care Condition: Good Diet: Diabetic Activity Restrictions: Activity as Tolerated Shower Restrictions: No Driving Restrictions: No Weight Bearing: Full Weight Additional Instructions or Follow Up instructions: You were admitted with altered level of consciousness. This was likely related to your depression and the mixture of medications. Please ask your PCP to order a sleep study. Please ask your PCP to think about pulmonary or cardiac rehab after your sleep study. Please start a daily nasal steroid spray to treat your temporal headaches. You can try Afrin spray x3 days or 6 doses, then stop for times when your headaches are really bad. Please find a psychologist on the [place] for regular visits. You can try [facility] in [place]. Phone # is [phone] Please see your PCP within one week. No Smoking: If you smoke, Please STOP! Call for help. Follow-up with: Amadou Jackson MD [Primary Care Provider] -
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
[2018-11-07 14:26] VITALS: BP 118/74
[2018-11-07] MEDS ORDERED: NON FORMULARY MED (Simvastatin [Simvastatin] 80 MG) PO SCH (21:00)
[2018-11-07] MEDS ORDERED: ATORVASTATIN 40 MG TABLET PO SCH (21:00)
== END 2018-11-07 15:00 | disposition home or self-care (01) ==
LOC: ED 19:00 → OBS 22:02
PROVIDERS: ADMIT Family Medicine Sports Medicine; ATTEND Family Medicine Sports Medicine
DX: R40.1 Stupor (principal); E86.0 Dehydration; I95.9 Hypotension, unspecified; E27.1 Primary adrenocortical insufficiency; I13.0 Hypertensive heart and chronic kidney disease with heart failure and stage 1 through stage 4 chronic kidney disease, or unspecified chronic kidney disease; E10.22 Type 1 diabetes mellitus with diabetic chronic kidney disease; N18.9 Chronic kidney disease, unspecified; I50.9 Heart failure, unspecified; E10.42 Type 1 diabetes mellitus with diabetic polyneuropathy; E10.65 Type 1 diabetes mellitus with hyperglycemia; F32.9 Major depressive disorder, single episode, unspecified; G43.909 Migraine, unspecified, not intractable, without status migrainosus; G89.29 Other chronic pain; M54.9 Dorsalgia, unspecified; J44.9 Chronic obstructive pulmonary disease, unspecified; K21.9 Gastro-esophageal reflux disease without esophagitis; I25.10 Atherosclerotic heart disease of native coronary artery without angina pectoris; N40.0 Benign prostatic hyperplasia without lower urinary tract symptoms; K52.9 Noninfective gastroenteritis and colitis, unspecified; Z72.89 Other problems related to lifestyle; I25.2 Old myocardial infarction; Z79.51 Long term (current) use of inhaled steroids; Z79.4 Long term (current) use of insulin; Z79.891 Long term (current) use of opiate analgesic; Z79.82 Long term (current) use of aspirin; Z96.41 Presence of insulin pump (external) (internal); Z95.5 Presence of coronary angioplasty implant and graft; Z95.811 Presence of heart assist device
CPT/HCPCS: 36415; 70450; 80048; 80053; 81003; 82533; 82550; 82553; 83605; 83690; 84484; 85025; 85027; 87040; 93005; 96360; 96361; 99285; A9270; G0378; 80306; 80320; 81001; 87086

== ENCOUNTER 2018-11-10 06:39 | Day surgery (SDC) | payer MEDICARE ==
[2018-11-10] MEDS ORDERED: PHENYLEPHRINE 2.5% OPHTH 2 ML DROPS ONE (06:45)
[2018-11-10] MEDS ORDERED: PROPARACAINE 0.5% OPHTH DROPS 15 ML ONE (06:45)
[2018-11-10] MEDS ORDERED: CYCLOPENTOLATE 1% OPHTH DROPS 2 ML ONE (06:45)
[2018-11-10] MEDS ORDERED: KETOROLAC 0.45% OPHTH DROPS ONE (06:45)
[2018-11-10] MEDS ORDERED: LACTATED RINGERS 500 ML IV ONE (07:04)
[2018-11-10] MEDS ORDERED: CYCLOPENTOLATE 1% OPHTH DROPS 2 ML RIGHTEYE ONE (07:05)
[2018-11-10] MEDS ORDERED: PROPARACAINE 0.5% OPHTH DROPS 15 ML RIGHTEYE ONE (07:05)
[2018-11-10] MEDS ORDERED: KETOROLAC 0.45% OPHTH DROPS RIGHTEYE ONE (07:05)
[2018-11-10] MEDS ORDERED: PHENYLEPHRINE 2.5% OPHTH 2 ML DROPS RIGHTEYE ONE (07:05)
[2018-11-10] MEDS ORDERED: EPINEPHrine 1 MG/ML AMP ONE (07:13)
[2018-11-10] MEDS ORDERED: VANCOMYCIN OPHTHALMI 8MG/0.8ML 8 MG/0.8 ML SYRINGE IO ONE ×2 (07:13→08:11)
[2018-11-10] MEDS ORDERED: TRIAMCIN/MOXIFLOX OPHTHALMIC 0.6 ML VIAL IO ONE ×2 (07:13→08:11)
[2018-11-10] MEDS ORDERED: TIMOLOL 0.5% OPHTH DROPS ONE (07:13)
[2018-11-10] MEDS ORDERED: BSS/LIDOCAINE/EPINEPHRINE 1 ML SYRINGE ONE (07:13)
[2018-11-10] MEDS ORDERED: BRIMONIDINE 0.2% OPHTH DROPS 5 ML ONE (07:13)
--- NOTE | 2018-11-10 07:31 | ANESTHESIA ---
Pre-Anesthesia VS, & Labs - Diagnosis senile combined cataract - Procedure extraction cataract with lens implant Vital Signs: Temp Pulse Resp BP Pulse Ox 36.2 C L 78 20 114/71 98 11/10/18 07:05 11/10/18 07:05 11/10/18 07:05 11/10/18 07:05 11/10/18 07:05 Height 5 ft 11 in Weight (kg) 117.8 kg Body Mass Index 35.0 - NPO >8 hours Home Medications and Allergies Pantoprazole [Protonix] 40 mg PO BIDAC 09/04/14 Spironolactone 12.5 mg PO DAILY 09/04/14 Zolpidem Tartrate 10 mg PO QPM PRN 09/04/14 raNITIdine HCl [Ranitidine HCl] 300 mg PO QPM 09/04/14 Insulin Lispro [Humalog] 1 - 11 units SQ .SLIDING SCALE 10/07/16 Pregabalin [Lyrica] 300 mg PO BID 10/07/16 Nortriptyline HCl 20 mg PO 0800,1700 03/01/17 Alprazolam 0.25 mg PO BID PRN 04/07/17 Cetirizine [ZyrTEC] 10 mg PO DAILY 04/07/17 Diclofenac Sodium [Voltaren] 4 gm TP QID PRN 04/07/17 Lidocaine Patch 5% [Lidoderm Patch] 1 each TOP DAILY PRN 04/07/17 Simvastatin 80 mg PO QPM 04/07/17 Furosemide 40 mg PO DAILY 01/19/18 Nitroglycerin [Nitrostat] 1 tab SL PRN PRN 01/19/18 Pramlintide Acetate [Symlinpen 60] 15 mcg SQ AC 01/19/18 Doxazosin [Cardura] 8 mg PO DAILY 04/10/18 Isosorbide Mononitrate [Isosorbide Mononitrate ER] 30 mg PO DAILY 05/25/18 Gabapentin 300 mg PO BID 10/06/18 Albuterol 2.5 mg INH Q6H PRN 11/07/18 Beclomethasone Dipropionate [Qvar Redihaler (40 mcg)] 1 puffs INH BID 11/07/18 Bupropion HCl [Bupropion Xl] 450 mg PO DAILY 11/07/18 FLUoxetine [PROzac] 10 mg PO DAILY 11/07/18 Hydrocortisone 5 mg PO BIDWM 11/07/18 Levalbuterol Tartrate [Levalbuterol Tartrate Hfa] 2 puffs INH Q4H PRN MDD 12 puffs/day 11/07/18 Lisinopril 5 mg PO DAILY 11/07/18 Metoprolol Succinate 25 mg PO DAILY 11/07/18 Multivitamin [Multiple Vitamins] 1 each PO DAILY 11/07/18 Tiotropium [place] [Spiriva Respimat] 2 puffs INH DAILY 11/07/18 oxyCODONE [Roxicodone] 5 mg PO Q6H PRN 11/07/18 Allergies/Adverse Reactions: Allergies Allergy/AdvReac Type Severity Reaction Status Date / Time No Known Drug Allergies Allergy Verified 10/08/18 10:46 Anes History & Medical History - Anesthetic History Anesthesia Complications: reports: No previous complications Family history of Anesthesia Complications: Denies Family history of Malignant Hyperthermia: Denies - Medical History Cardiovascular: reports: Congestive heart failure, Hypertension, High cholesterol, Coronary artery disease, [place] Pulmonary: reports: COPD, Shortness of breath Gastrointestinal: reports: GERD, Chronic diarrhea Urinary: reports: Benign prostate hypertrophy, Renal insuffiency Neuro: reports: None, Peripheral neuropathy Musculoskeletal: reports: Osteoarthritis Endocrine/Autoimmune: reports: Type 1 diabetes Blood Disorders: reports: None Skin: reports: None Smoking Status: Former smoker - Surgical History General: Colonoscopy, EGD Eyes Ears Nose Throat (EENT): Cataracts Cardiothoracic: Coronary stent, AICD, Cardiac catheterization Urologic: Prostatic surgery, Testicular surgery Gynecologic:  Orthopedic: Carpal Tunnel surgery Exam General: Alert, Oriented x3 Dental: Other (bridge) Mouth Openin Fingerbreadth Neck Mobility: Normal Mallampati classification: III Thyromental Distance: greater than 6 cm Respiratory: Decreased breath sounds Cardiovascular: Normal S1, Normal S2 Mental/Cognitive Status: Alert/Oriented X3, Normal for patient Cognitive Status: Within normal limits Plan Anesthesia Type: MAC Consent for Procedure(s) Verified and Reviewed: No Code Status: Attempt Resuscitation ASA classification: 3-Severe systemic disease Is this case an emergency?: No
[2018-11-10] MEDS ORDERED: fentaNYL 250 MCG/5 ML VIAL IVP ONE (08:05)
[2018-11-10] MEDS ORDERED: MIDAZOLAM 2 MG/2 ML VIAL IVP ONE (08:05)
[2018-11-10] MEDS ORDERED: BRIMONIDINE 0.2% OPHTH DROPS 5 ML OPTH ONE (08:09)
[2018-11-10] MEDS ORDERED: TIMOLOL 0.5% OPHTH DROPS OPTH ONE (08:10)
[2018-11-10] MEDS ORDERED: BSS/LIDOCAINE/EPINEPHRINE 1 ML SYRINGE IO ONE (08:10)
[2018-11-10] MEDS ORDERED: EPINEPHrine 1 MG/ML AMP IVP ONE (08:10)
[2018-11-10] MEDS ORDERED: CHONDR SULF/HYALURONATE SYRINGE IO ONE (08:10)
[2018-11-10 08:55] VITALS: BP 153/74
--- NOTE | 2018-11-10 08:58 | OPERATIVE REPORT ---
DATE OF SERVICE: 11/10/2018 Physician: Bryant Thompson MD PREOPERATIVE DIAGNOSIS: Visually significant cataract, right eye. Cataract surgery was performed on the left eye on 10/06/2018. POSTOPERATIVE DIAGNOSIS: Visually significant cataract, right eye. Cataract surgery was performed o n the left eye on 10/06/2018. PROCEDURE: Phacoemulsification with posterior chamber intraocular lens implant, right eye. SURGEON: Bryant Thompson MD ANESTHESIA: Monitored anesthesia care. 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 OPERATIVE INDICATIONS: This is a 58-year-old man with progressive vision loss in the right eye due t o 2+ nuclear sclerotic and 2+ posterior subcapsular cataract. Best corrected visual acuity was 20/25 with glare to 20/400 in the right eye. Indications for surgery are overall decrease in vision, diff iculty seeing words on a computer screen, difficulty reading; difficulty seeing words, closed caption or game scores on TV, difficulty driving in low light or at night and difficulty with glare or brigh t lights in any situation. He also has decreased acuity with firearms. He was consented at length c oncerning the risks and benefits of cataract surgery, after which he expressed a desire to proceed wi th surgery. OPERATIVE PROCEDURE: Patient was taken into OR #3 and placed under monitored anesthesia care. A vijaya gical timeout was conducted confirming correct patient, correct procedure, and correct surgical site. He was given topical anesthesia, and then prepped and draped in the usual sterile fashion. The eye was entered at the 12 and 9 o'clock positions. Intracameral Shugarcaine was injected into the anter ior chamber, followed by Viscoat. A continuous-tear curvilinear capsulorrhexis was performed. The n ucleus was hydrodissected and phacoemulsified. The cortex was evacuated using automated infusion and aspiration. Provisc was injected in the capsular bag, and a 22.5 diopter intraocular lens was inser roverto in the bag. Approximately 0.8 mL of a mixture of triamcinolone, moxifloxacin, and vancomycin was injected subconjunctivally in the superior quadrant for infection and inflammation prophylaxis. I a nd A was used to evacuate the viscoelastic materials. The eye was inflated to physiologic pressure u sing a balanced salt solution and found to be watertight. Patient was taken from the operating room in good condition and given postop instructions. TD: 11/10/2018 08:38
== END 2018-11-10 06:40 | disposition home or self-care (01) ==
LOC: SDS 06:39
PROVIDERS: ATTEND Ophthalmology
PROC: 08RJ3JZ Replacement of Right Lens with Synthetic Substitute, Percutaneous Approach (ICD-10-PCS; principal; 2018-11-10 08:00)
DX: H25.811 Combined forms of age-related cataract, right eye (principal); E10.3593 Type 1 diabetes mellitus with proliferative diabetic retinopathy without macular edema, bilateral; J44.9 Chronic obstructive pulmonary disease, unspecified; I11.0 Hypertensive heart disease with heart failure; I50.9 Heart failure, unspecified; I25.10 Atherosclerotic heart disease of native coronary artery without angina pectoris; I25.2 Old myocardial infarction; Z95.810 Presence of automatic (implantable) cardiac defibrillator; Z95.5 Presence of coronary angioplasty implant and graft; Z87.891 Personal history of nicotine dependence
CPT/HCPCS: 66984; A9270; J3010; J3490; V2632

== ENCOUNTER 2018-11-19 19:36 | Emergency (ER) | payer MEDICARE ==
--- NOTE | 2018-11-19 20:35 | ED Physician Documentation ---
History of Present Illness - Stated complaint Stated Complaint: FALL/HD INJ/DOUBLE VISION - Chief complaint Chief Complaint: Neuro - History obtained from History obtained from: Patient - History of Present Illness Timing: Today, How many hours ago (12) Pain level max: 8 Pain level now: 5 Improved by: nothing Worsened by: nothing - Additonal information Additional information: 58-year-old gentleman presents to the emergency department after tripping and falling on a rug in the bathroom. He struck his head against a wall and fell backwards onto the toilet striking his coccyx. Now states he has pain with sitting and walking. He also states that he feels like his vision is different. States currently feeling better Review of Systems Ten Systems: 10 systems reviewed and negative Constitutional: denies: Fever, Chills Ears: denies: Ear pain Nose: denies: Rhinorrhea / runny nose, Congestion Cardiac: denies: Chest pain / pressure Respiratory: denies: Cough GI: denies: Abdominal Pain, Nausea, Vomiting, Diarrhea Skin: denies: Rash Musculoskeletal: denies: Neck pain Neurologic: denies: Focal weakness, Numbness PD PAST MEDICAL HISTORY - Past Medical History Cardiovascular: Congestive heart failure, Hypertension, High cholesterol, Coronary artery disease, [place], Other Respiratory: COPD, Shortness of breath, Other Neuro: None, Peripheral neuropathy Endocrine/Autoimmune: Type 1 diabetes, Other GI: GERD, Chronic diarrhea, Other : Benign prostate hypertrophy, Renal insuffiency HEENT: Other Psych: Depression, Anxiety, Panic attacks, Post traumatic stress disorder Musculoskeletal: Osteoarthritis Derm: None - Past Surgical History Past Surgical History: Yes General: Colonoscopy, EGD 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 Cardiovascular: Coronary stent, AICD, Cardiac catheterization HEENT: Cataracts, Other - Present Medications Home Medications: Ambulatory Orders Medication Instructions Recorded Confirmed Pantoprazole [Protonix] 40 mg PO BIDAC 09/04/14 11/10/18 Spironolactone 12.5 mg PO DAILY 09/04/14 11/10/18 Zolpidem Tartrate 10 mg PO QPM PRN 09/04/14 11/10/18 raNITIdine HCl [Ranitidine HCl] 300 mg PO QPM 09/04/14 11/10/18 Insulin Lispro [Humalog] 1 - 11 units SQ .SLIDING SCALE 10/07/16 11/10/18 Pregabalin [Lyrica] 300 mg PO BID 10/07/16 11/10/18 Nortriptyline HCl 20 mg PO 0800,1700 03/01/17 11/10/18 Alprazolam 0.25 mg PO BID PRN 04/07/17 11/10/18 Cetirizine [ZyrTEC] 10 mg PO DAILY 04/07/17 11/10/18 Diclofenac Sodium [Voltaren] 4 gm TP QID PRN 04/07/17 11/10/18 Lidocaine Patch 5% [Lidoderm Patch] 1 each TOP DAILY PRN 04/07/17 11/10/18 Simvastatin 80 mg PO QPM 04/07/17 11/10/18 Budesonide [Entocort EC] 9 mg PO DAILY #60 capsule 04/10/17 11/10/18 Psyllium [Metamucil] 1 packet PO BID packet 04/10/17 11/10/18 Aspirin Chewable [[place] 81 mg PO DAILY tablet 05/30/17 11/10/18 Aspirin] DULoxetine [Cymbalta] 60 mg PO BID capsule 05/30/17 11/10/18 Furosemide 40 mg PO DAILY 01/19/18 11/10/18 Nitroglycerin [Nitrostat] 1 tab SL PRN PRN 01/19/18 11/10/18 Pramlintide Acetate [Symlinpen 60] 15 mcg SQ AC 01/19/18 11/10/18 Doxazosin [Cardura] 8 mg PO DAILY 04/10/18 11/10/18 Isosorbide Mononitrate [Isosorbide 30 mg PO DAILY 05/25/18 11/10/18 Mononitrate ER] Gabapentin 300 mg PO BID 10/06/18 11/10/18 Albuterol 2.5 mg INH Q6H PRN 11/07/18 11/10/18 Beclomethasone Dipropionate [Qvar 1 puffs INH BID 11/07/18 11/10/18 Redihaler (40 mcg)] Bupropion HCl [Bupropion Xl] 450 mg PO DAILY 11/07/18 11/10/18 FLUoxetine [PROzac] 10 mg PO DAILY 11/07/18 11/10/18 Hydrocortisone 5 mg PO BIDWM 11/07/18 11/10/18 Levalbuterol Tartrate 2 puffs INH Q4H PRN MDD 12 11/07/18 11/10/18 [Levalbuterol Tartrate Hfa] puffs/day Lisinopril 5 mg PO DAILY 11/07/18 11/10/18 Metoprolol Succinate 25 mg PO DAILY 11/07/18 11/10/18 Multivitamin [Multiple Vitamins] 1 each PO DAILY 11/07/18 11/10/18 Tiotropium [place] [Spiriva 2 puffs INH DAILY 11/07/18 11/10/18 Respimat] oxyCODONE [Roxicodone] 5 mg PO Q6H PRN 11/07/18 11/10/18 - Allergies Allergies/Adverse Reactions: Allergies Allergy/AdvReac Type Severity Reaction Status Date / Time No Known Drug Allergies Allergy Verified 11/19/18 19:52 - Social History Does the pt smoke?: No Smoking Status: Former smoker Does the pt drink ETOH?: No Does the pt have substance abuse?: No - Immunizations Immunizations are current?: Yes - POLST Patient has POLST: No POLST Status: Patient was in the process of completing an advanced directive but has not finished PD ED PE NORMAL - Vitals Vital signs reviewed: Yes - General General: Alert and oriented X 3, No acute distress, Well developed/nourished - HEENT HEENT: Atraumatic, PERRL, Ears normal, Moist mucous membranes - Neck Neck: Supple, no meningeal sign, No bony TTP - Cardiac Cardiac: RRR, Strong equal pulses - Respiratory Respiratory: No respiratory distress, Clear bilaterally - Abdomen Abdomen: Soft, Non tender, Non distended - Back Back: No CVA TTP, No spinal TTP, Other (TTP over sacrum and coccyx) - Derm Derm: Warm and dry, No rash - Extremities Extremities: No edema, No calf tenderness / cord - Neuro Neuro: Alert and oriented X 3 - Psych Psych: Normal mood, Normal affect Results - Vitals Vitals: Vital Signs - 24 hr 11/19/18 11/19/18 19:48 21:30 Temperature 36.2 C L 37.2 C Heart Rate 91 83 Respiratory 18 18 Rate Blood Pressure 113/79 105/59 L O2 Saturation 95 96 Oxygen O2 Source [With Activity] Room air O2 Source Room air - Rads (name of study) head ct Radiology: Prelim report reviewed, EMP read contemporaneously, See rad report (No CT evidence of acute intracranial abnormality, specifically no CT evidence of acute infarct, intracranial hemorrhage, mass effect, midline shift, or hydrocephalus. ) sacrum xray Radiology: Prelim report reviewed, EMP read contemporaneously, See rad report (Normal sacrum and coccyx radiography. ) PD MEDICAL DECISION MAKING - ED course Complexity details: reviewed results, re-evaluated patient, considered d ifferential, d/w patient ED course: Patient is a 58-year-old male who presents to the emergency department after a fall earlier today, striking his head. Negative head CT. He also appears to have a contusion of the sacrum and coccyx. Ambulating well. We will continue supportive care and follow-up with his doctor. Head injury instructions given at bedside. Patient counseled regarding signs and symptoms for which I believe and urgent re-evaluation would be necessary. Patient with good understanding of and agreement to plan and is comfortable going home at this time This document was made in part using voice recognition software. While efforts are made to proofread this document, sound alike and grammatical errors may occur. Departure - Departure Disposition: 01 Home, Self Care Clinical Impression: Head injury, closed Qualifiers: Encounter type: initial encounter Qualified Code(s): S09.90XA - Unspecified injury of head, initial encounter Sacral contusion Qualifiers: Encounter type: initial encounter Qualified Code(s): S30.0XXA - Contusion of lower back and pelvis, initial encounter Condition: Good Instructions: ED Contusion Sacrum Coccyx, ED Head Injury Closed Follow-Up: Amadou Jackson MD [Primary Care Provider] - Within 1 week Comments: Your head CT and x-ray are normal today. Return if you worsen. This should improve over the next few days. Discharge Date/Time: 11/19/18 21:38
--- NOTE | 2018-11-19 21:02 | CT Report ---
Reason: fall, head injury, altered mental status Procedure Date: 11/19/2018 Accession Number: [id number] / [id number] Procedure: CT - Head W/O CPT Code: FULL RESULT: EXAM: CT HEAD EXAM DATE: 11/19/2018 08:36 PM. CLINICAL HISTORY: 58-year-old male. Fall, head injury, altered mental status. COMPARISON: CT head 11/06/2018. TECHNIQUE: Multiaxial CT images were obtained from the foramen magnum to the vertex. Reformats: Sagittal and coronal. IV contrast: None. In accordance with CT protocol optimization, one or more of the following dose reduction techniques were utilized for this exam: automated exposure control, adjustment of mA and/or KV based on patient size, or use of iterative reconstructive technique. FINDINGS: Parenchyma: No intraparenchymal hemorrhage. No evidence of mass, midline shift, or CT findings of infarction. Salgado-white differentiation is distinct. Extraaxial Spaces: Normal for age. No subdural or epidural collections identified. Ventricles: Normal in size and position. Sinuses and Orbits: Status post bilateral lens replacement surgery. Imaged paranasal sinuses, orbits, and mastoids show no significant abnormality. Bones: No evidence of fracture or calvarial defect. Other: None. IMPRESSION: No CT evidence of acute intracranial abnormality, specifically no CT evidence of acute infarct, intracranial hemorrhage, mass effect, midline shift, or hydrocephalus. RADIA
--- NOTE | 2018-11-19 21:17 | XRAY Report ---
Reason: fall, tailbone pain Procedure Date: 11/19/2018 Accession Number: [id number] / [id number] Procedure: XR - Sacrum/Coccyx CPT Code: FULL RESULT: EXAM: SACRUM AND COCCYX RADIOGRAPHY EXAM DATE: 11/19/2018 08:54 PM. HISTORY: Fall. Tailbone pain. COMPARISONS: None. TECHNIQUE: 3 views. FINDINGS: Alignment: Normal. The sacrum and coccyx are normally aligned. Bones: Normal. No fracture or bone lesion. Joints: Normal. The sacroiliac joints and visualized hips are within normal limits. Soft Tissues: Unremarkable. IMPRESSION: Normal sacrum and coccyx radiography. RADIA
[2018-11-19 21:31] VITALS: BP 105/59
== END 2018-11-19 21:38 | disposition home or self-care (01) ==
LOC: ED 19:36
DX: S09.90XA Unspecified injury of head, initial encounter (principal); S30.0XXA Contusion of lower back and pelvis, initial encounter; W18.09XA Striking against other object with subsequent fall, initial encounter; I11.0 Hypertensive heart disease with heart failure; I50.9 Heart failure, unspecified; E10.42 Type 1 diabetes mellitus with diabetic polyneuropathy; E78.00 Pure hypercholesterolemia, unspecified; Z79.82 Long term (current) use of aspirin; Z95.810 Presence of automatic (implantable) cardiac defibrillator; Z95.5 Presence of coronary angioplasty implant and graft; Z87.891 Personal history of nicotine dependence
CPT/HCPCS: 70450; 72220; 99283

== ENCOUNTER 2018-11-23 23:03 | Outpatient (CLI) | payer MEDICARE | END 2018-11-23 23:04 | disposition critical access hospital (66) | LOC: EMS 23:03 | PROVIDERS: ATTEND Surgery | DX: R07.9 Chest pain, unspecified (principal); R06.00 Dyspnea, unspecified | CPT/HCPCS: A0425; A0427 ==

== ENCOUNTER 2018-11-23 23:14 | Inpatient (IN) | payer MEDICARE ==
--- NOTE | 2018-11-23 23:22 | ED Physician Documentation ---
PD HPI CHEST PAIN - Stated complaint Stated Complaint: SOElisabeth CP - History obtained from History obtained from: Patient, EMS - History of Present Illness Timing - onset: How many days ago (2-3) Timing - onset during: Rest, Light activity Timing - duration: Days (2-3 days of Increasing dyspnea wheezing and cough. He has had general malaise and aches with some congestion. He started with a hi gher fever today and noticed dyspnea with even just walking around the house. He does have inhalers at home. He states he has a home nebulizer with some albuterol for it but did not use that today. He does not normally use nebulizer nor oxygen. He does do daily inhalers. He had had increased wheezing and was feeling markedly short of breath so called EMS. They noted him to be hypoxic in the 86-90% range on room air with work of breathing and wheezing. They gave him nebulizer treatments en route with improvement. He arrives to the ER with tachycardia and fever. His oxygenation is at 92% on room air. He is able to speak in sentences.) Timing - details: Gradual onset, Still present Quality: Tightness. No: Sharp, Pain Location: Substernal Improved by: Other (inhaler at home and nebulizer by EMS) Worsened by: Exertion, Other (coughing) Associated symptoms: Shortness of air, General Weakness, Cough. No: Diaphoresis, Nausea, Vomiting, Feeling faint / dizzy, Palpitations Similar symptoms before: Diagnosis (COPD and pneumonia, has history of CHF and MA in the past as well.) Recently seen: Admitted (about 2 weeks ago for altered mentation that improved overnight. Thought med related.) Review of Systems Ten Systems: 10 systems reviewed and negative Constitutional: reports: Fever (for couple days), Chills, Myalgias Nose: reports: Congestion. denies: Rhinorrhea / runny nose Throat: denies: Sore throat Cardiac: reports: Chest pain / pressure, Pedal edema (mild chronic). denies: Palpitations, Calf pain Respiratory: reports: Dyspnea, Cough, Wheezing GI: reports: Nausea. denies: Abdominal Pain, Vomiting, Diarrhea : denies: Dysuria, Frequency Musculoskeletal: reports: Extremity swelling. denies: Back pain Neurologic: reports: Generalized weakness. denies: Focal weakness, Numbness, Near syncope PD PAST MEDICAL HISTORY - Past Medical History Cardiovascular: Congestive heart failure, Hypertension, High cholesterol, Coronary artery disease, [place], Other Respiratory: COPD, Shortness of breath, Other Neuro: None, Peripheral neuropathy Endocrine/Autoimmune: Type 1 diabetes, Other GI: GERD, Chronic diarrhea, Other : Benign prostate hypertrophy, Renal insuffiency HEENT: Other Psych: Depression, Anxiety, Panic attacks, Post traumatic stress disorder Musculoskeletal: Osteoarthritis Derm: None - Past Surgical History Past Surgical History: Yes General: Colonoscopy, EGD 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 Cardiovascular: Coronary stent, AICD, Cardiac catheterization HEENT: Cataracts, Other - Present Medications Home Medications: Ambulatory Orders Medication Instructions Recorded Confirmed Pantoprazole [Protonix] 40 mg PO BIDAC 09/04/14 11/10/18 Spironolactone 12.5 mg PO DAILY 09/04/14 11/10/18 Zolpidem Tartrate 10 mg PO QPM PRN 09/04/14 11/10/18 raNITIdine HCl [Ranitidine HCl] 300 mg PO QPM 09/04/14 11/10/18 Insulin Lispro [Humalog] 1 - 11 units SQ .SLIDING SCALE 10/07/16 11/10/18 Pregabalin [Lyrica] 300 mg PO BID 10/07/16 11/10/18 Nortriptyline HCl 20 mg PO 0800,1700 03/01/17 11/10/18 Alprazolam 0.25 mg PO BID PRN 04/07/17 11/10/18 Cetirizine [ZyrTEC] 10 mg PO DAILY 04/07/17 11/10/18 Diclofenac Sodium [Voltaren] 4 gm TP QID PRN 04/07/17 11/10/18 Lidocaine Patch 5% [Lidoderm Patch] 1 each TOP DAILY PRN 04/07/17 11/10/18 Simvastatin 80 mg PO QPM 04/07/17 11/10/18 Budesonide [Entocort EC] 9 mg PO DAILY #60 capsule 04/10/17 11/10/18 Psyllium [Metamucil] 1 packet PO BID packet 04/10/17 11/10/18 Aspirin Chewable [[place] 81 mg PO DAILY tablet 05/30/17 11/10/18 Aspirin] DULoxetine [Cymbalta] 60 mg PO BID capsule 05/30/17 11/10/18 Furosemide 40 mg PO DAILY 01/19/18 11/10/18 Nitroglycerin [Nitrostat] 1 tab SL PRN PRN 01/19/18 11/10/18 Pramlintide Acetate [Symlinpen 60] 15 mcg SQ AC 01/19/18 11/10/18 Doxazosin [Cardura] 8 mg PO DAILY 04/10/18 11/10/18 Isosorbide Mononitrate [Isosorbide 30 mg PO DAILY 05/25/18 11/10/18 Mononitrate ER] Gabapentin 300 mg PO BID 10/06/18 11/10/18 Albuterol 2.5 mg INH Q6H PRN 11/07/18 11/10/18 Beclomethasone Dipropionate [Qvar 1 puffs INH BID 11/07/18 11/10/18 Redihaler (40 mcg)] Bupropion HCl [Bupropion Xl] 450 mg PO DAILY 11/07/18 11/10/18 FLUoxetine [PROzac] 10 mg PO DAILY 11/07/18 11/10/18 Hydrocortisone 5 mg PO BIDWM 11/07/18 11/10/18 Levalbuterol Tartrate 2 puffs INH Q4H PRN MDD 12 11/07/18 11/10/18 [Levalbuterol Tartrate Hfa] puffs/day Lisinopril 5 mg PO DAILY 11/07/18 11/10/18 Metoprolol Succinate 25 mg PO DAILY 11/07/18 11/10/18 Multivitamin [Multiple Vitamins] 1 each PO DAILY 11/07/18 11/10/18 Tiotropium [place] [Spiriva 2 puffs INH DAILY 11/07/18 11/10/18 Respimat] oxyCODONE [Roxicodone] 5 mg PO Q6H PRN 11/07/18 11/10/18 - Allergies Allergies/Adverse Reactions: Allergies Allergy/AdvReac Type Severity Reaction Status Date / Time No Known Drug Allergies Allergy Verified 11/23/18 23:28 - Social History Does the pt smoke?: No Smoking Status: Former smoker Does the pt drink ETOH?: No Does the pt have substance abuse?: No - Immunizations Immunizations are current?: Yes - POLST Patient has POLST: No POLST Status: Patient was in the process of completing an advanced directive but has not finished PD ED PE NORMAL - Vitals Vital signs reviewed: Yes - General General: Alert and oriented X 3, Well developed/nourished, Other (able to talk in sentences, but does have wheezing on arrival. Had gotten nebs enroute. ) - HEENT HEENT: Ears normal, Pharynx benign - Neck Neck: Supple, no meningeal sign, No adenopathy - Cardiac Cardiac: No murmur. No: RRR (tachycardic but regular) - Respiratory Respiratory: No: Clear bilaterally (disffuse moderate wheezing; no crackles nor coarse sounds. ) - Abdomen Abdomen: Soft, Non tender - Male Male : Deferred - Rectal Rectal: Deferred - Back Back: No CVA TTP - Derm Derm: Normal color - Extremities Extremities: No deformity, No tenderness to palpate, Normal ROM s pain, No calf tenderness / cord, Other (mild pitting edema in both ankles, not up the shins. ) - Neuro Neuro: Alert and oriented X 3, No motor deficit, Normal speech Eye Opening: Spontaneous Motor: Obeys Commands Verbal: Oriented GCS Score: 15 - Psych Psych: Normal mood Results - Vitals Vitals: Vital Signs - 24 hr 11/23/18 11/23/18 11/24/18 23:29 23:33 00:01 Temperature 39.5 C H Heart Rate 120 H 119 H 120 H Respiratory 16 20 21 Rate Blood Pressure 120/86 H 123/74 O2 Saturation 92 92 11/24/18 00:15 Temperature 37.8 C H Heart Rate Respiratory Rate Blood Pressure O2 Saturation Oxygen O2 Source [With Activity] Room air O2 Source Room air - EKG (time done) 23:18 Rate: Rate (enter#) (118) Rhythm: Sinus tachycardia [place]: Normal Intervals: Normal [place] QRS: Normal Ischemia: Normal ST segments. No: ST elevation c/w ischemia, ST depression - Labs Labs: Laboratory Tests 11/23/18 11/23/18 11/23/18 23:55 23:55 23:55 WBC 13.8 H RBC 4.08 L Hgb 12.5 L Hct 37.0 L MCV 90.5 MCH 30.5 MCHC 33.7 RDW 14.7 Plt Count 225 MPV 8.3 Neut # (Auto) 12.2 H Lymph # (Auto) 0.5 L [place] # (Auto) 1.0 Eos # (Auto) 0.0 Baso # (Auto) 0.1 Absolute Nucleated RBC 0.01 Nucleated RBC % 0.0 Sodium 132 L Potassium 4.5 Chloride 90 L Carbon Dioxide 31 Anion Gap 11.0 BUN 15 Creatinine 1.2 Estimated GFR (MDRD) 62 L Glucose 434 H Lactic Acid Calcium 8.8 Magnesium 1.9 Total Bilirubin 0.7 AST 30 ALT 39 Alkaline Phosphatase 118 Troponin I < 0.04 B-Natriuretic Peptide Total Protein 6.9 Albumin 3.5 Globulin 3.4 Albumin/Globulin Ratio 1.0 Lipase 17 L Serum Ketones NEGATIVE Influenza A (Rapid) Influenza B (Rapid) 11/23/18 11/23/18 11/23/18 23:55 23:55 23:55 WBC RBC Hgb Hct MCV MCH MCHC RDW Plt Count MPV Neut # (Auto) Lymph # (Auto) [place] # (Auto) Eos # (Auto) Baso # (Auto) Absolute Nucleated RBC Nucleated RBC % Sodium Potassium Chloride Carbon Dioxide Anion Gap BUN Creatinine Estimated GFR (MDRD) Glucose Lactic Acid 1.3 Calcium Magnesium Total Bilirubin AST ALT Alkaline Phosphatase Troponin I B-Natriuretic Peptide 61 Total Protein Albumin Globulin Albumin/Globulin Ratio Lipase Serum Ketones Influenza A (Rapid) Negative Influenza B (Rapid) Negative - Rads (name of study) chest xray Radiology: Prelim report reviewed (no infiltrates; no acute cardiopulmonary abnormality.), EMP read contemporaneously, See rad report PD MEDICAL DECISION MAKING - ED course Complexity details: reviewed results, re-evaluated patient (resting easily and alert. However still resting tachycardia, and sats 90-92% RA, with drop to 88% at times with just conversation. Did not attempt ambulation. ), considered differential (He is breathing more easily after nebulizer treatments en route and here in the ER. He is awake and conversant. His resting heart rate is still tachycardic however. His temperature has come down from 39.5-38. His oxygenation level on room air is 90-92% resting but we are just talking regular conversation and he was going down to 88%. I did not attempt ambulation. I think his Sirs criteria and respiratory status are improved but not quite adequate for home therapy given still mild hypoxia tachycardia and some wheezing. There is no signs of pneumonia, influenza, sepsis or heart failure. However he does have the exacerbation of COPD with either likely viral illness or would want to potentially cover for bacterial bronchitis given his history.), d/w patient Departure - Departure Disposition: ED Place in Observation Clinical Impression: Hypoxia, Acute exacerbation of COPD with asthma Upper respiratory infection Qualifiers: URI type: unspecified URI Qualified Code(s): J06.9 - Acute upper respiratory infection, unspecified Clinical Impression: (Ruled Out): Congestive heart failure Condition: Stable Record reviewed to determine appropriate education?: Yes
[2018-11-23] MEDS ORDERED: IPRATROPIUM/ALBUTEROL 3 ML NEB INH STA (23:36)
[2018-11-23] MEDS ORDERED: DEXAMETHASONE 10 MG/ML VIAL IVP STA (23:39)
[2018-11-23] MEDS ORDERED: ACETAMINOPHEN 325 MG TABLET PO STA (23:40)
[2018-11-24 00:15] LABS: BASOPHILS # (AUTO) 0.1 10^3/uL (0.0-0.1); BASOPHILS % (AUTO) 0.7 %; EOSINOPHILS % (AUTO) 0.2 %; HGB - HEMOGLOBIN 12.5 g/dL (14.0-18.0); LYMPHOCYTES # (AUTO) 0.5 10^3/uL (1.5-3.5); LYMPHOCYTES % (AUTO) 3.8 %; MEAN CORPUSCULAR HEMOGLOBIN 30.5 pg (27.0-31.0); MEAN CORPUSCULAR HGB CONC 33.7 g/dL (32.0-36.0); MEAN CORPUSCULAR VOLUME 90.5 fL (80.0-94.0); MEAN PLATELET VOLUME 8.3 fL (7.4-11.4); NEUTROPHILS # (AUTO) 12.2 10^3/uL (1.5-6.6); NEUTROPHILS % (AUTO) 88.3 %; PLT - PLATELET COUNT 225 10^3/uL (130-450); RED BLOOD COUNT 4.08 10^6/uL (4.70-6.10); RED CELL DISTRIBUTION WIDTH 14.7 % (12.0-15.0); WHITE BLOOD COUNT 13.8 x10^3/uL (4.8-10.8)
[2018-11-24 00:16] LABS: KETONES, SERUM (ACETEST) NEGATIVE (NEGATIVE)
--- NOTE | 2018-11-24 00:19 | XRAY Report ---
Reason: dyspnea, cough, fever Procedure Date: 11/23/2018 Accession Number: [id number] / [id number] Procedure: XR - Chest 2 View X-Ray CPT Code: 40283 FULL RESULT: EXAM: CHEST RADIOGRAPHY EXAM DATE: 11/23/2018 11:53 PM. CLINICAL HISTORY: Dyspnea, cough, fever. COMPARISON: CHEST 1 VIEW 04/25/2018 8:18 PM. TECHNIQUE: 2 views. FINDINGS: Lungs/Pleura: No focal opacities evident. No pleural effusion. No pneumothorax. Normal volumes. Mediastinum: Heart and mediastinal contours are unremarkable. Other: ICD device tip projects over the right ventricle apex. IMPRESSION: Stable appearance of the chest without acute cardiopulmonary abnormality. RAD[facility]
[2018-11-24 00:22] LABS: ALBUMIN 3.5 g/dL (3.2-5.5); ALKALINE PHOSPHATASE 118 IU/L (42-121); ALT ALANINE AMINOTRANSFERASE 39 IU/L (10-60); AST ASPARTATE AMINOTRANSFERASE 30 IU/L (10-42); BILIRUBIN,TOTAL 0.7 mg/dL (0.2-1.0); BUN - BLOOD UREA NITROGEN 15 mg/dL (6-20); CALCIUM 8.8 mg/dL (8.5-10.3); CARBON DIOXIDE - CO2 31 mmol/L (21-32); CHLORIDE 90 mmol/L (101-111); CREATININE 1.2 mg/dL (0.6-1.2); GFR - MDRD 62 (>89); GLUCOSE 434 mg/dL (70-100); LIPASE 17 U/L (22-51); SODIUM 132 mmol/L (135-145); TOTAL PROTEIN 6.9 g/dL (6.7-8.2)
[2018-11-24 00:31] LABS: MAGNESIUM 1.9 mg/dL (1.7-2.8)
[2018-11-24] MEDS ORDERED: INSULIN REGULAR HUMAN 100 UNIT/1 ML 10 ML MDV IVP STA (00:32)
[2018-11-24] MEDS ORDERED: ALBUTEROL NEB 2.5 MG/3 ML INH STA (00:56)
[2018-11-24] MEDS ORDERED: AZITHROMYCIN 250 MG TABLET PO STA (01:00)
[2018-11-24] MEDS ORDERED: cefTRIAXone 1 GM VIAL IVP STA (01:00)
[2018-11-24] MEDS ORDERED: ACETAMINOPHEN 325 MG TABLET PO PRN (01:31)
[2018-11-24] MEDS ORDERED: SODIUM CHLORIDE FLUSH 0.9% 10 ML SYRINGE IVP PRN (01:31)
--- NOTE | 2018-11-24 04:23 | HISTORY & PHYSICAL EXAMINATION ---
Chief Complaint - Chief Complaint Chief Complaint: dyspnea, chest tightness History of Present Illness - Admitted From Admitted From:: [facility] ED - History Obtained From Records Reviewed: Yes History obtained from: Patient - History of Present Illness HPI Comment/Other: Patient is a 58 y/o male with a significant medical history including CHF, AL s/p cardiac cath with stents and ICD, COPD, DM with an insulin pump and more (please see PMedHx) who presented to the ED with complain of persistent chest tightness which started in the afternoon on 11/23/18. He was found to have a temperature of 103F in the ED, tachycardic and tachypneic. On auscultation, he had significantly decreased/diminished breath sounds. As a result of his presentation, it was decided that he be admitted for further treatment. When I presented for exam, he was just about completing a breathing treatment. He denied chest pain, abd pain, nausea, vomiting or diarrhea. He denied any sick contact. No runny/ stuffy nose or cough. He had significant diminished breath sound despite the breathing treatment. The rest of his history was unremarkable History - Past Medical History Cardiovascular: reports: Congestive heart failure, Hypertension, High cholesterol, Coronary artery disease, AL, Other Respiratory: reports: COPD, Shortness of breath, Other Neuro: reports: Headaches, Peripheral neuropathy Endocrine/Autoimmune: reports: Type 1 diabetes GI: reports: GERD, Chronic diarrhea, Other : reports: Benign prostate hypertrophy, Retention, Renal insuffiency HEENT: reports: Other Psych: reports: Depression, Anxiety, Panic attacks, Post traumatic stress disorder Musculoskeletal: reports: Osteoarthritis Derm: reports: None MRSA Hx?: No Other Past Medical History: Pacemaker/AICD, fixed bridge with 5 teeth (upper), colitis, - Past Surgical History General: reports: Colonoscopy, EGD Ortho: reports: Carpal Tunnel surgery /TAX DIRECTOR: reports: Other Cardiovascular: reports: Coronary stent, AICD, Cardiac catheterization HEENT: reports: Cataracts, Other - Family & Social History Family History: Mother: Cancer Social History Notes: , 3 children, 6 grandkids. On disability due to CAD - Substance History Use: Uses substance without health or social issues: Tobacco - POLST Patient has POLST: No POLST Status: Patient was in the process of completing an advanced directive but has not finished Meds/Allgy - Home Medications Home Medications: Ambulatory Orders Medication Instructions Recorded Confirmed Pantoprazole [Protonix] 40 mg PO BIDAC 09/04/14 11/10/18 Spironolactone 12.5 mg PO DAILY 09/04/14 11/10/18 Zolpidem Tartrate 10 mg PO QPM PRN 09/04/14 11/10/18 raNITIdine HCl [Ranitidine HCl] 300 mg PO QPM 09/04/14 11/10/18 Insulin Lispro [Humalog] 1 - 11 units SQ .SLIDING SCALE 10/07/16 11/10/18 Pregabalin [Lyrica] 300 mg PO BID 10/07/16 11/10/18 Nortriptyline HCl 20 mg PO 0800,1700 03/01/17 11/10/18 Alprazolam 0.25 mg PO BID PRN 04/07/17 11/10/18 Cetirizine [ZyrTEC] 10 mg PO DAILY 04/07/17 11/10/18 Diclofenac Sodium [Voltaren] 4 gm TP QID PRN 04/07/17 11/10/18 Lidocaine Patch 5% [Lidoderm Patch] 1 each TOP DAILY PRN 04/07/17 11/10/18 Simvastatin 80 mg PO QPM 04/07/17 11/10/18 Budesonide [Entocort EC] 9 mg PO DAILY #60 capsule 04/10/17 11/10/18 Psyllium [Metamucil] 1 packet PO BID packet 04/10/17 11/10/18 Aspirin Chewable [[place] 81 mg PO DAILY tablet 05/30/17 11/10/18 Aspirin] DULoxetine [Cymbalta] 60 mg PO BID capsule 05/30/17 11/10/18 Furosemide 40 mg PO DAILY 01/19/18 11/10/18 Nitroglycerin [Nitrostat] 1 tab SL PRN PRN 01/19/18 11/10/18 Pramlintide Acetate [Symlinpen 60] 15 mcg SQ AC 01/19/18 11/10/18 Doxazosin [Cardura] 8 mg PO DAILY 04/10/18 11/10/18 Isosorbide Mononitrate [Isosorbide 30 mg PO DAILY 05/25/18 11/10/18 Mononitrate ER] Gabapentin 300 mg PO BID 10/06/18 11/10/18 Albuterol 2.5 mg INH Q6H PRN 11/07/18 11/10/18 Beclomethasone Dipropionate [Qvar 1 puffs INH BID 11/07/18 11/10/18 Redihaler (40 mcg)] Bupropion HCl [Bupropion Xl] 450 mg PO DAILY 11/07/18 11/10/18 FLUoxetine [PROzac] 10 mg PO DAILY 11/07/18 11/10/18 Hydrocortisone 5 mg PO BIDWM 11/07/18 11/10/18 Levalbuterol Tartrate 2 puffs INH Q4H PRN MDD 12 11/07/18 11/10/18 [Levalbuterol Tartrate Hfa] puffs/day Lisinopril 5 mg PO DAILY 11/07/18 11/10/18 Metoprolol Succinate 25 mg PO DAILY 11/07/18 11/10/18 Multivitamin [Multiple Vitamins] 1 each PO DAILY 11/07/18 11/10/18 Tiotropium [place] [Spiriva 2 puffs INH DAILY 11/07/18 11/10/18 Respimat] oxyCODONE [Roxicodone] 5 mg PO Q6H PRN 11/07/18 11/10/18 - Allergies Allergies/Adverse Reactions: Allergies Allergy/AdvReac Type Severity Reaction Status Date / Time No Known Drug Allergies Allergy Verified 11/23/18 23:28 Review of Systems - Constitutional Constitutional: reports: Fever - Eyes Eyes: denies: Pain, Blurred vision, Vision loss, Dipolpia - Ears, Nose & Throat Ears, Nose & Throat: denies: Ear pain, Nasal pain, Sore throat - Cardiovascular Cariovascular: denies: Palpitations, Chest pain, Edema, Lightheadedness - Respiratory Respiratory: denies: Cough, Sputum production, Wheezing - Gastrointestinal Gastrointestinal: denies: Abdominal pain, Constipation, Diarrhea, Nausea, Vomiting - Genitourinary Genitourinary: denies: Dysuria, Frequency, Hematuria - Musculoskeletal Musculoskeletal: denies: Muscle pain, Back pain - Integumentary Integumentary: denies: Rash - Neurological Neurological: denies: General weakness, Focal weakness, Headache - Psychiatric Psychiatric: reports: Depression, Anxiety - Endocrine Endocrine: denies: Polyuria, Polydypsia - Hematologic/Lymphatic Hematologic/Lymphatic: denies: Anemia, Bruising Prior Level of Functionality: He is independent of activities of daily living. He going about his errands in town today before he came to the ED Exam - Vital Signs Reviewed Vital Signs: Yes Vital Signs: Vital Signs x48h Temp Pulse Pulse Resp BP BP Pulse Ox 11/24/18 02:20 37.0 C 113 H 20 100/75 92 11/24/18 01:33 115 H 22 101/72 90 L 11/24/18 01:03 111 H 15 11/24/18 00:15 37.8 C H 11/24/18 00:01 120 H 21 11/23/18 23:33 119 H 20 123/74 92 11/23/18 23:29 39.5 C H 120 H 16 120/86 H 92 - Physical Exam General Appearance: positive: Alert, Mild distress Eyes Bilateral: positive: Normal inspection, PERRL, EOMI ENT: positive: ENT inspection nml, No signs of dehydration Neck: positive: Nml inspection, Thyroid nml, No JVD Respiratory: positive: Other (very diminished breath sounds). negative: Chest non-tender, Wheezes, Rales, Rhonchi Cardiovascular: positive: Tachycardia Abdomen: positive: Non-tender, Other (protuberant abdomen). negative: Guarding, Rebound Skin: positive: No rash, Warm Extremities: positive: Non-tender, No pedal edema Neurologic/Psychiatric: positive: Oriented x3 Sepsis Event Note (H) - Evaluation Possible source of Sepsis: positive: Pulmonary - Sepsis Criteria Sepsis Criteria: Recorded Temperature greater than 38.3C or Less than 36C, Recorded Heart Rate greater than 90 bpm, Recorded Respiratory Rate greater than 20, Respiratory: Increasing oxygen requirements, WBC count greater than 12,000 or less than 4000 Conclusion/Plan - Problem List (1) Acute exacerbation of chronic obstructive pulmonary disease (COPD) Conclusion/Plan: Patient given a breathing treatment in the ED. Will continue q4hrs prn Patient given dexamethasone in the ED. Solumedrol q4hrs ordered Will monitor patient closely (2) SIRS (systemic inflammatory response syndrome) Conclusion/Plan: Etiology undetermined ?Bronchitis. Patient given rocephin and azithromycin in the ED. Will continue. Azithromycin for 4 more days Blood cultures drawn. (However, this were drawn after initial administration of antibiotics) Tylenol for fever. Chest xray unremarkable. (3) Type 1 diabetes mellitus Conclusion/Plan: Currently uncontrolled. Likely to worsen on steroids for COPD. Patient has an insulin pumps. I told him I would like him to turn it of so that we could manage him on an insulin drip. However he declined and is insistent on managing his blood glucose on his own using his pump. POC glucose checks ordered. This result will be presented tot he patient for him to administer the dose of insulin indicated by his protocol. I will not administer any additional extrinsic insulin while his pump is active. Qualifiers: Diabetes mellitus complication status: with hyperglycemia Qualified Code(s): E10.65 - Type 1 diabetes mellitus with hyperglycemia (4) CAD (coronary artery disease) Conclusion/Plan: Continue metoprolol, aspirin, imdur, lisinopril Qualifiers: Coronary Disease-Associated Artery/Lesion type: [place] artery [place] vs. transplanted heart: [place] heart Associated angina: without angina Qualified Code(s): I25.10 - Atherosclerotic heart disease of [place] coronary artery without angina pectoris (5) History of ischemic cardiomyopathy Conclusion/Plan: ICD in place. On metoprolol and lisinopril (6) History of CHF (congestive heart failure) Conclusion/Plan: Not in exacerbation. Will continue lasix, spironolactone, metoprolol and lisinopril. (7) Hyperlipidemia Conclusion/Plan: On simvastatin (8) BPH (benign prostatic hyperplasia) Conclusion/Plan: On doxazosin (9) Diabetic neuropathy associated with type 1 diabetes mellitus Conclusion/Plan: On gabapentin. (10) Depression Conclusion/Plan: On duloxetine and buproprion (11) Anxiety Conclusion/Plan: On alprazolam (12) Insomnia Conclusion/Plan: On zolpidem (13) GERD (gastroesophageal reflux disease) Conclusion/Plan: Protonix - Lab Results Fish Bones: 11/23/18 23:55 11/23/18 23:55 Core Measures - Anticipated LOS I expect patient to be DC'd or transferred within 96 hours.: Yes - DVT/VTE - Prophylaxis VTE/DVT Device ordered at admit?: Yes VTE/DVT Prophylaxis med ordered at admit?: Yes
[2018-11-24] MEDS: ENOXAPARIN 40 MG/0.4 ML SYRINGE SUBQ SCH (08:54)
[2018-11-24] MEDS: POLYETHYLENE GLYCOL 3350 17 GM PACKET PO SCH (08:54)
[2018-11-24] MEDS: SODIUM CHLORIDE FLUSH 0.9% 10 ML SYRINGE IVP SCH ×3 (08:54→23:55)
[2018-11-24] MEDS: methylPREDNISolone SUCCINATE 40 MG/ML VIAL IVP SCH ×3 (08:54→19:05)
[2018-11-24 09:55] LABS: BASOPHILS % (AUTO) 0.1 %; HGB - HEMOGLOBIN 12.6 g/dL (14.0-18.0); LYMPHOCYTES # (AUTO) 0.3 10^3/uL (1.5-3.5); LYMPHOCYTES % (AUTO) 1.8 %; MEAN CORPUSCULAR HEMOGLOBIN 30.2 pg (27.0-31.0); MEAN CORPUSCULAR HGB CONC 32.9 g/dL (32.0-36.0); MEAN CORPUSCULAR VOLUME 91.6 fL (80.0-94.0); MEAN PLATELET VOLUME 8.4 fL (7.4-11.4); MONOCYTES # (AUTO) 0.3 10^3/uL (0.0-1.0); MONOCYTES % (AUTO) 2.2 %; NEUTROPHILS # (AUTO) 14.1 10^3/uL (1.5-6.6); NEUTROPHILS % (AUTO) 95.9 %; PLT - PLATELET COUNT 221 10^3/uL (130-450); RED BLOOD COUNT 4.16 10^6/uL (4.70-6.10); RED CELL DISTRIBUTION WIDTH 14.8 % (12.0-15.0); WHITE BLOOD COUNT 14.7 x10^3/uL (4.8-10.8)
[2018-11-24 10:03] LABS: CALCIUM 8.8 mg/dL (8.5-10.3); CREATININE 1.2 mg/dL (0.6-1.2)
[2018-11-24] MEDS ORDERED: INSULIN PUMP SUBQ SCH (10:30)
[2018-11-24] MEDS ORDERED: cefTRIAXone 1 GM in SODIUM CHLORIDE 0.9% MINIBAG 100 ML IV SCH (12:00)
[2018-11-24] MEDS: LEVALBUTEROL 1.25 MG/3 ML NEB INH PRN ×2 (13:32→22:23)
[2018-11-24] MEDS: IPRATROPIUM 0.2 MG/ML NEB INH SCH ×3 (13:33→22:26)
[2018-11-24] MEDS: BUDESONIDE 0.5 MG/2 ML NEB INH SCH ×2 (13:33→22:24)
--- NOTE | 2018-11-24 15:09 | PROVIDER PROGRESS NOTE ---
Assessment/Plan - Problem List (1) SIRS (systemic inflammatory response syndrome) Assessment/Plan: The patient had a fever of 39 degrees C at midnight last night. He has been cultured and is growing GPC in his blood. Lactic acid was normal. Continue empiric iv antibiotics: Zithromax and Ceftriaxone. Continue oral hydration due to fever, but holding his usual diuretics. Follow CBC daily. (2) Gram-positive cocci bacteremia Assessment/Plan: WBC alphonso, but he has received iv steroids. The sources could be bronchitis (given his COPD exacerbation), but more likely his R ear or diabetic foot infection. CXR was unremarkable at admission. Will obtain imaging of R ear and R foot, see below. Continue empiric iv antibiotics and await bacteremia identification and sensi tivities. Follow CBC daily. (3) Diabetic foot ulcer Qualifiers: Diabetic foot ulcer location: midfoot Laterality: right Non-pressure ulcer stage: with necrosis of muscle Assessment/Plan: He has a large callous along the lateral plantar aspect of his R foot and at the center is an open wound which is dry, deep and with slight surrounding redness. He cannot get MRIs since he has an ICD. Will obtain imaging with CT to evaluate for cellulitis or osteo. Will request a wound consult from [facility] wound service. If there is osteo will request an Orthopedic consult. (4) Ear pain, right Assessment/Plan: The patient told his RN that he has a deep ear ache in the R ear today. That ear had developed sudden hearing loss 3 mos ago and he was being treated for otitis media with injections of steroids plus antibiotics. He cannot get MRIs since he has an ICD. Will obtain CT imaging of the R ear/temporal bone area to evaluate for cellulitis or osteo of the temporal bone or mastoid bone. (5) Acute exacerbation of chronic obstructive pulmonary disease (COPD) Assessment/Plan: He feels better on steroids and will continue nebulizer around the clock treatments, as were planned by admitting Supervisor [employer]. (6) Addisons disease Assessment/Plan: He reports being on Hydrocortisone for this, it is currently being substituted with iv Solumedrol for COPD exacerbation. (7) Type 1 diabetes mellitus Qualifiers: Diabetes mellitus complication status: with hyperglycemia Qualified Code(s): E10.65 - Type 1 diabetes mellitus with hyperglycemia Assessment/Plan: Glu are running in 400's, likely due to being on steroids and the stress of infection. He is on an Insulin pump. Will allow him to use this whike here, bolusing as per directions. Lamin request Diabetic Education. Will order that he may continue his med from home (Symlinpin ) to decrease glu levels. Obtain A1c. Restart his diabetic neuropathy meds: Lyrica and Gabapentin. (8) Cardiomyopathy Qualifiers: Cardiomyopathy type: ischemic Qualified Code(s): I25.5 - Ischemic cardiomyopathy Assessment/Plan: He had an ICD placed with EF of 28% after his RI in 2011. His last Echo here was done in 2017, and showed an LVEF of 45% with an antrero-apical scar. On current admission BNP was low. Will restart his Toprol XL and Lisinopril, but hold the Spironolactone and Lasix while he has SIRS. Patient not getting iv fluids, he is hydrating orally. Follow BMP daily. (9) CAD (coronary artery disease) Qualifiers: Coronary Disease-Associated Artery/Lesion type: [place] artery [place] vs. transplanted heart: [place] heart Associated angina: without angina Qualified Code(s): I25.10 - Atherosclerotic heart disease of [place] coronary artery without angina pectoris Assessment/Plan: Will restart his daily ASA and Imdur, hold statin for now. (10) BPH (benign prostatic hyperplasia) Assessment/Plan: Will restart his Doxazosin. (11) Anxiety and depression Assessment/Plan: Will restart his Cymbalta, Fluoxetene, Nortryptylin and Wellbutrin. - Current Meds Current Meds: Current Medications Generic Name Dose Route Start Last Admin Trade Name Freq PRN Reason Stop Dose Admin Acetaminophen 650 mg 11/24/18 01:31 11/24/18 12:39 Tylenol PO 650 mg Q4HR PRN Administration Pain 1 to 4 Budesonide 0.5 mg 11/24/18 12:18 11/24/18 13:33 Pulmicort INH 0.5 mg RTBID ASHANTI Administration Enoxaparin Sodium 40 mg 11/24/18 09:00 11/24/18 08:54 Lovenox SUBQ 40 mg DAILY ASHANTI Administration Ceftriaxone Sodium 1 gm/ 100 mls @ 200 mls/hr 11/24/18 12:00 11/24/18 13:01 Sodium Chloride IV Infused DAILY ASHANTI Infusion Ipratropium [place] 0.5 mg 11/24/18 12:00 11/24/18 13:33 Atrovent INH 0.5 mg RTQID ASHANTI Administration Levalbuterol HCl 1.25 mg 11/24/18 12:19 11/24/18 13:32 Xopenex INH 1.25 mg Q4H PRN Administration Shortness of Air/Wheezing Methylprednisolone 40 mg 11/24/18 07:00 11/24/18 12:31 Solu-Medrol (40mg Vial) IVP 40 mg Q6H ASHANTI Administration Polyethylene Glycol 17 gm 11/24/18 09:00 11/24/18 08:54 Miralax PO Not Given DAILY ASHANTI Sodium Chloride 10 ml 11/24/18 09:00 11/24/18 08:54 Normal Saline Flush 0.9% IVP 10 ml 0100,0900,1700 AHSANTI Administration - Lab Result Fish Bone Diagrams: 11/24/18 09:45 11/24/18 09:45 - Additional Planning My Orders: My Active Orders 11/24/18 10:25 Insulin Pump Start Training - [RC] .once 11/24/18 10:30 Patient Own Med [Patient Own Medication] 1 - 11 each SUBQ .SLIDING SCALE 11/24/18 12:00 Ipratropium [Atrovent] 0.5 mg INH RTQID 11/24/18 12:18 Nebulizer/MDI Tx. [RC] .BID/ QID/ Q4 PRN Budesonide [Pulmicort] 0.5 mg INH RTBID 11/24/18 12:19 Levalbuterol [Xopenex] 1.25 mg INH Q4H PRN 11/24/18 13:35 Diabetic Education [RC] ONCE Subjective - Subjective Patient Reports: Feeling Better, Resting Comfortably Nursing Reports: Other (Neb treatments are helping alot.) Objective Vital Signs: Vital Signs - 24 hr 11/23/18 11/23/18 11/24/18 23:29 23:33 00:01 Temperature 39.5 C H Heart Rate 120 H 119 H 120 H Heart Rate [ Brachial] Respiratory 16 20 21 Rate Blood Pressure 120/86 H 123/74 Blood Pressure [Right Brachial artery] O2 Saturation 92 92 11/24/18 11/24/18 11/24/18 00:15 01:03 01:33 Temperature 37.8 C H Heart Rate 111 H 115 H Heart Rate [ Brachial] Respiratory 15 22 Rate Blood Pressure 101/72 Blood Pressure [Right Brachial artery] O2 Saturation 90 L 11/24/18 11/24/18 11/24/18 02:20 04:31 08:14 Temperature 37.0 C 37 C 36.5 C Heart Rate 113 H Heart Rate [ 113 H 80 Brachial] Respiratory 20 20 14 Rate Blood Pressure Blood Pressure 100/75 106/60 [Right Brachial artery] O2 Saturation 92 92 96 11/24/18 11/24/18 12:17 13:32 Temperature 36.3 C L Heart Rate 85 Heart Rate [ 82 Brachial] Respiratory 14 20 Rate Blood Pressure Blood Pressure 100/57 L [Right Brachial artery] O2 Saturation 95 Oxygen O2 Source [With Activity] Room air O2 Source Room air I&O (Last 24 Hrs): Intake and Output Totals x24h 11/22/18 11/23/18 11/24/18 23:59 23:59 23:59 Intake Total 880 Balance 880 General: Alert, Oriented x3, No acute distress HEENT: Mucous membr. moist/pink, Other (R ear has a clean canal, no pinna tenderness or mastoid tenderness, and a white-yellow ear drum (posible purulence).) Neck: Supple Neuro: Other (R hearing loss) Cardiovascular: Regular rate, No murmurs Respiratory: No respiratory distress, Breath sounds nml Abdomen: Soft, Other (Obese) Extremities: No edema, Other (He has a large callous along the lateral plantar aspect of his R foot and at the center is an open wound which is dry, deep and with slight surrounding redness.) - Results Results: Laboratory Results WBC 14.7 x10^3/uL (4.8-10.8) H 11/24/18 09:45 RBC 4.16 10^6/uL (4.70-6.10) L 11/24/18 09:45 Hgb 12.6 g/dL (14.0-18.0) L 11/24/18 09:45 Hct 38.2 % (42.0-52.0) L 11/24/18 09:45 MCV 91.6 fL (80.0-94.0) 11/24/18 09:45 MCH 30.2 pg (27.0-31.0) 11/24/18 09:45 MCHC 32.9 g/dL (32.0-36.0) 11/24/18 09:45 RDW 14.8 % (12.0-15.0) 11/24/18 09:45 Plt Count 221 10^3/uL (130-450) 11/24/18 09:45 MPV 8.4 fL (7.4-11.4) 11/24/18 09:45 Neut # (Auto) 14.1 10^3/uL (1.5-6.6) H 11/24/18 09:45 Lymph # (Auto) 0.3 10^3/uL (1.5-3.5) L 11/24/18 09:45 [place] # (Auto) 0.3 10^3/uL (0.0-1.0) 11/24/18 09:45 Eos # (Auto) 0.0 10^3/uL (0.0-0.7) 11/24/18 09:45 Baso # (Auto) 0.0 10^3/uL (0.0-0.1) 11/24/18 09:45 Absolute Nucleated RBC 0.00 x10^3/uL 11/24/18 09:45 Nucleated RBC % 0.0 /100WBC 11/24/18 09:45 Sodium 131 mmol/L (135-145) L 11/24/18 09:45 Potassium 4.2 mmol/L (3.5-5.0) 11/24/18 09:45 Chloride 89 mmol/L (101-111) L 11/24/18 09:45 Carbon Dioxide 27 mmol/L (21-32) 11/24/18 09:45 Anion Gap 15.0 (6-13) H 11/24/18 09:45 BUN 17 mg/dL (6-20) 11/24/18 09:45 Creatinine 1.2 mg/dL (0.6-1.2) 11/24/18 09:45 Estimated GFR (MDRD) 62 (>89) L 11/24/18 09:45 Glucose 458 mg/dL (70-100) H 11/24/18 09:45 POC Whole Bld Glucose 445 mg/dL (70 - 100) H 11/24/18 11:49 Lactic Acid 1.3 mmol/L (0.5-2.2) 11/23/18 23:55 Calcium 8.8 mg/dL (8.5-10.3) 11/24/18 09:45 Magnesium 1.9 mg/dL (1.7-2.8) 11/23/18 23:55 Total Bilirubin 0.7 mg/dL (0.2-1.0) 11/23/18 23:55 AST 30 IU/L (10-42) 11/23/18 23:55 ALT 39 IU/L (10-60) 11/23/18 23:55 Alkaline Phosphatase 118 IU/L (42-121) 11/23/18 23:55 Troponin I < 0.04 ng/mL (<0.49) 11/23/18 23:55 B-Natriuretic Peptide 61 pg/mL (5-100) 11/23/18 23:55 Total Protein 6.9 g/dL (6.7-8.2) 11/23/18 23:55 Albumin 3.5 g/dL (3.2-5.5) 11/23/18 23:55 Globulin 3.4 g/dL (2.1-4.2) 11/23/18 23:55 Albumin/Globulin Ratio 1.0 (1.0-2.2) 11/23/18 23:55 Lipase 17 U/L (22-51) L 11/23/18 23:55 Serum Ketones NEGATIVE (NEGATIVE) 11/23/18 23:55 Influenza A (Rapid) Negative (Negative) 11/23/18 23:55 Influenza B (Rapid) Negative (Negative) 11/23/18 23:55 - Procedures Procedures: Procedures EXPLOR TEND SHEATH-HAND (09/13/14) REPLACEMENT OF LEFT LENS WITH SYNTH SUB, PERC APPROACH (10/06/18) REPLACEMENT OF RIGHT LENS WITH SYNTH SUB, PERC APPROACH (11/10/18) Sepsis Event Note (H) - Evaluation Possible source of Sepsis: positive: Pulmonary - Sepsis Criteria Sepsis Criteria: Recorded Temperature greater than 38.3C or Less than 36C, Recorded Heart Rate greater than 90 bpm, Recorded Respiratory Rate greater than 20, Respiratory: Increasing oxygen requirements, WBC count greater than 12,000 or less than 4000
[2018-11-24] MEDS ORDERED: ZOLPIDEM 5 MG TABLET PO PRN (15:13)
[2018-11-24] MEDS ORDERED: oxyCODONE 5 MG TABLET PO PRN (15:13)
[2018-11-24] MEDS ORDERED: ALPRAZolam 0.25 MG TABLET PO PRN (15:13)
[2018-11-24] MEDS ORDERED: NITROGLYCERIN SL 0.4 MG TABLET SL PRN (15:13)
[2018-11-24] MEDS ORDERED: LIDOCAINE PATCH 5% TOP PRN (15:13)
[2018-11-24] MEDS: NORTRIPTYLINE 10 MG CAPSULE PO SCH (16:32)
[2018-11-24] MEDS: PRAMLINTIDE ACETATE SQ SCH (16:45)
[2018-11-24] MEDS ORDERED: CLINDAMYCIN 900 MG/50 ML 50 ML IV SCH (19:00)
[2018-11-24] MEDS: CLINDAMYCIN 900 MG/50 ML 50 ML IV SCH (19:06)
[2018-11-24] MEDS: PREGABALIN 100 MG CAPSULE PO SCH (20:39)
[2018-11-24] MEDS: GABAPENTIN 300 MG CAPSULE PO SCH (20:40)
[2018-11-24] MEDS: DULoxetine 30 MG CAPSULE PO SCH (20:40)
[2018-11-24] MEDS ORDERED: DOXAZOSIN 4 MG TABLET PO SCH (21:00)
[2018-11-24] MEDS ORDERED: MOXIFLOXACIN 400MG/250ML IV 400 MG/250 ML BAG IV SCH (21:00)
[2018-11-24] MEDS ORDERED: IOVERSOL 320 100 ML VIAL IVP ONE ×2 (21:22→23:36)
--- NOTE | 2018-11-25 02:15 | CT Report ---
Reason: R foot, eval for osteo or cellulitis Procedure Date: 11/24/2018 Accession Number: [id number] / [id number] Procedure: CT - Lower Extremity Right W/WO CPT Code: FULL RESULT: EXAM: RIGHT ANKLE AND FOOT CT WITHOUT AND WITH CONTRAST EXAM DATE: 11/24/2018 11:32 PM. CLINICAL HISTORY: Hole on the lateral side of the foot, near the base of the fifth digit. COMPARISON: LOWER EXTREMITY RIGHT W/O 07/04/2018 1:20 PM. TECHNIQUE: Thin-section axial images were acquired of the foot after administration of intravenous contrast. IV contrast: 50 mL Optiray 320. Post-processing: Coronal and sagittal reformats. Other: None. In accordance with CT protocol optimization, one or more of the following dose reduction techniques were utilized for this exam: automated exposure control, adjustment of mA and/or KV based on patient size, or use of iterative reconstructive technique. FINDINGS: Bones: No definite fracture or suspicious bone lesion is seen at this time. Please note that exam sensitivity and specificity is lower compared to that of MRI. Joints: No dislocation is demonstrated. Soft tissue: Soft tissue thickening as well as subcutaneous stranding is noted along the lateral portion of the fifth MTP joint. Soft tissue ulceration is noted on the plantar aspect of the fifth MTP joint. IMPRESSION: 1. Soft tissue ulceration as well as thickening are seen along the plantar aspect of the foot near the fifth MTP joint. 2. No definite suspicious bone lesion noted at this time to suggest definite osteomyelitis. 3. There is no evidence of an abscess. 4. No acute fracture. RADIA
--- NOTE | 2018-11-25 03:34 | CT Report ---
Reason: R ear pain today and R hearing loss 3 mos Procedure Date: 11/24/2018 Accession Number: [id number] / [id number] Procedure: CT - Head W/WO CPT Code: FULL RESULT: EXAM: CT HEAD WITHOUT AND WITH CONTRAST EXAM DATE: 11/24/2018 11:27 PM. CLINICAL HISTORY: R ear pain today and R hearing loss 3 mos. COMPARISON: Head CT 11/19/2018. TECHNIQUE: Multiaxial CT images were obtained from the foramen magnum to the vertex both without and with contrast. Reformats: Sagittal and coronal. High-resolution soft tissue reformats obtained of the right ear region as well. IV contrast: Yes without and with 50 mL Optiray 320. In accordance with CT protocol optimization, one or more of the following dose reduction techniques were utilized for this exam: automated exposure control, adjustment of mA and/or KV based on patient size, or use of iterative reconstructive technique. FINDINGS: Parenchyma: No intraparenchymal hemorrhage. No evidence of mass, midline shift, or CT findings of infarction. Salgado-white differentiation is distinct. Extraaxial Spaces: Normal for age. No subdural or epidural collections identified. Ventricles: Normal in size and position. Sinuses and Orbits: Right mastoid opacification. There is soft tissue material in the right epitympanum. Bones: No evidence of fracture or calvarial defect. Other: None. IMPRESSION: 1. Right mastoid effusion and fluid or soft tissue in right middle ear. Findings may represent acute or chronic mastoiditis/otitis. 2. Otherwise unremarkable head CT. No enhancing abnormality. RADIA
[2018-11-25 05:32] LABS: HB2 TOTAL 12.6 g/dL; HEMOGLOBIN A1C 0.99 g/dL; HEMOGLOBIN A1C % 9.3 % (4.6-6.2)
[2018-11-25] MEDS: CLINDAMYCIN 900 MG/50 ML 50 ML IV SCH (06:23)
[2018-11-25] MEDS: methylPREDNISolone SUCCINATE 40 MG/ML VIAL IVP SCH ×4 (06:24→12:59)
[2018-11-25] MEDS: PRAMLINTIDE ACETATE SQ SCH ×3 (07:11→16:36)
[2018-11-25] MEDS ORDERED: VANCOMYCIN PER PHARMACY 100 GM in SODIUM CHLORIDE 0.9% 250 ML IV PRN (08:00)
[2018-11-25 08:43] LABS: BASOPHILS % (AUTO) 0.2 %; LYMPHOCYTES # (AUTO) 0.7 10^3/uL (1.5-3.5); LYMPHOCYTES % (AUTO) 3.2 %; MEAN CORPUSCULAR HEMOGLOBIN 30.3 pg (27.0-31.0); MEAN CORPUSCULAR HGB CONC 33.3 g/dL (32.0-36.0); MEAN PLATELET VOLUME 8.5 fL (7.4-11.4); MONOCYTES # (AUTO) 0.9 10^3/uL (0.0-1.0); MONOCYTES % (AUTO) 3.8 %; NEUTROPHILS # (AUTO) 21.3 10^3/uL (1.5-6.6); NEUTROPHILS % (AUTO) 92.8 %; PLT - PLATELET COUNT 265 10^3/uL (130-450); RED CELL DISTRIBUTION WIDTH 14.9 % (12.0-15.0); WHITE BLOOD COUNT 22.9 x10^3/uL (4.8-10.8)
[2018-11-25 08:48] LABS: CALCIUM 9.1 mg/dL (8.5-10.3); CREATININE 1.1 mg/dL (0.6-1.2)
[2018-11-25] MEDS: ENOXAPARIN 40 MG/0.4 ML SYRINGE SUBQ SCH (08:48)
[2018-11-25] MEDS: DULoxetine 30 MG CAPSULE PO SCH (08:48)
[2018-11-25] MEDS: SODIUM CHLORIDE FLUSH 0.9% 10 ML SYRINGE IVP SCH ×2 (08:48→16:41)
[2018-11-25] MEDS: PREGABALIN 100 MG CAPSULE PO SCH (08:48)
[2018-11-25] MEDS: GABAPENTIN 300 MG CAPSULE PO SCH (08:48)
[2018-11-25] MEDS: POLYETHYLENE GLYCOL 3350 17 GM PACKET PO SCH (08:49)
[2018-11-25] MEDS: NORTRIPTYLINE 10 MG CAPSULE PO SCH ×2 (08:50→16:38)
[2018-11-25] MEDS ORDERED: LISINOPRIL 5 MG TABLET PO SCH (09:00)
[2018-11-25] MEDS ORDERED: CETIRIZINE 10 MG TABLET PO SCH (09:00)
[2018-11-25] MEDS ORDERED: ASPIRIN CHEW 81 MG TABLET PO SCH (09:00)
[2018-11-25] MEDS ORDERED: buPROPion XL 150 MG TABLET PO SCH (09:00)
[2018-11-25] MEDS ORDERED: AZITHROMYCIN 250 MG TABLET PO SCH (09:00)
[2018-11-25] MEDS ORDERED: ISOSORBIDE MONONITRATE ER 30 MG TABLET PO SCH (09:00)
[2018-11-25] MEDS ORDERED: METOPROLOL SUCCINATE 25 MG TABLET PO SCH (09:00)
[2018-11-25] MEDS ORDERED: FLUoxetine 10 MG CAPSULE PO SCH (09:00)
[2018-11-25] MEDS: IPRATROPIUM 0.2 MG/ML NEB INH SCH ×3 (09:01→17:07)
[2018-11-25] MEDS: BUDESONIDE 0.5 MG/2 ML NEB INH SCH (09:01)
[2018-11-25] MEDS: LEVALBUTEROL 1.25 MG/3 ML NEB INH PRN ×3 (09:01→17:07)
[2018-11-25 09:45] LABS: RBC MORPHOLOGY (MULTIPLE) 1+ ANISOCYTOSIS (NORMAL)
[2018-11-25] MEDS ORDERED: VANCOMYCIN INJ 2 GM in SODIUM CHLORIDE 0.9% 500 ML IV ONE (10:00)
--- NOTE | 2018-11-25 15:37 | Discharge Plan ---
Discharge Plan Disposition: 02 Transfer Acute Care Hosp Condition: Stable No Smoking: If you smoke, Please STOP! Call for help. Follow-up with: Amadou Jackson MD [Primary Care Provider] -
--- NOTE | 2018-11-25 15:42 | ADVANCE CARE PLANNING NOTE ---
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 He has had diabetes since age 13, is currently on insulin pump.He has peripheral neuropathy with complaints of nocturnal pain and numbness in the right foot and left leg up to his knee, this is managed with neuropathy meds. He developed an ulcer in the middle of a callus on the pedal aspect of his right foot where he had prior surgery, a tumor removed off the tendon. 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 3 months ago he developed sudden hearing loss and has been treated by ENT for otitis media with oral antibiotics, steroid drops and intraoral antibiotics. He still cannot hear. He has had pain in that ear since being admitted. He always thought that living to age 65 would be his goal and therefore he told the emergency room doctor and admitting [employer] Drill Operator that he wanted to be a DNR. Today he is reconsidering this and would like to be a full code, wishes to sign a new POLST form that he wants to show to his 3 children in order to have them aware of his wishes before signing the final form. I explained to him the meaning of having CPR and its risks and benefits. I explained to him the meaning of having complete aggressive medical care versus selective care versus comfort care. - Objective/Medical story Objective/Medical Story: The patient is a 58-year-old white male with diabetes since age 13, CA 5 years ago with an ischemic cardiomyopathy and defibrillator in place, COPD diagnosed 1 year ago, bilateral cataract surgeries done 6 weeks ago and 2 weeks ago, new ulcer of his right foot and a 3 month history of right otitis media who was admitted with shortness of breath and COPD exacerbation and evidence of sepsis, grew Staph aureus on blood cultures and has had poor glucose control on his insulin pump, plus evidence of suppurative otitis media. He is being transferred for higher level of care (needing Infectious Disease consult, ENT consult, an Echo or possible DELMI to evaluate for endocarditis). [We currently have no Echo capability, with no staff to perform Echos until 11/29/18 and we have no DELMI availability or specialty consultants here]. - Goals of Care Goals of care determinations: Full Code status He wants to discuss the options of other levels of care with his children, before he signs the POLST. He has never signed a POLST. - Plan Plan: As in Goals of Care above. Transfer to a hospital facility today with higher level of care available. - Code Status Code Status: Attempt Resuscitation - Time Spent on Advance Care Planning Time spent on advance care plannin min
[2018-11-25 16:41] VITALS: BP 127/86
[2018-11-25] MEDS ORDERED: VANCOMYCIN INJ 1 GM, VANCOMYCIN INJ 500 MG in SODIUM CHLORIDE 0.9% 500 ML IV SCH (22:00)
--- NOTE | 2018-11-30 14:08 | DISCHARGE SUMMARY ---
Physician: Pinky East MD DATE OF ADMISSION: 11/24/2018 DATE OF DISCHARGE: 11/25/2018 HISTORY OF PRESENT COURSE: This is a 58-year-old white male with a history of diabetes on an insulin pump, recently diagnosed COPD a year ago, prior NC with stents and congestive heart failure with ejection fraction of 28 that has improved to 45% recently by Echocardiogram; he has an ICD, history of depression and anxiety, PTSD and panic attacks, and osteoarthritis. The patient presented to the hospital with several days of shortness of breath and fever. He was felt to be in a COPD exacerbation, and lab testing showed that he had SIRS and glucose of greater than 400. He was admitted for management of these. HOSPITAL COURSE AND DISCHARGE DIAGNOSES 1. Systemic inflammatory response syndrome. The patient had a fever of 39.5 centigrade, was tachycardic at 120, and glucoses elevated in the 400 range. His lactic acid was normal however, at 1.3. Initially, the complaint was consistent with COPD, therefore, he had blood cultures x2 and was put on empiric iv antibiotics to cover a respiratory source including ceftriaxone IV and azithromycin IV. By the second day, he had negligible respiratory symptoms, and the chest x-ray had been within normal limits. Therefore, the source of his infection was felt to be nonrespiratory (see below). 2. Staphylococcus aureus bacteremia. Over the first night, the patient developed positive blood cultures, first reported as Gram-positive cocci and later identified as Staphylococcus aureus bacteremia. His antibiotics were therefore changed to vancomycin IV and Zosyn IV. At the time of transfer, the Staph aureus PAM and sensitivities were not known, but at the time of this dictation, the sensitivities are available (Sensitive to all tested antibiotics except Penicillin-G). The source of the bacteremia was felt to be either an ear infection or diabetic foot ulcer (see below). 3. Chronic suppurative otitis media. The patient gave a description of sudden right ear pain on the day after admission. He also gave a history of three months of right sided hearing loss, and was being treated by ENT for otitis media with oral antibiotics, eardrops, but the cause of the hearing loss was never entirely ascertained. The patient had imaging done here of the brain and ear with a head CT (no MRI could be done because of his defibrillator), and this showed: No brain hemorrhage, mass or infarction. Right mastoid opacification and soft tissue material in the right epitympanum. Bones had no fracture or defect. 4. Diabetic foot ulcer. The patient reported having an open wound on the right foot, dorsal surface where there had been a large callus which had formed after he had a remote surgery of the tendon of that foot. He was treating the ulcer, at the center of the callus, with topical Neosporin at home before admission. The patient underwent lower extremity CT imaging (no MRI because of having an ICD) and this showed: Soft tissue ulceration as well as thickening along the plantar aspect of the foot near the fifth MTP joint, with no bony lesions to suggest osteomyelitis, and no evidence of abscess. The suggestion was that this was a foot ulcer or cellulitis therefore. A culture was done of the wound, which at the time of this dictation had results available: heavy growth of Staphylococcus aureus with sensitivities to all tested antibiotics. Because of the presence of Staphylococcus aureus in the blood, and inability to have an Echo test, to evaluate for endocarditis, done here (this service is unavailable during this current week) and no DELMI availability here, I reached out for transfer to a facility with a higher level of care, and he was accepted in transfer on the Hospitalist service by Dr. David at [facility] in [place]. He was transferred on 11/25/2018. 5. Acute exacerbation of chronic obstructive pulmonary disease. The patient had wheezing early in the admission, which was treated with nebulizers and iv steroids He had stable respiratory status on the very next day of admission. 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 He was placed on stress doses of steroids at the time of admission here. 7. Type 1 diabetes with hyperglycemia. The patient was using an insulin pump to manage his elevated sugar. He had several visits by our diabetic associate professor of education, who noted that he did not remember if he gave himself boluses, or did not know how to do that with his insulin pump. Fingerstick glucose checks remained in the 400 range while here. This was reported to the accepting doctor, and the patient was informed that he would be on an IV insulin drip for more aggressive management at the accepting facility. 8. Diabetic neuropathy with type 1 diabetes. The patient reported having a stocking-distribution of numbness, worse on the left leg than the right. He is already on medications for his neuropathy, which were continued. 9. History of ischemic cardiomyopathy. The patient was kept on his heart failure medications while here. There were no signs of a CHF exacerbation, and BNP level here was 61. 10. Coronary artery disease. The patient had no reports of angina, and he was kept on his cardiac medications while here. 11. Benign prostatic hypertrophy. The patient was continued on his medications while here. 12. Anxiety and depression. The patient was kept on his medications while here. 13. Status post ICD. There were no significant arrhythmias, no defibrillator discharge while here. The patient was on telemetry during his stay. 14. Status post lens implants. The patient gave a history of recent eye surgery including lens and cataract surgery six weeks ago on one side, then two weeks ago on the other side. LABORATORY AND IMAGING: Reviewed and summarized above. ALLERGIES: NONE. MEDICATIONS AT THE TIME OF DISCHARGE Extensive: 1. Albuterol p.r.n. 2. Alprazolam p.r.n. 3. QVAR b.i.d. 4. Bupropion 450 mg daily. 5. Zyrtec 10 mg daily. 6. Voltaren was on hold. 7. Doxazosin 8 mg every night. 8. Prozac 10 mg daily. 9. Lasix 40 mg was on hold. 10. Gabapentin 300 mg b.i.d. 11. Hydrocortisone was changed to Solu-Medrol IV t.i.d. 12. Insulin pump Humalog insulin as above. 13. Imdur 30 mg daily. 14. Levalbuterol inhaler was on hold. 15. Lidoderm patch 5% topically daily p.r.n. pain. 16. Lisinopril 5 mg daily. 17. Toprol-XL fit 25 mg daily. 18. Multivitamin daily. 19. Sublingual nitroglycerin p.r.n. pain. 20. Nortriptyline 20 mg b.i.d. 21. Oxycodone p.r.n. pain. 22. Protonix 40 mg b.i.d. program. 23. Pramlintide 15 mcg subcutaneous every evening. 24. Lyrica 300 mg b.i.d. 25. Ranitidine 300 mg every night. 26. Simvastatin 80 mg every night 27. Spironolactone 12.5 mg daily was on hold. 28. Spiriva Respimat was on hold. 29. Zolpidem 10 mg p.r.n. 30. Baby aspirin daily. 31. Cymbalta 60 mg b.i.d. 32. Budesonide 9 mg p.o. daily. CONDITION AT TRANSFER: Serious. PHYSICAL EXAMINATION VITAL SIGNS: Blood pressure 127/86, heart rate 102 in sinus tachycardia, afebrile at 36.7 centigrade, room air saturation 94%. HEENT: Unremarkable. NECK: Without JVD or carotid bruits. CHEST: Clear. Good air movement. No wheezes, rales or rhonchi. HEART: Heart sounds normal. No murmur, gallop or heave. ABDOMEN: Soft, nontender. No organomegaly. EXTREMITIES: The right foot dorsum had a large callus toward the lateral aspect, measuring approximately 8 cm in diameter, with a central ulcer that was dry deep and dark. There was no leg edema. Positive numbness of both feet. CODE STATUS: FULL CODE. FOLLOWUP: This will be determined after his stay at the other hospital. Time required to complete this entire discharge, chart review, contact of several hospitals, and [facility] [facility] to arrange for transfer: 65 minutes. cc: Amadou Jackson MD TD: 11/30/2018 13:37 REVISED 11/30/18 charanjit Mujica correction HC#s Orig. signed 11/30/18@1429 CELINE
== END 2018-11-25 17:30 | disposition short-term general hospital (02) | DRG 872 ==
LOC: EDUNIT# → ED 23:14 → MS2 11-24 01:31
PROVIDERS: ADMIT Internal Medicine; ATTEND Internal Medicine
DX: A41.9 Sepsis, unspecified organism (principal); J06.9 Acute upper respiratory infection, unspecified; R00.0 Tachycardia, unspecified; R50.9 Fever, unspecified; J44.1 Chronic obstructive pulmonary disease with (acute) exacerbation; L97.413 Non-pressure chronic ulcer of right heel and midfoot with necrosis of muscle; E27.1 Primary adrenocortical insufficiency; I25.2 Old myocardial infarction; I11.0 Hypertensive heart disease with heart failure; E78.00 Pure hypercholesterolemia, unspecified; I50.9 Heart failure, unspecified; I25.10 Atherosclerotic heart disease of native coronary artery without angina pectoris; Z95.5 Presence of coronary angioplasty implant and graft; E10.42 Type 1 diabetes mellitus with diabetic polyneuropathy; N28.9 Disorder of kidney and ureter, unspecified; K21.9 Gastro-esophageal reflux disease without esophagitis; K52.9 Noninfective gastroenteritis and colitis, unspecified; F32.9 Major depressive disorder, single episode, unspecified; F41.9 Anxiety disorder, unspecified; F41.0 Panic disorder [episodic paroxysmal anxiety]; F43.10 Post-traumatic stress disorder, unspecified; M19.90 Unspecified osteoarthritis, unspecified site; Z95.810 Presence of automatic (implantable) cardiac defibrillator; Z79.82 Long term (current) use of aspirin; R09.02 Hypoxemia; Z79.4 Long term (current) use of insulin; H66.90 Otitis media, unspecified, unspecified ear; E10.621 Type 1 diabetes mellitus with foot ulcer; E10.65 Type 1 diabetes mellitus with hyperglycemia; I25.5 Ischemic cardiomyopathy; Z96.41 Presence of insulin pump (external) (internal); N40.1 Benign prostatic hyperplasia with lower urinary tract symptoms; R33.8 Other retention of urine; Z87.891 Personal history of nicotine dependence; E78.5 Hyperlipidemia, unspecified; G47.00 Insomnia, unspecified; E66.9 Obesity, unspecified; Z68.35 Body mass index [BMI] 35.0-35.9, adult
CPT/HCPCS: 36415; 70470; 71046; 80048; 80053; 82009; 83036; 83605; 83690; 83735; 83880; 84484; 85025; 87040; 87181; 87275; 87276; 93005; 94640; 96374; 99284

== ENCOUNTER 2018-11-25 17:24 | Outpatient (CLI) | payer MEDICARE | END 2018-11-25 17:25 | disposition short-term general hospital (02) | LOC: EMS 17:24 | PROVIDERS: ATTEND Surgery | DX: R78.81 Bacteremia (principal); R65.10 Systemic inflammatory response syndrome (SIRS) of non-infectious origin without acute organ dysfunction; J44.1 Chronic obstructive pulmonary disease with (acute) exacerbation; E10.65 Type 1 diabetes mellitus with hyperglycemia | CPT/HCPCS: A0425; A0426 ==

== ENCOUNTER 2018-12-03 16:01 | Outpatient (CLI) | payer MEDICARE | END 2018-12-03 16:02 | disposition critical access hospital (66) | LOC: EMS 16:01 | PROVIDERS: ATTEND Surgery | DX: R41.0 Disorientation, unspecified (principal) | CPT/HCPCS: A0425; A0429 ==

== ENCOUNTER 2018-12-03 16:22 | Emergency (ER) | payer MEDICARE ==
[2018-12-03] MEDS ORDERED: IOVERSOL 320 100 ML VIAL IVP ONE ×2 (16:23→19:35)
--- NOTE | 2018-12-03 16:53 | ED Physician Documentation ---
PD HPI ALTERED MENTAL STATUS - Stated complaint Stated Complaint: CONFUSION - Chief complaint Chief Complaint: Neuro - History obtained from History obtained from: Patient, EMS - History of Present Illness Timing - onset: Today (This is a 58-year-old gentleman with history of diabetes, on insulin pump. He was admitted here on November 24 and eventually transferred out on November 25 because he had blood cultures positive for staph and there was a concern that it might be either an ENT source or potentially endocarditis. Patient is a little confused, so I will try to get the discharge summary from [facility]. It sounds like he did have a DELMI but he does not know the results, so I am not sure if he has endocarditis or not. He says he is on Ancef, 3 times a day for a total of 9 weeks via a right arm PICC line. He did miss a dose last night and this morning it was in half. This afternoon he became confused and had slurred speech which she says is somewhat better now although it is hard to tell how much better he is for example, I asked him when his son is coming he says "well he should be here as he dropped me off" but he actually came by ambulance.) Review of Systems Ten Systems: 10 systems reviewed and negative Constitutional: denies: Fever, Chills Cardiac: denies: Chest pain / pressure, Palpitations Respiratory: denies: Dyspnea, Cough GI: denies: Abdominal Pain, Nausea, Vomiting PD PAST MEDICAL HISTORY - Past Medical History Cardiovascular: Congestive heart failure, Hypertension, High cholesterol, Coronary artery disease, [place], Other Respiratory: COPD, Shortness of breath, Other Neuro: Headaches, Peripheral neuropathy Endocrine/Autoimmune: Type 1 diabetes GI: GERD, Chronic diarrhea, Other : Benign prostate hypertrophy, Retention, Renal insuffiency HEENT: Other Psych: Depression, Anxiety, Panic attacks, Post traumatic stress disorder Musculoskeletal: Osteoarthritis Derm: None - Past Surgical History Past Surgical History: Yes General: Colonoscopy, EGD Ortho: 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: Other Cardiovascular: Coronary stent, AICD, Cardiac catheterization HEENT: Cataracts, Other - Present Medications Home Medications: Ambulatory Orders Medication Instructions Recorded Confirmed RX: Pantoprazole [Protonix] 40 mg PO BIDAC 09/04/14 12/03/18 RX: Spironolactone 12.5 mg PO DAILY 09/04/14 12/03/18 RX: Zolpidem Tartrate 10 mg PO QPM PRN 09/04/14 12/03/18 RX: raNITIdine HCl [Ranitidine HCl] 300 mg PO QPM 09/04/14 12/03/18 RX: Insulin Lispro [Humalog] 1 - 11 units SQ .SLIDING SCALE 10/07/16 12/03/18 RX: Pregabalin [Lyrica] 300 mg PO BID 10/07/16 12/03/18 RX: Nortriptyline HCl 20 mg PO 0800,1700 03/01/17 12/03/18 RX: Alprazolam 0.25 mg PO BID PRN 04/07/17 12/03/18 RX: Cetirizine [ZyrTEC] 10 mg PO DAILY 04/07/17 12/03/18 RX: Diclofenac Sodium [Voltaren] 4 gm TP QID PRN 04/07/17 12/03/18 RX: Lidocaine Patch 5% [Lidoderm 1 each TOP DAILY PRN 04/07/17 12/03/18 Patch] RX: Simvastatin 80 mg PO QPM 04/07/17 12/03/18 RX: Budesonide [Entocort EC] 9 mg PO DAILY #60 capsule 04/10/17 12/03/18 RX: Aspirin Chewable [[place] 81 mg PO DAILY tablet 05/30/17 12/03/18 Aspirin] RX: DULoxetine [Cymbalta] 60 mg PO BID capsule 05/30/17 12/03/18 RX: Furosemide 40 mg PO DAILY 01/19/18 12/03/18 RX: Nitroglycerin [Nitrostat] 0.4 mg SL Q5M PRN 01/19/18 12/03/18 RX: Pramlintide Acetate [Symlinpen 15 mcg SQ AC 01/19/18 12/03/18 60] RX: Isosorbide Mononitrate 30 mg PO DAILY 05/25/18 12/03/18 [Isosorbide Mononitrate ER] RX: Gabapentin 300 mg PO BID 10/06/18 12/03/18 Multivitamin [Multiple Vitamins] 1 each PO DAILY 11/07/18 12/03/18 RX: Albuterol 2.5 mg INH Q6H PRN 11/07/18 12/03/18 RX: Bupropion HCl [Bupropion Xl] 450 mg PO DAILY 11/07/18 12/03/18 RX: FLUoxetine [PROzac] 10 mg PO DAILY 11/07/18 12/03/18 RX: Hydrocortisone 5 mg PO BIDWM 11/07/18 12/03/18 RX: Levalbuterol Tartrate 2 puffs INH Q4H PRN MDD 12 11/07/18 12/03/18 [Levalbuterol Tartrate Hfa] puffs/day RX: Lisinopril 5 mg PO DAILY 11/07/18 12/03/18 RX: Metoprolol Succinate 25 mg PO DAILY 11/07/18 12/03/18 RX: Tiotropium [place] [Spiriva 2 puffs INH DAILY 11/07/18 12/03/18 Respimat] RX: oxyCODONE [Roxicodone] 5 mg PO Q6H PRN 11/07/18 12/03/18 RX: Beclomethasone Dipropionate 1 puffs INH BID 11/24/18 12/03/18 [Qvar Redihaler (40 mcg)] RX: Doxazosin Mesylate 8 mg PO QPM 11/24/18 12/03/18 - Allergies Allergies/Adverse Reactions: Allergies Allergy/AdvReac Type Severity Reaction Status Date / Time No Known Drug Allergies Allergy Verified 12/03/18 18:38 - Social History Does the pt smoke?: No Smoking Status: Former smoker Does the pt drink ETOH?: No Does the pt have substance abuse?: No - Immunizations Immunizations are current?: Yes - POLST Patient has POLST: No POLST Status: Patient was in the process of completing an advanced directive but has not finished PD ED PE NORMAL - Vitals Vital signs reviewed: Yes - General General: Alert and oriented X 3 (Slightly somnolent but alert and oriented x3 but a poor historian for short-term events), No acute distress - HEENT HEENT: PERRL, EOMI - Neck Neck: Supple, no meningeal sign, No bony TTP - Cardiac Cardiac: RRR, No murmur - Respiratory Respiratory: No respiratory distress, Clear bilaterally - Abdomen Abdomen: Normal bowel sounds, Soft, Non tender - Back Back: No CVA TTP, No spinal TTP - Derm Derm: Normal color, Warm and dry - Neuro Neuro: Alert and oriented X 3, Normal speech Eye Opening: To Voice Motor: Obeys Commands Verbal: Oriented GCS Score: 14 - Psych Psych: Normal mood, Normal affect Results - Vitals Vitals: Vital Signs - 24 hr 12/03/18 12/03/18 12/03/18 16:23 18:35 19:53 Temperature 36.5 C Heart Rate 85 75 76 Respiratory 17 15 18 Rate Blood Pressure 108/67 118/70 114/76 O2 Saturation 94 95 98 12/03/18 21:07 Temperature Heart Rate 77 Respiratory 15 Rate Blood Pressure 105/86 H O2 Saturation 98 Oxygen O2 Source [] Room air O2 Source Room air - EKG (time done) 1725 Rate: Rate (enter#) (77) Rhythm: NSR [place]: Normal Intervals: Normal [place] QRS: Normal Ischemia: Normal ST segments Computer interpretation: Agree with computer - Labs Labs: Laboratory Tests 12/03/18 12/03/18 12/03/18 16:58 16:58 17:01 WBC 12.1 H RBC 3.61 L Hgb 11.0 L Hct 33.3 L MCV 92.3 MCH 30.6 MCHC 33.1 RDW 15.2 H Plt Count 267 MPV 8.7 Neut # (Auto) 10.6 H Lymph # (Auto) 0.6 L [place] # (Auto) 0.7 Eos # (Auto) 0.0 Baso # (Auto) 0.0 Absolute Nucleated RBC 0.00 Nucleated RBC % 0.0 Sodium 132 L Potassium 4.4 Chloride 95 L Carbon Dioxide 27 Anion Gap 10.0 BUN 13 Creatinine 1.1 Estimated GFR (MDRD) 69 L Glucose 230 H Lactic Acid Calcium 8.5 Magnesium 2.1 Total Bilirubin 0.7 AST 16 ALT 13 Alkaline Phosphatase 79 Troponin I < 0.04 Total Protein 6.6 L Albumin 3.3 Globulin 3.3 Albumin/Globulin Ratio 1.0 Lipase 18 L Ethyl Alcohol < 5.0 12/03/18 17:01 WBC RBC Hgb Hct MCV MCH MCHC RDW Plt Count MPV Neut # (Auto) Lymph # (Auto) [place] # (Auto) Eos # (Auto) Baso # (Auto) Absolute Nucleated RBC Nucleated RBC % Sodium Potassium Chloride Carbon Dioxide Anion Gap BUN Creatinine Estimated GFR (MDRD) Glucose Lactic Acid 0.9 Calcium Magnesium Total Bilirubin AST ALT Alkaline Phosphatase Troponin I Total Protein Albumin Globulin Albumin/Globulin Ratio Lipase Ethyl Alcohol - Rads (name of study) CTA Head and neck Radiology: EMP read contemporaneously (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 No abnormalities on noncontrast exam.) PD MEDICAL DECISION MAKING - ED course Complexity details: reviewed old records (Discharge summary from [facility] was obtained. He was discharged just yesterday. He was found to have an identified vegetation on a ventricular AICD by DELMI which was removed. And his AICD was later removed. The DELMI read is as such: Severe anteroseptal and apical hypoki nesis, global hypokinesis, LVEF 35%. Mild tricuspid, trace mitral and pulmonic regurgitation. 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 The CT angiogram does not show this, but he still high risk given the recent history. I spoke with Reggie, Dr Abdirizak Felipe, and they authorized him into an transfer back to [facility] and they were called for transfer at 7:30 PM. She was accepted there by Dr. Jeannette Turcios the hospitalist in transfer. [place] were completed. He does need transfer to a higher level of care given the complicated diagnosis of endocarditis related neurologic symptoms. Departure - Departure Disposition: 02 Transfer Acute Care Hosp Clinical Impression: Confusion, TIA (transient ischemic attack) Type 1 diabetes mellitus Qualifiers: Diabetes mellitus complication status: with hyperglycemia Qualified Code(s): E10.65 - Type 1 diabetes mellitus with hyperglycemia CAD (coronary artery disease) Qualifiers: Coronary Disease-Associated Artery/Lesion type: [place] artery [place] vs. transplanted heart: [place] heart Associated angina: without angina Qualified Code(s): I25.10 - Atherosclerotic heart disease of [place] coronary artery without angina pectoris Cardiomyopathy Qualifiers: Cardiomyopathy type: ischemic Qualified Code(s): I25.5 - Ischemic cardiomyopathy Endocarditis Qualifiers: Endocarditis type: infective Infective endocarditis organism: bacterial Chronicity: acute Qualified Code(s): I33.0 - Acute and subacute infective endocarditis Condition: Serious Discharge Date/Time: 12/03/18 21:16
[2018-12-03 17:18] LABS: BASOPHILS % (AUTO) 0.4 %; EOSINOPHILS % (AUTO) 0.2 %; LYMPHOCYTES # (AUTO) 0.6 10^3/uL (1.5-3.5); LYMPHOCYTES % (AUTO) 5.2 %; MEAN CORPUSCULAR HEMOGLOBIN 30.6 pg (27.0-31.0); MEAN CORPUSCULAR HGB CONC 33.1 g/dL (32.0-36.0); MEAN CORPUSCULAR VOLUME 92.3 fL (80.0-94.0); MEAN PLATELET VOLUME 8.7 fL (7.4-11.4); MONOCYTES # (AUTO) 0.7 10^3/uL (0.0-1.0); MONOCYTES % (AUTO) 6.1 %; NEUTROPHILS # (AUTO) 10.6 10^3/uL (1.5-6.6); NEUTROPHILS % (AUTO) 88.1 %; PLT - PLATELET COUNT 267 10^3/uL (130-450); RED BLOOD COUNT 3.61 10^6/uL (4.70-6.10); RED CELL DISTRIBUTION WIDTH 15.2 % (12.0-15.0); WHITE BLOOD COUNT 12.1 x10^3/uL (4.8-10.8)
[2018-12-03 17:30] LABS: ALBUMIN 3.3 g/dL (3.2-5.5); ALKALINE PHOSPHATASE 79 IU/L (42-121); ALT ALANINE AMINOTRANSFERASE 13 IU/L (10-60); AST ASPARTATE AMINOTRANSFERASE 16 IU/L (10-42); BILIRUBIN,TOTAL 0.7 mg/dL (0.2-1.0); BUN - BLOOD UREA NITROGEN 13 mg/dL (6-20); CALCIUM 8.5 mg/dL (8.5-10.3); CARBON DIOXIDE - CO2 27 mmol/L (21-32); CHLORIDE 95 mmol/L (101-111); CREATININE 1.1 mg/dL (0.6-1.2); GFR - MDRD 69 (>89); GLUCOSE 230 mg/dL (70-100); LIPASE 18 U/L (22-51); MAGNESIUM 2.1 mg/dL (1.7-2.8); SODIUM 132 mmol/L (135-145); TOTAL PROTEIN 6.6 g/dL (6.7-8.2)
[2018-12-03] MEDS ORDERED: ASPIRIN CHEW 81 MG TABLET PO STA (18:03)
--- NOTE | 2018-12-03 18:41 | CT Report ---
Reason: slurred speech, confusion, poss endocarditis Procedure Date: 12/03/2018 Accession Number: [id number] / [id number] Procedure: CT - Neck Angio CPT Code: FULL RESULT: EXAM: CT ANGIOGRAM HEAD AND NECK. CT SCAN HEAD WITHOUT AND WITH CONTRAST. EXAM DATE:12/03/2018 05:49 PM. CLINICAL HISTORY:58-year-old with possible endocarditis presenting with slurred speech and confusion. Evaluate for intracranial pathology or vascular pathology. COMPARISON:CT head 11/24/2018; CTA head and neck 03/01/2017. TECHNIQUE: Routine axial helical CTA imaging was performed from the aortic arch through the [place]. Routine axial CT imaging of the head was performed prior to and following contrast administration. Reconstructions: Routine multiplanar 3D MIP reconstructions. IV contrast: OPTI 320 80mL. NASCET Criteria are used for stenosis measurements. In accordance with CT protocol optimization, one or more of the following dose reduction techniques were utilized for this exam: automated exposure control, adjustment of mA and/or KV based on patient size, or use of iterative reconstructive technique. FINDINGS: CT SCAN HEAD: Parenchyma: No intraparenchymal hemorrhage. No evidence of mass, midline shift, or CT findings of acute infarction. Salgado-white differentiation is distinct. Extraaxial Spaces: Normal for age. No subdural or epidural collections identified. Ventricles: Normal in size and position. Sinuses and Orbits: Changes of bilateral lens replacement. Visualized paranasal sinuses, mastoid air cells, middle ear cavities appear clear. Bones: No evidence of fracture or calvarial defect. Other: Vascular calcifications of the cavernous ICA segments. CT ANGIOGRAM HEAD AND NECK: The aortic arch appears normal. The left common carotid artery arises from the right brachiocephalic artery. There is atherosclerotic plaque involving the right subclavian artery with no high-grade stenosis. RIGHT: Common Carotid Artery: Patent without significant stenosis. Carotid Bulb: There is no significant atherosclerotic plaque at the bifurcation and siphon. Stenosis at the bifurcation by NASCET criteria: No significant stenosis. Internal Carotid Artery: No evidence of dissection. No evidence of aneurysm along the intracranial ICA. External Carotid Artery: Unremarkable. 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 Overall caliber appears similar to CTA 03/01/2017. No aneurysm. No dissection. Anterior Cerebral Artery: Atretic absent A1 segment. Azygous A2 segment. Distal TRAVON branches appear normal. Findings suggest isolated right TRAVON. Middle Cerebral Artery: Patent without significant stenosis, aneurysm, or vascular malformation. Posterior Cerebral Artery: -like [employer]OR. No aneurysm. Posterior Communicating Artery: Patent. No aneurysm. LEFT: Common Carotid Artery: Patent without significant stenosis. Carotid Bulb: There is no significant atherosclerotic plaque at the bifurcation and siphon. Stenosis at the bifurcation by NASCET criteria: No significant stenosis. Internal Carotid Artery: No evidence of dissection. No evidence of aneurysm along the intracranial ICA. External Carotid Artery: Unremarkable. Vertebral Artery: Dominant. Patent without significant stenosis. No evidence of dissection. Anterior Cerebral Artery: Normal A1 segment. Azygous AG segment. Distal TRAVON branches appear normal. No aneurysm. Middle Cerebral Artery: Patent without significant stenosis, aneurysm, or vascular malformation. Posterior Cerebral Artery: Patent without significant stenosis, aneurysm, or vascular malformation. Posterior Communicating Artery: Patent. No aneurysm. CENTRAL: Anterior Communicating Artery: Patent. No aneurysm. Basilar Artery: Patent without significant stenosis. No aneurysm. DURAL VENOUS SINUSES AND MAJOR CENTRAL VEINS: Patent. OTHER: The visualized pharynx and larynx appear normal. Major salivary glands appear normal. Thyroid gland appears normal. No cervical lymphadenopathy or necrotic lymph nodes seen. Soft tissues of the neck appear normal. Visualized lung apices are clear. No acute fracture or traumatic subluxation of the cervical spine. Multilevel degenerative changes. No suspicious osseous lesion. POST-CONTRAST HEAD: No abnormal enhancement. IMPRESSION: CT SCAN HEAD: 1. No definite acute infarct seen. If there is clinical concern for acute stroke or if symptoms persist, an MR brain could be considered to evaluate for small or subtle pathology. ASPECTS 10R/10L 2. No acute intracranial hemorrhage, mass, hydrocephalus or midline shift. No abnormal postcontrast enhancement. CT ANGIOGRAM NECK: 1. 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 The caliber of the right vertebral artery appears similar to CTA 03/01/2017. 2. Otherwise, the vasculature of the neck demonstrates no significant stenosis or dissection. CT ANGIOGRAM HEAD: 1. No large vessel occlusion. 2. No aneurysm. No significant stenosis. RADIA
[2018-12-03] MEDS ORDERED: ceFAZolin 1 GM VIAL IVP STA (19:40)
[2018-12-03 21:07] VITALS: BP 105/86
== END 2018-12-03 21:16 | disposition short-term general hospital (02) ==
LOC: EDUNIT# → ED 16:22
DX: G45.9 Transient cerebral ischemic attack, unspecified (principal); E10.65 Type 1 diabetes mellitus with hyperglycemia; I25.10 Atherosclerotic heart disease of native coronary artery without angina pectoris; I25.5 Ischemic cardiomyopathy; I33.0 Acute and subacute infective endocarditis; R94.31 Abnormal electrocardiogram [ECG] [EKG]; I11.0 Hypertensive heart disease with heart failure; I50.9 Heart failure, unspecified; E78.00 Pure hypercholesterolemia, unspecified; I25.2 Old myocardial infarction; E10.42 Type 1 diabetes mellitus with diabetic polyneuropathy; Z96.41 Presence of insulin pump (external) (internal); Z95.810 Presence of automatic (implantable) cardiac defibrillator; Z95.5 Presence of coronary angioplasty implant and graft; Z87.891 Personal history of nicotine dependence
CPT/HCPCS: 36415; 70496; 70498; 80053; 83605; 83690; 83735; 84484; 85025; 87040; 93005; 96374; 99285; A9270; Q9967; 80320

== ENCOUNTER 2018-12-03 21:23 | Outpatient (CLI) | payer MEDICARE | END 2018-12-03 21:24 | disposition short-term general hospital (02) | LOC: EMS 21:23 | PROVIDERS: ATTEND Surgery | DX: I63.9 Cerebral infarction, unspecified (principal) | CPT/HCPCS: A0425; A0426 ==

== ENCOUNTER 2018-12-24 13:15 | Outpatient (CLI) | payer MEDICARE, MEDICAID | END 2018-12-24 13:16 | disposition critical access hospital (66) | LOC: EMS 13:15 | PROVIDERS: ATTEND Surgery | DX: S09.90XA Unspecified injury of head, initial encounter (principal); W19.XXXA Unspecified fall, initial encounter; Y92.009 Unspecified place in unspecified non-institutional (private) residence as the place of occurrence of the external cause | CPT/HCPCS: A0425; A0429 ==

== ENCOUNTER 2018-12-24 13:59 | Emergency (ER) | payer MEDICARE, MEDICAID ==
--- NOTE | 2018-12-24 14:40 | ED Physician Documentation ---
PD HPI HEAD INJURY - Stated complaint Stated Complaint: FALL - Chief complaint Chief Complaint: Trauma Hd/Nk - History obtained from History obtained from: Patient - History of Present Illness Mechanism of head injury: Fell (Fell backward needed on his buttock and then backward and struck his lower head and upper neck area on bumper of his truck. Has pain in those areas. He denies any numbness or weakness. He did not have any loss of consciousness. He has localized headache in the back of the head.) Where head injury occurred: Home Timing - onset: How many days ago Location of injury: Back (lower occiput and upper neck area) Quality of pain: Pain, Aching Associated symptoms: No: LOC, AMS Symptoms worsen with: Movement Contributing factors: No: Anticoagulated, Intoxicated Similar symptoms before: Has not had sx before Review of Systems Constitutional: denies: Fever Nose: denies: Rhinorrhea / runny nose, Congestion Throat: denies: Sore throat Respiratory: denies: Cough GI: denies: Nausea Skin: denies: Abrasion (s), Laceration (s) Neurologic: reports: Generalized weakness, Headache. denies: Focal weakness, Numbness, Confused, Altered mental status PD PAST MEDICAL HISTORY - Past Medical History Past Medical History: Yes Cardiovascular: Congestive heart failure, Hypertension, High cholesterol, Coronary artery disease, [place], Other Respiratory: COPD, Shortness of breath, Other Neuro: Headaches, Peripheral neuropathy Endocrine/Autoimmune: Type 1 diabetes GI: GERD, Chronic diarrhea, Other : Benign prostate hypertrophy, Retention, Renal insuffiency HEENT: Other Psych: Depression, Anxiety, Panic attacks, Post traumatic stress disorder Musculoskeletal: Osteoarthritis Derm: None - Past Surgical History Past Surgical History: Yes General: Colonoscopy, EGD Ortho: Carpal Tunnel surgery /[employer]: Other Cardiovascular: Coronary stent, AICD, Cardiac catheterization HEENT: Cataracts, Other - Present Medications Home Medications: Ambulatory Orders Medication Instructions Recorded Confirmed Pantoprazole [Protonix] 40 mg PO BIDAC 09/04/14 12/03/18 Spironolactone 12.5 mg PO DAILY 09/04/14 12/03/18 Zolpidem Tartrate 10 mg PO QPM PRN 09/04/14 12/03/18 raNITIdine HCl [Ranitidine HCl] 300 mg PO QPM 09/04/14 12/03/18 Insulin Lispro [Humalog] 1 - 11 units SQ .SLIDING SCALE 10/07/16 12/03/18 Pregabalin [Lyrica] 300 mg PO BID 10/07/16 12/03/18 Nortriptyline HCl 20 mg PO 0800,1700 03/01/17 12/03/18 Alprazolam 0.25 mg PO BID PRN 04/07/17 12/03/18 Cetirizine [ZyrTEC] 10 mg PO DAILY 04/07/17 12/03/18 Diclofenac Sodium [Voltaren] 4 gm TP QID PRN 04/07/17 12/03/18 Lidocaine Patch 5% [Lidoderm Patch] 1 each TOP DAILY PRN 04/07/17 12/03/18 Simvastatin 80 mg PO QPM 04/07/17 12/03/18 Budesonide [Entocort EC] 9 mg PO DAILY #60 capsule 04/10/17 12/03/18 Aspirin Chewable [[place] 81 mg PO DAILY tablet 05/30/17 12/03/18 Aspirin] DULoxetine [Cymbalta] 60 mg PO BID capsule 05/30/17 12/03/18 Furosemide 40 mg PO DAILY 01/19/18 12/03/18 Nitroglycerin [Nitrostat] 0.4 mg SL Q5M PRN 01/19/18 12/03/18 Pramlintide Acetate [Symlinpen 60] 15 mcg SQ AC 01/19/18 12/03/18 Isosorbide Mononitrate [Isosorbide 30 mg PO DAILY 05/25/18 12/03/18 Mononitrate ER] Gabapentin 300 mg PO BID 10/06/18 12/03/18 Albuterol 2.5 mg INH Q6H PRN 11/07/18 12/03/18 Bupropion HCl [Bupropion Xl] 450 mg PO DAILY 11/07/18 12/03/18 FLUoxetine [PROzac] 10 mg PO DAILY 11/07/18 12/03/18 Hydrocortisone 5 mg PO BIDWM 11/07/18 12/03/18 Levalbuterol Tartrate 2 puffs INH Q4H PRN MDD 12 11/07/18 12/03/18 [Levalbuterol Tartrate Hfa] puffs/day Lisinopril 5 mg PO DAILY 11/07/18 12/03/18 Metoprolol Succinate 25 mg PO DAILY 11/07/18 12/03/18 Multivitamin [Multiple Vitamins] 1 each PO DAILY 11/07/18 12/03/18 Tiotropium [place] [Spiriva 2 puffs INH DAILY 11/07/18 12/03/18 Respimat] oxyCODONE [Roxicodone] 5 mg PO Q6H PRN 11/07/18 12/03/18 Beclomethasone Dipropionate [Qvar 1 puffs INH BID 11/24/18 12/03/18 Redihaler (40 mcg)] Doxazosin Mesylate 8 mg PO QPM 11/24/18 12/03/18 - Allergies Allergies/Adverse Reactions: Allergies Allergy/AdvReac Type Severity Reaction Status Date / Time No Known Drug Allergies Allergy Verified 12/24/18 14:17 - Social History Does the pt smoke?: No Smoking Status: Never smoker Does the pt drink ETOH?: No Does the pt have substance abuse?: No - Immunizations Immunizations are current?: Yes - POLST Patient has POLST: No POLST Status: Patient was in the process of completing an advanced directive but has not finished PD ED PE NORMAL - Vitals Vital signs reviewed: Yes - General General: Alert and oriented X 3, No acute distress, Well developed/nourished - HEENT HEENT: PERRL, EOMI, Pharynx benign, Other (back of head and upper neck with local tenderness without deformity) - Neck Neck: Supple, no meningeal sign, No adenopathy - Cardiac Cardiac: RRR, No murmur - Respiratory Respiratory: Clear bilaterally, Other (no chestwall tenderness) - Back Back: No spinal TTP - Derm Derm: Normal color, Warm and dry - Extremities Extremities: No tenderness to palpate, Normal ROM s pain - Neuro Neuro: Alert and oriented X 3, No motor deficit, Normal speech Results - Vitals Vitals: Vital Signs - 24 hr 12/24/18 12/24/18 14:13 16:36 Temperature 36.4 C L Heart Rate 91 86 Respiratory 14 16 Rate Blood Pressure 111/65 154/122 H O2 Saturation 96 95 Oxygen O2 Source [With Activity] Room air O2 Source Room air - Rads (name of study) head and neck CT Radiology: Prelim report reviewed (no noted fractures nor internal bleeding.), See rad report PD MEDICAL DECISION MAKING - ED course Complexity details: reviewed old records, reviewed results, considered differential, d/w patient Departure - Departure Disposition: 01 Home, Self Care Clinical Impression: Fall from slip, trip, or stumble Qualifiers: Encounter type: initial encounter Qualified Code(s): W01.0XXA - Fall on same level from slipping, tripping and stumbling without subsequent striking against object, initial encounter Contusion of occipital region of scalp Qualifiers: Encounter type: initial encounter Qualified Code(s): S00.03XA - Contusion of scalp, initial encounter Neck strain Qualifiers: Encounter type: initial encounter Qualified Code(s): S16.1XXA - Strain of muscle, fascia and tendon at neck level, initial encounter Condition: Stable Record reviewed to determine appropriate education?: Yes Instructions: ED Sprain Strain Neck Follow-Up: Amadou Jackson MD [Primary Care Provider] - Comments: Your CT scans did not show any fractures bleeding or acute abnormalities. You will still be sore in the back of the head and neck. Gentle range of motion for the neck. Heat may help loosen up some of the stiffness. Continue usual medications. Discharge Date/Time: 12/24/18 17:03
[2018-12-24] MEDS ORDERED: HYDROmorphone 1 MG/ML CARPUJECT IM STA (14:52)
[2018-12-24] MEDS ORDERED: oxyCODONE 5 MG TABLET PO STA (14:52)
--- NOTE | 2018-12-24 16:03 | CT Report ---
Reason: fell and struck back of head/neck Procedure Date: 12/24/2018 Accession Number: [id number] / [id number] Procedure: CT - HEAD WO CPT Code: FULL RESULT: EXAM: CT HEAD EXAM DATE: 12/24/2018 03:37 PM. CLINICAL HISTORY: Acute pain due to trauma. COMPARISON: NECK ANGIO 12/03/2018 5:55 PM. TECHNIQUE: Multiaxial CT images were obtained from the foramen magnum to the vertex. Reformats: Sagittal and coronal. IV contrast: None. In accordance with CT protocol optimization, one or more of the following dose reduction techniques were utilized for this exam: automated exposure control, adjustment of mA and/or KV based on patient size, or use of iterative reconstructive technique. FINDINGS: Parenchyma: No intraparenchymal hemorrhage. No evidence of mass, midline shift, or CT findings of infarction. Salgado-white differentiation is distinct. Extraaxial Spaces: Normal for age. No subdural or epidural collections identified. Ventricles: Normal in size and position. Sinuses and Orbits: Imaged paranasal sinuses, orbits, and mastoids show no significant abnormality. Bones: No evidence of fracture or calvarial defect. Nonspecific minor fluid opacification of the mastoid air cells. Other: None. IMPRESSION: No intracranial abnormality demonstrated. Nonspecific minor fluid opacification of the mastoid air cells is seen. RADIA
--- NOTE | 2018-12-24 16:05 | CT Report ---
Reason: fell and struck back of head/neck Procedure Date: 12/24/2018 Accession Number: [id number] / [id number] Procedure: CT - CERVICAL SPINE WO CPT Code: FULL RESULT: EXAM: CT CERVICAL SPINE WITHOUT CONTRAST DATE: 12/24/2018 03:49 PM. HISTORY: Acute pain due to trauma. COMPARISONS: NECK ANGIO 12/03/2018 5:55 PM. TECHNIQUE: Thin-section axial images were acquired of the cervical spine without contrast. Post-processing: Coronal and sagittal reformats. Other: None. In accordance with CT protocol optimization, one or more of the following dose reduction techniques were utilized for this exam: automated exposure control, adjustment of mA and/or KV based on patient size, or use of iterative reconstructive technique. FINDINGS: Alignment: No scoliosis or spondylolisthesis. Bones: No fracture or bone lesion. Interspace Levels/Facets: There is mild diffuse degenerative disk disease seen throughout the lower aspects of the cervical spine. Musculature: Normal. No fatty atrophy. Other: The paravertebral and prevertebral soft tissues are unremarkable. The lung apices are clear. IMPRESSION: No acute findings. Mild degenerative changes seen. RADIA
[2018-12-24 17:03] VITALS: BP 154/122
== END 2018-12-24 17:03 | disposition home or self-care (01) ==
LOC: EDUNIT# → ED 13:59
DX: S00.03XA Contusion of scalp, initial encounter (principal); S16.1XXA Strain of muscle, fascia and tendon at neck level, initial encounter; W01.198A Fall on same level from slipping, tripping and stumbling with subsequent striking against other object, initial encounter; Y92.009 Unspecified place in unspecified non-institutional (private) residence as the place of occurrence of the external cause; E78.00 Pure hypercholesterolemia, unspecified; I11.0 Hypertensive heart disease with heart failure; I50.9 Heart failure, unspecified; I25.10 Atherosclerotic heart disease of native coronary artery without angina pectoris; E10.42 Type 1 diabetes mellitus with diabetic polyneuropathy; I25.2 Old myocardial infarction; Z95.810 Presence of automatic (implantable) cardiac defibrillator; Z95.1 Presence of aortocoronary bypass graft
CPT/HCPCS: 70450; 72125; 96372; 99283; A9270; J1170

== ENCOUNTER 2018-12-26 15:45 | Emergency (ER) | payer MEDICARE, MEDICAID ==
[2018-12-26] MEDS ORDERED: oxyCODONE 5 MG TABLET PO STA (18:29)
--- NOTE | 2018-12-26 18:29 | ED Physician Documentation ---
PD HPI HEAD INJURY - Stated complaint Stated Complaint: DIZZY - Chief complaint Chief Complaint: Neuro - History obtained from History obtained from: Patient - History of Present Illness Mechanism of head injury: Fell (fell backward 2 days ago and hit occiput on his car. CT Head and C Spine were neg. 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 Now with worse occipital headache and dizzy spells, like an out of body experience. The PPM was an AICD for EF 25% which has improved, never for bradycardia.) Review of Systems Constitutional: reports: Reviewed and negative Ears: reports: Reviewed and negative Nose: reports: Reviewed and negative Cardiac: reports: Reviewed and negative Respiratory: reports: Reviewed and negative PD PAST MEDICAL HISTORY - Past Medical History Cardiovascular: Congestive heart failure, Hypertension, High cholesterol, Coronary artery disease, [place], Other Respiratory: COPD, Shortness of breath, Other Neuro: Headaches, Peripheral neuropathy Endocrine/Autoimmune: Type 1 diabetes GI: GERD, Chronic diarrhea, Other : Benign prostate hypertrophy, Retention, Renal insuffiency HEENT: Other Psych: Depression, Anxiety, Panic attacks, Post traumatic stress disorder Musculoskeletal: Osteoarthritis Derm: None - Past Surgical History Past Surgical History: Yes General: Colonoscopy, EGD Ortho: Carpal Tunnel surgery /[employer]: Other Cardiovascular: Coronary stent, AICD, Cardiac catheterization HEENT: Cataracts, Other - Present Medications Home Medications: Ambulatory Orders Medication Instructions Recorded Confirmed Pantoprazole [Protonix] 40 mg PO BIDAC 09/04/14 12/26/18 Spironolactone 12.5 mg PO DAILY 09/04/14 12/26/18 Zolpidem Tartrate 10 mg PO QPM PRN 09/04/14 12/26/18 raNITIdine HCl [Ranitidine HCl] 300 mg PO QPM 09/04/14 12/26/18 Insulin Lispro [Humalog] 1 - 11 units SQ .SLIDING SCALE 10/07/16 12/26/18 Pregabalin [Lyrica] 300 mg PO BID 10/07/16 12/26/18 Nortriptyline HCl 20 mg PO 0800,1700 03/01/17 12/26/18 Alprazolam 0.25 mg PO BID PRN 04/07/17 12/26/18 Cetirizine [ZyrTEC] 10 mg PO DAILY 04/07/17 12/26/18 Diclofenac Sodium [Voltaren] 4 gm TP QID PRN 04/07/17 12/26/18 Lidocaine Patch 5% [Lidoderm Patch] 1 each TOP DAILY PRN 04/07/17 12/26/18 Simvastatin 80 mg PO QPM 04/07/17 12/26/18 Budesonide [Entocort EC] 9 mg PO DAILY #60 capsule 04/10/17 12/26/18 Aspirin Chewable [[place] 81 mg PO DAILY tablet 05/30/17 12/26/18 Aspirin] DULoxetine [Cymbalta] 60 mg PO BID capsule 05/30/17 12/26/18 Furosemide 40 mg PO DAILY 01/19/18 12/26/18 Nitroglycerin [Nitrostat] 0.4 mg SL Q5M PRN 01/19/18 12/26/18 Pramlintide Acetate [Symlinpen 60] 15 mcg SQ AC 01/19/18 12/26/18 Isosorbide Mononitrate [Isosorbide 30 mg PO DAILY 05/25/18 12/26/18 Mononitrate ER] Gabapentin 300 mg PO BID 10/06/18 12/26/18 Albuterol 2.5 mg INH Q6H PRN 11/07/18 12/26/18 Bupropion HCl [Bupropion Xl] 450 mg PO DAILY 11/07/18 12/26/18 FLUoxetine [PROzac] 10 mg PO DAILY 11/07/18 12/26/18 Hydrocortisone 5 mg PO BIDWM 11/07/18 12/26/18 Levalbuterol Tartrate 2 puffs INH Q4H PRN MDD 12 11/07/18 12/26/18 [Levalbuterol Tartrate Hfa] puffs/day Lisinopril 5 mg PO DAILY 11/07/18 12/26/18 Metoprolol Succinate 25 mg PO DAILY 11/07/18 12/26/18 Multivitamin [Multiple Vitamins] 1 each PO DAILY 11/07/18 12/26/18 Tiotropium [place] [Spiriva 2 puffs INH DAILY 11/07/18 12/26/18 Respimat] oxyCODONE [Roxicodone] 5 mg PO Q6H PRN 11/07/18 12/26/18 Beclomethasone Dipropionate [Qvar 1 puffs INH BID 11/24/18 12/26/18 Redihaler (40 mcg)] Doxazosin Mesylate 8 mg PO QPM 11/24/18 12/26/18 Oxycodone HCl/Acetaminophen 1 - 2 each PO Q6H PRN #10 tablet 12/26/18 [Percocet 5-325 mg Tablet] - Allergies Allergies/Adverse Reactions: Allergies Allergy/AdvReac Type Severity Reaction Status Date / Time No Known Drug Allergies Allergy Verified 12/26/18 16:30 - Social History Does the pt smoke?: No Smoking Status: Never smoker Does the pt drink ETOH?: No Does the pt have substance abuse?: No - Immunizations Immunizations are current?: Yes - POLST Patient has POLST: No POLST Status: Patient was in the process of completing an advanced directive but has not finished PD ED PE NORMAL - Vitals Vital signs reviewed: Yes - General General: Alert and oriented X 3, No acute distress - HEENT HEENT: PERRL, EOMI - Neck Neck: Supple, no meningeal sign, No bony TTP - Cardiac Cardiac: RRR, No murmur - Derm Derm: No rash - Extremities Extremities: No edema, No calf tenderness / cord - Neuro Neuro: Alert and oriented X 3, Normal speech Eye Opening: Spontaneous Motor: Obeys Commands Verbal: Oriented GCS Score: 15 - Psych Psych: Normal mood, Normal affect Results - Vitals Vitals: Vital Signs - 24 hr 12/26/18 12/26/18 12/26/18 16:22 18:15 19:10 Temperature 37.4 C 37 C Heart Rate 91 79 82 Respiratory 16 16 18 Rate Blood Pressure 95/56 L 107/65 104/68 O2 Saturation 96 96 98 Oxygen O2 Source [] Room air O2 Source Room air - EKG (time done) 1826 Rate: Rate (enter#) (76) Rhythm: NSR [place]: Normal Intervals: Normal IN QRS: Normal Ischemia: Q waves (anterior) Computer interpretation: Agree with computer PD MEDICAL DECISION MAKING - ED course ED course: This is a 58-year-old gentleman who presents with what seems most closely likely to be postconcussive syndrome. He was observed on the monitor without significant dysrhythmias or bradycardia's. Repeat head CT was done given persistent and severe headache which was negative. Departure - Departure Disposition: 01 Home, Self Care Clinical Impression: Dizziness, Post concussion syndrome Type 1 diabetes mellitus Qualifiers: Diabetes mellitus complication status: with unspecified complications Qualified Code(s): E10.8 - Type 1 diabetes mellitus with unspecified complications Closed head injury Qualifiers: Encounter type: initial encounter Qualified Code(s): S09.90XA - Unspecified injury of head, initial encounter Condition: Good Record reviewed to determine appropriate education?: Yes Instructions: Concussion Dc Prescriptions: Oxycodone HCl/Acetaminophen [Percocet 5-325 mg Tablet] 1 - 2 each PO Q6H PRN #10 tablet PRN Reason: pain Comments: Call your doctor to arrange a follow-up appointment, make the next available appointment. In the interim, return anytime if worse or if new symptoms develop.
--- NOTE | 2018-12-26 19:10 | CT Report ---
Reason: head inj Procedure Date: 12/26/2018 Accession Number: [id number] / [id number] Procedure: CT - HEAD WO CPT Code: FULL RESULT: EXAM: CT HEAD EXAM DATE: 12/26/2018 06:42 PM. CLINICAL HISTORY: Head injury. COMPARISON: HEAD W/O 12/24/2018 3:37 PM. TECHNIQUE: Multiaxial CT images were obtained from the foramen magnum to the vertex. Reformats: Sagittal and coronal. IV contrast: None. In accordance with CT protocol optimization, one or more of the following dose reduction techniques were utilized for this exam: automated exposure control, adjustment of mA and/or KV based on patient size, or use of iterative reconstructive technique. FINDINGS: Parenchyma: No intraparenchymal hemorrhage. No evidence of mass, midline shift, or CT findings of infarction. Salgado-white differentiation is distinct. Extraaxial Spaces: Normal for age. No subdural or epidural collections identified. Ventricles: Normal in size and position. Sinuses and Orbits: Imaged paranasal sinuses, orbits, and mastoids show no significant abnormality. Bones: No evidence of fracture or calvarial defect. Other: None. IMPRESSION: Stable negative head CT. RADIA
[2018-12-26 19:13] VITALS: BP 104/68
== END 2018-12-26 19:35 | disposition home or self-care (01) ==
LOC: ED 15:45
DX: F07.81 Postconcussional syndrome (principal); S09.90XA Unspecified injury of head, initial encounter; I11.0 Hypertensive heart disease with heart failure; I50.9 Heart failure, unspecified; I25.10 Atherosclerotic heart disease of native coronary artery without angina pectoris; E10.8 Type 1 diabetes mellitus with unspecified complications; Z95.5 Presence of coronary angioplasty implant and graft
CPT/HCPCS: 70450; 93005; 99283; 99284; A9270

== ENCOUNTER 2018-12-27 13:27 | Outpatient (CLI) | payer MEDICARE, MEDICAID ==
[2018-12-27 14:36] LABS: BILIRUBIN,URINE NEGATIVE (NEGATIVE); GLUCOSE, URINE (UA) 500 mg/dL (NEGATIVE); KETONES,URINE (UA) NEGATIVE (NEGATIVE); LEUKOCYTE ESTERASE, URINE NEGATIVE (NEGATIVE); NITRITE,URINE NEGATIVE (NEGATIVE); OCCULT BLOOD,URINE NEGATIVE (NEGATIVE); PH,URINE 5.5 PH (5.0-7.5); PROTEIN,URINE NEGATIVE (NEGATIVE); UROBILINOGEN,URINE 0.2 (NORMAL) E.U./dL (NORMAL)
[2018-12-27 14:37] LABS: CLARITY,URINE CLEAR (CLEAR)
[2018-12-27 14:47] LABS: BACTERIA,URINE None Seen /HPF (None Seen); CASTS, URINE 0-2 Fine Granular /LPF; RBC,URINE 0-5 /HPF (0-5); SQUAMOUS EPITHELIAL CELL,UR RARE Squamous (<= Few)
== END 2018-12-27 13:28 | disposition home or self-care (01) ==
LOC: LAB 13:27
PROVIDERS: ATTEND Internal Medicine
DX: R30.0 Dysuria (principal)
CPT/HCPCS: 81001; 87086

== ENCOUNTER 2019-01-06 09:24 | Outpatient (CLI) | payer MEDICARE, MEDICAID ==
[2019-01-06 13:15] LABS: ALBUMIN 3.7 g/dL (3.2-5.5); ALBUMIN/GLOBULIN RATIO 1.2 (1.0-2.2); ALKALINE PHOSPHATASE 91 IU/L (42-121); ALT ALANINE AMINOTRANSFERASE < 10 IU/L (10-60); AST ASPARTATE AMINOTRANSFERASE 14 IU/L (10-42); BILIRUBIN,TOTAL 0.6 mg/dL (0.2-1.0); BUN - BLOOD UREA NITROGEN 15 mg/dL (6-20); CREATININE 0.9 mg/dL (0.6-1.2); GFR - MDRD 87 (>89); TOTAL PROTEIN 6.9 g/dL (6.7-8.2)
[2019-01-06 13:27] LABS: CALCIUM 9.1 mg/dL (8.5-10.3); CARBON DIOXIDE - CO2 29 mmol/L (21-32); CHLORIDE 103 mmol/L (101-111); GLUCOSE 128 mg/dL (70-100); SODIUM 140 mmol/L (135-145)
[2019-01-06 14:52] LABS: HB2 TOTAL 13.2 g/dL; HEMOGLOBIN A1C 0.95 g/dL; HEMOGLOBIN A1C % 8.7 % (4.6-6.2)
== END 2019-01-06 09:25 | disposition home or self-care (01) ==
LOC: LAB.WCP 09:24
PROVIDERS: ATTEND Family Medicine
DX: E11.9 Type 2 diabetes mellitus without complications (principal); H91.20 Sudden idiopathic hearing loss, unspecified ear; I25.10 Atherosclerotic heart disease of native coronary artery without angina pectoris
CPT/HCPCS: 36415; 80053; 83036

== ENCOUNTER 2019-02-03 12:12 | Outpatient (CLI) | payer MEDICARE, MEDICAID ==
[2019-02-03 12:37] LABS: BASOPHILS # (AUTO) 0.1 10^3/uL (0.0-0.1); BASOPHILS % (AUTO) 0.6 %; EOSINOPHILS # (AUTO) 0.3 10^3/uL (0.0-0.7); EOSINOPHILS % (AUTO) 3.2 %; HGB - HEMOGLOBIN 13.1 g/dL (14.0-18.0); LYMPHOCYTES # (AUTO) 1.4 10^3/uL (1.5-3.5); MEAN CORPUSCULAR HEMOGLOBIN 28.9 pg (27.0-31.0); MEAN CORPUSCULAR HGB CONC 32.4 g/dL (32.0-36.0); MEAN CORPUSCULAR VOLUME 89.2 fL (80.0-94.0); MEAN PLATELET VOLUME 8.9 fL (7.4-11.4); MONOCYTES # (AUTO) 0.9 10^3/uL (0.0-1.0); MONOCYTES % (AUTO) 10.4 %; NEUTROPHILS # (AUTO) 6.1 10^3/uL (1.5-6.6); NEUTROPHILS % (AUTO) 69.8 %; PLT - PLATELET COUNT 238 10^3/uL (130-450); RED BLOOD COUNT 4.54 10^6/uL (4.70-6.10); RED CELL DISTRIBUTION WIDTH 14.3 % (12.0-15.0); WHITE BLOOD COUNT 8.7 x10^3/uL (4.8-10.8)
[2019-02-03 12:53] LABS: ALBUMIN 3.8 g/dL (3.2-5.5); ALBUMIN/GLOBULIN RATIO 1.2 (1.0-2.2); BILIRUBIN,TOTAL 0.5 mg/dL (0.2-1.0); CALCIUM 8.9 mg/dL (8.5-10.3); CREATININE 0.8 mg/dL (0.6-1.2); CRP - C-REACTIVE PROTEIN 1.7 mg/dL (0-1.0); TOTAL PROTEIN 7.1 g/dL (6.7-8.2)
== END 2019-02-03 12:13 | disposition home or self-care (01) ==
LOC: LAB 12:12
PROVIDERS: ATTEND Internal Medicine
DX: R78.81 Bacteremia (principal)
CPT/HCPCS: 36415; 80053; 85025; 85651; 86140

== ENCOUNTER 2019-02-08 08:00 | Outpatient (CLI) | payer MEDICARE, MEDICAID ==
[2019-02-08 12:49] LABS: CALCIUM 8.4 mg/dL (8.5-10.3); CREATININE 0.8 mg/dL (0.6-1.2)
[2019-02-08 12:50] LABS: HB2 TOTAL 13.6 g/dL; HEMOGLOBIN A1C 1.01 g/dL; HEMOGLOBIN A1C % 8.9 % (4.6-6.2)
[2019-02-08 19:26] LABS: MICROALBUM/CREATININE RATIO,UR 18.2 ug/mg (<30.0); MICROALBUMIN,URINE 0.4 mg/dL (0-300.0)
== END 2019-02-08 23:59 | disposition home or self-care (01) ==
LOC: LAB.WCP 08:00
PROVIDERS: ATTEND Family Medicine
DX: E11.9 Type 2 diabetes mellitus without complications (principal)
CPT/HCPCS: 36415; 80048; 82043; 82570; 83036